=== PATIENT | male | born 1970 | race Caucasian/White ===

== ENCOUNTER 2021-08-12 23:41 | Inpatient (IN) | payer OTHER, SELFPAY ==
[2021-08-13 01:53] VITALS: BP 116/86; PULSE 93; RESP 17; TEMP 36.5; O2SAT 96
--- NOTE | 2021-08-13 02:09 | PC.ADMIT ---
Patient is a 51 year old Angolan speaking male. He was admitted to [facility] by ambulance from [facility] Emergency Department on 08/13/21 at [id number] . He brought himself to the ER after reporting thoughts of SI with a plan to OD on his Clonidine, he reported drinking 2 liters of vodka before arriving at [facility] ER . He said he had been sober for 8 months but relapsed several days ago. He said he battles with depression and anxiety with increase SI indentions. He is currently homeless and has been living in his car, he is having feelings of hopelessness and feelings of fear of not being able to stop drinking feel like I cant stop the drinking mood is pleasant and cooperative denies AH ,SI and expresses regret of relapse. He is currently seeking help and wants to attend groups. He states he has a history of trauma, and said although he has never been diagnosis with PTSD he is sure he has the symptoms. He has a persistent cough with positive mucus and sore throat, Covid test was negative no record of chest xray.
[2021-08-13 06:00] VITALS: BP 121/84; PULSE 89; RESP 16; TEMP 36.4; O2SAT 97
[2021-08-13] MEDS: Nicotine Polacrilex 2 MG GUM 4 MG BUCCAL ×2 (06:24→11:53)
[2021-08-13] MEDS: risperiDONE 0.5 MG TABLET PO ×5 (06:24→19:35)
[2021-08-13] MEDS: LORazepam 1 MG TABLET PO ×3 (06:24→14:36)
[2021-08-13 14:25] VITALS: BP 131/95; O2SAT 116
[2021-08-13] MEDS: Venlafaxine HCl ER 75 MG CAP.ER.24H PO (14:26)
[2021-08-13] MEDS: cloNIDine HCL 0.1 MG TABLET PO ×2 (14:26→19:33)
--- NOTE | 2021-08-13 15:30 | P.HPPS_ITS ---
HPI Date of Service: 08/13/21 Chief Complaint: Anxiety d/o, depressive d/o, alcohol use d/o Sources of Information: patient interviewed, chart reviewed and crisis/core team assessment reviewed HPI Subjective Notes: [place] Warning and Conditional Voluntary Healthcare Proxy: No Guardianship: No Medical Problems Affecting Mental Status: No Narrative: 51 yo male, transfer from [facility], reporting SI in the context of alcohol relapse with a plan to overdose on clonidine. 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 BAL 261 after drinking 2 liters of vodka. Reports he is currently homeless, living in his car. He had been at [facility], left after 7 months when his employer told him he would be at risk of losing his job if he did not work more shifts Past Psychiatric History: IP: [facility] in [place], [place], [place], [place] Medications: Risperdal, Clonidine, Venlafaxine Medical Evaluation Reviewed: Yes [facility] Medical History (Updated 08/13/21 @ 19:44 by Teetee Wang, [employer]) Alcohol use disorder, severe, dependence Recurrent major depression-severe Narrative: HTN HLD HGB 17.2, BLS 108,covid-negative Family History: mother-depression father-anxiety paternal grandfather/4 paternal uncles-alcoholism Social History: Born and raised in [place], mother was a nurse at [facility]. One sister. Mom in 2006 Father, sister and stepmother are a support [employer] [phone] Substance History: alcohol, tobacco Trauma History: denies Diagnostics Vital Signs (24Hr): Vital Signs - 24 hr 08/13/21 01:53 08/13/21 06:00 08/13/21 14:25 Temperature 97.7 F 97.6 F Pulse Rate 93 89 Respiratory Rate 17 16 Blood Pressure 116/86 121/84 131/95 H Pulse Oximetry 96 97 116 H Oxygen Delivery Method Room Air Meds/Allergies Meds Home Medications Medication Instructions Recorded Confirmed Type clonidine HCl 0.1 mg tablet 1 tab PO TID 08/13/21 08/13/21 History risperidone 0.5 mg tablet 1 tab PO DAILY 08/13/21 08/13/21 History venlafaxine 75 mg capsule,extended 1 cap PO DAILY 08/13/21 08/13/21 History release 24 hr Allergies Allergies Allergy/AdvReac Type Severity Reaction Status Date / Time No Known Allergies Allergy Unverified 10/24/19 17:27 Mental Status Exam Mental Status Exam Patient Appearance: Appropriate Patient Orientation: Person, Place, Time and Situation Level of Consciousness: Alert Patient Behavior: Appropriate, Talkative, Cooperative, Isolative and Good Eye Contact Mood Description: Depressed Affect Description: Flat Patient Cognition Impaired: No Ability to Follow Directions: Good Speech Pattern: Spontaneous Speech and Soft-Spoken Memory Description: Intact Hallucinations: None Delusions: Not Present Thought Process: Rumination Thought Content: positive for Suicidal Ideation Depressive Symptoms: Increased Anxiety, Hopelessness, Feelings of Guilt, Thoughts of /Suicide and Low Self Esteem Judgement: Fair Assessment & Plan Assessment & Plan (1) Recurrent major depression-severe: Status: Acute Code(s): F33.2 - Major depressive disorder, recurrent severe without psychotic features (2) Alcohol use disorder, severe, dependence: Status: Acute Code(s): F10.20 - Alcohol dependence, uncomplicated Plan 51 yo male, hx of major depression, alcohol use disorder, recently sober 8 months with relapse and resulting SI. Plan: 1. Continue Venlafaxine, Risperdal, Clonidine 2. MVI i tab daily 3. Thiamine 100 mg daily 4. Lipid panel, A1C, TSH, FT4, B12 5. Encourage return to Campral or Naltrexone/Vivitrol Patient educated on: medication risk/benefits and therapeutic strategies Informed Consent: understands and further education needed Reason for continued inpatient stay Substantial Risk for: harm to self, rapid decompensation and med/psych decompensation
[2021-08-13 18:00] VITALS: BP 118/79; PULSE 85; RESP 16; TEMP 36.6; O2SAT 98
[2021-08-13] MEDS: LORazepam 1 MG TABLET 2 MG PO (19:34)
[2021-08-14 06:45] VITALS: BP 122/76; PULSE 113; RESP 18; TEMP 36.4; O2SAT 96
[2021-08-14] MEDS: LORazepam 1 MG TABLET 2 MG PO (07:10)
[2021-08-14] MEDS: hydrOXYzine HCL 25 MG TABLET PO (07:10)
[2021-08-14] MEDS: cloNIDine HCL 0.1 MG TABLET PO ×3 (08:46→19:42)
[2021-08-14] MEDS: risperiDONE 0.5 MG TABLET PO ×3 (08:46→19:43)
[2021-08-14] MEDS: Thiamine HCL 100 MG TABLET PO (08:46)
[2021-08-14] MEDS: Multivitamin TABLET 1 TAB PO (08:46)
[2021-08-14] MEDS: Venlafaxine HCl ER 75 MG CAP.ER.24H PO (08:46)
[2021-08-14 09:10] LABS: Estimated Average Glucose 103 mg/dL; Hemoglobin A1c % 5.2 %
[2021-08-14 09:17] LABS: Alanine Aminotransferase 23 U/L (0-40); Albumin Level 4.1 g/dL (3.5-5.0); Alkaline Phosphatase 65 U/L (39-117); Aspartate Amino Transferase 33 U/L (5-37); Bilirubin Direct 0.3 mg/dL (0.0-0.5); Bilirubin Total 0.8 mg/dL (0.0-1.0); Cholesterol 229 mg/dL; HDL Cholesterol 47 mg/dL; LDL Cholesterol Calculated 152 mg/dl; Total Protein 6.3 g/dL (6.5-8.0); Triglycerides 151 mg/dL
[2021-08-14 09:37] LABS: TSH reflex Free T4 0.59 uIU/mL (0.32-4.0)
--- NOTE | 2021-08-14 09:42 | P.PNPSI_ITS ---
Subjective Subjective Date of Service: 08/14/21 Reason For Visit: Anxiety d/o, depressive d/o, alcohol use d/o Subjective Notes: 3 Day Interim History: Patient reports that he is doing and feeling better. He says he sleeping and eating well and that his mood is okay. He denies any SI. Denies withdrawal symptoms and said that he only relapsed for 48 hours. 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 Patient asked about discharge and law writer discussed 3 day notice with him which he went and signed Staff reports the patient did have 1 significant memory loss, where he was planning to make a phone call and then completely for got about or that it was even discussed. Mental Status Exam Mental Status Exam Narrative: Pt is alert and oriented; behavior is cooperative, friendly and calm; patient is not in distress; dressed in hospital attire with adequate hygiene; mood is described as ok and affect congruent; eye contact appropriate; Speech is normal rate, volume and prosody and not pressured; no psychomotor agitation/retardation present; thought process is goal directed; Thought content is on tx, discharge; otherwise pertinent to relevant topics and without any delusional content, paranoid ideations or grandiosity; denies any SI/HI. There is no evidence of perceptual disturbance. Cognition: Patient did have 1 significant memory lapse today Patients insight and judgment appear intact. Diagnostics Vital Signs (24Hr): Vital Signs - 24 hr 08/13/21 14:25 08/13/21 18:00 08/14/21 06:45 Temperature 98 F 97.5 F Pulse Rate 85 113 H Respiratory Rate 16 18 Blood Pressure 131/95 H 118/79 122/76 Pulse Oximetry 116 H 98 96 Oxygen Delivery Method Room Air Room Air Labs Labs: Laboratory Results - last 48 hr 08/14/21 08/14/21 08/14/21 08:31 08:31 08:31 Estimat Average Glucose 103 Hemoglobin A1c % 5.2 Total Bilirubin 0.8 Direct Bilirubin 0.3 AST 33 ALT 23 Alkaline Phosphatase 65 Total Protein 6.3 L Albumin 4.1 Triglycerides 151 Cholesterol 229 LDL Cholesterol, Calc 152 HDL Cholesterol 47 TSH 0.59 Cancelled Medications Medications Current Medications Acetaminophen (Acetaminophen 325 Mg Tablet) 650 mg PO Q6H PRN PRN Reason: Headache/Pain Mild Scale (1-3) Al Hydroxide/Mg Hydroxide (Magnesium Hydrox/Alum Hydrox 30 Ml Oral.Susp) 30 ml PO Q6H PRN PRN Reason: Heartburn/Nausea Clonidine HCl (Clonidine Hcl 0.1 Mg Tablet) 0.1 mg PO TID [facility]; Protocol Last Admin: 08/14/21 08:46 Dose: 0.1 mg Hydroxyzine HCl (Hydroxyzine Hcl 25 Mg Tablet) 25 mg PO Q6H PRN PRN Reason: Anxiety Last Admin: 08/14/21 07:10 Dose: 25 mg Lorazepam (Lorazepam 1 Mg Tablet) 2 mg PO Q2H PRN PRN Reason: CIWA =/>13 Last Admin: 08/14/21 07:10 Dose: 2 mg Lorazepam (Lorazepam 1 Mg Tablet) 1 mg PO Q2H PRN PRN Reason: CIWA 8-12 Last Admin: 08/13/21 14:36 Dose: 1 mg Magnesium Hydroxide (Milk Of Magnesia 30 Ml Oral.Susp) 30 ml PO DAILY PRN PRN Reason: Constipation Multivitamins/Vitamin C (Multivitamin Tablet) 1 tab PO DAILY [facility] Last Admin: 08/14/21 08:46 Dose: 1 tab Nicotine Polacrilex (Nicotine Polacrilex 2 Mg Gum) 4 mg BUCCAL Q2H PRN PRN Reason: Nicotine Cravings Last Admin: 08/13/21 11:53 Dose: 4 mg Risperidone (Risperidone 0.5 Mg Tablet) 0.5 mg PO Q4H PRN PRN Reason: anxiety/agitation Last Admin: 08/13/21 19:34 Dose: 0.5 mg Risperidone (Risperidone 0.5 Mg Tablet) 0.5 mg PO TID [facility] Last Admin: 08/14/21 08:46 Dose: 0.5 mg Thiamine HCl (Thiamine Hcl 100 Mg Tablet) 100 mg PO DAILY [facility] Last Admin: 08/14/21 08:46 Dose: 100 mg Trazodone HCl (Trazodone Hcl 50 Mg Tablet) 50 mg PO BEDTIME PRN PRN Reason: Insomnia Venlafaxine HCl (Venlafaxine Hcl Er 75 Mg Cap.Er.24h) 75 mg PO DAILY [facility] Last Admin: 08/14/21 08:46 Dose: 75 mg Allergies Allergies Allergy/AdvReac Type Severity Reaction Status Date / Time No Known Allergies Allergy Unverified 10/24/19 17:27 Assessment & Plan Assessment & Plan (1) Recurrent major depression-severe: Status: Acute Code(s): F33.2 - Major depressive disorder, recurrent severe without psychotic features (2) Alcohol use disorder, severe, dependence: Status: Acute Code(s): F10.20 - Alcohol dependence, uncomplicated Plan 51 yo male, hx of major depression, alcohol use disorder, recently sober 8 months with relapse for 48 hours and resulting SI. Plan: 1. Continue Venlafaxine, Risperdal, Clonidine 2. MVI i tab daily 3. Thiamine 100 mg daily 4. Lipid panel, A1C, TSH, FT4, B12 5. Encourage return to Campral or Naltrexone/Vivitrol 08/14 no changes to current regimen Patient placed 3 day notice Patient did have 1 significant memory lapse today I spent minutes with the patient and/or on the patient floor today, greater than?50% of which was spent counseling/coordinating care. Patient educated on: substance abuse Informed Consent: understands Reason for contiued inpatient stay Substantial Risk for: rapid decompensation
--- NOTE | 2021-08-14 14:40 | PC.NURSE ---
3 day up on MondayAugust 18 , SW, UR aware
[2021-08-14] MEDS: Nicotine Polacrilex 2 MG GUM 4 MG BUCCAL (15:39)
[2021-08-14 19:20] VITALS: BP 119/79; PULSE 95; TEMP 36.1
[2021-08-14] MEDS: Acetaminophen 325 MG TABLET 650 MG PO (19:45)
[2021-08-14] MEDS: traZODone HCL 50 MG TABLET PO (19:46)
[2021-08-15] MEDS: cloNIDine HCL 0.1 MG TABLET PO ×3 (08:27→19:53)
[2021-08-15] MEDS: risperiDONE 0.5 MG TABLET PO ×3 (08:31→19:53)
[2021-08-15] MEDS: Multivitamin TABLET 1 TAB PO (08:31)
[2021-08-15] MEDS: Venlafaxine HCl ER 75 MG CAP.ER.24H PO (08:31)
[2021-08-15] MEDS: Thiamine HCL 100 MG TABLET PO (08:31)
[2021-08-15 08:34] VITALS: BP 126/84; PULSE 98; TEMP 36.3; O2SAT 96
[2021-08-15] MEDS: Nicotine Polacrilex 2 MG GUM 4 MG BUCCAL (11:26)
[2021-08-15 14:48] VITALS: BP 116/86; PULSE 103
[2021-08-15] MEDS: hydrOXYzine HCL 25 MG TABLET PO (14:48)
--- NOTE | 2021-08-15 16:35 | HO.PSYCHPN ---
Subjective Subjective Date of Service: 08/15/21 Reason For Visit: Anxiety d/o, depressive d/o, alcohol use d/o Interim History: Patient reports that he is doing well, mood is good no SI. He said he had a little SI just prior to admission but that was only when he was intoxicated and was just thoughts, no plans or intentions. 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 He very much wants to go back there as soon as possible. No withdrawal symptoms. Discussed Vivitrol which he says he has been on before and was only very minimally helpful and does not want to restart. Patient said that being open about his sobriety in cravings is the best way for him to stay sober; he very much regrets relapse and wishes he was more open the day he went and drank, however he is also grateful that it was a very short, 2 day relapse. Memory and cognition intact today Mental Status Exam Mental Status Exam Narrative: Pt is alert and oriented; behavior is cooperative, friendly and calm; patient is not in distress; dressed in hospital attire with adequate hygiene; mood is described as good and affect congruent; eye contact appropriate; Speech is normal rate, volume and prosody and not pressured; no psychomotor agitation/retardation present; thought process is goal directed; Thought content is on tx, discharge; otherwise pertinent to relevant topics and without any delusional content, paranoid ideations or grandiosity; denies any SI/HI. There is no evidence of perceptual disturbance. Cognition: intact; no issues today; Patients insight and judgment appear intact. Diagnostics Vital Signs (24Hr): Vital Signs - 24 hr 08/14/21 19:20 08/15/21 08:34 08/15/21 14:48 Temperature 97.0 F 97.4 F Pulse Rate 95 98 103 H Blood Pressure 119/79 126/84 116/86 Pulse Oximetry 96 Oxygen Delivery Method Room Air Labs Labs: Laboratory Results - last 48 hr 08/14/21 08/14/21 08/14/21 08:31 08:31 08:31 Estimat Average Glucose 103 Hemoglobin A1c % 5.2 Total Bilirubin 0.8 Direct Bilirubin 0.3 AST 33 ALT 23 Alkaline Phosphatase 65 Total Protein 6.3 L Albumin 4.1 Triglycerides 151 Cholesterol 229 LDL Cholesterol, Calc 152 HDL Cholesterol 47 TSH 0.59 Cancelled Medications Medications Current Medications Acetaminophen (Acetaminophen 325 Mg Tablet) 650 mg PO Q6H PRN PRN Reason: Headache/Pain Mild Scale (1-3) Last Admin: 08/14/21 19:45 Dose: 650 mg Al Hydroxide/Mg Hydroxide (Magnesium Hydrox/Alum Hydrox 30 Ml Oral.Susp) 30 ml PO Q6H PRN PRN Reason: Heartburn/Nausea Clonidine HCl (Clonidine Hcl 0.1 Mg Tablet) 0.1 mg PO TID [facility]; Protocol Last Admin: 08/15/21 14:40 Dose: 0.1 mg Hydroxyzine HCl (Hydroxyzine Hcl 25 Mg Tablet) 25 mg PO Q6H PRN PRN Reason: Anxiety Last Admin: 08/15/21 14:48 Dose: 25 mg Lorazepam (Lorazepam 1 Mg Tablet) 2 mg PO Q2H PRN PRN Reason: CIWA =/>13 Last Admin: 08/14/21 07:10 Dose: 2 mg Lorazepam (Lorazepam 1 Mg Tablet) 1 mg PO Q2H PRN PRN Reason: CIWA 8-12 Last Admin: 08/13/21 14:36 Dose: 1 mg Magnesium Hydroxide (Milk Of Magnesia 30 Ml Oral.Susp) 30 ml PO DAILY PRN PRN Reason: Constipation Multivitamins/Vitamin C (Multivitamin Tablet) 1 tab PO DAILY [facility] Last Admin: 08/15/21 08:31 Dose: 1 tab Nicotine Polacrilex (Nicotine Polacrilex 2 Mg Gum) 4 mg BUCCAL Q2H PRN PRN Reason: Nicotine Cravings Last Admin: 08/15/21 11:26 Dose: 4 mg Risperidone (Risperidone 0.5 Mg Tablet) 0.5 mg PO Q4H PRN PRN Reason: anxiety/agitation Last Admin: 08/13/21 19:34 Dose: 0.5 mg Risperidone (Risperidone 0.5 Mg Tablet) 0.5 mg PO TID [facility] Last Admin: 08/15/21 14:40 Dose: 0.5 mg Thiamine HCl (Thiamine Hcl 100 Mg Tablet) 100 mg PO DAILY [facility] Last Admin: 08/15/21 08:31 Dose: 100 mg Trazodone HCl (Trazodone Hcl 50 Mg Tablet) 50 mg PO BEDTIME PRN PRN Reason: Insomnia Last Admin: 08/14/21 19:46 Dose: 50 mg Venlafaxine HCl (Venlafaxine Hcl Er 75 Mg Cap.Er.24h) 75 mg PO DAILY [facility] Last Admin: 08/15/21 08:31 Dose: 75 mg Allergies Allergies Allergy/AdvReac Type Severity Reaction Status Date / Time No Known Allergies Allergy Unverified 10/24/19 17:27 Assessment & Plan Assessment & Plan (1) Recurrent major depression-severe: Status: Acute Code(s): F33.2 - Major depressive disorder, recurrent severe without psychotic features (2) Alcohol use disorder, severe, dependence: Status: Acute Code(s): F10.20 - Alcohol dependence, uncomplicated Plan 51 yo male, hx of major depression, alcohol use disorder, recently sober 8 months with relapse for 48 hours and resulting SI. Plan: 1. Continue Venlafaxine, Risperdal, Clonidine 2. MVI i tab daily 3. Thiamine 100 mg daily 4. Lipid panel, A1C, TSH, FT4, B12 5. Encourage return to Campral or Naltrexone/Vivitrol 08/14 no changes to current regimen Patient placed 3 day notice Patient did have 1 significant memory lapse today 08/15 continue current medication regimen; cognition appears intact today. Three day notice patient hoping for discharge early next week Does not want naltrexone/Vivitrol saying it was very minimally helpful I spent minutes with the patient and/or on the patient floor today, greater than?50% of which was spent counseling/coordinating care. Patient educated on: diagnosis, medication risk/benefits, substance abuse and therapeutic strategies Informed Consent: understands Reason for contiued inpatient stay Substantial Risk for: stable for discharge
[2021-08-15] MEDS: Nicotine 21 MG PATCH.TD24 TRANSDERMA (17:45)
[2021-08-15 20:00] VITALS: BP 133/95; PULSE 100
[2021-08-15] MEDS: traZODone HCL 50 MG TABLET PO (20:02)
[2021-08-16] MEDS: hydrOXYzine HCL 25 MG TABLET PO ×2 (05:33→18:17)
[2021-08-16] MEDS: Venlafaxine HCl ER 75 MG CAP.ER.24H PO (08:32)
[2021-08-16] MEDS: risperiDONE 0.5 MG TABLET PO ×3 (08:32→20:41)
[2021-08-16] MEDS: Nicotine 21 MG PATCH.TD24 TRANSDERMA (08:32)
[2021-08-16] MEDS: Multivitamin TABLET 1 TAB PO (08:32)
[2021-08-16] MEDS: Thiamine HCL 100 MG TABLET PO (08:32)
[2021-08-16] MEDS: cloNIDine HCL 0.1 MG TABLET PO ×3 (08:32→20:40)
[2021-08-16 09:00] VITALS: BP 116/79; PULSE 77; RESP 16; O2SAT 98
[2021-08-16 10:38] LABS: Folate 5.8 ng/mL (> or = 4.0); Vitamin B12 394 pg/mL (200-900)
--- NOTE | 2021-08-16 15:55 | HO.PSYCHPN ---
Subjective Subjective Date of Service: 08/16/21 Reason For Visit: Anxiety d/o, depressive d/o, alcohol use d/o Subjective Notes: Conditional Voluntary Healthcare Proxy: No Guardianship: No Medical Problems Affecting Mental Status: No Interim History: Tolerating regime. Has filed a three day notice to 08/18. Declines Naltrexone/Vivitrol assistance. Discussed increasing Venlafaxine which he is interested in doing. Denies any history of marilou. Education provided on side effects and if marilou is emerging as a side effect. Planning to return to [facility]-worried about facing people there- I need to tell them I failed. . Medication Compliance: Yes Side effects from medications: No Attending Groups: Intermittent Review of Systems Acute medical concerns: No Medical Review of Systems: unchanged Review of Systems Psychiatric: Reports anxiety Mental Status Exam Mental Status Exam Patient Appearance: Appropriate Patient Orientation: Person, Place, Time and Situation Level of Consciousness: Alert Patient Behavior: Appropriate, Talkative, Cooperative and Good Eye Contact Mood Description: Apprehensive Affect Description: Apprehensive Patient Cognition Impaired: No Ability to Follow Directions: Good Speech Pattern: Spontaneous Speech Memory Description: Intact Hallucinations: None Delusions: Not Present Thought Content: positive for Intact and positive for Goal Oriented Depressive Symptoms: Increased Anxiety Abnormal Motor Activity Signs and Symptoms: Restlessness Judgement: Good Diagnostics Vital Signs (24Hr): Vital Signs - 24 hr 08/15/21 20:00 08/16/21 09:00 Pulse Rate 100 77 Respiratory Rate 16 Blood Pressure 133/95 H 116/79 Pulse Oximetry 98 Oxygen Delivery Method Room Air Labs Labs: Laboratory Results - last 48 hr 08/14/21 08:31 Vitamin B12 394 Folate 5.8 Medications Medications Current Medications Acetaminophen (Acetaminophen 325 Mg Tablet) 650 mg PO Q6H PRN PRN Reason: Headache/Pain Mild Scale (1-3) Last Admin: 08/14/21 19:45 Dose: 650 mg Al Hydroxide/Mg Hydroxide (Magnesium Hydrox/Alum Hydrox 30 Ml Oral.Susp) 30 ml PO Q6H PRN PRN Reason: Heartburn/Nausea Clonidine HCl (Clonidine Hcl 0.1 Mg Tablet) 0.1 mg PO TID [facility]; Protocol Last Admin: 08/16/21 15:19 Dose: 0.1 mg Hydroxyzine HCl (Hydroxyzine Hcl 25 Mg Tablet) 25 mg PO Q6H PRN PRN Reason: Anxiety Last Admin: 08/16/21 05:33 Dose: 25 mg Lorazepam (Lorazepam 1 Mg Tablet) 2 mg PO Q2H PRN PRN Reason: CIWA =/>13 Last Admin: 08/14/21 07:10 Dose: 2 mg Lorazepam (Lorazepam 1 Mg Tablet) 1 mg PO Q2H PRN PRN Reason: CIWA 8-12 Last Admin: 08/13/21 14:36 Dose: 1 mg Magnesium Hydroxide (Milk Of Magnesia 30 Ml Oral.Susp) 30 ml PO DAILY PRN PRN Reason: Constipation Multivitamins/Vitamin C (Multivitamin Tablet) 1 tab PO DAILY [facility] Last Admin: 08/16/21 08:32 Dose: 1 tab Nicotine (Nicotine 21 Mg Patch.Td24) 21 mg TRANSDERMA DAILY [facility] Last Admin: 08/16/21 08:32 Dose: 21 mg Nicotine Polacrilex (Nicotine Polacrilex 2 Mg Gum) 4 mg BUCCAL Q2H PRN PRN Reason: Nicotine Cravings Last Admin: 08/15/21 11:26 Dose: 4 mg Risperidone (Risperidone 0.5 Mg Tablet) 0.5 mg PO Q4H PRN PRN Reason: anxiety/agitation Last Admin: 08/13/21 19:34 Dose: 0.5 mg Risperidone (Risperidone 0.5 Mg Tablet) 0.5 mg PO TID [facility] Last Admin: 08/16/21 15:19 Dose: 0.5 mg Thiamine HCl (Thiamine Hcl 100 Mg Tablet) 100 mg PO DAILY [facility] Last Admin: 08/16/21 08:32 Dose: 100 mg Trazodone HCl (Trazodone Hcl 50 Mg Tablet) 50 mg PO BEDTIME PRN PRN Reason: Insomnia Last Admin: 08/15/21 20:02 Dose: 50 mg Venlafaxine HCl (Venlafaxine Hcl Er 150 Mg Cap.Er.24h) 150 mg PO DAILY [facility] Allergies Allergies Allergy/AdvReac Type Severity Reaction Status Date / Time No Known Allergies Allergy Unverified 10/24/19 17:27 Assessment & Plan Assessment & Plan (1) Recurrent major depression-severe: Status: Acute Code(s): F33.2 - Major depressive disorder, recurrent severe without psychotic features (2) Alcohol use disorder, severe, dependence: Status: Acute Code(s): F10.20 - Alcohol dependence, uncomplicated Plan 51 yo male, hx of major depression, alcohol use disorder, recently sober 8 months with relapse for 48 hours and resulting SI. Plan: 1. Continue Venlafaxine, Risperdal, Clonidine 2. MVI i tab daily 3. Thiamine 100 mg daily 4. Lipid panel, A1C, TSH, FT4, B12 5. Encourage return to Campral or Naltrexone/Vivitrol 08/14 no changes to current regimen Patient placed 3 day notice Patient did have 1 significant memory lapse today 08/15 continue current medication regimen; cognition appears intact today. Three day notice patient hoping for discharge early next week Does not want naltrexone/Vivitrol saying it was very minimally helpful 08/16/21 Increase Venlafaxine XR to 150 mg daily Discharge tentative for 08/18/21. I spent minutes with the patient and/or on the patient floor today, greater than?50% of which was spent counseling/coordinating care. Patient educated on: medication risk/benefits and therapeutic strategies Informed Consent: understands Reason for contiued inpatient stay Substantial Risk for: rapid decompensation
[2021-08-16 18:00] VITALS: BP 109/81; PULSE 93; RESP 16; TEMP 37.2; O2SAT 97
[2021-08-16] MEDS: Acetaminophen 325 MG TABLET 650 MG PO (18:17)
[2021-08-16 20:40] VITALS: BP 113/65; PULSE 91
[2021-08-16] MEDS: traZODone HCL 50 MG TABLET PO (20:41)
[2021-08-17 06:00] VITALS: BP 118/81; PULSE 75; RESP 16; O2SAT 97
[2021-08-17] MEDS: Venlafaxine HCl ER 150 MG CAP.ER.24H PO (08:34)
[2021-08-17] MEDS: Multivitamin TABLET 1 TAB PO (08:34)
[2021-08-17] MEDS: Thiamine HCL 100 MG TABLET PO (08:34)
[2021-08-17] MEDS: Nicotine 21 MG PATCH.TD24 TRANSDERMA (08:35)
[2021-08-17] MEDS: risperiDONE 0.5 MG TABLET PO ×3 (08:35→20:03)
[2021-08-17] MEDS: cloNIDine HCL 0.1 MG TABLET PO ×3 (08:35→20:03)
--- NOTE | 2021-08-17 12:32 | HO.PSYCHPN ---
Subjective Subjective Date of Service: 08/17/21 Reason For Visit: Anxiety d/o, depressive d/o, alcohol use d/o Subjective Notes: Conditional Voluntary Healthcare Proxy: No Guardianship: No Medical Problems Affecting Mental Status: No Interim History: Tolerating Venlafaxine titration, reports feeling improved. Discussed returning to his program and how helpful structure is for him. Thinking about the root cause of his relapse and his cycle of drinking, fainting, awakening to drink. [phone]. Meds will be available for pt upon his arrival after discharge tomorrow. Reports feeling prepared for discharge, however, apprehensive about what to say to his peers upon his return. Medication Compliance: Yes Side effects from medications: No Attending Groups: Yes Review of Systems Acute medical concerns: No Medical Review of Systems: unchanged Review of Systems Psychiatric: Reports no additional psychiatric complaints Mental Status Exam Mental Status Exam Patient Appearance: Appropriate Patient Orientation: Person, Place, Time and Situation Level of Consciousness: Alert Patient Behavior: Appropriate, Talkative, Cooperative and Good Eye Contact Mood Description: Apprehensive Affect Description: Apprehensive Patient Cognition Impaired: No Ability to Follow Directions: Good Speech Pattern: Spontaneous Speech Memory Description: Intact Hallucinations: None Delusions: Not Present Thought Content: positive for Intact and positive for Goal Oriented Depressive Symptoms: Increased Anxiety Abnormal Motor Activity Signs and Symptoms: Restlessness Judgement: Good Diagnostics Vital Signs (24Hr): Vital Signs - 24 hr 08/16/21 18:00 08/16/21 20:40 08/17/21 06:00 Temperature 98.9 F Pulse Rate 93 91 75 Respiratory Rate 16 16 Blood Pressure 109/81 113/65 118/81 Pulse Oximetry 97 97 Oxygen Delivery Method Room Air Room Air Labs Labs: Laboratory Results - last 48 hr 08/14/21 08:31 Vitamin B12 394 Folate 5.8 Medications Medications Current Medications Acetaminophen (Acetaminophen 325 Mg Tablet) 650 mg PO Q6H PRN PRN Reason: Headache/Pain Mild Scale (1-3) Last Admin: 08/16/21 18:17 Dose: 650 mg Al Hydroxide/Mg Hydroxide (Magnesium Hydrox/Alum Hydrox 30 Ml Oral.Susp) 30 ml PO Q6H PRN PRN Reason: Heartburn/Nausea Clonidine HCl (Clonidine Hcl 0.1 Mg Tablet) 0.1 mg PO TID [facility]; Protocol Last Admin: 08/17/21 08:35 Dose: 0.1 mg Hydroxyzine HCl (Hydroxyzine Hcl 25 Mg Tablet) 25 mg PO Q6H PRN PRN Reason: Anxiety Last Admin: 08/16/21 18:17 Dose: 25 mg Lorazepam (Lorazepam 1 Mg Tablet) 2 mg PO Q2H PRN PRN Reason: CIWA =/>13 Last Admin: 08/14/21 07:10 Dose: 2 mg Lorazepam (Lorazepam 1 Mg Tablet) 1 mg PO Q2H PRN PRN Reason: CIWA 8-12 Last Admin: 08/13/21 14:36 Dose: 1 mg Magnesium Hydroxide (Milk Of Magnesia 30 Ml Oral.Susp) 30 ml PO DAILY PRN PRN Reason: Constipation Multivitamins/Vitamin C (Multivitamin Tablet) 1 tab PO DAILY [facility] Last Admin: 08/17/21 08:34 Dose: 1 tab Nicotine (Nicotine 21 Mg Patch.Td24) 21 mg TRANSDERMA DAILY [facility] Last Admin: 08/17/21 08:35 Dose: 21 mg Nicotine Polacrilex (Nicotine Polacrilex 2 Mg Gum) 4 mg BUCCAL Q2H PRN PRN Reason: Nicotine Cravings Last Admin: 08/15/21 11:26 Dose: 4 mg Risperidone (Risperidone 0.5 Mg Tablet) 0.5 mg PO Q4H PRN PRN Reason: anxiety/agitation Last Admin: 08/13/21 19:34 Dose: 0.5 mg Risperidone (Risperidone 0.5 Mg Tablet) 0.5 mg PO TID [facility] Last Admin: 08/17/21 08:35 Dose: 0.5 mg Thiamine HCl (Thiamine Hcl 100 Mg Tablet) 100 mg PO DAILY [facility] Last Admin: 08/17/21 08:34 Dose: 100 mg Trazodone HCl (Trazodone Hcl 50 Mg Tablet) 50 mg PO BEDTIME PRN PRN Reason: Insomnia Last Admin: 08/16/21 20:41 Dose: 50 mg Venlafaxine HCl (Venlafaxine Hcl Er 150 Mg Cap.Er.24h) 150 mg PO DAILY [facility] Last Admin: 08/17/21 08:34 Dose: 150 mg Allergies Allergies Allergy/AdvReac Type Severity Reaction Status Date / Time No Known Allergies Allergy Unverified 10/24/19 17:27 Assessment & Plan Assessment & Plan (1) Recurrent major depression-severe: Status: Acute Code(s): F33.2 - Major depressive disorder, recurrent severe without psychotic features (2) Alcohol use disorder, severe, dependence: Status: Acute Code(s): F10.20 - Alcohol dependence, uncomplicated Plan 51 yo male, hx of major depression, alcohol use disorder, recently sober 8 months with relapse for 48 hours and resulting SI. Plan: 1. Continue Venlafaxine, Risperdal, Clonidine 2. MVI i tab daily 3. Thiamine 100 mg daily 4. Lipid panel, A1C, TSH, FT4, B12 5. Encourage return to Campral or Naltrexone/Vivitrol 08/14 no changes to current regimen Patient placed 3 day notice Patient did have 1 significant memory lapse today 08/15 continue current medication regimen; cognition appears intact today. Three day notice patient hoping for discharge early next week Does not want naltrexone/Vivitrol saying it was very minimally helpful 08/17/21 Continue current regime Discharge 08/18/21. I spent minutes with the patient and/or on the patient floor today, greater than?50% of which was spent counseling/coordinating care. Patient educated on: therapeutic strategies Informed Consent: understands Reason for contiued inpatient stay Substantial Risk for: harm to self, inability to function and rapid decompensation
[2021-08-17] MEDS: hydrOXYzine HCL 25 MG TABLET PO (13:39)
[2021-08-17 18:00] VITALS: BP 128/97; PULSE 88; RESP 18; TEMP 36.3; O2SAT 97
[2021-08-17] MEDS: traZODone HCL 50 MG TABLET PO (20:03)
[2021-08-18] MEDS: Venlafaxine HCl ER 150 MG CAP.ER.24H PO (08:35)
[2021-08-18] MEDS: risperiDONE 0.5 MG TABLET PO (08:35)
[2021-08-18] MEDS: Thiamine HCL 100 MG TABLET PO (08:35)
[2021-08-18] MEDS: cloNIDine HCL 0.1 MG TABLET PO ×2 (08:35→11:09)
[2021-08-18] MEDS: Multivitamin TABLET 1 TAB PO (08:35)
[2021-08-18 08:37] VITALS: BP 121/77; PULSE 66; RESP 18; TEMP 36.5; O2SAT 98
[2021-08-18] MEDS: Nicotine 21 MG PATCH.TD24 TRANSDERMA (08:38)
[2021-08-18] MEDS: hydrOXYzine HCL 25 MG TABLET PO (09:24)
--- NOTE | 2021-08-18 10:36 | P.DS_ITS ---
DS: Providers Provider Date of Service: 08/18/21 Date of admission: 08/12/21 23:41 Date of discharge: 08/18/21 Primary care physician: Unknown Physician Admitting clinician: Teetee Wang Attending physician on admission: Mau Kessler Consults: 08/13/21 04:41 Consult to Hospitalist Routine Consulting Provider: Hospitalist Reason For Exam: transfer from [facility] Attending physician on discharge: Mau Kessler Discharging clinician: Teetee Wang DS: Diagnosis Discharge Diagnosis (1) Recurrent major depression-severe: Status: Acute (2) Alcohol use disorder, severe, dependence: Status: Acute DS: Medications Discharge Medications Home Medications: Previous Rx's Medication Instructions Recorded clonidine HCl 0.1 mg tablet 1 tab PO TID #90 tabs 08/17/21 multivitamin (Daily-Kimmie) 1 tab PO DAILY #30 tabs 08/17/21 nicotine (polacrilex) 2 mg gum 4 mg buccal Q2H PRN Nicotine 08/17/21 Cravings #60 ea nicotine 21 mg/24 hr daily 21 mg transdermal DAILY #30 ea 08/17/21 transdermal patch risperidone 0.5 mg tablet 0.5 mg PO TID #90 tabs 08/17/21 thiamine mononitrate (vit B1) 100 100 mg PO DAILY #30 tabs 08/17/21 mg tablet venlafaxine 150 mg 150 mg PO DAILY #30 caps 08/17/21 capsule,extended release 24 hr Mental Status Exam Mental Status Exam Patient Appearance: Appropriate Patient Orientation: Person, Place, Time and Situation Level of Consciousness: Alert Patient Behavior: Appropriate, Talkative, Cooperative and Good Eye Contact Mood Description: Apprehensive Affect Description: Apprehensive Patient Cognition Impaired: No Ability to Follow Directions: Good Speech Pattern: Spontaneous Speech Memory Description: Intact Hallucinations: None Delusions: Not Present Thought Content: positive for Intact and positive for Goal Oriented Depressive Symptoms: Increased Anxiety Abnormal Motor Activity Signs and Symptoms: Restlessness Judgement: Good Data Data Completed and Pending Completed studies during hospitalization [Text1]: 08/14/21 08/14/21 08/14/21 08:31 08:31 08:31 Estimat Average Glucose 103 Hemoglobin A1c % 5.2 Total Bilirubin 0.8 Direct Bilirubin 0.3 AST 33 ALT 23 Alkaline Phosphatase 65 Total Protein 6.3 L Albumin 4.1 Triglycerides 151 Cholesterol 229 LDL Cholesterol, Calc 152 HDL Cholesterol 47 Vitamin B12 394 Folate 5.8 TSH 0.59 08/14/21 08:31 Estimat Average Glucose Hemoglobin A1c % Total Bilirubin Direct Bilirubin AST ALT Alkaline Phosphatase Total Protein Albumin Triglycerides Cholesterol LDL Cholesterol, Calc HDL Cholesterol Vitamin B12 Folate TSH Cancelled DS: Summary Hospital Course Hospital Course: Admission to adult psychiatry for exacerbation of severe recurrent major depression and a break in sobriety after a recent transition to sober living situation from [facility]. Risperdal and Venlafaxine were increased, Clonidine was added, along with Multivitamin and Thiamine. Fabien will return to [place] and feels well known and comfortable with this plan. Time spent discussing smoking cessation with patient: 3 to 10 minutes Status at Discharge Functional status at discharge: independent ambulation Overall status at discharge: patient is back to baseline Time Spent with Patient Time attestation: Total time spent providing and/or coordinating discharge services: Time spent: Greater than 30 minutes Discharge Plan Discharge Patient Disposition: Xfer Other Discharge Diagnosis: Recurrent Major Depression, Severe Alcohol Use Disorder, Severe, Dependence Referrals: Jonatan Garza at [facility] [Other] - 08/18/21 2:30 pm (Dual Diagnosis (substance use treatment/mental health treatment) program ) [facility] [Other] (walk in if needed) Discharge Medications: New multivitamin [Daily-Kimmie] Tablet 1 tab PO DAILY Qty: 30 0RF nicotine (polacrilex) 2 mg Gum 4 mg buccal Q2H PRN (Reason: Nicotine Cravings) Qty: 60 0RF venlafaxine 150 mg Capsule,Extended Release 24hr 150 mg PO DAILY Qty: 30 0RF nicotine 21 mg/24 hr Patch 24 Hour 21 mg transdermal DAILY Qty: 30 0RF risperidone 0.5 mg Tablet 0.5 mg PO TID Qty: 90 0RF thiamine mononitrate (vit B1) 100 mg Tablet 100 mg PO DAILY Qty: 30 0RF Continued clonidine HCl 0.1 mg tablet 1 tab PO TID Qty: 90 0RF Discontinued venlafaxine 75 mg capsule,extended release 24hr 1 cap PO DAILY risperidone 0.5 mg tablet 1 tab PO DAILY Discharge Orders: Discharge Order (Routine); Ordered 08/18/21 Ordered By: Teetee Wang Diet: Advance to usual diet Activity on Discharge: As tolerated Stand Alone Forms: Patient Portal Discharge page, Community Support Care Plan Goals: Stabilization of Mood Work on Sobriety Health Concerns: Recurrent Major Depression, Severe Alcohol Use Disorder, Severe, Dependence Plan of Treatment: Attend follow up appointments Take medications as directed Attend AA Work on maintaining sobriety Stay involved, engaged and active Practice coping skills Call and/or return as needed Assessment: non-suicidal non-psychotic relieved to return to a program who knows him and who he feels understand his needs. Discharge Date/Time: 08/18/21 13:00
[2021-08-18 11:10] VITALS: BP 134/85; PULSE 100
== END 2021-08-18 13:00 | disposition other institution (70) | DRG 751 ==
PROVIDERS: Admitting Provider Psychiatry & Neurology Psychiatry; Visit Provider Clinical Nurse Specialist Psychiatric/Mental Health, Adult
DX: F33.2 Major depressive disorder, recurrent severe without psychotic features (principal); R45.851 Suicidal ideations; F17.210 Nicotine dependence, cigarettes, uncomplicated; F10.20 Alcohol dependence, uncomplicated; Y90.8 Blood alcohol level of 240 mg/100 ml or more; Z59.02 Unsheltered homelessness; Z71.6 Tobacco abuse counseling; Z79.899 Other long term (current) drug therapy
CPT/HCPCS: 36415; 80061; 80076; 82607; 82746; 83036; 84443

== ENCOUNTER 2021-10-19 06:30 | Emergency (ER) | payer MEDICAID, SELFPAY ==
--- NOTE | 2021-10-19 06:34 | ED_ITS ---
HPI - Psych General Chief Complaint: Psychiatric Symptoms Stated Complaint: SECTION 12, +SI Time Seen by Provider: 10/19/21 06:33 Source: patient Mode of arrival: EMS Limitations: no limitations History of Present Illness MD complaint: suicidal ideation and feels depressed Onset (ago): day(s) (2) Duration: getting worse History of same: Yes Relieving factors: none Exacerbating factors: alcohol Context: recent alcohol abuse Associated psychiatric symptoms: depression and suicidal ideation Associated symptoms: denies other symptoms Treatments prior to arrival: placed on mental health hold If self harm: admits thoughts of self harm and has plan Related Data Previous Rx's Medication Instructions Recorded clonidine HCl 0.1 mg tablet 1 tab PO TID #90 tabs 08/17/21 multivitamin (Daily-Kimmie tablet) 1 tab PO DAILY #30 tabs 08/17/21 nicotine (polacrilex) 2 mg gum 4 mg buccal Q2H PRN Nicotine 08/17/21 Cravings #60 ea nicotine 21 mg/24 hr daily 21 mg transdermal DAILY #30 ea 08/17/21 transdermal patch risperidone 0.5 mg tablet 0.5 mg PO TID #90 tabs 08/17/21 thiamine mononitrate (vit B1) 100 100 mg PO DAILY #30 tabs 08/17/21 mg tablet venlafaxine 150 mg 150 mg PO DAILY #30 caps 08/17/21 capsule,extended release 24 hr Allergies Allergy/AdvReac Type Severity Reaction Status Date / Time No Known Allergies Allergy Unverified 10/24/19 17:27 Review of Systems Review of Systems: Constitutional : No Fever, No Chills ENT/Mouth : No Ear Pain, No Nasal Congestion, No sore throat Eyes: No Eye Pain, No Swelling, No Redness Cardiovascular : No Chest Pain, No SOB Respiratory : No Cough, No Sputum, No Dyspnea Gastrointestinal : No Nausea, No Vomiting, No Diarrhea, No Hematochezia, No Me renita Genitourinary : No Dysuria, No Urinary Frequency, No Hematuria Musculoskeletal : No Myalgias Skin : No Skin Lesions, No rash Neuro : No Weakness, No Numbness, No Paresthesias, No Dizziness, No Headache Psych : positive Anxiety, positive Depression, positive SI no HI Heme/Lymph: No Lymphadenopathy Endocrine : No Polyuria, No Polydipsia All other systems reviewed and are negative [facility] Past Medical History Attestation statement: The following information was validated with the patient. Medical History Alcohol use disorder, severe, dependence Recurrent major depression-severe Social History Social History Household Members: None Housing: Homeless Do you presently have visiting nurse or other home services: No Unable to assess alcohol history related to: Unknown Alcohol intake: current Alcohol intake frequency: 3 or more drinks per day Alcohol type: beer Patient Tobacco Use Status: Current everyday Tobacco user Tobacco use type: Cigarette Cigarette Packs Per Day: 1 Cigarettes Per Day: 20.0 Years Smoked: 20 e-Cigarette/Vaping Use: Former Use Advance Directives: No Advance Directives Information Provided: No service: Yes ([employer] [id number]) Sexual orientation: Straight/Heterosexual Physical Exam Vital Signs: Vital Signs: Last Vital Signs Temp 98.1 F 10/19/21 06:37 Pulse 113 H 10/19/21 06:37 Resp 20 10/19/21 06:37 BP 139/87 10/19/21 06:37 Pulse Ox 98 10/19/21 06:37 O2 Del Method 10/19/21 06:37 BMI result Body Mass Index 30.1 Appearance: Alert. Oriented X3. No acute distress. Disheveled Eyes: Pupils equal, round and reactive to light. ENT: Pharynx normal. Neck: Normal inspection. Neck supple. CVS: Normal heart rate and rhythm. Pulses normal. Respiratory: No respiratory distress. Breath sounds normal. Abdomen: Soft and nontender. Skin: Skin warm and dry. Normal skin color. Normal skin turgor. Extremities: No lower extremity edema. No calf ttp Neuro: Oriented X 3. No motor deficit. No sensory deficit. CN2-12 intact Course Course Course Narrative: Physician observation started at 732am Patient placed in physician observation because the patient needed more time for BHN to assess the need for psych admission. At the time observation was started the patient's vitals were stable, patient is alert and oriented , Neuro: nonfocal, CV RRR, Lungs clear MDM - Psych MDM Narrative Medical decision making narrative: 51 yo male with hx of ETOH and depression reports recent relapse now with depression and SI just left facility for same. At this time labs, PRN ativan, BHN consult ordered. Disp per crisis evaluation. Lab Data Result diagrams: 10/19/21 06:55 10/19/21 06:55 Labs: Lab Results 10/19/21 10/19/21 10/19/21 Range/Units 06:55 06:55 06:55 WBC 8.7 (4.8-10.8) X10*3/uL RBC 5.39 (4.60-5.80) X10*6/uL Hgb 16.1 (14.0-18.0) g/dl Hct 47.0 (42.0-52.0) % MCV 87.2 (80.0-98.0) fL MCH 29.9 (27.0-33.0) pg MCHC 34.3 (31.0-36.0) g/dl RDW 13.9 (11.0-16.0) % Plt Count 213 (160-400) X10*3/uL MPV 9.2 L (9.4-12.4) fL Immature Gran % (Auto) 0.5 H (0.0-0.4) % Neut % (Auto) 77.2 H (45-73) % Lymph % (Auto) 17.0 L (20-40) % [place] % (Auto) 5.0 (2-11) % Eos % (Auto) 0.1 (0-4) % Baso % (Auto) 0.2 (0-2) % Lymph # (Auto) 1.5 (1.2-4.9) X10*3/uL [place] # (Auto) 0.4 (0.1-1.2) X10*3/uL Eos # (Auto) 0.0 (0.0-0.4) X10*3/uL Baso # (Auto) 0.0 (0.0-0.2) X10*3/uL Abs Immat Gran (auto) 0.04 H (0.00-0.03) X10*3/uL Absolute Neuts (auto) 6.7 (2.0-8.3) x10*3/uL Absolute Nucleated RBC 0.000 (0.0-0.012) X10*3/uL Nucleated RBC % (auto) 0.0 (0.0-0.2) /100WBC Sodium 143 (135-145) mmol/L Potassium 4.0 (3.3-5.1) mmol/L Chloride 104 (96-108) mmol/L Carbon Dioxide 21 L (22-29) mmol/L Anion Gap 22 H (12-20) BUN 11 (9-16) mg/dL Creatinine 0.94 (0.5-1.4) mg/dL Estim Creat Clear Calc 108.5 Estimated GFR > 60 Random Glucose 107 (60-115) mg/dL Calcium 9.6 (8.4-10.2) mg/dL Total Bilirubin 0.5 (0.0-1.0) mg/dL Direct Bilirubin 0.2 (0.0-0.5) mg/dL AST 31 (5-37) U/L ALT 62 H (0-40) U/L Alkaline Phosphatase 71 (39-117) U/L Total Protein 7.9 D (6.5-8.0) g/dL Albumin 5.0 D (3.5-5.0) g/dL Urine Opiates Screen (Not Detect) Urine Fentanyl Screen (Not Detect) Ur Barbiturates Screen (Not Detect) Ur Phencyclidine Scrn (Not Detect) Ur Amphetamines Screen (Not Detect) U Benzodiazepines Scrn (Not Detect) Urine Cocaine Screen (Not Detect) U Marijuana (THC) Screen (Not Detect) Ethyl Alcohol 192 mg/dL COVID-19 ([facility]) Negative (Negative) COVID-19 Clin Com See Note 10/19/21 Range/Units 06:55 WBC (4.8-10.8) X10*3/uL RBC (4.60-5.80) X10*6/uL Hgb (14.0-18.0) g/dl Hct (42.0-52.0) % MCV (80.0-98.0) fL MCH (27.0-33.0) pg MCHC (31.0-36.0) g/dl RDW (11.0-16.0) % Plt Count (160-400) X10*3/uL MPV (9.4-12.4) fL Immature Gran % (Auto) (0.0-0.4) % Neut % (Auto) (45-73) % Lymph % (Auto) (20-40) % [place] % (Auto) (2-11) % Eos % (Auto) (0-4) % Baso % (Auto) (0-2) % Lymph # (Auto) (1.2-4.9) X10*3/uL [place] # (Auto) (0.1-1.2) X10*3/uL Eos # (Auto) (0.0-0.4) X10*3/uL Baso # (Auto) (0.0-0.2) X10*3/uL Abs Immat Gran (auto) (0.00-0.03) X10*3/uL Absolute Neuts (auto) (2.0-8.3) x10*3/uL Absolute Nucleated RBC (0.0-0.012) X10*3/uL Nucleated RBC % (auto) (0.0-0.2) /100WBC Sodium (135-145) mmol/L Potassium (3.3-5.1) mmol/L Chloride (96-108) mmol/L Carbon Dioxide (22-29) mmol/L Anion Gap (12-20) BUN (9-16) mg/dL Creatinine (0.5-1.4) mg/dL Estim Creat Clear Calc Estimated GFR Random Glucose (60-115) mg/dL Calcium (8.4-10.2) mg/dL Total Bilirubin (0.0-1.0) mg/dL Direct Bilirubin (0.0-0.5) mg/dL AST (5-37) U/L ALT (0-40) U/L Alkaline Phosphatase (39-117) U/L Total Protein (6.5-8.0) g/dL Albumin (3.5-5.0) g/dL Urine Opiates Screen Not Detected (Not Detect) Urine Fentanyl Screen Not Detected (Not Detect) Ur Barbiturates Screen Not Detected (Not Detect) Ur Phencyclidine Scrn Not Detected (Not Detect) Ur Amphetamines Screen Not Detected (Not Detect) U Benzodiazepines Scrn Not Detected (Not Detect) Urine Cocaine Screen Not Detected (Not Detect) U Marijuana (THC) Screen Not Detected (Not Detect) Ethyl Alcohol mg/dL COVID-19 ([facility]) (Negative) COVID-19 Clin Com Discharge Plan Discharge Clinical Impression: Recurrent major depression-severe Qualifiers: Psychotic features: without psychotic features Qualified Code(s): F33.2 - Major depressive disorder, recurrent severe without psychotic features Patient Disposition: Still a Patient Prescriptions: No Action multivitamin [Daily-Kimmie] Tablet 1 tab PO DAILY Qty: 30 0RF nicotine (polacrilex) 2 mg Gum 4 mg buccal Q2H PRN (Reason: Nicotine Cravings) Qty: 60 0RF venlafaxine 150 mg Capsule,Extended Release 24hr 150 mg PO DAILY Qty: 30 0RF nicotine 21 mg/24 hr Patch 24 Hour 21 mg transdermal DAILY Qty: 30 0RF risperidone 0.5 mg Tablet 0.5 mg PO TID Qty: 90 0RF thiamine mononitrate (vit B1) 100 mg Tablet 100 mg PO DAILY Qty: 30 0RF clonidine HCl 0.1 mg tablet 1 tab PO TID Qty: 90 0RF
[2021-10-19 06:37] VITALS: BP 139/87; BP 140/90; PULSE 113; PULSE 125; RESP 20; TEMP 36.7; O2SAT 98; BMI 30.1
[2021-10-19 07:01] LABS: MANUAL DIFF FLAG NO
[2021-10-19 07:03] LABS: Basophils Percent Auto 0.2 % (0-2); Eosinophils Percent Auto 0.1 % (0-4); Hemoglobin 16.1 g/dl (14.0-18.0); Imm Gran Abs Auto 0.04 X10*3/uL (0.00-0.03); Imm Gran Pct Auto 0.5 % (0.0-0.4); Lymphocytes Absolute Auto 1.5 X10*3/uL (1.2-4.9); Mean Corpuscular HGB Conc 34.3 g/dl (31.0-36.0); Mean Corpuscular Hemoglobin 29.9 pg (27.0-33.0); Mean Corpuscular Volume 87.2 fL (80.0-98.0); Mean Platelet Volume 9.2 fL (9.4-12.4); Monocytes Absolute Auto 0.4 X10*3/uL (0.1-1.2); Neutrophils Absolute Auto 6.7 x10*3/uL (2.0-8.3); Neutrophils Percent Auto 77.2 % (45-73); Platelet Count 213 X10*3/uL (160-400); Red Blood Count 5.39 X10*6/uL (4.60-5.80); Red Cell Distribution Width 13.9 % (11.0-16.0); White Blood Count 8.7 X10*3/uL (4.8-10.8)
[2021-10-19 07:19] LABS: Amphetamine Screen Urine Not Detected (Not Detect); Barbiturates, Urine Not Detected (Not Detect); Benzodiazepines Screen Urine Not Detected (Not Detect); COVID-19 Test Negative (Negative); Cannabinoid Screen Urine Not Detected (Not Detect); Cocaine Screen Urine Not Detected (Not Detect); Fentanyl, urine Not Detected (Not Detect); Opiate Screen Urine Not Detected (Not Detect); Phencyclidine Screen Urine Not Detected (Not Detect)
[2021-10-19] MEDS: Nicotine 21 MG PATCH.TD24 TRANSDERMA (07:23)
[2021-10-19 07:26] LABS: Alanine Aminotransferase 62 U/L (0-40); Alkaline Phosphatase 71 U/L (39-117); Anion Gap 22 (12-20); Aspartate Amino Transferase 31 U/L (5-37); Bilirubin Direct 0.2 mg/dL (0.0-0.5); Bilirubin Total 0.5 mg/dL (0.0-1.0); Blood Urea Nitrogen 11 mg/dL (9-16); Calcium 9.6 mg/dL (8.4-10.2); Carbon Dioxide 21 mmol/L (22-29); Chloride 104 mmol/L (96-108); Creatinine Clr Calc Pharmacy 108.5; Estimated Glomerular Filt Rate > 60; Ethanol 192 mg/dL; Glucose Random 107 mg/dL (60-115); Sodium 143 mmol/L (135-145); Total Protein 7.9 g/dL (6.5-8.0)
[2021-10-19 08:58] VITALS: BP 121/84; PULSE 116; RESP 16; TEMP 36.5; O2SAT 96
--- NOTE | 2021-10-19 09:00 | PC.NURSE ---
pt calm and cooperative this am. Pt does not seem to be in any acute distress and would like to make sure his morning medications are recorded. Medication rec has been ordered and is pending.
--- NOTE | 2021-10-19 09:42 | PHA.MEDREC ---
Pharmacy Consult ? Medication Reconciliation Pharmacy has completed the medication reconciliation. Pt able to tell me all medications and dosages.
[2021-10-19] MEDS: cloNIDine HCL 0.1 MG TABLET PO ×2 (10:19→14:55)
[2021-10-19] MEDS: LORazepam 0.5 MG TABLET PO (10:19)
[2021-10-19] MEDS: risperiDONE 1 MG TABLET PO (10:23)
[2021-10-19] MEDS: Multivitamin TABLET 1 TAB PO (10:23)
[2021-10-19] MEDS: Thiamine HCL 100 MG TABLET PO (10:24)
[2021-10-19] MEDS: Venlafaxine HCl ER 37.5 MG CAP.ER.24H PO (11:11)
--- NOTE | 2021-10-19 14:25 | MHC.CARE ---
Brief conversation with patient (who arrived intoxicated) to see if he is interested in detox or still needs to be evaluated by crisis. He stated his relapse was only one day after two months of sobriety, reported being significantly depressed despite recent medication changes. Is referred to crisis, if unable to assess CARE Team will take over.
[2021-10-19 14:43] VITALS: BP 124/71; PULSE 118; RESP 18; TEMP 37.4; O2SAT 95
[2021-10-19] MEDS: LORazepam 1 MG TABLET 2 MG PO (14:55)
== END 2021-10-19 17:26 | disposition other institution (70) ==
PROVIDERS: Emergency Provider Emergency Medicine
DX: F33.2 Major depressive disorder, recurrent severe without psychotic features (principal); R45.851 Suicidal ideations; F41.9 Anxiety disorder, unspecified; F10.20 Alcohol dependence, uncomplicated; Y90.6 Blood alcohol level of 120-199 mg/100 ml; F17.210 Nicotine dependence, cigarettes, uncomplicated; Z20.822 Contact with and (suspected) exposure to COVID-19; Z79.899 Other long term (current) drug therapy
CPT/HCPCS: 80048; 80076; 80307; 82077; 85025; 87635; 99284

== ENCOUNTER 2023-06-10 18:16 | Emergency (ER) | payer OTHER, SELFPAY ==
[2023-06-10 18:32] VITALS: BP 138/86; PULSE 125; O2SAT 97; BMI 33.4
--- NOTE | 2023-06-10 18:45 | ED_ITS ---
HPI - General Adult General Chief complaint: Psychiatric Symptoms Stated complaint: 3 mo out rehab, sofía Walker of [facility] Time Seen by Provider: 06/10/23 18:43 Source: patient, EMS and police Mode of arrival: EMS Limitations: no limitations History of Present Illness HPI narrative: Patient is a 53 year old assigned male at with a history of MDD, HTN, and alcohol abuse presenting to the emergency department today with suicidal ideation and alcohol intoxication. Patient states that he has felt increasingly more depressed as of lately and is suicidal with a plan to kill himself with a knife he buys at [employer]. Patient denies any dizziness, lightheadedness, abdominal pain, nausea, vomiting, fever, chills, blurry vision, double vision, loss of vision, chest pain, difficulty breathing, shortness of breath, back pain, night sweats, pain with urination, increased urinary frequency, increased urinary urgency, blood in his urine or stool, syncope or a near syncopal episode, recent trauma or falls, bowel incontinence, bladder incontinence, bowel retention, bladder retention, or any other complaints at this time. EMS states that the patient was located in the [place] next to a large amount of alcohol. Police filed section 12. Relieving factors: none Exacerbating factors: none Associated symptoms: denies other symptoms Treatments prior to arrival: none Related Data Home Medications ?Medication ?Instructions ?Recorded ?Confirmed nicotine (polacrilex) 4 mg gum 4 mg buccal Q2H 06/10/23 06/10/23 (Nicorette) Previous Rx's ?Medication ?Instructions ?Recorded clonidine HCl 0.1 mg tablet 1 tab PO TID #90 tabs 08/17/21 multivitamin (Daily-Kimmie tablet) 1 tab PO DAILY #30 tabs 08/17/21 nicotine 21 mg/24 hr daily 21 mg transdermal DAILY #30 ea 08/17/21 transdermal patch thiamine mononitrate (vit B1) 100 100 mg PO DAILY #30 tabs 08/17/21 mg tablet Allergies Allergy/AdvReac Type Severity Reaction Status Date / Time No Known Allergies Allergy Verified 06/10/23 18:34 Review of Systems 2 Constitutional: Constitutional: Reports no additional constitutional complaints, Denies chills, Denies fever(s) and Denies night sweats Eyes: Eyes: Reports no additional eye complaints, Denies blurry vision, Denies change in vision, Denies diplopia, Denies eye discharge, Denies loss of vision and Denies eye pain ENT: Denies dizziness Cardiovascular: Cardiovascular: Reports no additional cardiovascular complaints, Denies chest pain, Denies lightheadedness, Denies Loss of Consciousness and Denies dyspnea Respiratory: Respiratory: Reports no additional respiratory complaints and Denies dyspnea Gastrointestinal: Gastrointestinal: Reports no additional gastrointestinal complaints, Denies abdominal pain, Denies melena, Denies hematochezia, Denies change in bowel habits and Denies change in stool character Genitourinary: Genitourinary: Reports no additional male genitourinary complaints, Denies hematuria, Denies oliguria, Denies difficulty urinating, Denies dysuria, Denies urinary frequency, Denies urinary hesitancy, Denies urinary incontinence and Denies urinary urgency Musculoskeletal: Musculoskeletal: Reports no additional musculoskeletal complaints, Denies numbness and Denies tingling Neurologic: Denies dizziness, Denies loss of vision, Denies numbness and Denies tingling Psychiatric: Psychiatric: Reports depression, Denies homicidal ideation and Reports suicidal ideation Endocrine: Endocrine: Reports no additional endocrine complaints Hematologic/Lymphatic: Hematologic/Lymphatic: Reports no additional hematologic/lymphatic complaints Allergic/Immunologic: Allergic/Immunologic: Reports no additional allergic/immunologic complaints [facility] Past Medical History Attestation statement: The following information was validated with the patient. Source: old records reviewed and nursing notes reviewed Medical History Alcohol use disorder, severe, dependence Recurrent major depression-severe Social History Social History Household Members: None Housing: Homeless Do you presently have visiting nurse or other home services: No Unable to assess alcohol history related to: Unknown Alcohol intake: current Alcohol intake frequency: 3 or more drinks per day Alcohol type: hard liquor Patient Tobacco Use Status: Current everyday Tobacco user Tobacco use type: Cigarette Cigarette Packs Per Day: 1 Cigarettes Per Day: 20.0 Years Smoked: 20 Smoked in Last 30 Days: Yes e-Cigarette/Vaping Use: Former Use Use of substances other than those prescribed or required for medical reasons: No Advance Directives: No Advance Directives Information Provided: No Do you have a plan to hurt others: No Plan service: Yes ([employer] [id number]) Sexual orientation: Straight/Heterosexual Physical Exam ED Vital Signs: Vital Signs - 24 hr 06/10/23 19:07 06/10/23 19:09 Temperature 98.5 F Pulse Rate 114 H Respiratory Rate 16 Blood Pressure 133/94 H 133/94 H Pulse Oximetry 95 Oxygen Delivery Method Room Air BMI result Body Mass Index 33.4 Const General: cooperative, no acute distress, alert and awake Nutritional Appearance: well nourished Orientation/consciousness: patient oriented x3 Limitations: no limitations HENMT Head: Yes normal to inspection and Yes atraumatic Ears: hearing grossly normal bilaterally and external ears normal General nose exam: Normal external nose present, no nasal discharge noted and no epistaxis Face and sinus: Yes normal facial exam, No abrasion and No laceration Mouth: Normal oral and palatal mucosa present, no drooling and no muffled voice Eyes General: appearance normal, both eyes and all related structures Periorbital: periorbital findings normal Eyelids: Yes eyelids normal Conjunctivae: conjunctivae normal Pupils: Equal, round and reactive pupils present EOM: EOMs intact bilaterally Neck Neck: Yes normal visual inspection, Yes full ROM and Yes no lymphadenopathy Chest Chest palpation & inspection: normal inspection of the chest Resp Effort & Inspection: normal respiratory effort and able to speak in complete sentences GI Inspection: Yes normal to inspection Neuro General: patient oriented x3 and moves all extremities Cranial nerves: Yes Equal, round and reactive pupils present Cognition (Neuro): normal cognition Motor exam (neuro): 5/5 motor strength present throughout Sensory Exam: Normal double simultaneous stimulation for sensation Coordination: [id number] test normal Extrem General: Yes normal to inspection, Yes full ROM and Yes capillary refill normal Psych Appearance: grossly normal Mental Status: mental status grossly normal Affect: Sad affect present Attitude: cooperative Thought process: Normal thought process present Thought content: Suicidality present Medications Administered Generic Name Dose Route Start Last Admin Trade Name Freq PRN Reason Stop Dose Admin Lorazepam 2 mg 06/10/23 21:35 06/10/23 23:35 Lorazepam 1 Mg Tablet PO 2 mg Q6H PRN Administration Alcohol Withdrawal Discontinued Medications Generic Name Dose Route Start Last Admin Trade Name Freq PRN Reason Stop Dose Admin Al Hydroxide/Mg Hydroxide 30 ml 06/10/23 21:35 06/10/23 21:49 Magnesium Hydrox/Alum Hydrox 30 Ml Oral.Susp PO 06/10/23 21:36 30 ml ONCE STA Administration Clonidine HCl 0.1 mg 06/10/23 18:47 06/10/23 19:09 Clonidine Hcl 0.1 Mg Tablet PO 06/10/23 18:48 0.1 mg ONCE ONE Administration Protocol Lorazepam 2 mg 06/10/23 18:47 06/10/23 19:11 Lorazepam 1 Mg Tablet PO 06/10/23 18:48 2 mg ONCE ONE Administration Medical Decision Making Medical Decision Making [facility] Narrative: Patient is a 53 year old assigned male at with a history of alcohol use, HTN, and MDD presenting to the emergency department today with suicidal ideation and alcohol intoxication. Patient's physical exam was as noted in the physical exam portion of this note. Patient's blood work showed a potassium of 3.2 and ethyl alcohol of 122 but was otherwise unremarkable. Patient's urine showed no acute process. I explained my physical exam findings as well as all test results to the patient. I answered all questions asked by the patient. Potassium ordered. Patient's disposition will be determined after CARE team evaluation. Patient will remain in the department under a section 12. Patient placed in physician observation beginning on 06/10/2023 at 2044. Differential Diagnosis Differential Diagnoses: The differential diagnosis associated with the presentation includes Alcohol use Alcohol abuse Suicidal ideation Depression Hypokalemia Admission/Observation Consideration of admission/observation: Escalation of care including admission/observation considered Patient's disposition will be determined after CARE team evaluation. Lab Data [facility] Lab Attestation statement: I reviewed the patient's lab results. My interpretation of these results are in the MDM Rationale portion of this note. 06/10/23 19:18 06/10/23 19:18 Labs: Lab Results 06/10/23 Range/Units 19:18 WBC 10.2 (4.8-10.8) X10*3/uL RBC 5.27 (4.60-5.80) X10*6/uL Hgb 15.9 (14.0-18.0) g/dl Hct 44.9 (42.0-52.0) % MCV 85.2 (80.0-98.0) fL MCH 30.2 (27.0-33.0) pg MCHC 35.4 (31.0-36.0) g/dl RDW 12.6 (11.0-16.0) % Plt Count 230 (160-400) X10*3/uL MPV 9.5 (9.4-12.4) fL Immature Gran % (Auto) 0.4 (0.0-0.4) % Neut % (Auto) 81.0 H (45-73) % Lymph % (Auto) 13.0 L (20-40) % [place] % (Auto) 5.2 (2-11) % Eos % (Auto) 0.2 (0-4) % Baso % (Auto) 0.2 (0-2) % Lymph # (Auto) 1.3 (1.2-4.9) X10*3/uL [place] # (Auto) 0.5 (0.1-1.2) X10*3/uL Eos # (Auto) 0.0 (0.0-0.4) X10*3/uL Baso # (Auto) 0.0 (0.0-0.2) X10*3/uL Abs Immat Gran (auto) 0.04 H (0.00-0.03) X10*3/uL Absolute Neuts (auto) 8.3 (2.0-8.3) x10*3/uL Absolute Nucleated RBC 0.000 (0.0-0.012) X10*3/uL Nucleated RBC % (auto) 0.0 (0.0-0.2) /100WBC Sodium 139 (135-145) mmol/L Potassium 3.2 L (3.3-5.1) mmol/L Chloride 104 (96-108) mmol/L Carbon Dioxide 14 L (22-29) mmol/L Anion Gap 24 H (12-20) BUN 16 (9-16) mg/dL Creatinine 1.07 (0.5-1.4) mg/dL Estim Creat Clear Calc 94.9 Estimated GFR > 60 Random Glucose 141 H (60-115) mg/dL Calcium 9.5 (8.4-10.2) mg/dL Total Bilirubin 0.9 (0.0-1.0) mg/dL AST 33 (5-37) U/L ALT 23 (0-40) U/L Alkaline Phosphatase 68 (39-117) U/L Total Protein 7.5 (6.5-8.0) g/dL Albumin 4.5 (3.5-5.0) g/dL Urine Color Yellow Urine Appearance Clear Urine pH 5.5 (5.0-9.0) Ur Specific [place] 1.010 (1.005-1.025) Urine Protein Negative (Neg-Trace) mg/dL Urine Glucose (UA) Negative (Negative) mg/dL Urine Ketones 40 (Negative) mg/dL Urine Blood Negative (Negative) Urine Nitrite Negative (Negative) Ur Leukocyte Esterase Negative (Negative) Salicylates < 5.0 L (15-30) mg/dL Urine Opiates Screen Not Detected (Not Detect) Ur Buprenorphine Scrn Not Detected (Not Detect) ng/mL Ur Oxycodone Screen Not Detected (Not Detect) ng/mL Urine Methadone Screen Not Detected (Not Detect) ng/mL Urine Fentanyl Screen Not Detected (Not Detect) Acetaminophen < 3 (<30) mcg/mL Ur Barbiturates Screen Not Detected (Not Detect) Ur Phencyclidine Scrn Not Detected (Not Detect) Ur Amphetamines Screen Not Detected (Not Detect) U Benzodiazepines Scrn Not Detected (Not Detect) Urine Cocaine Screen Not Detected (Not Detect) U Marijuana (THC) Screen Not Detected (Not Detect) Ethyl Alcohol 122 mg/dL Independent Historian Clinical information obtained from an independent historian. History obtained from or confirmed by: EMS (EMS provided additional history and confirmed the history provided by the patient.) and Other (Police provided additional history and confirmed the history provided by the patient and EMS) Chronic Conditions Patient?s care impacted by: Hypertension Critical Care Time Critical Care Time Critical Care Time: Yes Total Critical Care Time: 68 Attestation: I spent 68 minutes of Critical Care Time with this patient. This does not include time spent on separately reported billable procedures. Discharge Plan Discharge Clinical Impression: Alcohol use disorder, severe, dependence, Acute hypokalemia Recurrent major depression-severe Qualifiers: Psychotic features: without psychotic features Qualified Code(s): F33.2 - Major depressive disorder, recurrent severe without psychotic features Patient Disposition: Still a Patient Prescriptions: No Action multivitamin [Daily-Kimmie] Tablet 1 tab PO DAILY Qty: 30 0RF nicotine 21 mg/24 hr Patch 24 Hour 21 mg transdermal DAILY Qty: 30 0RF thiamine mononitrate (vit B1) 100 mg Tablet 100 mg PO DAILY Qty: 30 0RF clonidine HCl 0.1 mg tablet 1 tab PO TID Qty: 90 0RF nicotine (polacrilex) [Nicorette] 4 mg Gum 4 mg BUCCAL Q2H Interventions: [place]-Suicide Risk Severity Scale Last Done: 06/10/23 18:39 Print Language: Kyrgyz
--- OUTSIDE RECORDS SUMMARY | 2023-06-10 18:46 | XMS_ITS | Continuity of Care Document ---
Author Organization [facility] Address [address] [place] [address]- Care Team Providers Care Manager Warehouse Name Role Phone Helga HUTCHINSON, Juliana Vargas Primary Care Physician Encounter [facility] [place] Date(s): 04/24/20 - 04/25/[address] [address]- Encounter Diagnosis Acute alcohol intoxication(Final) - 04/25/20 Discharge Disposition: A-D/C Home Attending Physician: Ronda Guerra DO Admitting Physician: Ronda Guerra DO Referring Physician: Not on Staff, Referring MD Allergies, Adverse Reactions, Alerts No Known Medication Allergies Medications atorvastatin 20 mg oral tablet 1 tablet = 20 mg, By Mouth, Daily, # 30 tablet, 0 Refills, Maintenance, Tablet Start Date: 11/22/17 Status: Ordered cloNIDine 0.1 mg oral tablet 0.1 mg, 1, tablet, By Mouth, 2 times a day, # 180 tablet, Refills 0, Maintenance, 11/22/17 13:03:09EDT Start Date: 11/22/17 Status: Ordered Vital Signs Most recent to oldest [Reference Range]: 1 2 3 Height 185 cm (04/24/20 9:50 PM) Weight 86 kg (04/24/20 9:50 PM) Oxygen Saturation [94-100 %] 98 % (04/24/20 9:50 PM) Pulse Rate [55-90 bpm] 96 bpm *H* (04/25/20 4:14 AM) 95 bpm *H* (04/25/20 12:12 AM) 101 bpm *H* (04/24/20 9:50 PM) Blood Pressure [90-138/55-84 mm Hg] 87/56mm Hg *L* (04/25/20 4:14 AM) 94/67mm Hg (04/25/20 12:12 AM) 130/92mm Hg (04/24/20 9:50 PM) Respiratory Rate [16-30 br/min] 16 br/min (04/25/20 4:14 AM) 16 br/min (04/25/20 12:12 AM) 18 br/min (04/24/20 9:50 PM) Temperature [96.8-100.4 DegF] 97.5 DegF (04/25/20 4:14 AM) 97.1 DegF (04/25/20 12:12 AM) 97 DegF (04/24/20 9:50 PM) Mode of Delivery (Oxygen) Room air (04/24/20 9:50 PM) Temperature Route Oral (04/25/20 4:14 AM) Oral (04/25/20 12:12 AM) Oral (04/24/20 9:50 PM) Dry Weight 86 kg (04/24/20 9:50 PM) Weight Obtained Via Standing scale (04/24/20 9:50 PM)
--- OUTSIDE RECORDS SUMMARY | 2023-06-10 18:46 | XMS_ITS | Continuity of Care Document ---
Author Organization [facility] Address [address] [place] [address]- Care Team Providers Care Hone Operator Name Role Phone Dajuan OLIVAREZ, Ronda Suarez Primary Care Physician Encounter [facility] [place] Date(s): 08/03/20 - 08/04/[address] [address]- Encounter Diagnosis Acute alcoholic intoxication in alcoholism with blood level of 0.08 to 0.29 without complication(Final) - 08/03/20 Passive suicidal ideations(Final) - 08/03/20 Discharge Disposition: A-D/C Home Attending Physician: Vita Coffman MD Admitting Physician: Vita Coffman MD Referring Physician: Not on Staff, Referring MD [...] oldest [Reference Range]: 1 2 3 Height 180 cm (08/03/20 8:34 PM) 180 cm (08/03/20 6:27 PM) Weight 84 kg (08/03/20 8:34 PM) 84 kg (08/03/20 6:27 PM) Oxygen Saturation [94-100 %] 96 % (08/04/20 4:00 AM) 94 % (08/03/20 10:00 PM) 95 % (08/03/20 8:34 PM) Pulse Rate [55-90 bpm] 97 bpm *H* (08/04/20 4:00 AM) 99 bpm *H* (08/03/20 10:00 PM) 97 bpm *H* (08/03/20 8:34 PM) Body Mass Index [18.5-24.99] 25.93 *H* (08/03/20 8:34 PM) Blood Pressure [90-138/55-84 mm Hg] 129/82mm Hg (08/04/20 4:00 AM) 107/71mm Hg (08/03/20 10:00 PM) 113/77mm Hg (08/03/20 8:34 PM) Respiratory Rate [16-30 br/min] 18 br/min (08/04/20 4:00 AM) 18 br/min (08/03/20 10:00 PM) 19 br/min (08/03/20 8:34 PM) Temperature [96.8-100.4 DegF] 97.8 DegF (08/04/20 4:00 AM) 97.9 DegF (08/03/20 10:00 PM) 97.6 DegF (08/03/20 8:34 PM) Mode of Delivery (Oxygen) Room air (08/04/20 4:00 AM) Room air (08/03/20 10:00 PM) Room air (08/03/20 8:34 PM) Blood pressure sites Leg, left (08/03/20 8:34 PM) Arm, right (08/03/20 6:27 PM) Temperature Route Oral (08/04/20 4:00 AM) Oral (08/03/20 10:00 PM) Oral (08/03/20 8:34 PM) Dry Weight 84 kg (08/03/20 8:34 PM) 84 kg (08/03/20 6:27 PM) Weight Obtained Via Patient/family state d (08/03/20 6:27 PM)
--- OUTSIDE RECORDS SUMMARY | 2023-06-10 18:46 | XMS_ITS | Continuity of Care Document ---
Author Organization [facility] Address [address] [place] [address]- Care Team Providers Care Party Plan Sales Director Name Role Phone Lei Smith Primary Care Physician [phone] Encounter [facility] [place] Date(s): 02/06/23 - 02/07/[address] [address]- Encounter Diagnosis Suicidal ideation(Final) - 02/07/23 Discharge Disposition: A-D/C Nursing Home, Nursing Home, or [facility] Fac Attending Physician: Darlene Torres MD Admitting Physician: Darlene Torres MD Referring Physician: Not on Staff, Referring MD Allergies, Adverse Reactions, Alerts No Known Allergies Immunizations Given and Recorded Vaccine Date Status Refusal Reason SARS-CoV-2 (COVID-19) mRNA-1273 vaccine 10/07/20 G iven SARS-CoV-2 (COVID-19) mRNA-1273 vaccine 09/08/20 G iven Medications atorvastatin 40 mg oral tablet 1 tablet = 40 mg, By Mouth, Daily, # 30 tablet, 0 Refills, Maintenance, 02/03/23 8:35:00 EST, Tablet, [facility]-, Partial fill upon patient request if the prescription is fora schedule II opioid drug., 183, cm, 02/02/23 19:58... Start Date: 02/03/23 Status: Ordered cloNIDine 0.1 mg oral tablet 0.2 mg, Tablet, By Mouth, 2 times a day, PRN for Anxiety, Routine, 02/07/23 9:52:00 EST Start Date: 02/07/23 Stop Date: 02/07/23 Status: Discontinued cloNIDine 0.2 mg oral tablet 0.2 mg, 1, tablet, By Mouth, 2 times a day, PRN, # 60 tablet, Refills 0, Tot. Refills 0, Maintenance, Anxiety, 02/03/23 8:36:00 EST, Route to Pharmacy Electronically, [facility], Partial fill upon patient request if the prescr... Start Date: 02/03/23 Status: Ordered QUEtiapine 200 mg oral tablet 200 mg, By Mouth, Daily at bedtime, PRN, # 30 tablet, Refills 0, Tot. Refills 0, Maintenance, Anxiety, 02/03/23 8:36:00 EST, Route to Pharmacy Electronically, [facility], Partial fill upon patient request if the prescription i... Start Date: 02/03/23 Status: Ordered QUEtiapine 25 mg oral tablet 25 mg, By Mouth, 2 times a day, PRN, # 60 tablet, Refills 0, Tot. Refills 0, Maintenance, Anxiety, 02/03/23 8:36:00 EST, Route to Pharmacy Electronically, [facility], Partialfill upon patient request if the prescription is fo... Start Date: 02/03/23 Status: Ordered Problem List Condition Confirmation Course Effective Dates Status H ealth Status Informant Alcohol dependence Confirmed Active Depression Confirmed Active Hyperlipidemia Confirmed Active Hypertension Confirmed Active Major depressive disorder with current active episode Confirmed Active Tobacco dependence Confirmed Active Vital Signs Most recent to oldest [Reference Range]: 1 2 3 Height 183 cm (02/06/23 6:20 PM) 183 cm (02/06/23 6:18 PM) Weight 100 kg (02/06/23 6:20 PM) 100 kg (02/06/23 6:18 PM) Oxygen Saturation [94-100 %] 97 % (02/07/23 7:47 AM) 100 % (02/07/23 3:00 AM) 94 % (02/07/23 12:00 AM) Pulse Rate [55-90 bpm] 98 bpm *H* (02/07/23 11:47 AM) 109 bpm *H* (02/07/23 7:47 AM) 122 bpm *H* (02/07/23 3:37 AM) Body Mass Index [18.5-24.99 kg/m2] 29.86 kg/m2 *H* (02/06/23 6:18 PM) Blood Pressure [90-138/55-84 mm Hg] 136/90mm Hg (02/07/23 11:47 AM) 150/96mm Hg *H* (02/07/23 9:39 AM) 169/96mm Hg *H* (02/07/23 7:47 AM) Respiratory Rate [16-30 br/min] 18 br/min (02/07/23 11:47 AM) 17 br/min (02/07/23 7:47 AM) 20 br/min (02/07/23 3:37 AM) Temperature [96.8-100.4 DegF] 99.2 DegF (02/07/23 11:47 AM) 99.2 DegF (02/07/23 7:47 AM) 97.9 DegF (02/07/23 3:37 AM) Mode of Delivery (Oxygen) Room air (02/07/23 7:47 AM) Room air (02/07/23 3:00 AM) Room air (02/07/23 12:00 AM) Temperature Route Temporal (02/07/23 11:47 AM) Temporal (02/07/23 7:47 AM) Temporal (02/07/23 3:37 AM) Dry Weight 100 kg (02/06/23 6:20 PM) 100 kg (02/06/23 6:18 PM) Weight Obtained Via Patient/family state d (02/06/23 6:18 PM) Dry Weight Obtained Via Patient/family s tated (02/06/23 6:18 PM) Social History Social History Type Response Smoking Status 10 or more cigarette s (1/2 pack or more)/day in last 30 days entered on: 05/09/22 Sex Patient Care team information Care Team Personnel Name: Lei Smith Position: [facility] Outreach Member Role: PCP Address: Address: [address] [place] [address] & [place], [place] [address] Name: Juju Mahan RN Position: [facility] RN Member Role: Primary Care Nurse Name: Ruben Hidalgo RN Position: [facility] RN Member Role: Primary Care Nurse Name: Skyla Vigil RN Position: [facility] RN Member Role: Primary Care Nurse Name: Ale Maya Position: S Outreach Member Role: Lifetime Consulting Physician Name: Alee Doe RN Position: [facility] ED RN W/OE and Tasks Member Role: Patient Care Provider Name: Brian HUTCHINSON, Darlene Munguia Position: [facility] ED Medicine MD Member Role: Admitting Physician Address: Address: [address] [place] [address] [place] [address]- Care Team Related Persons Name: NORMA MCKEON Address: home [address] [place] [id number] Name: JOSE MCKEON Address: home [address] [place] [address]
--- OUTSIDE RECORDS SUMMARY | 2023-06-10 18:46 | XMS_ITS | Continuity of Care Document ---
Author Organization [facility] Address [address] [place] [address]- Care Team Providers Care Diesel Roller Operator Name Role Phone Helga HUTCHINSON, Juliana Vargas Primary Care Physician [phone] Encounter [facility] [place] Date(s[place] 07/07/19 - 07/07/[address] [address]- [facility] [phone] Encounter Diagnosis Alcohol withdrawal(Final) - 07/07/19 Discharge Disposition: A-D/C Home Attending Physician: Avinash Espana MD Admitting Physician: Avinash Espana MD Referring Physician: Not on Staff, Referring [...] Range]: 1 2 3 Height 183 cm (07/07/19 11:06 AM) 183 cm (07/07/19 6:36 AM) Weight 86 kg (07/07/19 11:06 AM) 86 kg (07/07/19 6:36 AM) Oxygen Saturation [94-100 %] 98 % (07/07/19 11:06 AM) 99 % (07/07/19 7:36 AM) 98 % (07/07/19 6:36 AM) Pulse Rate [55-90 bpm] 104 bpm *H* (07/07/19 11:06 AM) 100 bpm *H* (07/07/19 7:51 AM) 100 bpm *H* (07/07/19 7:36 AM) Body Mass Index [18.5-24.99] 25.68 *H* (07/07/19 11:06 AM) Blood Pressure [90-138/55-84 mm Hg] 143/91mm Hg *H* (07/07/19 11:06 AM) 137/92mm Hg (07/07/19 7:51 AM) 137/92mm Hg (07/07/19 7:36 AM) Respiratory Rate [16-30 br/min] 16 br/min (07/07/19 11:06 AM) 16 br/min (07/07/19 7:51 AM) 16 br/min (07/07/19 7:36 AM) Temperature [96.8-100.4 DegF] 97.1 DegF (07/07/19 11:06 AM) 97.6 DegF (07/07/19 7:51 AM) 97.6 DegF (07/07/19 7:36 AM) Mode of Delivery (Oxygen) Room air (07/07/19 11:06 AM) Room air (07/07/19 7:36 AM) Room air (07/07/19 6:36 AM) Blood pressure sites Arm, right (07/07/19 11:06 AM) Arm, left (07/07/19 7:36 AM) Arm, left (07/07/19 6:36 AM) Temperature Route Oral (07/07/19 11:06 AM) Oral (07/07/19 7:51 AM) Oral (07/07/19 7:36 AM) Dry Weight 86 kg (07/07/19 11:06 AM) 86 kg (07/07/19 6:36 AM)
--- OUTSIDE RECORDS SUMMARY | 2023-06-10 18:46 | XMS_ITS | Continuity of Care Document ---
Author Organization [facility] Address [address] [place] [address]- Care Team Providers Care Broomcorn Thresher Name Role Phone Helga HUTCHINSON, Juliana Vargas Primary Care Physician Encounter [facility] [place] Date(s): 07/06/19 - 07/06/[address] [address] [phone] Discharge Disposition: A-D/C Home Attending Physician: Darlene Bass MD Admitting Physician: Darlene Bass MD Referring Physician: Not on Staff, Referring [...] Most recent to oldest [Reference Range]: 1 Height 183 cm (07/06/19 7:30 PM) Weight 91 kg (07/06/19 7:30 PM) Oxygen Saturation [94-100 %] 95 % (07/06/19 7:30 PM) Pulse Rate [55-90 bpm] 126 bpm *H* (07/06/19 7:30 PM) Blood Pressure [90-138/55-84 mm Hg] 139/ 78mm Hg *H* (07/06/19 7:30 PM) Respiratory Rate [16-30 br/min] 20 br/mi n (07/06/19 7:30 PM) Temperature [96.8-100.4 DegF] 100.8 DegF *H* (07/06/19 7:30 PM) Mode of Delivery (Oxygen) Room air (07/06/19 7:30 PM) Blood pressure sites Arm, right (07/06/19 7:30 PM) Temperature Route Oral (07/06/19 7:30 PM) Dry Weight 91 kg (07/06/19 7:30 PM)
--- OUTSIDE RECORDS SUMMARY | 2023-06-10 18:46 | XMS_ITS | Continuity of Care Document ---
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 Phone Not on Staff, PCP Primary Care Physician Unavail able Encounter [facility] [place] Date(s): 09/08/20 - 09/08/[address] [address]- Discharge Disposition: Transfer to [facility] Facility Attending Physician: Kane Garcia MD Admitting Physician: Kane Garcia MD Referring Physician: Not on Staff, Referring MD Allergies, Adverse Reactions, Alerts No Known Medication Allergies Immunizations Given and Recorded Vaccine Date Status Refusal Reason SARS-CoV-2 (COVID-19) mRNA-1277 vaccine 09/08/20 G iven Medications atorvastatin 20 mg oral tablet 1 tablet = 20 mg, By Mouth, Daily, # 30 tablet, 0 Refills, Maintenance, Tablet Start Date: 11/22/17 Status: Ordered cloNIDine 0.1 mg oral tablet 0.1 mg, 1, tablet, By Mouth, 3 times a day, # 180 tablet, Refills 0, Maintenance, 11/22/17 13:03:09EDT Start Date: 11/22/17 Status: Ordered risperiDONE 0.5 mg oral tablet 0.5 mg, 1, tablet, By Mouth, 2 times a day, Refills 0, Maintenance, 09/08/20 11:17:00 EDT, Partial fill upon patient request if the prescription is for a schedule II opioid drug. Start Date: 09/08/20 Status: Ordered Vital Signs Most recent to oldest [Reference Range]: 1 2 3 Height 180 cm (09/08/20 8:44 PM) 180 cm (09/08/20 3:26 PM) 180 cm (09/08/20 12:42 PM) Weight 86.5 kg (09/08/20 8:44 PM) 86.5 kg (09/08/20 3:26 PM) 86.5 kg (09/08/20 12:42 PM) Oxygen Saturation [94-100 %] 97 % (09/08/20 8:44 PM) 96 % (09/08/20 3:26 PM) 96 % (09/08/20 12:42 PM) Pulse Rate [55-90 bpm] 61 bpm (09/08/20 8:44 PM) 80 bpm (09/08/20 5:09 PM) 78 bpm (09/08/20 3:26 PM) Body Mass Index [18.5-24.99] 26.7 *H* (09/08/20 8:44 PM) 26.7 *H* (09/08/20 3:26 PM) 26.7 *H* (09/08/20 12:42 PM) Blood Pressure [90-138/55-84 mm Hg] 97/68mm Hg (09/08/20 8:44 PM) 99/68mm Hg (09/08/20 3:26 PM) Systolic Blood Pressure [90-138 mm Hg] 106 mm Hg (09/08/20 5:09 PM) Diastolic Blood Pressure [55-84 mm Hg] 68 mm Hg (09/08/20 12:42 PM) Respiratory Rate [16-30 br/min] 13 br/min *L* (09/08/20 8:44 PM) 13 br/min *L* (09/08/20 5:09 PM) 14 br/min *L* (09/08/20 3:26 PM) Temperature [96.8-100.4 DegF] 99.4 DegF (09/08/20 3:26 PM) 98.0 DegF (09/08/20 11:15 AM) Mode of Delivery (Oxygen) Room air (09/08/20 8:44 PM) Room air (09/08/20 3:26 PM) Room air (09/08/20 12:42 PM) Blood pressure sites Arm, left (09/08/20 3:26 PM) Arm, left (09/08/20 12:42 PM) Arm, left (09/08/20 11:15 AM) Temperature Route Oral (09/08/20 3:26 PM) Oral (09/08/20 11:15 AM) Dry Weight 86.5 kg (09/08/20 8:44 PM) 86.5 kg (09/08/20 3:26 PM) 86.5 kg (09/08/20 12:42 PM)
--- OUTSIDE RECORDS SUMMARY | 2023-06-10 18:46 | XMS_ITS | Continuity of Care Document ---
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 Role Phone Carlos Bautista MD Primary Care Physician [place] [facility] [place](s[place] 12/09/20 - 12/10/[address] [address]- Encounter Diagnosis Acute alcohol intoxication with alcoholism(Final) - 12/09/20 Depression with suicidal ideation(Final) - 12/09/20 Discharge Disposition: Transfer to [facility] Facility Attending Physician: Kane Garcia MD Admitting Physician: Kane Garcia MD Referring Physician: Not on Staff, Referring MD Allergies, Adverse Reactions, Alerts No Known Medication Allergies Immunizations Given and Recorded Vaccine Date Status Refusal Reason SARS-CoV-2 (COVID-19) mRNA-1273 vaccine 10/07/20 G iven SARS-CoV-2 (COVID-19) mRNA-1273 vaccine 09/08/20 G iven Medications cloNIDine 0.1 mg oral tablet 0.1 mg, 1, tablet, By Mouth, 3 times a day, # 90 tablet, Refills 0, Tot. Refills 0, Maintenance, 11/29/20 20:04:00 EDT, Route to Pharmacy Electronically, [facility]/pharmacy #[id number], Partial fill upon patientrequest if the prescription is for a schedule II op... Start Date: 11/29/20 Status: Ordered risperiDONE 0.5 mg oral tablet 0.5 mg, 1, tablet, By Mouth, 2 times a day, # 60 tablet, Refills 0, Tot. Refills 0, Maintenance, 11/29/20 20:04:00 EDT, Route to Pharmacy Electronically, [facility]/pharmacy #[id number], Partial fill upon patientrequest if the prescription is for a schedule II op... Start Date: 11/29/20 Status: Ordered Problem List Condition Effective Dates Status Health Status Inform ant Alcohol dependence(Confirmed) Active Depression(Confirmed) Active Hyperlipidemia(Confirmed) Active Hypertension(Confirmed) Active Tobacco dependence(Confirmed) Active Vital Signs Most recent to oldest [Reference Range]: 1 2 3 Height 180.34 cm (12/09/20 2:35 PM) 180.34 cm (12/09/20 11:12 AM) 180.34 cm (12/09/20 11:07 AM) Weight 88 kg (12/09/20 2:35 PM) 88 kg (12/09/20 11:12 AM) 88 kg (12/09/20 11:07 AM) Oxygen Saturation [94-100 %] 97 % (12/09/20 9:00 PM) 98 % (12/09/20 2:35 PM) 96 % (12/09/20 11:07 AM) Pulse Rate [55-90 bpm] 87 bpm (12/09/20 9:00 PM) 94 bpm *H* (12/09/20 2:35 PM) 108 bpm *H* (12/09/20 11:07 AM) Body Mass Index [18.5-24.99] 27.06 *H* (12/09/20 2:35 PM) 27.06 *H* (12/09/20 11:07 AM) Blood Pressure [90-138/55-84 mm Hg] 113/81mm Hg (12/09/20 9:00 PM) 114/88mm Hg (12/09/20 2:35 PM) 110/83mm Hg (12/09/20 11:07 AM) Respiratory Rate [16-30 br/min] 16 br/min (12/09/20 9:00 PM) 17 br/min (12/09/20 2:35 PM) 16 br/min (12/09/20 11:07 AM) Temperature [96.8-100.4 DegF] 97.9 DegF (12/09/20 9:00 PM) 96.9 DegF (12/09/20 2:35 PM) 96.8 DegF (12/09/20 11:07 AM) Mode of Delivery (Oxygen) Room air (12/09/20 9:00 PM) Room air (12/09/20 2:35 PM) Room air (12/09/20 11:07 AM) Blood pressure sites Arm, right (12/09/20 9:00 PM) Arm, right (12/09/20 2:35 PM) Arm, left (12/09/20 11:07 AM) Temperature Route Oral (12/09/20 9:00 PM) Oral (12/09/20 2:35 PM) Oral (12/09/20 11:07 AM) Dry Weight 88 kg (12/09/20 2:35 PM) 88 kg (12/09/20 11:12 AM) Weight Obtained Via Patient/family state d (12/09/20 11:07 AM)
--- OUTSIDE RECORDS SUMMARY | 2023-06-10 18:46 | XMS_ITS | Continuity of Care Document ---
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 Discharge Disposition: A-D/C Home Attending Physician: Willard Chavarria MD Admitting Physician: Willard Chavarria MD Referring Physician: Not on Staff, Referring [...] Range]: 1 2 3 Height 180 cm (06/22/20 4:51 AM) Weight 91 kg (06/22/20 4:51 AM) Oxygen Saturation [94-100 %] 95 % (06/22/20 7:41 AM) 97 % (06/22/20 4:51 AM) Pulse Rate [55-90 bpm] 98 bpm *H* (06/22/20 7:41 AM) 101 bpm *H* (06/22/20 5:04 AM) 112 bpm *H* (06/22/20 4:51 AM) Blood Pressure [90-138/55-84 mm Hg] 119/78mm Hg (06/22/20 7:41 AM) 123/81mm Hg (06/22/20 5:04 AM) 130/88mm Hg (06/22/20 4:51 AM) Respiratory Rate [16-30 br/min] 18 br/min (06/22/20 7:41 AM) 18 br/min (06/22/20 5:04 AM) 18 br/min (06/22/20 4:51 AM) Temperature [96.8-100.4 DegF] 97.8 DegF (06/22/20 7:41 AM) 97.0 DegF (06/22/20 5:04 AM) 98.0 DegF (06/22/20 4:51 AM) Mode of Delivery (Oxygen) Room air (06/22/20 7:41 AM) Room air (06/22/20 4:51 AM) Blood pressure sites Arm, right (06/22/20 7:41 AM) Arm, right (06/22/20 4:51 AM) Temperature Route Oral (06/22/20 7:41 AM) Rectal (06/22/20 5:04 AM) Rectal (06/22/20 4:51 AM) Dry Weight 91 kg (06/22/20 4:51 AM) Weight Obtained Via Patient/family stated (06/22/20 4:51 AM) Dry Weight Obtained Via Patient/family stated (06/22/20 4:51 AM)
--- OUTSIDE RECORDS SUMMARY | 2023-06-10 18:46 | XMS_ITS | Continuity of Care Document ---
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 to 2 L of vodka whenever he drinks.Patient states that he started drinking again since he got out of the mental health unit a few days ago. ??He is feeling suicidal with a plan to overdose on his medications. ??He states that he did not take any of those medications and did not harm himself in any other way. ?? Tello??is already feeling better??during??initial interview on the mental health unit.?? States thathe remains sober times??a little over 2 days when he discharged??from the mental health unit recently.?? This relapse was??part of??a pattern that has??persisted for approximately??5 years??where he is sober for??8 months, 4 months, once 1.5 years??then??has a slip ??and drinks for 1-2 days.?? He??attends AA, has a sponsor??and??attends to his??recovery.?? States each slip starts when he becomesmore depressed.?? Most prominent feature of his depressions is anhedonia, lack of??motivation and alack of energy.?? Again??this time,??he started to think about the fact that he used to have a job, marriage??in the house, and now is unemployed and living with his father.?? This led to??his??his??impulse to drink.?? States that??when he drinks??he has a sense of desperation that he can never beat alcohol, and this leads to suicidality.?? This time he described the experience as?? very dark, dis couraging .?? He states he blacked out several times??and was frightened by the volume he was consuming.?? He did experience thoughts of??suicide.?? Here on the unit he??is not experiencing any withdrawal symptoms. ??He??is sitting in the milieu talking with the other young men on the unit.?? He iscraving tobacco but??not alcohol.?? He is??asking about??structured living situation??to support his recovery, perhaps??[facility] or [facility], where he spent the fall last year.?? He is also??interested in??switching??antidepressants.?? During previous admission, transition from??venlafaxine,which he has been on for approximately 1 year with minimal??improvement??to sertraline. ?? Medical Hx Affecting Psych Problem:Hypertension, hyperlipidemia, tobacco dependence.Social Hx:Tello??grew up in [facility], with his mother, father, and sister, Tatiana.?? His mother in 2006.?? His father, stepmother, and Tatiana??are supportive of him??and his struggles with alcoholism.?? Tello is .?? 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 His mother suffered from depression, his father battled anxiety his entire life and was hospitalized x1.?? And his paternal grandfather and all 4 of his father's brothers from alcoholism.?? He denies??other substance use aside from 1 pack per day of cigarettes. [1 [1] ?? Hospital Course Tello was bright and relaxed??soon after arriving on the mental health unit. ??No symptoms of alcohol withdrawal. ??He immediately began attending groups, taking medications as ordered, socializing with??peers on the unit. ??Anxiety and depression were consistently rated on the low side of the scale. ??He denied thoughts of suicide or homicide. ??He suggested that returning to [facility] or another structured setting to continue his recovery??would be very helpful. ??We discussed the benefits of sertraline??for those major depression in avoiding relapse. ??Discussed??risks/benefits,??the symptoms of serotonin syndrome,??potential interactions and side effects??of sertraline??and patient consented to begin treatment. ??Zoloft was started at 50 mg??daily with no side effects noted, increased to 100 mg on the day of discharge. ??He??remains very hopeful about return to [facility]. ??Insightful and recognizing that??memories are too close at his father's house??and he needs more support with his recovery. ??He??has consistently denied cravings for alcohol throughout his stay.? Day of Discharge??Note And he is hopeful and positive today.?? States he??hopes to?? put some time together ??at [facility].?? He felt, at his father's house that he was drifting both??mentally and in terms of his??recovery from alcohol,??and that??[facility]??structure??will help ground him.?? He denies thoughts of suicide and homicide.?? He denies symptoms of psychosis.?? Discussed??titration of??sertraline, patient??verbalizes understanding.?? He will discuss??possible increase of sertraline, possible discontinuation of??bupropion??with??no??prescriber.?? His??cleared for discharge today. ?? Psychiatric Review of Systems Depression:??None Anxiety:??None Mona:??None Psychotic:??None PTSD:??None evident ADHD:??None??casually dressed ?? Mental Status Exam ?? General appearance: Eye contact:??Good Musculoskeletal:??Normal Behavior:??Cooperative, engaged Speech:??Fluent, soft spoken, organized Mood:??Bright Affect:??Smiling Thought content:??Hopeful??for his recovery Thought process:??Linear and goal focused Suicidality/self harm:??Denies Homicidality/violence:??Denies Cognition:??Intact Insight:??Good Judgment:??Good Reliability:??Good Objective Assessment and Plan Discharge Planning:? Vital Signs?? Temperature:??96.2 DegF??Low (05/24/22 07:58:00) Temperature Route: Femoral (05/24/22 07:58:00) Pulse Rate:??102 bpm??High (05/24/22 07:58:00) Respiratory Rate: 20 br/min (05/24/22 07:58:00) Systolic Blood Pressure: 104 mm Hg (05/24/22 07:58:00) Diastolic Blood Pressure: 75 mm Hg (05/24/22 07:58:00) Blood pressure sites: Arm, right (05/24/22 07:58:00) Mean Arterial Pressure: 85 mm Hg (05/24/22 07:58:00) Pulse Pressure: 29 mm Hg (05/24/22 07:58:00) Oxygen Saturation: 99 % (05/24/22 07:58:00) Mode of Delivery (Oxygen): Room air (05/23/22 15:45:00) ? . Physical Exam Pending Results No Pending Results Post Discharge Care Discharge ?05/24/22 8:46:00 EDT Home Health Face to Face ^HomeHealthFTF Results Discharge Labs BLOOD COUNT & DIFF WBC 7.9 k/mm3 ()?? 05/18/2022 10:32 RBC 5.23 m/mm3 ()?? 05/18/2022 10:32 Hgb 15.6 Gm/dL ()?? 05/18/2022 10:32 Hct 45.6 % ()?? 05/18/2022 10:32 MCV 87.2 femtoliters ()?? 05/18/2022 10:32 MCH 29.8 pg ()?? 05/18/2022 10:32 MCHC 34.2 g/dL ()?? 05/18/2022 10:32 Platelet Count 205 k/mm3 ()?? 05/18/2022 10:32 RDW-SD 41.8 femtoliters ()?? 05/18/2022 10:32 MPV 9.5 femtoliters ()?? 05/18/2022 10:32 Nucleated RBC (Automated) 0.0 #/100 WBC'S ()?? 05/18/2022 10:32 Abs. NRBC 0.0 k/mm3 ()?? 05/18/2022 10:32 Abs. Neut 5.1 k/mm3 ()?? 05/18/2022 10:32 Abs. Lymph 2.1 k/mm3 ()?? 05/18/2022 10:32 Abs. Barnwell 0.4 k/mm3 ()?? 05/18/2022 10:32 Abs. Eo 0.2 k/mm3 ()?? 05/18/2022 10:32 Abs. Baso 0.1 k/mm3 ()?? 05/18/2022 10:32 Neut % 65.2 % ()?? 05/18/2022 10:32 Lymph % 26.4 % ()?? 05/18/2022 10:32 Barnwell % 5.3 % ()?? 05/18/2022 10:32 Eos % 2.0 % ()?? 05/18/2022 10:32 Baso % 0.8 % ()?? 05/18/2022 10:32 Imm Gran 0.3 % ()?? 05/18/2022 10:32 Abs. Imm Gran 0.0 k/mm3 ()?? 05/18/2022 10:32 ?? CHEM GENERAL Sodium 142 mmol/L ()?? 05/18/2022 10:32 Potassium 3.7 mmol/L ()?? 05/18/2022 10:32 Chloride 105 mmol/L ()?? 05/18/2022 10:32 Bicarbonate Level 24 mmol/L ()?? 05/18/2022 10:32 Anion Gap 13 ()?? 05/18/2022 10:32 Glucose Level 106 mg/dL (High)?? 05/18/2022 10:32 BUN 8 mg/dL ()?? 05/18/2022 10:32 Creatinine-Blood 0.9 mg/dL ()?? 05/18/2022 10:32 Estimated GFR Creatinine 96 ML/MIN/1.73 M2 ()?? 05/18/2022 10:32 Calcium 9.1 mg/dL ()?? 05/18/2022 10:32 ?? HEME OTHER Hold Blue Top SPECIMEN DISCARDED AFTER 4 HOURS. ()?? 05/18/2022 10:32 ? MISC. CHEMISTRY Hold Gel Top SPECIMEN DISCARDED AFTER 1 WEEK ()?? 05/18/2022 10:32 ? TOXICOLOGY/TDM Ethanol, Serum or Plasma 317 mg/dL (Abnormal)?? 05/18/2022 10:32 Salicylate Level <0.3 mg/dL (Low)?? 05/18/2022 10:32 Barbiturate Screen, Urine NONE DETECTED ()?? 05/18/2022 20:17 Cannabinoid Screen, Urine NONE DETECTED ()?? 05/18/2022 20:17 Cocaine Metabolite Screen, Urine NONE DETECTED ()?? 05/18/2022 20:17 Benzodiazepine Screen, Urine NONE DETECTED ()?? 05/18/2022 20:17 Amphetamine Screen, Urine NONE DETECTED ()?? 05/18/2022 20:17 Opiate Screen, Urine NONE DETECTED ()?? 05/18/2022 20:17 Acetaminophen Level <5 mg/L (Low)?? 05/18/2022 10:32 ? VIROLOGY COVID-19 by RT-PCR NEGATIVE ()?? 05/18/2022 10:21 COVID-19 PCR Specimen Source NASAL ()?? 05/23/2022 08:58 COVID-19 PCR Result NEGATIVE ()?? 05/23/2022 08:58 ? 60??minutes spent on discharge * Radha Samuel: PERFORM Event Display: Discharge/Transfer Note Hospital Authored Date: [id number] Psychiatric Discharge Plan Entered On: 05/24/2022 8:05 EDT Performed On: 05/24/2022 8:02 EDT by Radha Samuel Discharge Plan Level of Care at Discharge : Home/Family/SelfCare/[facility]Home/[facility]/Sub AbuseTx ([facility]) Radha Samuel - 05/24/2022 8:02 EDT Discharge Plan Additional Information : You are discharrging today and going to [facility]. You declined assistance with discharge planning and prefer to schedule your own appointments. Radha Samuel - 05/24/2022 9:51 EDT Mode of Transportation : Family Arranged Transport Date/Time : 05/24/2022 11:00 EDT SamuelLili fairchilddionne Jorge 05/24/2022 8:02 EDT Clinics Clinic Comments : Please schedule an appointment with your providers at [facility] after discharrge. SamuelLili fairchilddionne Jorge 05/24/2022 9:51 EDT Clinic Contact : [facility], [address] [address] FAX: [phone] SamuelLili fairchilddionne Jorge 05/24/2022 8:02 EDT Other Other Comments : You are stepping down to UP today. Other Service Start : Today 05/24/2022 @ 11:00 AM Instructions : Please schedule an appointment with your PCP for follow up and all routine medical care. SamuelLili fairchilddionne Jorge 05/24/2022 9:51 EDT Other Agency Contact : [address] [address] FAX: [phone] Physician/PCP : Dr. Carlos Bautista [address] [address] FAX: [phone] Samuel Radha 05/24/2022 8:02 EDT Crisis Services Psychiatric Crisis Services : For your area are available 24 hours every day, by calling: Crisis Services : [facility] [phone] Samuel , Radha Jorge 05/24/2022 8:02 EDT * Kel Reyes RN: PERFORM, MODIFY Event Display: Patient Education/Instruction Authored Date: [id number] Inpatient Adult Discharge Instructions [facility] Inpatient [facility]iat[facility] [address] [place] [address] Name: BABAK MELARAMARIANAHARMONY : 1970 Visit: 05/19/2022 10:17:00 Current Date: 05/24/2022 09:57 Account: [id number] Inpatient Adult Discharge Instructions We would like to thank you for allowing us to assist you with your healthcare needs. The following includes patient education materials and information regarding your injury/illness. Our entire staffstrives to provide an excellent experience for our patients and their families. PLEASE ENSURE YOU FOLLOW-UP PER THE INSTRUCTIONS BELOW! ?? YOUR OPINION IS IMPORTANT TO US! Please complete the survey you may receive by mail or email. Your feedback will be used to make improvements to the healthcare experiences of our patients and their families. Surveys are administered by [employer] ?? If further treatment with your primary care physician or another doctor is recommended, it is important for you to keep the appointment. Call your primary care physician or return to the Emergency Department immediately if your condition worsens, fails to improve, or new symptoms develop. If you need to find a doctor, you can call [facility] [employer] for a referral at [phone] or toll free at [phone] or log in to [email or web address] ?? You can view and manage your care through the patient portal or by using a health care luz of your choosing. [employer] is a website that allows you to securely view your medical information including your hospital discharge summary, office visit summaries, medications and follow-up visits. You can also request appointments, renew medications, and request access to your medical information using a health care luz of your choosing, or just ask a question. You can enroll at [email or web address] or register during your next office visit. You have been discharged from [facility]patient [facility], Patient Care Unit: M[facility]. If you have any questions regarding these instructions after you leave, please call us and we will be happy to assist you. [facility] Your Care Team Attending Physician Radha Dotson MD Discharging Providers Yi Arnold NP Reason for Your Visit Depression and alcoholism Your Diagnosis Alcohol intoxication Alcohol use disorder, severe, in early remission Dyslipidemia Hypertension Major depressive disorder, recurrent, severe w/o psychotic behavior Psychiatric Suicidal thoughts Tests Performed Below is a partial list of the tests performed during your hospitalization. You may have had other tests and procedures not included in this list. Please discuss all test results with your provider. Acetaminophen Level Alcohol Level Amphetamine Urine Screen Aspirin Level Barbiturate Urine Screen Basic Metabolic Panel Benzodiazepine Urine Screen Cannabinoid Urine Screen CBC w/ Differential Cocaine Urine Screen COVID-19 (2019 Novel Coronavirus) PCR COVID-19 (Novel Coronavirus), Rapid PCR HOLD BLUE TUBE HOLD GEL TUBE Opiate Screen Urine Primary Care Provider Lei Smith Advance Directive . Discharge Vitals Temperature:??96.2 DegF??Low Height: 184 cm Pulse Rate:??102 bpm??High Weight: 94.6 kg Respiratory Rate: 20 br/min Body Mass Index:??27.94 kg/m2??High Systolic Blood Pressure: 104 mm Hg Body surface area: 2.2 Diastolic Blood Pressure: 75 mm Hg ?? Oxygen Saturation: 99 % ?? Studies Pending All tests and labs ordered during this hospital stay have been completed unless listed below. Please discuss all pending results with your provider listed above in these instructions. ?? No incomplete studies found What to do next Instructions From Your Doctor Discharge Orders Discharge Medications BABAK MCKEON :1970 Visit Date:05/19/2022 Medications: Please continue your medications until treatment is completed or stopped by your provider. Medications not listed below should be discontinued. Discuss any questions related to medications with your provider. What How Much When Instructions Next Dose New Sertraline (sertraline 100 mg oral tablet) 1 tab(s) Oral Daily Pickup at [facility]- 9 a.m. Unchanged Atorvastatin (atorvastatin 40 mg oral tablet) 1 tab(s) Oral Daily 9 a.m. Unchanged BuPROpion (buPROPion 100 mg/ 12 hours (SR) oral tablet, extended release) 1 tab(s) Oral Daily 9 a.m. Unchanged Clonidine (cloNIDine 0.1 mg oral tablet) 1 tab(s) Oral 3 times a day 3 p.m. Unchanged Lorazepam (Ativan 0.5 mg oral tablet) 1 tab(s) Oral Twice a day As needed for anxiety. Unchanged Mirtazapine (Remeron Tablet) 45 Milligram Oral Daily at Bedtime Bedtime. Unchanged Risperidone 1 Milligram Oral Daily in the morning 9 a.m. Unchanged Risperidone 2 Milligram Oral Daily at Bedtime Bedtime. Pharmacy Information [facility]: [address] [place] [id number] [phone] ?? What How Much When Comments Stop Taking Venlafaxine 75 Milligram Oral Daily Test Results Below is a partial list of the most recent Laboratory test results done prior to this discharge. You may have had other tests and procedures not included in this list. Please discuss all test resultswith your provider. Acetaminophen Level (05/18/2022) ? ?Acetaminophen Level - <5 mg/L Alcohol Level (05/18/2022) ???Ethanol, Serum or Plasma - 317 mg/dL Amphetamine Urine Screen (05/18/2022) ???Amphetamine Screen, Urine - NONE DETECTED Aspirin Level (05/18/2022) ? ?Salicylate Level - <0.3 mg/dL Barbiturate Urine Screen (05/18/2022) ???Barbiturate Screen, Urine - NONE DETECTED Basic Metabolic Panel (05/18/2022) ???Sodium - 142 mmol/L???Potassium - 3.7 mmol/L???Chloride - 105 mmol/L???Bicarbonate Level - 24 mmol/L???Anion Gap - 13???Glucose Level - 106 mg/dL???BUN - 8 mg/dL???Creatinine-Blood - 0.9 mg/dL???Estimated GFR Creatinine - 96 ML/MIN/1.73 M2???Calcium - 9.1 mg/dL Benzodiazepine Urine Screen (05/18/2022) ???Benzodiazepine Screen, Urine - NONE DETECTED Cannabinoid Urine Screen (05/18/2022) ???Cannabinoid Screen, Urine - NONE DETECTED CBC w/ Differential (05/18/2022) ???WBC - 7.9 k/mm3???RBC - 5.23 m/mm3???Hgb - 15.6 Gm/dL???Hct - 45.6 %???MCV - 87.2 femtoliters???MCH - 29.8 pg???MCHC - 34.2 g/dL???Platelet Count - 205 k/mm3???RDW-SD - 41.8 femtoliters???MPV - 9.5 femtoliters???Nucleated RBC (Automated) - 0.0 #/100 WBC'S???Abs. NRBC - 0.0 k/mm3???Abs. Neut - 5.1 k/mm3???Abs. Lymph - 2.1 k/mm3???Abs. Barnwell - 0.4 k/mm3???Abs. Eo - 0.2 k/mm3???Abs. Baso - 0.1 k/mm3???Neut % - 65.2 %???Lymph % - 26.4 %???Barnwell % - 5.3 %???Eos % - 2.0 %???Baso % - 0.8 %???Imm Gran- 0.3 %???Abs. Imm Gran - 0.0 k/mm3 Cocaine Urine Screen (05/18/2022) ???Cocaine Metabolite Screen, Urine - NONE DETECTED COVID-19 (2019 Novel Coronavirus) PCR (05/23/2022) ???COVID-19 PCR Specimen Source - NASAL???COVID-19 PCR Result - NEGATIVE COVID-19 (Novel Coronavirus), Rapid PCR (05/18/2022) ???COVID-19 by RT-PCR - NEGATIVE HOLD BLUE TUBE (05/18/2022) ???Hold Blue Top - SPECIMEN DISCARDED AFTER 4 HOURS. HOLD GEL TUBE (05/18/2022) ???Hold Gel Top - SPECIMEN DISCARDED AFTER 1 WEEK Opiate Screen Urine (05/18/2022) ???Opiate Screen, Urine - NONE DETECTED Allergies (NKA means No Known Allergies) No Known Medication Allergies Problems Active Problems??(5) Alcohol dependence?? Depression?? Hyperlipidemia?? Hypertension?? Tobacco dependence?? Education Materials Below is the list of Educational Leaflet Providered with your Discharge Instructions. Valuables and Belongings I fully understand and agree that [facility] accepts no responsibility for all my personal property including clothing, toilet articles, radios, jewelry, dentures, hearing aids, rings, money, or any other property that is in my possession or is brought to me after admission. I understand certain valuables may be placed in a hospital safe for a short period of time. I understand that the hospital is not liable for loss or damage due to accident, fire, or other natural occurrence while said property is in the safe. I accept full responsibility for any personal property that I keep with me, and will not hold the hospital responsible in case of loss or disappearance. I acknowledge that i have been encouraged to send valuables and belongings home. ?? Date for Pt to Sign Valuables/Belongings: 05/19/22 10:01:00 ?? Other Discharge Information ? Pulmonary Rehab Status?? Pulmonary Rehab Discharge Status?? Respiratory Rate: 20 br/min ?? Psychiatric Discharge Plan?? Discharge Plan Psych?? Clinics?? Other Agency?? Crisis Services?? Level of Care at Discharge: Home/Family/SelfCare/RestHome/[facility]/Sub AbuseTx ([facility]) Clinic Contact: [facility], [address] [phone]:[phone] Other Agency Contact: [address] [phone]: [phone] Psychiatric Crisis Services: For your area are available 24 hours every day, by calling: Discharge Plan Additional Information: You are discharrging today and going to [facility]. You declined assistance with discharge planning and prefer to schedule your own appointments. Clinic Comments: Please schedule an appointment with your providers at [facility] after discharrge. Other Comments: You are stepping down to UP today. Crisis Services: [facility] [phone] Mode of Transportation: Family ?? Other Service Start: Today 05/24/2022 @ 11:00 AM ?? Arranged Transport Date/Time: 05/24/22 11:00:00 ?? Physician/PCP: Dr. Carlos Bland [id number] [place], [place] [phone]: [phone] ? Instructions: Please schedule an appointment with your PCP for follow up and all routine medical care. ? Common Emergency Awareness Tips IS IT A STROKE? Act FAST and Check for these signs: FACE Does the face look uneven? ARM Does one arm drift down? SPEECH Does their speech sound strange? TIME Call at any sign of stroke ?? Heart Attack Signs Chest discomfort: Most heart attacks involve discomfort in the center of the chest and lasts more than a few minutes, or goes away and comes back. It can feel like uncomfortable pressure, squeezing, fullness or pain. Discomfort in upper body: Symptoms can include pain or discomfort in one or both arms, back, neck, jaw or stomach. Shortness of breath: With or without discomfort. Other signs: Breaking out in a cold sweat, nausea, or lightheaded. Remember, MINUTES DO MATTER. If you experience any of these heart attack warning signs, call to get immediate medical attention! ?? Smoking can increase your chances of developing chronic health problems and can cause harmful effects to other family members in your house. If you smoke, you are strongly encouraged to quit. Please call [facility] [employer] at [phone] or [phone] ([phone]) or log in to [email or web address] for referrals to smoking cessation programs. ?? 319 Suicide & Crisis Lifeline is available 29/08 if you or someone you know needs to find a reason to keep living. By calling 082 you'll be connected to a skilled, trained counselor at a crisis center in your area. INPATIENT DISCHARGE INSTRUCTIONS SIGNATURE PAGE BABAK MCKEON Location:[facility] Inpatient Psychiatry Registration Date and Time:05/19/2022 10:17 EDT Primary Care Physician: Lei Smith, I BABAK MCKEON, have received the above patient education materials/instructions and have verbalized understanding. If ambulance or transport services are being used I further acknowledge being given a choice of service. ?? If you need to contact me, please call me at this number: . Patient/Risk Professional Name: Patient/Risk Professional Signature: Relationship to Patient: Witness Name/Signature: Date: Patient Care team information Care Team Personnel Name: Lei Smith Position: [facility] Outreach Member Role: PCP Address: Address: [address] [place] [address] Medical [facility] Dental [address] Name: Juju Mahan RN Position: [facility] RN Member Role: Primary Care Nurse Name: Tish Rayo Position: [facility] ED OA Charge Member Role: ED Associate Name: Zluma Linn RN Position: [facility] ED RN W/OE and Tasks Member Role: Patient Care Provider Name: Willard Chavarria MD Position: [facility] ED Medicine MD Member Role: ED Attending Physician Address: Address: [address] [place] [address] Emergency [place] [address] Care Team Related Persons Name: NORMA MCKEON Address: home [address] [place] [address] Name: JOSE MCKEON Address: home [address] [place] [address]
--- OUTSIDE RECORDS SUMMARY | 2023-06-10 18:46 | XMS_ITS | Continuity of Care Document ---
Author Organization [facility] Address [address] [place] [address]- Care Team Providers Care Supervisor [employer] Name Role Phone Carlos Bautista MD Primary Care Physician Encounter [facility] [place] Date(s): 08/12/21 - 08/12/[address] [address]- Discharge Disposition: Transfer to [facility] Facility Attending Physician: Joyce Hayden MD Admitting Physician: Joyce Hayden MD Referring Physician: Not on Staff, Referring MD Allergies, Adverse Reactions, Alerts No Known Medication Allergies Immunizations Given and Recorded Vaccine Date Status Refusal Reason SARS-CoV-2 (COVID-19) mRNA-1273 vaccine 10/07/20 G iven SARS-CoV-2 (COVID-19) mRNA-1273 vaccine 09/08/20 G iven Medications acamprosate 333 mg oral delayed release tablet = 666 mg, By Mouth, 3 times a day with meals, # 180 tablet, 1 Refills, Maintenance, 12/21/20 12:45:00 EST, Tablet, [facility], Partial fill upon patient request if the prescription is for aschedule II opioid drug., 180.34, cm, 12/21/20 8:16... Start Date: 12/21/20 Stop Date: 02/19/21 Status: Ordered cloNIDine 0.1 mg oral tablet 0.1 mg, 1, tablet, By Mouth, 2 times a day, # 60 tablet, Refills 1, Tot. Refills 1, Maintenance, 12/22/20 11:34:00 EST, Route to Pharmacy Electronically, [facility], Partial fill upon patient request if the prescription is for a schedule II... Start Date: 12/22/20 Stop Date: 02/20/21 Status: Ordered Effexor XR 75 mg oral capsule, extended release 75 mg, 1, capsule, By Mouth, Daily, # 30 capsule, Refills 1, Tot. Refills 1, Maintenance, 12/21/20 12:47:00 EST, Route to Pharmacy Electronically, [facility], Partial fill upon patient request if the prescription is for a schedule II opioid... Start Date: 12/21/20 Stop Date: 02/19/21 Status: Ordered risperiDONE 0.5 mg oral tablet 0.5 mg, 1, tablet, By Mouth, 2 times a day, # 60 tablet, Refills 1, Tot. Refills 1, Maintenance, 12/21/20 12:46:00 EST, Route to Pharmacy Electronically, [facility], Partial fill upon patient request if the prescription is for a schedule II... Start Date: 12/21/20 Stop Date: 02/19/21 Status: Ordered traZODone 100 mg oral tablet 100 mg, 1, tablet, By Mouth, Daily at bedtime, # 30 tablet, Refills 1, Tot. Refills 1, Maintenance,12/23/20 9:31:00 EST, Route to Pharmacy Electronically, [facility], Partial fill upon patient request if the prescription is for a schedule I... Start Date: 12/23/20 Stop Date: 02/21/21 Status: Ordered Problem List Condition Effective Dates Status Health Status Inform ant Alcohol dependence(Confirmed) Active Depression(Confirmed) Active Hyperlipidemia(Confirmed) Active Hypertension(Confirmed) Active Tobacco dependence(Confirmed) Active Vital Signs Most recent to oldest [Reference Range]: 1 2 3 Height 180 cm (08/12/21 11:28 AM) 180 cm (08/12/21 9:16 AM) Weight 95.5 kg (08/12/21 11:28 AM) 95.5 kg (08/12/21 9:16 AM) Oxygen Saturation [94-100 %] 95 % (08/12/21 9:00 PM) 95 % (08/12/21 11:28 AM) 94 % (08/12/21 9:16 AM) Pulse Rate [55-90 bpm] 89 bpm (08/12/21 9:00 PM) 88 bpm (08/12/21 11:28 AM) 110 bpm *H* (08/12/21 9:16 AM) Body Mass Index [18.5-24.99] 29.48 *H* (08/12/21 11:28 AM) Blood Pressure [90-138/55-84 mm Hg] 126/89mm Hg (08/12/21 9:00 PM) 128/90mm Hg (08/12/21 11:28 AM) 143/101mm Hg *H* (08/12/21 9:16 AM) Respiratory Rate [16-30 br/min] 16 br/min (08/12/21 9:00 PM) 16 br/min (08/12/21 11:28 AM) 16 br/min (08/12/21 9:16 AM) Temperature [96.8-100.4 DegF] 99 DegF (08/12/21: AM) 97.3 DegF (08/12/21 9:16 AM) Mode of Delivery (Oxygen) Room air (08/12/21 11:28 AM) Room air (08/12/21 9:16 AM) Blood pressure sites Arm, left (08/12/21:28 AM) Arm, right (08/12/21:16 AM) Temperature Route Temporal (08/12/21 11: AM) Oral (08/12/21 9:16 AM) Dry Weight 95.5 kg (08/12/21:28 AM) 95.5 kg (08/12/21 9:16 AM)
--- OUTSIDE RECORDS SUMMARY | 2023-06-10 18:46 | XMS_ITS | Continuity of Care Document ---
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 Name Role Phone Lily HUTCHINSON, Carlos Sandoval Primary Care Physician [place] [facility] [place] - 10/09/20 [facility] [address] [place] [address]- Encounter Diagnosis Suicide gesture(Final) - 10/06/20 Alcohol intoxication(Final) - 10/06/20 Discharge Disposition: A-D/C Home Attending Physician: Jaron Doe MD Admitting Physician: Marcos Bar MD Referring Physician: Not on Staff, Referring MD Allergies, Adverse Reactions, Alerts No Known Medication Allergies Immunizations Given and Recorded Vaccine Date Status Refusal Reason SARS-CoV-2 (COVID-19) mRNA-1273 vaccine 10/07/20 G iven SARS-CoV-2 (COVID-19) mRNA-1273 vaccine 09/08/20 G iven Medications buPROPion 150 mg/24 hours (XL) oral tablet, extended release 1 tablet = 150 mg, By Mouth, Daily, # 30 tablet, 1 Refills, Maintenance, 10/09/20 10:43:00 EDT, XL Tablet, [id number], Partial fill upon patient request if the prescription is for aschedule II opioid drug., 1 tablet By Mouth Daily, 180,... Start Date: 10/09/20 Status: Ordered cloNIDine 0.1 mg oral tablet 0.1 mg, Tablet, By Mouth, 10/09/20 9:00:00 EDT Start Date: 10/09/20 Stop Date: 10/09/20 Status: Completed cloNIDine 0.1 mg oral tablet 0.1 mg, 1, tablet, By Mouth, 3 times a day, # 90 tablet, Refills 1, Tot. Refills 1, Maintenance, 10/09/20 10:44:00 EDT, Route to Pharmacy Electronically, [id number], Partial fill upon patient request if the prescription is for a schedule... Start Date: 10/09/20 Status: Ordered risperiDONE 0.5 mg oral tablet 0.5 mg, 1, tablet, By Mouth, 2 times a day, # 60 tablet, Refills 1, Tot. Refills 1, Maintenance, 10/09/20 11:37:00 EDT, Route to Pharmacy Electronically, [id number], Partial fill upon patient request if the prescription is for a schedule... Start Date: 10/09/20 Status: Ordered Vital Signs Most recent to oldest [Reference Range]: 1 2 3 Height 180 cm (10/09/20 8:15 AM) 180 cm (10/08/20 9:59 PM) 180 cm (10/08/20 7:53 AM) Weight 85.7 kg (10/07/20 11:29 AM) 86 kg (10/07/20 8:44 AM) 86 kg (10/07/20 6:26 AM) Oxygen Saturation [94-100 %] 98 % (10/09/20 8:15 AM) 99 % (10/08/20 9:59 PM) 97 % (10/08/20 7:53 AM) Pulse Rate [55-90 bpm] 82 bpm (10/09/20 8:15 AM) 85 bpm (10/08/20 9:59 PM) 110 bpm *H* (10/08/20 7:53 AM) Body Mass Index [18.5-24.99] 26.45 *H* (10/07/20 11:29 AM) 26.54 *H* (10/07/20 8:44 AM) 26.54 *H* (10/07/20 6:26 AM) Blood Pressure [90-138/55-84 mm Hg] 108/76mm Hg (10/09/20 9:00 AM) 108/76mm Hg (10/09/20 8:15 AM) 98/69mm Hg (10/08/20 9:59 PM) Respiratory Rate [16-30 br/min] 18 br/min (10/09/20 9:07 AM) 18 br/min (10/09/20 8:15 AM) 18 br/min (10/08/20 9:59 PM) Temperature [96.8-100.4 DegF] 98.0 DegF (10/09/20 8:15 AM) 97.8 DegF (10/08/20 9:59 PM) 97.5 DegF (10/08/20 7:53 AM) Mode of Delivery (Oxygen) Room air (10/09/20 8:15 AM) Room air (10/08/20 7:53 AM) Room air (10/07/20 11:29 AM) Blood pressure sites Arm, left (10/09/20 8:15 AM) Arm, left (10/08/20 9:59 PM) Arm, left (10/08/20 7:53 AM) Temperature Route Temporal (10/09/20 8:15 AM) Temporal (10/08/20 9:59 PM) Tympanic (10/08/20 7:53 AM) Dry Weight 85.7 kg (10/07/20 11:29 AM) 86 kg (10/07/20 8:44 AM) 86 kg (10/07/20 6:26 AM) Weight Obtained Via Patient/family state d (10/06/20 10:37 AM) Sensory deficits None (10/07/20 11:29 AM)
--- OUTSIDE RECORDS SUMMARY | 2023-06-10 18:46 | XMS_ITS | Continuity of Care Document ---
Author Organization [facility] Address [address] [place] [address]- Encounter [facility] [place] Date(s): 02/26/22 - 02/28/[address] [address]- Encounter Diagnosis Depression(Final) - 02/26/22 Discharge Disposition: Transfer to [facility] Facility Attending Physician: Darlene Bass MD Admitting Physician: Darlene Bass MD Referring Physician: Not on Staff, Referring MD Allergies, Adverse Reactions, Alerts No Known Medication Allergies Immunizations Given and Recorded Vaccine Date Status Refusal Reason SARS-CoV-2 (COVID-19) mRNA-1273 vaccine 10/07/20 G iven SARS-CoV-2 (COVID-19) mRNA-1273 vaccine 09/08/20 G iven Medications Ativan 0.5 mg oral tablet 0.5 tablet = 0.25 mg, By Mouth, 2 times a day, 0 Refills, Maintenance, 02/26/22 11:05:00 EST, Tablet, Partial fill upon patient request if the prescription is for a schedule II opioid drug. Start Date: 02/26/22 Status: Ordered cloNIDine 0.1 mg oral tablet [...] opioid drug. Start Date: 02/26/22 Status: Ordered Venlafaxine = 75 mg, By Mouth, Daily, 0 Refills, Maintenance, 02/26/22 11:16:00 EST, Partial fill upon patient request if the prescription is for a schedule II opioid drug. Start Date: 02/26/22 Status: Ordered Problem List Condition Confirmation Course Effective Dates Status Health St atus Informant Alcohol dependence Confirmed Active Depression Confirmed Active Hyperlipidemia Confirmed Active Hypertension Confirmed Active Tobacco dependence Confirmed Active Vital Signs Most recent to oldest [Reference Range]: 1 2 3 Height 183 cm (02/27/22 4:50 AM) 183 cm (02/26/22 12:42 PM) 183 cm (02/26/22 8:23 AM) Weight 84.5 kg (02/27/22 4:50 AM) 84.5 kg (02/26/22 12:42 PM) 84.5 kg (02/26/22 8:23 AM) Oxygen Saturation [94-100 %] 96 % (02/28/22 9:22 AM) 96 % (02/28/22 5:00 AM) 96 % (02/27/22 12:12 PM) Pulse Rate [55-90 bpm] 73 bpm (02/28/22 9:22 AM) 53 bpm *L* (02/28/22 5:00 AM) 70 bpm (02/27/22 12:14 PM) Body Mass Index [18.5-24.99 kg/m2] 25.23 kg/m2 *H* (02/27/22 4:50 AM) 25.23 kg/m2 *H* (02/26/22 12:42 PM) Blood Pressure [90-138/55-84 mm Hg] 114/92mm Hg (02/28/22 9:22 AM) 119/97mm Hg (02/28/22 5:00 AM) 121/89mm Hg (02/27/22 12:14 PM) Respiratory Rate [16-30 br/min] 18 br/min (02/28/22 9:22 AM) 16 br/min (02/28/22 5:00 AM) 16 br/min (02/27/22 12:14 PM) Temperature [96.8-100.4 DegF] 98.0 DegF (02/28/22 5:00 AM) 98.0 DegF (02/27/22 12:12 PM) 97.9 DegF (02/27/22 7:45 AM) Mode of Delivery (Oxygen) Room air (02/28/22 5:00 AM) Room air (02/27/22 12:12 PM) Room air (02/27/22 7:00 AM) Blood pressure sites Arm, left (02/27/22 12:12 PM) Arm, left (02/27/22 4:50 AM) Arm, right (02/26/22 12:42 PM) Temperature Route Temporal (02/28/22 5:00 AM) Temporal (02/27/22 12:12 PM) Temporal (02/27/22 7:45 AM) Dry Weight 84.5 kg (02/27/22 4:50 AM) 84.5 kg (02/26/22 12:42 PM) 84.5 kg (02/26/22 8:23 AM) Weight Obtained Via Patient/family state d (02/26/22 8:23 AM) Dry Weight Obtained Via Patient/family s tated (02/26/22 8:23 AM) Hospital Progress note * Nida Meléndez RN: PERFORM, SIGN, VERIFY Event Display: Progress Note Hospital Authored Date: Patient: BABAK MCKEON Age: 51 years Sex: Male : 1970 Associated Diagnoses: None Author: Nida Meléndez RN Findings Since arrival pt has been bright, calm and cooperative with staff. The pt admits that he is having a hard time staying sober in the community and looking for the help. Pt originally presented with SIwith plan to OD and had given the airplane mechanic apprentice his bottle (in ED Pyxis.) Since arrival the pt denies SI/HI and reports he feels safe here. Pt is able to verbalize a contract for safety and a 1:[address] He has slept most of the day with CIWA scores as he admits he has withdrawn in the past. Pt isaware a bed search could take a while and understands the process. He ate all of his meals and is able to communicate his needs completely and appropriately. Patient Care team information Care Team Personnel Name: Darlene Bass MD Position: [facility] ED Medicine MD Member Role: Admitting Physician Address: Address: [address] [place] [address]- Name: Kel Chery RN Position: [facility] ED RN W/OE and Tasks Member Role: Patient Care Provider Care Team Related Persons Name: NORMA MCKEON Address: home [address] [place] [address] Name: JOSE MCKEON Address: home [address] [place] [address]
--- OUTSIDE RECORDS SUMMARY | 2023-06-10 18:46 | XMS_ITS | Continuity of Care Document ---
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 Name Role Phone Lei Smith Primary Care Physician Encounter [facility] Date(s): 12/06/22 - 12/19/22 [facility] Inpatient Psychiatry [address] [place] [address]- Discharge Disposition: A-D/C Home Attending Physician: Radha Dotson MD Admitting Physician: Radha Dotson MD Referring Physician: Radha Dotson MD Allergies, Adverse Reactions, Alerts No Known Allergies Immunizations Given and Recorded Vaccine Date Status Refusal Reason SARS-CoV-2 (COVID-19) mRNA-1273 vaccine 10/07/20 G iven SARS-CoV-2 (COVID-19) mRNA-1273 vaccine 09/08/20 G iven Medications atorvastatin 40 mg oral tablet 1 tablet = 40 mg, By Mouth, Daily, # 30 tablet, 0 Refills, Maintenance, 12/19/22 8:55:00 EST, Tablet, [id number], Partial fill upon patient request if the prescription is for a schedule II opioid drug., 182, cm, 12/19/22 8:17:00 E... Start Date: 12/19/22 Status: Ordered cloNIDine 0.2 mg oral tablet 0.2 mg, 1, tablet, By Mouth, 2 times a day, PRN, # 60 tablet, Refills 0, Tot. Refills 0, Maintenance, Anxiety, 12/19/22 8:55:00 EST, Route to Pharmacy Electronically, [facility] [id number],Partial fill upon patient request if the prescripti... Start Date: 12/19/22 Status: Ordered Problem List Condition Confirmation Course Effective Dates Status Health St [facility] Informant Alcohol dependence Confirmed Active Depression Confirmed Active Hyperlipidemia Confirmed Active Hypertension Confirmed Active Obese class I Confirmed Active Tobacco dependence Confirmed Active Results Orders for Microbiology Reports Name Date Throat Culture Grp A Strep (Group A Stre p Culture) 12/09/22 Microbiology Reports TEST:Group A Strep Culture STATUS:Auth (Verified) BODY SITE: SOURCE:THROAT COLLECTED DATE/TIME:12/09/22 10:16 AM Group A Strep Culture SPECIMEN DESCRIPTION : THROAT SWAB SPECIAL REQUESTS : NONE CULTURE : NO GROUP A BETA HEMOLYTIC STREPTOCOCCI ISOLATED REPORT STATUS : FINAL 12/12/2022 Vital Signs Most recent to oldest [Reference Range]: 1 2 3 Height 182 cm (12/19/22 8:17 AM) 182 cm (12/18/22 4:40 PM) 182 cm (12/18/22 2:20 PM) Weight 102.7 kg (12/15/22 2:07 PM) 99.7 kg (12/06/22 6:49 PM) 88 kg (12/06/22 8:38 AM) Oxygen Saturation [94-100 %] 98 % (12/19/22 8:17 AM) 99 % (12/18/22 4:40 PM) 98 % (12/18/22 8:08 AM) Pulse Rate [55-90 bpm] 102 bpm *H* (12/19/22 8:17 AM) 86 bpm (12/18/22 4:40 PM) 88 bpm (12/18/22 2:20 PM) Body Mass Index [18.5-24.99 kg/m2] 30.1 kg/m2 *>HHI* (12/06/22 6:49 PM) 26.57 kg/m2 *H* (12/06/22 8:36 AM) Blood Pressure [90-138/55-84 mm Hg] 124/95mm Hg (12/19/22 8:17 AM) 109/79mm Hg (12/18/22 4:40 PM) 126/80mm Hg (12/18/22 2:20 PM) Respiratory Rate [16-30 br/min] 18 br/min (12/19/22 8:17 AM) 18 br/min (12/19/22 8:15 AM) 18 br/min (12/18/22 5:36 PM) Temperature [96.8-100.4 DegF] 98 DegF (12/19/22 8:17 AM) 96.7 DegF *L* (12/18/22 4:40 PM) 96.8 DegF (12/18/22 8:08 AM) Mode of Delivery (Oxygen) Room air (12/19/22 8:17 AM) Room air (12/18/22 4:40 PM) Room air (12/18/22 8:08 AM) Blood pressure sites Arm, left (12/19/22 8:17 AM) Arm, left (12/18/22 4:40 PM) Arm, left (12/18/22 2:20 PM) Temperature Route Temporal (12/19/22 8:17 AM) Temporal (12/18/22 4:40 PM) Temporal (12/18/22 8:08 AM) Dry Weight 99.7 kg (12/06/22 6:49 PM) 88 kg (12/06/22 8:38 AM) 88 kg (12/06/22 8:36 AM) Weight Obtained Via Standing scale (12/15/22 2:07 PM) Social History Social History Type Response Smoking Status 10 or more cigarette s (1/2 pack or more)/day in last 30 days entered on: 05/09/22 Sex Admission evaluation note * Clayton OLIVAREZ, Yi: PERFORM Event Display: Admission Note Authored Date: Patient: ??BABAK MCKEON ? Age:??52 Years?Sex:??Male?:??1970?? Provider Clinical Summary Babak is a [age] year old single white male, known to crisis services, who self presented today after reporting two days of alcohol relapse, spending two??days and two nights in the cold [place]. Chief Complaint SI Thoughts History of Present Illness Pt seen for:??30 minutes Total Time spent with pt:??50 minutes Discussed pt in meeting with RN, , SW. Labs, notes, and orders reviewed. ?? Identifying Information: Babak is a 52-year-old single white male??with a history of??alcohol use disorder, major depressive disorder??hypertension, dyslipidemia and tobacco dependence??admitted to the mental health unit??for suicidal ideation in the context of??alcohol relapse x 2 days. History of Present Illness Babak has been??sober??while a resident at the [facility] x 6 months.?? States he is craving??became very intense??and he began to??anticipate??the anniversary of his mother's .?? He reportsfeeling overwhelmed by sadness and depression, and left the program with??a vague??thought of suicide??and relapsed on alcohol.?? He was living??outside in the [facility].?? He states his blanket was soaked and he was physically very uncomfortable, so walked to the emergency department to ask for help.?? He hopes to return to the program at [facility]??and regrets having left.?? He is having??feelings of guilt??and grief, but?? trying not to beat myself up about his relapse.?? He is cooperative and??cognitively intact.?? He has good eye contact, full range of affect??and his speech is clear??and organized.?? He denies current SI.?? States??that throughout the 6-month program??he??experienced vague SI??without a plan??intermittently.?? He stopped taking??his antidepressant approximately 1 month agobecause he said??it did not seem to??affect him one way or another??and he was experiencing pings , odd sensations and and has had.?? He sees??anxiety as a more significant problem for him,??and feels??lorazepam and clonidine are helpful with it.?? Has??trialed??naltrexone, Campral etc.??with no??fact in the past??for relapse prevention.?? He is currently??feeling??physically uncomfortable, withchills and??sore throat and general malaise. ??He is being monitored on a CIWA scale, but feels that his current symptoms are more a result of having slept??out in the cold. ?? Psychiatric Hx .Has been admitted to psychiatric hospitals, including??2 previous admission??to [facility], 1 admission to [facility], 1 admission to [facility] 3???4 times??for similar??episodes??of relapse and suicidality.?Took venlafaxine??for approximately a year??and states it??was not??effective.?.?? He was on citalopram for approximately 10 years??previously.? [1] ?? Medical Hx Affecting Psych Problem Hypertension, hyperlipidemia, tobacco dependence ?? Social Hx Tello??grew up in [place], with his mother, father, and sister, Tatiana.?? His mother in 2006.?? His father, stepmother, and Tatiana??are supportive of him??and his struggles with alcoholism.?? Tello is .?? 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 His mother suffered from depression, his father battled anxiety his entire life and was hospitalized x1.?? And his paternal grandfather and all 4 of his father's brothers from alcoholism. ?? Social Determinants of Health _ Addiction ?? Substance Use Hx 1 pack/cigarettes/day. ??Denies cannabis, heroin, cocaine??or other??illicit drug use.?? History ofalcohol use disorder.?? Most recently??resident of??recovery facility,??had 2-day relapse.?? BAL 54on admission Review of Systems Depression:??Denies SI, endorses guilt, hopelessness,??anergia Anxiety:??Worry about the future, racing heart, repetitive thoughts about the past Marilou:??Denies hyperverbal speech, excess goal-directed activity, sleeplessness Psychotic:??Experienced??voices only during??alcohol withdrawal delirium PTSD:??Admits?negative ruminations??and nightmares ADHD:??Denies hyperactivity or difficulty with focus ? Safety Evaluation: ? Suicide Risk Factors Currently Present ? Suicidal Ideation:??Denies suicidal ideation? Homicidal Ideation:??Denies ? Previous Suicide Attempt:??1 previous attempt, overdose on alcohol and clonidine??approximately 6 months ago ? History Self Injury:??Denies ? Substance Abuse:??Alcohol ? Recent Loss of Relationship:??No ? Legal or Disciplinary Problems:??Denies ? Access to weapons:??Denies ?? Protective Factors ? Social Support:??Several supportive??friends in??the program,??AA sponsor ? Hopeful that treatment will help:??Yes ? Strengths:??Motivated for treatment, intelligence ?? Risk Assessment:??Moderate risk suicide Actions Taken to Reduce Risk: ?Discussed how to access help 24 hours/day while in hospital ?Discussed securing weapons and/or other means as appropriate ?? Mental Status Vitals & Measurements T:??98.3?F?? TMIN:??97?F?? TMAX:??100.6?F?? HR:??127??(Peripheral)?? RR:??18?? BP:??139/99?? SpO2:??95%?? WT:??99.7??kg?? Mental Status Exam: General appearance:??Well groomed, dressed in hospital scrubs Eye contact:??Good Musculoskeletal:??No tics or tremors Behavior:??Cooperative, relaxed Speech:??Clear, organized Mood:?? Anxious Affect:full range Thought Content:??Regrets about relapse Thought Process:??Organized,??ruminative Suicidality/Self harm:??Denies Homicidality/violence:??Denies Cognition:??[memory, orientation, concentration, executive function]??intact Insight:??Good Judgement:??Fair Reliability:??Good Gulf Suicide Score Gulf Suicide Assessment Ca (12/06/22) Gulf Suicide Score Last Asked Ca (12/07/22) Suicidal Intent No Plan Past Month-CSSRS: No (12/06/22) Suicidal Thoughts Method Past Mon-CSSRS: No (12/06/22) Suicidal Thoughts Past Month - CSSRS: No (12/06/22) Suicidal Thoughts Since Last Asked-CSSRS: No (12/07/22) Suicide Behavior Lifetime - CSSRS: Yes (12/06/22) Suicide Behavior Past 3 Months - CSSRS: Yes (12/06/22) Suicide Behavior Since Last Asked-CSSRS: No (12/07/22) Suicide Intent w/Plan Past Month - CSSRS: Yes (12/06/22) Wish to be Past Month - CSSRS: No (12/06/22) Assessment/Plan ? Barriers to DC/projected DC date Needs psychiatric stabilization??and review of psychiatric medications. ??Hopefully able to return to??dual diagnosis program at [facility]. ??Projected discharge date??December 13 ?? Plan ??Continue inpatient level of care for safety??and stabilization Unit??standard safety checks Restart home medications CIWA assessments and??lorazepam??protocol ?? Diagnosis Alcohol use disorder, severe, in early remission (F10.21) Dyslipidemia (E78.5) Hypertension (I10) Major depressive disorder, recurrent, severe w/o psychotic behavior (F33.2) Suicidal thoughts (R45.851) [1] Problem List/Past Medical History Ongoing Alcohol dependence Depression Hyperlipidemia Hypertension Obese class I Tobacco dependence Medications Inpatient Acetaminophen Tablet, 650 mg, By Mouth, Every 4 hours, PRN Ativan Tablet, 1 mg, By Mouth, Every 2 hours, PRN Ativan Tablet, 2 mg, By Mouth, Every 2 hours, PRN atorvastatin 40 mg oral tablet, 40 mg, By Mouth, Daily at bedtime cloNIDine 0.1 mg oral tablet, 0.1 mg, By Mouth, 3 times a day Folic Acid Tablet, 1 mg, By Mouth, Daily Ibuprofen Tablet, 400 mg, By Mouth, Every 6 hours, PRN LORazepam Tablet, 2 mg, By Mouth, Every hour, PRN Maalox Plus Liquid, 30 mL, By Mouth, Every 4 hours, PRN Milk of Magnesia Liquid, 30 mL, By Mouth, 2 times a day, PRN Mirtazapine Tablet, 45 mg, By Mouth, Daily at bedtime Multivitamin Tablet, 1 tablet, By Mouth, Daily Nicotine Gum, 2 mg, Chew, Every hour, PRN Nicotine Topical, 21 mg, Topically, Daily Pyridoxine Tablet, 50 mg, By Mouth, Daily Remove Patch, 1 each, Topically, Daily Thiamine Tablet, 100 mg, By Mouth, 2 times a day Vistaril Capsule, 50 mg, By Mouth, Every 4 hours, PRN Home Ativan 0.5 mg oral tablet, 0.5 mg= 1 tablet, By Mouth, 2 times a day atorvastatin 40 mg oral tablet, 40 mg= 1 tablet, By Mouth, Daily benztropine 1 mg oral tablet buPROPion 100 mg/12 hours (SR) oral tablet, extended release, 100 mg= 1 tablet, By Mouth, Daily cloNIDine 0.1 mg oral tablet, 0.1 mg= 1 tablet, By Mouth, 3 times a day cloNIDine 0.1 mg oral tablet, 0.1 mg= 1 tablet, By Mouth, Daily at bedtime LORazepam 0.5 mg oral tablet Melatonin 3 mg oral tablet mirtazapine 15 mg oral tablet Remeron Tablet, 45 mg, By Mouth, Daily at bedtime Risperidone, 1 mg, By Mouth, Daily in AM Risperidone, 2 mg, By Mouth, Daily at bedtime risperiDONE 1 mg oral tablet sertraline 100 mg oral tablet, 100 mg= 1 tablet, By Mouth, Daily venlafaxine 37.5 mg oral capsule, extended release Allergies NKA No Known Medication Allergies Social History Alcohol Use: Current. Frequency: Several times per day. Type: Beer. Tobacco Use: 10 or more cigarettes (1/2 pack or more)/day in last 30 days. Immunizations Vaccine Date Status SARS-CoV-2 (COVID-19) mRNA-1273 vaccine 10/07/2020 Given SARS-CoV-2 (COVID-19) mRNA-1273 vaccine 09/08/2020 Given [1]??Discharge Summary; Yi Arnold NP 05/24/2022 09:58 EDT EKG study * Event Display: ECG 12-Lead Authored Date: Please click on pdf link to open report * Event Display: ECG 12-Lead Authored Date: Ventricular Rate: 124 BPM Atrial Rate: 124 BPM P-R Interval: 146 ms QRS Duration: 92 ms Q-T Interval: 314 ms QTC Calculation(Bazett): 451 ms P Heaters: 36 degrees R Heaters: 7 degrees T Heaters: 32 degrees Sinus tachycardia Otherwise WNL When compared with ECG of 12-AUG-2021 21:25, HR has increased Confirmed by Giuseppe Lange ([id number]) on 12/06/2022 2:17:02 PM [place] * Skyla Vigil RN: PERFORM, SIGN, VERIFY Event Display: Progress Note Hospital Authored Date: Patient: BABAK MCKEON Age: 52 years Sex: Male : 1970 Associated Diagnoses: None Author: Skyla Vigil RN Findings Narrative/Incidental 0.5 lorazepam tablet fell on the floor during dispensing. wasted.. * Skyla Vigil RN: PERFORM, SIGN, VERIFY Event Display: Progress Note Hospital Authored Date: Patient: BABAK MCKEON Age: 52 years Sex: Male : 1970 Associated Diagnoses: None Author: Skyla Vigil RN Findings Narrative/Incidental 0.05 lorazepam wasted. fell on the floor.. * Patricia Montes RN: PERFORM, MODIFY, SIGN, VERIFY Event Display: Progress Note Hospital Authored Date: Patient: BABAK MCKEON Age: 52 years Sex: Male : 1970 Associated Diagnoses: None Author: Patricia Montes RN Findings Narrative/Incidental Babak was resting in bed at the beginning of the shift, breathing evident. He appeared to have slept for 6+ hours out of the recorded hours of sleep for the shift. He presented to the med room @0550and requested/received PRN Ativan for anxiety, same was effective. He remained safe on unit standard checks. Consult note * Rd Dowell: PERFORM Event Display: Consultation Note Authored Date: [id number] Patient: ??BABAK MCKEON ? Age:??52 Years?Sex:??Male?:??1970?? Medicine consult requested for concerns of fever on admission 10/31 and intermittent sore throat.? On trend it does appear that the patient was??febrile on admission however he has been afebrile since without any symptoms of infection. ?? Patient seen and examined, he appears well at this time.?? He reports no subjective fever or chillsas well as no new cough or shortness of breath.?? Of note prior to arrival??the patient was outsidefor 2-3 days straight per his own report spending nights in the cold with only a small blanket to cover him.?? I think it is reasonable that he may have had a sore throat??at time of arrival??although I do not see this was reported. He reports no new or risky sexual activity or IV drug use. ?? He did not have a white count on arrival.??During our discussion he??reports an occasional sore throat when he eats large meals, he attributes this to reflux which he has been dealing with for quite some time.?? I think it is reasonable to put the patient on pantoprazole inpatient??and monitor for improvement.?? I do not think any aggressive infectious work-up should be pursued at this time. ?? Thank you for your consult.?? Medicine will continue to follow as needed. * Alden LU, Rd Ricks: PERFORM Event Display: Consultation Note Authored Date: Patient: ??BABAK MCKEON ? Age:??52 Years?Sex:??Male?:??1970?? Chief Complaint/Reason for Consultation SI Thoughts History of Present Illness Babak is a very pleasant 52-year-old gentleman PMHx alcohol abuse, hypertension, dyslipidemia, depression who presents to [facility] mental health unit for concerns of alcohol relapse, homelessness.?? Patient states that for the past 2 days he has been in the [place] covered with a blanket drinking significant amounts of vodka typically 1-2 L.?? Patient allegedly had suicidalideations with a bottle of clonidine. ?? He presents to the mental health unit for rehabilitation and medical management.?? Throughout this hospitalization he has been tachycardic.?? His admission labs including CBC and comprehensive metabolic panel largely unremarkable.?? His TSH 0.38, T41.33.?? Serum ethanol 54 on arrival.?? Viral panelnegative. ?? He denies any subjective fever no chill no chest pain no cough no shortness of breath no abdominal pain no vomiting at this time. Review of Systems A complete ROS performed and negative unless specified in HPI. Objective Vital Signs?? Temperature: 98.2 DegF (12/07/22 12:29:00) Temperature Route: Temporal (12/07/22 12:29:00) Pulse Rate:??108 bpm??High (12/07/22 12:29:00) Respiratory Rate: 18 br/min (12/07/22 12:29:00) Systolic Blood Pressure: 125 mm Hg (12/07/22 12:29:00) Diastolic Blood Pressure: 79 mm Hg (12/07/22 12:29:00) Blood pressure sites: Arm, right (12/07/22 09:37:00) Mean Arterial Pressure: 112 mm Hg (12/07/22 09:37:00) Pulse Pressure: 40 mm Hg (12/07/22 09:37:00) Oxygen Saturation: 95 % (12/07/22 09:37:00) Mode of Delivery (Oxygen): Room air (12/06/22 21:08:00) ? Intake/Output? No Data Available ? Physical Exam Constitutional: Alert, oriented appears fatigued lying in bed in no acute distress. Mental Status: Oriented to person, place and time. HEENT:??PERRLA, EOMs full. ??No pallor or icterus. ??MMM. ??Trachea midline. ??Normocephalic, atraumatic. Respiratory: Clear to auscultation. No wheezing, rales or rhonchi. Cardiovascular: Tachycardic regular rhythm.?? S1-S2 regular. Gastrointestinal: Abdomen soft, non-tender, non-distended. Active bowel sound x4 quadrant. Neuro:??Cranial nerves II-XII grossly intact. No focal neurological deficits.. Moves all extremities spontaneously. Sensation intact bilaterally. Skin: No rashes or lesions. No petechiae or purpura.?? Musculoskeletal: No cyanosis or clubbing. No gross deformities. Normal range of motion. Psychiatric: Normal mood and affect Assessment/Plan Diagnoses Alcohol abuse ??(F10.10) Anxiety and depression ??(F41.9) Hyperlipidemia ??(E78.5) Hypertension ??(I10) Insomnia ??(G47.00) Tachycardia ??(R00.0) ?? Assessment:??This is a 52-year-old gentleman who presents to [facility] mental health unit for concerns of acute alcohol intoxication, suicidal ideation. ?? Anxiety and depression (F41.9):??Management per primary psych team ?? Alcohol abuse (F10.10):??Continue CIWA protocol.??Management per primary psych team. ?? Hyperlipidemia (E78.5):??Continue home atorvastatin ?? Hypertension (I10):??Continue??home clonidine ?? Insomnia (G47.00):??May continue home Remeron ?? Tachycardia (R00.0):??We will continue to monitor.??Appears to be sinus tachycardia and acute alcohol withdrawal. Noted. ?? Thank you for your consult. ??Medicine will continue to follow??the patient on an as-needed basis. ??We will sign off at this time. ?? Histories Allergies Allergies ?(Active and Proposed Allergies Only) NKA? (Severity: Unknown severity, Onset: Unknown) No Known Medication Allergies? (Severity: Unknown severity, Onset: Unknown) ? Past Medical History/Problem List Active Problems??(6) Alcohol dependence Depression Hyperlipidemia Hypertension Obese class I Tobacco dependence ? Past Surgical History No [...] mg oral tablet)?0.1?Milligram?1?tablet?By Mouth?3 times a day Clonidine (cloNIDine 0.1 mg oral tablet)?0.1?Milligram?1?tablet?By Mouth?Daily atbedtime Lorazepam (Ativan 0.5 mg oral tablet)?1?tab(s)?0.5?Milligram?By Mouth?2 times a day Mirtazapine (Remeron Tablet)?45?Milligram?By Mouth?Daily at bedtime Risperidone?1?Milligram?By Mouth?Daily in AM Risperidone?2?Milligram?By Mouth?Daily at bedtime Sertraline (sertraline 100 mg oral tablet)?1?tab(s)?100?Milligram?By Mouth?Daily ? Inpatient Medications Medications (18) Active SCHEDULED: (9) Atorvastatin 40 mg Tablet (atorvastatin 40 mg oral tablet) ??40 mg, By Mouth, Daily at bedtime Clonidine 0.1 mg Tablet (cloNIDine 0.1 mg oral tablet) ??0.1 mg, By Mouth, 3 times a day Folic Acid 1 mg Tablet (Folic Acid Tablet) ??1 mg, By Mouth, Daily Mirtazapine 15 mg Tablet (Mirtazapine Tablet) ??45 mg, By Mouth, Daily at [...] ??30 mL, By Mouth, Every 4 hours HydrOXYzine Pamoate 25mg Capsule (Vistaril Capsule) ??50 mg, By Mouth, Every 4 hours Ibuprofen 400 [...] Gum (Nicotine Gum) ??2 mg, Chew, Every hour ? Results Recent Labs BLOOD COUNT & DIFF WBC 10.3 k/mm3 ()?? 12/06/2022 10:14 RBC 5.62 m/mm3 ()?? 12/06/2022 10:14 Hgb 16.8 Gm/dL ()?? 12/06/2022 10:14 Hct 50.2 % (High)?? 12/06/2022 10:14 MCV 89.3 femtoliters ()?? 12/06/2022 10:14 MCH 29.9 pg ()?? 12/06/2022 10:14 MCHC 33.5 g/dL ()?? 12/06/2022 10:14 Platelet Count 189 k/mm3 ()?? 12/06/2022 10:14 RDW-SD 43.0 femtoliters ()?? 12/06/2022 10:14 MPV 9.7 femtoliters ()?? 12/06/2022 10:14 Nucleated RBC (Automated) 0.0 #/100 WBC'S ()?? 12/06/2022 10:14 Abs. NRBC 0.0 k/mm3 ()?? 12/06/2022 10:14 Abs. Neut 7.7 k/mm3 (High)?? 12/06/2022 10:14 Abs. Lymph 1.7 k/mm3 ()?? 12/06/2022 10:14 Abs. [place] 0.9 k/mm3 ()?? 12/06/2022 10:14 Abs. Eo 0.0 k/mm3 ()?? 12/06/2022 10:14 Abs. Baso 0.0 k/mm3 ()?? 12/06/2022 10:14 Neut % 74.9 % ()?? 12/06/2022 10:14 Lymph % 16.1 % ()?? 12/06/2022 10:14 [place] % 8.4 % ()?? 12/06/2022 10:14 Eos % 0.2 % ()?? 12/06/2022 10:14 Baso % 0.2 % ()?? 12/06/2022 10:14 Imm Gran 0.2 % ()?? 12/06/2022 10:14 Abs. Imm Gran 0.0 k/mm3 ()?? 12/06/2022 10:14 ?? CHEM GENERAL Sodium 138 mmol/L ()?? 12/06/2022 10:14 Potassium 4.2 mmol/L ()?? 12/06/2022 10:14 Chloride 100 mmol/L ()?? 12/06/2022 10:14 Bicarbonate Level 17 mmol/L (Low)?? 12/06/2022 10:14 Anion Gap 21 (High)?? 12/06/2022 10:14 Glucose Level 73 mg/dL ()?? 12/06/2022 10:14 BUN 20 mg/dL ()?? 12/06/2022 10:14 Creatinine-Blood 1.0 mg/dL ()?? 12/06/2022 10:14 Estimated GFR Creatinine 85 ML/MIN/1.73 M2 ()?? 12/06/2022 10:14 Calcium 9.0 mg/dL ()?? 12/06/2022 10:14 Protein, Total 7.2 Gm/dL ()?? 12/06/2022 10:14 Albumin 4.6 Gm/dL ()?? 12/06/2022 10:14 Alkaline Phosphatase 82 units/L ()?? 12/06/2022 10:14 AST (SGOT) 39 units/L ()?? 12/06/2022 10:14 ALT (SGPT) 26 units/L ()?? 12/06/2022 10:14 Bilirubin, Total 0.7 mg/dL ()?? 12/06/2022 10:14 Bilirubin, Direct 0.1 mg/dL ()?? 12/06/2022 10:14 Bilirubin, Indirect 0.6 mg/dL ()?? 12/06/2022 10:14 ?? ENDOCRINE/TUMOR MARKER TSH 0.38 uIU/mL (Low)?? 12/06/2022 10:14 Free T4 1.33 ng/dL ()?? 12/06/2022 10:14 ?? FLUID STUDIES Hold Other SPECIMEN DISCARDED AFTER 1 WEEK ()?? 12/06/2022 10:14 ?? HEME OTHER Hold Blue Top SPECIMEN DISCARDED AFTER 4 HOURS. ()?? 12/06/2022 10:14 ?? MISC. CHEMISTRY Hold Gel Top SPECIMEN DISCARDED AFTER 1 WEEK ()?? 12/06/2022 10:14 ?? TOXICOLOGY/TDM Ethanol, Serum or Plasma 54 mg/dL (Abnormal)?? 12/06/2022 10:14 ?? URINE OTHER Est Creatinine Clearance 91.74 mL/min ()?? 12/06/2022 10:56 ?? VIROLOGY Influenza A PCR NEGATIVE ()?? 12/06/2022 08:47 Influenza B PCR NEGATIVE ()?? 12/06/2022 08:47 RSV PCR NEGATIVE ()?? 12/06/2022 08:47 COVID-19 PCR Specimen Source NASAL ()?? 12/06/2022 08:47 COVID-19 PCR Result NEGATIVE ()?? 12/06/2022 08:47 ? Urinalysis?? No qualifying data available. ? Note * Clayton OLIVAREZ, Yi: PERFORM, MODIFY Event Display: Discharge/Transfer Note Hospital Authored Date: Patient: ??BABAK MCKEON ? Age:??52 Years?Sex:??Male?:??1970?? Patient Information Discharge Location: [facility] Primary Care Physician: Lei Smith Admit Date/Time: 12/06/22 17:25 Discharge Disposition Discharge Disposition: Penitentiary Facility/Rehab Discharge Diagnosis Alcohol abuse (F10.10) Anxiety and depression (F41.9) Hyperlipidemia (E78.5) Hypertension (I10) Insomnia (G47.00) Tachycardia (R00.0) ?? _ Discharge Medications Atorvastatin (atorvastatin 40 mg oral tablet)?1?tab(s)?40?Milligram?By Mouth?Daily Clonidine (cloNIDine 0.2 mg oral tablet)?0.2?Milligram?1?tablet?By Mouth?2 times a day?as needed?Anxiety ? Quality Measures Tobacco Use Treatment:??On NRT during admission, declined on discharge ?? Substance Use Treatment Provided at Discharge:??Will transfer to [facility]??recovery??program??and continue??AA ? Inpatient Medications Medications (18) Active SCHEDULED: (10) Atorvastatin 40 mg Tablet (atorvastatin 40 mg oral tablet) ??40 mg, By Mouth, Daily at bedtime Folic Acid 1 mg Tablet (Folic Acid Tablet) ??1 mg, By Mouth, Daily Melatonin 3 mg Tablet (Melatonin Tablet) ??6 mg, By Mouth, Daily at bedtime Mirtazapine 15 mg Tablet (Mirtazapine Tablet) ??45 mg, By Mouth, Daily at bedtime Multivitamin Tablet ??1 tablet, By Mouth, Daily Nicotine 21 mg / 24 hour Patch (Nicotine Topical) ??21 mg, Topically, Daily Pantoprazole 40 mg EC Tablet (Pantoprazole Tablet) ??40 mg, By Mouth, Daily Pyridoxine 50 mg Tablet (Pyridoxine Tablet) ??50 mg, By Mouth, Daily Remove Patch (Remove ??Patch) ??1 each, Topically, Daily Thiamine 100 mg Tablet (Thiamine Tablet) ??100 mg, By Mouth, 2 times a day CONTINUOUS: (0) PRN: (8) Acetaminophen 325 mg Tablet (Acetaminophen Tablet) ??650 mg, By Mouth, Every 4 hours Al hydroxide/Mg hydroxide/simethicone 200 mg-200 mg-20 mg/5 mL Susp UD (Maalox Plus Liquid) ??30 mL, By Mouth, Every 4 hours Clonidine 0.1 mg Tablet (cloNIDine 0.1 mg oral tablet) ??0.2 mg, By Mouth, Daily HydrOXYzine Pamoate 25mg Capsule (Vistaril Capsule) ??50 mg, By Mouth, Every 4 hours Ibuprofen 400 mg Tablet (Ibuprofen Tablet) ??400 mg, By Mouth, Every 6 hours Lorazepam 0.5 mg Tablet (LORazepam 0.5 mg oral tablet) ??0.5 mg, By Mouth, 3 times a day Magnesium Hydroxide 8% Susp UD (Milk of Magnesia Liquid) ??30 mL, By Mouth, 2 times a day Nicotine 2 mg Gum (Nicotine Gum) ??2 mg, Chew, Every hour ? Medications Started None Medications Discontinued Mirtazapine, melatonin,??lorazepam, pantoprazole Doses Changed Clonidine??changed??from 0.1 mg??as needed??to 0.2 mg??as needed PCP Follow-Up/Heads-Up Recommend continued??monitoring of hypertension and hyperlipidemia Hospital Course Admission Note, 12/07/2022 Babak is a 52-year-old single white male??with a history of??alcohol use disorder, major depressive disorder??hypertension, dyslipidemia and tobacco dependence??admitted to the mental health unit??for suicidal ideation in the context of??alcohol relapse x 2 days. ?? Babak has been??sober??while a resident at the [facility] x 6 months.?? States he is craving??became very intense??and he began to??anticipate??the anniversary of his mother's .?? He reportsfeeling overwhelmed by sadness and depression, and left the program with??a vague??thought of suicide??and relapsed on alcohol.?? He was living??outside in the [facility] home.?? He states his blanket was soaked and he was physically very uncomfortable, so walked to the emergency department to ask for help.?? He hopes to return to the program at [facility]??and regrets having left.?? He is having??feelings of guilt??and grief, but?? trying not to beat myself up about his relapse.?? He is cooperative and??cognitively intact.?? He has good eye contact, full range of affect??and his speech is clear??and organized.?? He denies current SI.?? States??that throughout the 6-month program??he??experienced vague SI??without a plan??intermittently.?? He stopped taking??his antidepressant approximately 1 month agobecause he said??it did not seem to??affect him one way or another??and he was experiencing pings , odd sensations and and has had.?? He sees??anxiety as a more significant problem for him,??and feels??lorazepam and clonidine are helpful with it.?? Has??trialed??naltrexone, Campral etc.??with no??fact in the past??for relapse prevention.?? He is currently??feeling??physically uncomfortable, withchills and??sore throat and general malaise. ??He is being monitored on a CIWA scale, but feels that his current symptoms are more a result of having slept??out in the cold. ?? Psychiatric Hx .Has been admitted to psychiatric hospitals, including??2 previous admission??to [facility], 1 admission to [facility], 1 admission to [facility] 3???4 times??for similar??episodes??of relapse and suicidality.?Took venlafaxine??for approximately a year??and states it??was not??effective.?.?? He was on citalopram for approximately 10 years??previously.? [1] ?? Medical Hx Affecting Psych Problem Hypertension, hyperlipidemia, tobacco dependence ?? Social Hx Tello??grew up in [place], with his mother, father, and sister, Tatiana.?? His mother in 2006.?? His father, stepmother, and Tatiana??are supportive of him??and his struggles with alcoholism.?? Tello is .?? 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 His mother suffered from depression, his father battled anxiety his entire life and was hospitalized x1.?? And his paternal grandfather and all 4 of his father's brothers from alcoholism. ?? Social Determinants of Health _ Addiction ?? Substance Use Hx 1 pack/cigarettes/day. ??Denies cannabis, heroin, cocaine??or other??illicit drug use.?? History ofalcohol use disorder.?? Most recently??resident of??recovery facility,??had 2-day relapse.?? BAL 54on admission [1] ?? Hospital Course Patient was admitted??on a conditional voluntary.?? Monitored on unit standard safety checks??and all appropriate safety measures in place.?? Treatment team saw the patient daily for medication management, mental status exam, and safety assessment.?Tello was initially monitored on??the CIWA scalefor alcohol withdrawal??symptoms, but had minimal symptoms since his relapse??only lasted 2 days.??He reported that after the first reassuring??sips of alcohol, he begins feeling spiritually??sick??and denied??a desire to??continue drinking throughout his stay. ??He??denied??thoughts of suicide??also,??had no??symptoms of marilou??or psychosis.?? He??generally attended all groups in the evening and early in the day and rested in the afternoon.?? He was positive, future oriented??and pragmatic.??He accepted??the news that he could not return to his bed at [facility]??calmly although he was disappointed.?? He used daily time with??treatment team well, discussing??his history of depression??and his motivations for??maintaining sobriety.?? Tello did not??want to restart antidepressants. ??Although he recognizes??his genetic loading for depression,??he feels??that anxiety is more of a struggle forhim.?Interested in minimizing the medications he??was on by the time he discharged from the hospital, asking to discontinue??pantoprazole,??hydroxyzine, mirtazapine,??lorazepam, and melatonin.?? At the time of discharge??he was taking only??atorvastatin??for hyperlipidemia??and clonidine 0.2 mg twice per day??as needed for anxiety. ?? Day of Discharge??Note And he is bright, organized??and hopeful on the day of discharge.?? He looks forward to??the work and the??spiritual community at the [facility] in [place].?? He denies thoughts of SI or HI??and has no evidence of??psychosis, marilou.?? He is ready to??do his recovery from alcohol.?? He is??appropriate for discharge from the MHU today. Psychiatric Review of Systems Depression:??No symptoms evident Anxiety:??Mild and appropriate for discharge day Marilou:??No symptoms evident Psychotic:??None PTSD:??None ADHD:??None ?? Mental Status Exam ?? General appearance:??Casually groomed Eye contact:??Good Musculoskeletal:??No impairments, tics or tremors Behavior:??Cooperative,??calm Speech:??Fluent,??normal rate and volume Mood:??Euthymic Affect:??Smiling Thought content:??Details of discharge Thought process:??Organized Suicidality/self harm:??Denies Homicidality/violence:??Denies Cognition:??Intact Insight:??Excellent Judgment:??Good Reliability:??Good Objective Assessment and Plan ? Vital Signs?? Temperature: 98 DegF (12/19/22 08:17:00) Temperature Route: Temporal (12/19/22 08:17:00) Pulse Rate:??102 bpm??High (12/19/22 08:17:00) Respiratory Rate: 18 br/min (12/19/22 08:17:00) Systolic Blood Pressure: 124 mm Hg (12/19/22 08:17:00) Diastolic Blood Pressure:??95 mm Hg??High (12/19/22 08:17:00) Blood pressure sites: Arm, left (12/19/22 08:17:00) Mean Arterial Pressure: 105 mm Hg (12/19/22 08:17:00) Pulse Pressure: 29 mm Hg (12/19/22 08:17:00) Oxygen Saturation: 98 % (12/19/22 08:17:00) Mode of Delivery (Oxygen): Room air (12/19/22 08:17:00) ? . Physical Exam Vital signs reviewed Consultants None Pending Results COVID-19 (2019 Novel Coronavirus) PCR ordered on 12/17/2022 Patient Instructions Patient instructions Continue taking medications??as prescribed Follow-up with your psychiatrist to discuss to monitor medications Follow-up with your outpatient therapist for psychotherapy Do not drink alcohol, use marijuana or cannabis products, or use illicit drugs such as cocaine If you notice a slip, quickly seek care to prevent relapse If having thoughts of hurting yourself or others, please reach out to family, trusted care provideror crisis line?? Post Discharge Care Discharge ?12/19/22 8:33:00 EST Home Health Face to Face ^HomeHealthFTF Results Discharge Labs BLOOD COUNT & DIFF WBC 10.3 k/mm3 ()?? 12/06/2022 10:14 RBC 5.62 m/mm3 ()?? 12/06/2022 10:14 Hgb 16.8 Gm/dL ()?? 12/06/2022 10:14 Hct 50.2 % (High)?? 12/06/2022 10:14 MCV 89.3 femtoliters ()?? 12/06/2022 10:14 MCH 29.9 pg ()?? 12/06/2022 10:14 MCHC 33.5 g/dL ()?? 12/06/2022 10:14 Platelet Count 189 k/mm3 ()?? 12/06/2022 10:14 RDW-SD 43.0 femtoliters ()?? 12/06/2022 10:14 MPV 9.7 femtoliters ()?? 12/06/2022 10:14 Nucleated RBC (Automated) 0.0 #/100 WBC'S ()?? 12/06/2022 10:14 Abs. NRBC 0.0 k/mm3 ()?? 12/06/2022 10:14 Abs. Neut 7.7 k/mm3 (High)?? 12/06/2022 10:14 Abs. Lymph 1.7 k/mm3 ()?? 12/06/2022 10:14 Abs. Dallas 0.9 k/mm3 ()?? 12/06/2022 10:14 Abs. Eo 0.0 k/mm3 ()?? 12/06/2022 10:14 Abs. Baso 0.0 k/mm3 ()?? 12/06/2022 10:14 Neut % 74.9 % ()?? 12/06/2022 10:14 Lymph % 16.1 % ()?? 12/06/2022 10:14 Dallas % 8.4 % ()?? 12/06/2022 10:14 Eos % 0.2 % ()?? 12/06/2022 10:14 Baso % 0.2 % ()?? 12/06/2022 10:14 Imm Gran 0.2 % ()?? 12/06/2022 10:14 Abs. Imm Gran 0.0 k/mm3 ()?? 12/06/2022 10:14 ?? CHEM GENERAL Sodium 138 mmol/L ()?? 12/06/2022 10:14 Potassium 4.2 mmol/L ()?? 12/06/2022 10:14 Chloride 100 mmol/L ()?? 12/06/2022 10:14 Bicarbonate Level 17 mmol/L (Low)?? 12/06/2022 10:14 Anion Gap 21 (High)?? 12/06/2022 10:14 Glucose Level 73 mg/dL ()?? 12/06/2022 10:14 BUN 20 mg/dL ()?? 12/06/2022 10:14 Creatinine-Blood 1.0 mg/dL ()?? 12/06/2022 10:14 Estimated GFR Creatinine 85 ML/MIN/1.73 M2 ()?? 12/06/2022 10:14 Calcium 9.0 mg/dL ()?? 12/06/2022 10:14 Protein, Total 7.2 Gm/dL ()?? 12/06/2022 10:14 Albumin 4.6 Gm/dL ()?? 12/06/2022 10:14 Alkaline Phosphatase 82 units/L ()?? 12/06/2022 10:14 AST (SGOT) 39 units/L ()?? 12/06/2022 10:14 ALT (SGPT) 26 units/L ()?? 12/06/2022 10:14 Bilirubin, Total 0.7 mg/dL ()?? 12/06/2022 10:14 Bilirubin, Direct 0.1 mg/dL ()?? 12/06/2022 10:14 Bilirubin, Indirect 0.6 mg/dL ()?? 12/06/2022 10:14 ?? ENDOCRINE/TUMOR MARKER TSH 0.38 uIU/mL (Low)?? 12/06/2022 10:14 Free T4 1.33 ng/dL ()?? 12/06/2022 10:14 ?? FLUID STUDIES Hold Other SPECIMEN DISCARDED AFTER 1 WEEK ()?? 12/06/2022 10:14 ? HEME OTHER Hold Blue Top SPECIMEN DISCARDED AFTER 4 HOURS. ()?? 12/06/2022 10:14 ? MISC. CHEMISTRY Hold Gel Top SPECIMEN DISCARDED AFTER 1 WEEK ()?? 12/06/2022 10:14 ? SEROLOGY INF DISEASE Infectious Mononucleosis Ab test NEGATIVE (N)?? 12/06/2022 10:14 TB1 Ag Minus Nil Result 0.01 ()?? 12/13/2022 16:04 TB2 Ag Minus Nil Result 0.02 ()?? 12/13/2022 16:04 Mitogen Minus Nil Result >10.00 ()?? 12/13/2022 16:04 Nil Result 0.03 ()?? 12/13/2022 16:04 Quantiferon 1 Tube Result NEGATIVE ()?? 12/13/2022 16:04 ?? TOXICOLOGY/TDM Ethanol, Serum or Plasma 54 mg/dL (Abnormal)?? 12/06/2022 10:14 ? URINE OTHER Est Creatinine Clearance 91.74 mL/min ()?? 12/06/2022 10:56 ? VIROLOGY Influenza A PCR NEGATIVE ()?? 12/06/2022 08:47 Influenza B PCR NEGATIVE ()?? 12/06/2022 08:47 RSV PCR NEGATIVE ()?? 12/06/2022 08:47 COVID-19 PCR Specimen Source NASAL ()?? 12/06/2022 08:47 COVID-19 PCR Result NEGATIVE ()?? 12/06/2022 08:47 ? _45 minutes spent on discharge * Ronda Asif RN: PERFORM Event Display: Patient Education/Instruction Authored Date: [id number] Inpatient Adult Discharge Instructions [facility] [address] [place] [address] Name: BABAK MCKEON : 1970 Visit: 12/06/2022 17:25:00 Current Date: 12/19/2022 10:04 Account: [id number] Inpatient Adult Discharge Instructions We would like [...] and their families. Surveys are administered by [employer] ?? If further treatment with your primary care physician or another doctor is recommended, it is important for you to keep the appointment. Call your primary care physician or return to the Emergency Department immediately if your condition worsens, fails to improve, or new symptoms develop. If you need to find a doctor, you can call [facility] for a referral at [phone] or toll free at [phone] or log in to [email or web address].. ?? [facility], in keeping with [facility] guidance, no longer requires face masks for staff, patientsor visitors in most situations. Similiar to time spent indoors at other locations, there is the chance that you were exposed to repiratory viruses during your time with us (such as flu or COVID-19). If you develop symptoms concerning for a viral respiratory infection, please seek testing (and treatment if indicated) from your medical provider or home test kit. ?? You can view and manage your care through the patient portal or by using a health care luz of your choosing. [employer] is a website that allows you to securely view your medical information including your hospital discharge summary, office visit summaries, medications and follow-up visits. You can also request appointments, renew medications, and request access to your medical information using a health care luz of your choosing, or just ask a question. You can enroll at [email or web address] or register during your next office visit. You have been discharged from [facility], Patient Care Unit: MHU. If you have any questions regarding these instructions after you leave, please call us and we will be happy to assist you. [facility] Your Care Team Attending Physician Kimani Baker MD, Radha Munguia Discharging Providers Clayton OLIVAREZ, Yi Reason for Admission SI Thoughts Your Diagnosis Alcohol abuse Hyperlipidemia Hypertension Tachycardia Anxiety and depression Insomnia Tests Performed Below is a partial list of the tests performed during your hospitalization. You may have had other tests and procedures not included in this list. Please discuss all test results with your provider. Basic Metabolic Panel CBC w/ Differential COVID-19, RSV, and Flu A/B, Rapid PCR Ethanol Level FREE T4 HEPATIC FUNCTION PANEL HOLD BLUE TUBE HOLD GEL TUBE HOLD OTHER TUBE MONO TEST Quantiferon TB 1 Tube TSH with T4 Reflex (Adults Only) Primary Care Provider Lei Smith Advance Directive Health Care Proxy on File No Patient refuses to discuss Discharge Vitals Temperature: 98 DegF Height: 182 cm Pulse Rate:??102 bpm??High Weight: 102.7 kg Respiratory Rate: 18 br/min Body Mass Index:??30.1 kg/m2??Critical Systolic Blood Pressure: 124 mm Hg Body surface area: 2.25 Diastolic Blood Pressure:??95 mm Hg??High ?? Oxygen Saturation: 98 % ?? Studies Pending All tests and labs ordered during this hospital stay have been completed unless listed below. Please discuss all pending results with your provider listed above in these instructions. ?? COVID-19 (2019 Novel Coronavirus) PCR What to do next Instructions From Your Doctor Discharge Orders Discharge Medications BABAK MCKEON :1970 Visit Date:12/06/2022 Medications: Please continue your medications until treatment is completed or stopped by your provider. Medications not listed below should be discontinued. Discuss any questions related to medications with your provider. What How Much When Instructions Next Dose Changed Atorvastatin (atorvastatin 40 mg oral tablet) 1 tab(s) Oral Daily Pickup at [facility] 12/19 9pm Changed Clonidine (cloNIDine 0.2 mg oral tablet) 1 tab(s) Oral Twice a day as needed for Anxiety Pickup at [facility] Twice a day as needed for Anxiety Pharmacy Information [facility]: [address], [place] [id number] [phone] ?? What How Much When Comments Stop Taking Benztropine (benztropine 1 mg oral tablet) Stop Taking BuPROpion (buPROPion 100 mg/ 12 hours (SR) oral tablet, extended release) 1 tab(s) Oral Daily Stop Taking Lorazepam (Ativan 0.5 mg oral tablet) 1 tab(s) Oral Twice a day Stop Taking Lorazepam (LORazepam 0.5 mg oral tablet) Stop Taking Melatonin (Melatonin 3 mg oral tablet) Stop Taking Mirtazapine (mirtazapine 15 mg oral tablet) Stop Taking Mirtazapine (Remeron Tablet) 45 Milligram Oral Daily at Bedtime Stop Taking Risperidone 1 Milligram Oral Daily in the morning Stop Taking Risperidone 2 Milligram Oral Daily at Bedtime Stop Taking Risperidone (risperiDONE 1 mg oral tablet) Stop Taking Sertraline (sertraline 100 mg oral tablet) 1 tab(s) Oral Daily Stop Taking Venlafaxine (venlafaxine 37.5 mg oral capsule, extended release) Test Results Below is a partial list of the most recent Laboratory test results done prior to this discharge. You may have had other tests and procedures not included in this list. Please discuss all test resultswith your provider. Est Creatinine Clearance - 91.74 mL/min (12/06/2022) Basic Metabolic Panel (12/06/2022) ???Sodium - 138 mmol/L???Potassium - 4.2 mmol/L???Chloride - 100 mmol/L???Bicarbonate Level - 17 mmol/L???Anion Gap - 21???Glucose Level - 73 mg/dL???BUN - 20 mg/dL???Creatinine-Blood - 1.0 mg/dL???Estimated GFR Creatinine - 85 ML/MIN/1.73 M2???Calcium - 9.0 mg/dL CBC w/ Differential (12/06/2022) ???WBC - 10.3 k/mm3???RBC - 5.62 m/mm3???Hgb - 16.8 Gm/dL???Hct - 50.2 %???MCV - 89.3 femtoliters???MCH - 29.9 pg???MCHC - 33.5 g/dL???Platelet Count - 189 k/mm3???RDW-SD - 43.0 femtoliters???MPV - 9.7 femtoliters???Nucleated RBC (Automated) - 0.0 #/100 WBC'S???Abs. NRBC - 0.0 k/mm3???Abs. Neut - 7.7 k/mm3???Abs. Lymph - 1.7 k/mm3???Abs. [place] - 0.9 k/mm3???Abs. Eo - 0.0 k/mm3???Abs. Baso - 0.0 k/mm3???Neut % - 74.9 %???Lymph % - 16.1 %???[place] % - 8.4 %???Eos % - 0.2 %???Baso % - 0.2 %???Imm Gran - 0.2 %???Abs. Imm Gran - 0.0 k/mm3 COVID-19, RSV, and Flu A/B, Rapid PCR (12/06/2022) ???Influenza A PCR - NEGATIVE???Influenza B PCR - NEGATIVE???RSV PCR - NEGATIVE???COVID-19 PCR Specimen Source - NASAL???COVID-19 PCR Result - NEGATIVE Ethanol Level (12/06/2022) ???Ethanol, Serum or Plasma - 54 mg/dL FREE T4 (12/06/2022) ???Free T4 - 1.33 ng/dL HEPATIC FUNCTION PANEL (12/06/2022) ???Protein, Total - 7.2 Gm/dL???Albumin - 4.6 Gm/dL???Alkaline Phosphatase - 82 units/L???AST (SGOT) - 39 units/L???ALT (SGPT) - 26 units/L???Bilirubin, Total - 0.7 mg/dL???Bilirubin, Direct - 0.1 mg/dL???Bilirubin, Indirect - 0.6 mg/dL HOLD BLUE TUBE (12/06/2022) ???Hold Blue Top - SPECIMEN DISCARDED AFTER 4 HOURS. HOLD GEL TUBE (12/06/2022) ???Hold Gel Top - SPECIMEN DISCARDED AFTER 1 WEEK HOLD OTHER TUBE (12/06/2022) ???Hold Other - SPECIMEN DISCARDED AFTER 1 WEEK MONO TEST (12/06/2022) ???Infectious Mononucleosis Ab test - NEGATIVE Quantiferon TB 1 Tube (12/13/2022) ? ?TB1 Ag Minus Nil Result - 0.01? ?TB2 Ag Minus Nil Result - 0.02? ?Mitogen Minus Nil Result - >10.00???Nil Result - 0.03???Quantiferon 1 Tube Result - NEGATIVE TSH with T4 Reflex (Adults Only) (12/06/2022) ???TSH - 0.38 uIU/mL Allergies (NKA means No Known Allergies) NKA No Known Medication Allergies Problems Active Problems??(6) Alcohol dependence?? Depression?? Hyperlipidemia?? Hypertension?? Obese class I?? Tobacco dependence?? Education Materials Below is the list of Educational Leaflet Providered with your Discharge Instructions. Valuables and Belongings I fully understand and agree that [facility] accepts no responsibility for all my [...] to send valuables and belongings home. ?? Deposit/Withdrawal: Deposit Money/Amount: Date for Pt to Sign Valuables/Belongings: 12/06/22 17:49:00 ?? Other Discharge Information ? Pulmonary Rehab Status?? Pulmonary Rehab Discharge Status?? Respiratory Rate: 18 br/min ?? Psychiatric Discharge Plan?? Discharge Plan Psych?? Outpatient Programs?? Other Agency?? Crisis Services?? Level of Care at Discharge: Home/Family/SelfCare/RestHome/Residential/Sub AbuseTx ([facility]) Substance Abuse Program Contact: [facility] [address] [place] [address] [phone]: [phone] Other Agency: Other Agency Psychiatric Crisis Services: For your area are available 24 hours every day, by calling: Discharge Plan Additional Information: You are discharging today to the [facility] in [place], [place]. Substance Abuse Program Date/Time: Monday12/19/2022 @ 12:00 PM Other Agency Contact: Jonatan Garza at [address] [address]Azliz: (No need to fax d/c plan) Crisis Services: [facility] Community Crisis Stabilization Program [phone] Mode of Transportation: Chair Van ?? Other Comments: You are encouraged to stay in contact with this program after discharge. ?? Arranged Transport Date/Time: 12/19/22 10:00:00 ? Common Emergency Awareness Tips IS IT [...] are strongly encouraged to quit. Please call [facility] [email or web address] at [phone] or [phone]) or log in to [email or web address] for referrals to smoking cessation programs. ?? 835 Suicide & Crisis Lifeline is available 29/08 if you or someone you know needs to find a reason to keep living. By calling 751 you'll be connected to a skilled, trained counselor at a crisis center in your area. INPATIENT DISCHARGE INSTRUCTIONS SIGNATURE PAGE BABAK MCKEON Location:[facility] Inpatient [facility] Registration Date and Time:12/06/2022 17:25 EDT Primary Care Physician: Lei Smith, Attending Physician: Kimani Baker MD, Radha Munguia, I BABAK MCKEON, have received the above patient education materials/instructions and have verbalized understanding. If ambulance or transport services are being used I further acknowledge being given a choice of service. ?? If you need to contact me, please call me at this number: . Patient/Carousel Attendant Name: Patient/Carousel Attendant Signature: Relationship to Patient: Witness Name/Signature: Date: * Radha Samuel: PERFORM Event Display: Discharge/Transfer Note Hospital Authored Date: [id number] Psychiatric Discharge Plan Entered On: 12/16/2022 13:22 EST Performed On: 12/16/2022 13:13 EST by Radha Samuel Discharge Plan Discharge Plan Additional Information : You are discharging today to the [facility] in [place], [place]. Radha Samuel - 12/16/2022 13:27 EST Level of Care at Discharge : Home/Family/SelfCare/RestHome/Residential/Sub AbuseTx ([facility]) Mode of Transportation : Chair Van Arranged Transport Date/Time : 12/19/2022 10:00 EST Radha Samuel - 12/16/2022 13:13 EST Outpatient Programs Substance Abuse Program Contact : [facility] [address] [place] [address] FAX: [phone] Substance Abuse Program Date/Time : Monday12/19/2022 @ 12:00 PM Radha Samuel - 12/16/2022 13:22 EST Other Other Agency : Other Comments : You are encouraged to stay in contact with this program after discharge. Other Agency Contact : [place] [address] (No need to fax d/c plan) Radha Samuel - 12/16/2022 13:22 EST Crisis Services Psychiatric Crisis Services : For your area are available 24 hours every day, by calling: Crisis Services : [facility] Community Crisis Stabilization Program [phone] Radha Samuel - 12/16/2022 13:13 EST Patient Care team information Care Team Personnel Name: Lei Smith Position: [facility] Outreach Member Role: PCP Address: Address: [address] [place] [address] [place] [address]- Name: Negrito GARCIA, Juju Position: S RN Member Role: Primary Care Nurse Name: Ruben Hidalgo RN Position: S RN Member Role: Primary Care Nurse Name: Skyla Vigil RN Position: [facility] RN Member Role: Primary Care Nurse Name: Ale Maya Position: [facility] Outreach Member Role: Lifetime Consulting Physician Name: Christofer Duong MD Position: [facility] ED Medicine MD Member Role: ED Attending Physician Address: Address: [address] [place] [id number] Name: Kel Chery RN Position: [facility] ED RN W/OE and Tasks Member Role: Patient Care Provider Name: Melanie Mesa Position: [facility] ED OA Charge Member Role: ED Associate Care Team Related Persons Name: JEAN-CLAUDEHARMONYNORMA Address: home [address] [place] [id number] Name: JOSE MCKEON Address: home [address] [place] [id number]
--- OUTSIDE RECORDS SUMMARY | 2023-06-10 18:46 | XMS_ITS | Continuity of Care Document ---
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 Name Role Phone Helga HUTCHINSON, Juliana Vargas Primary Care Physician [phone] Encounter [facility] Date(s): 07/26/19 - 07/26/[address] [address]- [facility] [phone] Encounter Diagnosis Acute alcohol intoxication(Final) - 07/26/19 Discharge Disposition: A-D/C Home Attending Physician: Bia Mathis DO Admitting Physician: Bia Mathis DO Referring Physician: Not on Staff, Referring [...] recent to oldest [Reference Range]: 1 2 Height 183 cm (07/26/19 6:07 PM) Weight 86 kg (07/26/19 6:07 PM) Oxygen Saturation [94-100 %] 95 % (07/26/19 9:53 PM) 97 % (07/26/19 6:07 PM) Pulse Rate [55-90 bpm] 104 bpm *H* (07/26/19 9:53 PM) 120 bpm *H* (07/26/19 6:07 PM) Blood Pressure [90-138/55-84 mm Hg] 123/ 84mm Hg (07/26/19 9:53 PM) 132/91mm Hg (6/19/20 6:07 PM) Respiratory Rate [16-30 br/min] 18 br/mi n (07/26/19 6:07 PM) Temperature [96.8-100.4 DegF] 98.8 DegF (07/26/19 6:07 PM) Mode of Delivery (Oxygen) Room air (07/26/19 9:53 PM) Room air (07/26/19 6:07 PM) Temperature Route Oral (07/26/19 6:07 PM) Dry Weight 86 kg (07/26/19 6:07 PM)
--- OUTSIDE RECORDS SUMMARY | 2023-06-10 18:46 | XMS_ITS | Continuity of Care Document ---
Author Organization [facility] Address [address] [place] [address]- Care Team Providers Care Card Hanger Name Role Phone Helga HUTCHINSON, Juliana Vargas Primary Care Physician Unavail able Encounter [facility] Date(s): 12/20/22 - 02/03/23 [facility] Inpatient [facility] [address] [place] [address]- Discharge Disposition: A-D/C Home Attending Physician: Radha [...] 0 Refills, Maintenance, 02/03/23 8:35:00 EST, Tablet, [facility]-, Partial fill upon patient request if the prescription is fora schedule II opioid drug., 183, cm, 02/02/23 19:58... Start Date: 02/03/23 Status: Ordered cloNIDine 0.2 mg oral tablet 0.2 mg, 1, tablet, By Mouth, 2 times a day, PRN, # 60 tablet, Refills 0, Tot. Refills 0, Maintenance, Anxiety, 02/03/23 8:36:00 EST, Route to Pharmacy Electronically, [facility]-, Partial fill upon patient request if the prescr... Start Date: 02/03/23 Status: Ordered QUEtiapine 200 mg oral tablet 200 mg, By Mouth, Daily at bedtime, PRN, # 30 tablet, Refills 0, Tot. Refills 0, Maintenance, Anxiety, 02/03/23 8:36:00 EST, Route to Pharmacy Electronically, [facility]-, Partial fill upon patient request if the prescription i... Start Date: 02/03/23 Status: Ordered QUEtiapine 25 mg oral tablet 25 mg, By Mouth, 2 times a day, PRN, # 60 tablet, Refills 0, Tot. Refills 0, Maintenance, Anxiety, 02/03/23 8:36:00 EST, Route to Pharmacy Electronically, [facility]-, Partialfill upon patient request if the prescription [...] Range]: 1 2 3 Height 183 cm (02/03/23 9:00 AM) 183 cm (02/02/23 7:58 PM) 183 cm (02/02/23 11:52 AM) Weight 102.2 kg (01/31/23 8:53 AM) 103.5 kg (01/17/23 8:40 AM) 103.3 kg (01/10/23 9:12 AM) Oxygen Saturation [94-100 %] 99 % (02/03/23 9:00 AM) 97 % (02/02/23 7:58 PM) 96 % (02/02/23 11:52 AM) Pulse Rate [55-90 bpm] 100 bpm *H* (02/03/23 9:00 AM) 83 bpm (02/02/23 7:58 PM) 100 bpm *H* (02/02/23 11:52 AM) Body Mass Index [18.5-24.99 kg/m2] 29.89 kg/m2 *H* (12/20/22 8:50 AM) Blood Pressure [90-138/55-84 mm Hg] 119/88mm Hg (02/03/23 9:00 AM) 114/73mm Hg (02/02/23 7:58 PM) 116/93mm Hg (02/02/23 11:52 AM) Respiratory Rate [16-30 br/min] 18 br/min (02/03/23 10:32 AM) 17 br/min (02/02/23 7:58 PM) 18 br/min (02/02/23 7:06 PM) Temperature [96.8-100.4 DegF] 98.4 DegF (02/03/23 9:00 AM) 98.5 DegF (02/02/23 7:58 PM) 97.5 DegF (02/02/23 9:50 AM) Mode of Delivery (Oxygen) Room air (02/02/23 7:58 PM) Room air (02/02/23 11:52 AM) Room air (02/02/23 9:50 AM) Blood pressure sites Arm, left (02/03/23 9:00 AM) Arm, left (02/02/23 7:58 PM) Arm, left (02/02/23 11:52 AM) Temperature Route Temporal (02/03/23 9:00 AM) Temporal (02/02/23 7:58 PM) Tympanic (02/02/23 9:50 AM) Dry Weight 100.1 kg (12/20/22 8:50 AM) 100 kg (12/19/22 10:50 PM) Weight Obtained Via Standing scale (01/17/23 8:40 AM) Standing scale (12/27/22 2:00 PM) Social History Social History Type Response Smoking Status 10 or more cigarette s (1/2 pack or more)/day in last 30 days entered on: 05/09/22 Sex History and physical note * Monty OLIVAREZ, Evens: PERFORM Event Display: History and Physical Hospital Authored Date: Patient: ??BABAK MCKEON ? Age:??52 Years?Sex:??Male?:??1970?? Chief Complaint/Reason for Consultation I had a panic attack and ran to the [employer] store History of Present Illness This is a 52-year-old male with past medical history of depression, suicidal ideation, alcohol abuse who was discharged from mental health unit yesterday and returned later in the day with alcohol tox occasion and suicidal ideation.?? He has no urgent medical concerns at this time. Review of Systems General: Good appetite. Denies fever, chills, sweats. Skin: Denies new rash, sores, lumps. HEENT: Denies vision changes, dizziness, headache, cold symptoms. Cardiac: Denies chest pain?? Vascular: Denies edema Pulmonary: Denies SOB, cough, wheeze. GI: Denies abdominal pain, nausea, vomiting, diarrhea, constipation. : Denies dysuria Neurological: Denies weakness, dizziness, syncope. Psych: Appropriate affect and mood. Engages appropriately. All other systems reviewed and negative except as noted in HPI?? Objective Vital Signs?? Temperature: 98.7 DegF (12/20/22 08:50:00) Temperature Route: Oral (12/20/22 08:50:00) Pulse Rate:??107 bpm??High (12/20/22 08:50:00) Respiratory Rate: 18 br/min (12/20/22 08:50:00) Systolic Blood Pressure:??148 mm Hg??High (12/20/22 08:50:00) Diastolic Blood Pressure:??92 mm Hg??High (12/20/22 08:50:00) Blood pressure sites: Arm, right (12/20/22 08:50:00) Mean Arterial Pressure: 111 mm Hg (12/20/22 08:50:00) Pulse Pressure: 56 mm Hg (12/20/22 08:50:00) Oxygen Saturation: 97 % (12/20/22 08:50:00) Mode of Delivery (Oxygen): Room air (12/20/22 08:50:00) ? Physical Exam General: Lying comfortably in bed. HEENT: Atraumatic, normocephalic. PERRL, EOM grossly intact, nonicteric.?? Neck: Supple, trachea midline.?? Cardiovascular: S1, S2, no MRG. No edema.?? Pulmonary: CTAB, no wheeze, no accessory muscle use. Abdomen: Soft, NT, ND, +BS, no rebound tenderness. Extremities: Moves all extremities.?? Skin: Warm, dry, intact, no rash. Neurological: A&O x3, CN grossly intact. Psychological: Appropriate mood and affect. Assessment/Plan Diagnoses ?? No diagnosis data available. ?? Assessment:??52-year-old male with past medical history of depression, suicidal ideation, alcohol abuse who was discharged from mental health unit yesterday and returned later in the day with alcoholintoxication and suicidal ideation. He has no urgent medical concerns at this time. ?? Suicidal ideation Per care of primary psychiatric team ?? Alcohol use Patient discharged yesterday and drank alcohol as he is feeling increasingly anxious. He has no signs of??withdrawal at this time Monitor for withdrawal signs ?? Please contact medical team with any questions, thank you. Will sign off Histories Allergies Allergies ?(Active and Proposed Allergies Only) NKA? (Severity: Unknown severity, Onset: Unknown) No Known Medication Allergies? (Severity: Unknown severity, Onset: Unknown) ? Past Medical History/Problem List Active Problems??(5) Alcohol dependence Depression Hyperlipidemia Hypertension Tobacco dependence ? Past Surgical History No surgery history documented. ? Social History Alcohol Details:??Use: Current. ??Frequency: Several times per day. ??Type: Beer, Liquor. Home/Environment Details:??Living situation: Home/Independent. Nutrition/Health Details:??Diet: Regular. Sexual Details:??Gender identity: Identifies as male. ??Preferred pronoun: He/him. Substance Abuse Details:??Use: Never. Tobacco Details:??Use: 10 or more cigarettes (1/2 pack or more)/day in last 30 days. Electronic Cigarette/Vaping Details:??Electronic Cigarette Use: Never. ? Family History No family history recorded. ? Medications Home Medications Atorvastatin (atorvastatin 40 mg oral tablet)?1?tab(s)?40?Milligram?By Mouth?Daily Clonidine (cloNIDine 0.2 mg oral tablet)?0.2?Milligram?1?tablet?By Mouth?2 times a day?as needed?Anxiety ? Results Recent Labs BLOOD COUNT & DIFF WBC 7.8 k/mm3 ()?? 12/19/2022 23:41 RBC 5.47 m/mm3 ()?? 12/19/2022 23:41 Hgb 16.2 Gm/dL ()?? 12/19/2022 23:41 Hct 47.8 % ()?? 12/19/2022 23:41 MCV 87.4 femtoliters ()?? 12/19/2022 23:41 MCH 29.6 pg ()?? 12/19/2022 23:41 MCHC 33.9 g/dL ()?? 12/19/2022 23:41 Platelet Count 257 k/mm3 ()?? 12/19/2022 23:41 RDW-SD 41.3 femtoliters ()?? 12/19/2022 23:41 MPV 9.2 femtoliters (Low)?? 12/19/2022 23:41 Nucleated RBC (Automated) 0.0 #/100 WBC'S ()?? 12/19/2022 23:41 Abs. NRBC 0.0 k/mm3 ()?? 12/19/2022 23:41 Abs. Neut 4.9 k/mm3 ()?? 12/19/2022 23:41 Abs. Lymph 2.2 k/mm3 ()?? 12/19/2022 23:41 Abs. [place] 0.5 k/mm3 ()?? 12/19/2022 23:41 Abs. Eo 0.1 k/mm3 ()?? 12/19/2022 23:41 Abs. Baso 0.1 k/mm3 ()?? 12/19/2022 23:41 Neut % 63.1 % ()?? 12/19/2022 23:41 Lymph % 28.3 % ()?? 12/19/2022 23:41 [place] % 6.4 % ()?? 12/19/2022 23:41 Eos % 1.2 % ()?? 12/19/2022 23:41 Baso % 0.6 % ()?? 12/19/2022 23:41 Imm Gran 0.4 % ()?? 12/19/2022 23:41 Abs. Imm Gran 0.0 k/mm3 ()?? 12/19/2022 23:41 ?? CHEM GENERAL Sodium 147 mmol/L (High)?? 12/19/2022 23:41 Potassium 3.8 mmol/L ()?? 12/19/2022 23:41 Chloride 108 mmol/L (High)?? 12/19/2022 23:41 Bicarbonate Level 19 mmol/L (Low)?? 12/19/2022 23:41 Anion Gap 20 (High)?? 12/19/2022 23:41 Glucose Level 120 mg/dL (High)?? 12/19/2022 23:41 BUN 8 mg/dL ()?? 12/19/2022 23:41 Creatinine-Blood 1.0 mg/dL ()?? 12/19/2022 23:41 Estimated GFR Creatinine 85 ML/MIN/1.73 M2 ()?? 12/19/2022 23:41 Calcium 9.7 mg/dL ()?? 12/19/2022 23:41 Protein, Total 7.6 Gm/dL ()?? 12/19/2022 23:41 Albumin 4.8 Gm/dL ()?? 12/19/2022 23:41 AG Ratio 1.7 ()?? 12/19/2022 23:41 Alkaline Phosphatase 76 units/L ()?? 12/19/2022 23:41 Lipase 24 units/L ()?? 12/19/2022 23:41 AST (SGOT) 29 units/L ()?? 12/19/2022 23:41 ALT (SGPT) 49 units/L (High)?? 12/19/2022 23:41 Bilirubin, Total 0.3 mg/dL ()?? 12/19/2022 23:41 ?? HEME OTHER Hold Blue Top SPECIMEN DISCARDED AFTER 4 HOURS. ()?? 12/19/2022 23:41 ?? MISC. CHEMISTRY Hold Gel Top SPECIMEN DISCARDED AFTER 1 WEEK ()?? 12/19/2022 23:41 ?? TOXICOLOGY/TDM Ethanol, Serum or Plasma 203 mg/dL (Abnormal)?? 12/19/2022 23:41 ?? URINE OTHER Est Creatinine Clearance 92.82 mL/min ()?? 12/20/2022 00:13 ?? VIROLOGY Influenza A PCR NEGATIVE ()?? 12/20/2022 01:04 Influenza B PCR NEGATIVE ()?? 12/20/2022 01:04 RSV PCR NEGATIVE ()?? 12/20/2022 01:04 COVID-19 PCR Specimen Source NASAL ()?? 12/20/2022 01:04 COVID-19 PCR Result NEGATIVE ()?? 12/20/2022 01:04 ? Admission evaluation note * Clayton OLIVAREZ, Yi: PERFORM, MODIFY Event Display: Admission Note Authored Date: Patient: ??BABAK MCKEON ? Age:??52 Years?Sex:??Male?:??1970?? Provider Clinical Summary Babak is a [age] old single white male??with a history of alcohol dependence, major depression, hyperlipidemia, hypertension??and tobacco dependence??who is admitted to the [facility]HU on a voluntary basis??for increased depression, SI and??alcohol relapse ? Chief Complaint I had a panic attack and ran to the [employer] History of Present Illness Pt seen for:??10 minutes Total Time spent with pt:??45 minutes Discussed pt in meeting with RNMD, SW. Labs, notes, and orders reviewed. ?? Identifying Information: Babak is a 52-year-old single white male with a history of alcohol dependence, major depression, hyperlipidemia,??dependence who is admitted to the MHU on a conditional??voluntary for increased depression, SI, and??alcohol relapse. ?? History of Present Illness Babak??presented at [facility]ED??voluntarily, following discharge from [facility] earlier today.?? States hewas supposed to transfer [facility] in [place], but he freaked out , had a panic attack, and ran.?? He??purchased??a bottle of vodka??and spent several hours drinking, before returning to the hospital.?? He reports also experiencing??SI??and??depression??during??this afternoon's relapse.?? He went to a local [employer] store and purchased a knife.?? He had a plan to cut his wrists, but came back to the emergency department first.?? BAL was 203.?? He was pleasant, calm and cooperative in the emergency department??and??denied ongoing SI.?? Expressed remorse??for his relapse: It is the anxiety, it leads to panic attacks, which lead to alcohol . ?? The patient is??in bed for most of the day.?? He his??organized in speech, with no??evidence of marilou or psychosis.?? He??has a full range of affect and greets staff warmly.?? He is grateful to have been accepted back to the hospital.?? He is feeling rundown , but denies??symptoms of alcohol withdrawal.?? He has avoided the milieu??today??but had no unsafe behavior. ? Psychiatric Hx Has been admitted to psychiatric hospitals, including??3 previous admission??to [facility], 1 admission to [facility], 1 admission to [facility] 3???4 times??for similar??episodes??of relapse andsuicidality.?Took venlafaxine??for approximately a year??and states it??was not??effective.?.?? He was on citalopram for approximately 10 years??previously.? [1] ?? Medical Hx Affecting Psych Problem Hypertension, hyperlipidemia, tobacco dependence ?? Social Hx Tello??grew up in [place], with his mother, father, and sister, Tatiana.?? [...] disorder.?? Most recently??resident of??recovery facility,??had 2-day relapse.?? 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 Safety Evaluation: ? Suicide Risk Factors Currently Present ? Suicidal Ideation:??Denies current SI ? Homicidal Ideation:??Denies ? Previous Suicide Attempt:??Attempted??once, possibly twice??to overdose on clonidine??while intoxicated? History Self Injury:??Denies ? Substance Abuse:??Long history??alcohol??abuse,??in remission x 6 years with??multiple briefrelapses ? Recent Loss of Relationship:??No ? Legal or Disciplinary Problems:??None currently ? Access to weapons:??No ?? Protective Factors ? Social Support:??Father, sister, sponsor, friends ? Hopeful that treatment will help:??Yes ? Strengths:??Motivated for treatment,??insightful,??intelligent ?? Risk Assessment: Moderate risk of suicide Actions Taken to Reduce Risk: ?Discussed how to access help 24 hours/day while in hospital ?Discussed securing weapons and/or other means as appropriate ?? Mental Status Vitals & Measurements T:??98.7?F?? TMIN:??97.1?F?? TMAX:??98.9?F?? HR:??107??(Peripheral)?? RR:??18?? BP:??148/92?? SpO2:??97%?? WT:??100.1??kg?? [Mental Status Exam: General appearance:??Disheveled Eye contact:??Normal Musculoskeletal:??No impairment Behavior:??Withdrawn Speech:??Normal rate, volume, linear Mood:??Appears embarrassed Affect:??Full range Thought Content:??Glad to has been accepted back to the hospital Thought Process:??Linear Suicidality/Self harm:??Denies currently Homicidality/violence:??Denies Cognition:??[memory, orientation, concentration, executive function]??intact Insight:??Good Judgement:??Fair Reliability:??Good Walker Suicide Score Walker Suicide Assessment Ca (12/20/22) Walker Suicide Score Last Asked Ca (12/20/22) Suicidal Intent No Plan Past Month-CSSRS: Yes (12/19/22) Suicidal Thoughts Method Past Mon-CSSRS: Yes (12/19/22) Suicidal Thoughts Past Month - CSSRS: No (12/20/22) Suicidal Thoughts Since Last Asked-CSSRS: No (12/20/22) Suicide Behavior Lifetime - CSSRS: Yes (12/20/22) Suicide Behavior Past 3 Months - CSSRS: Yes (12/20/22) Suicide Behavior Since Last Asked-CSSRS: No (12/20/22) Suicide Intent w/Plan Past Month - CSSRS: Yes (12/19/22) Wish to be Past Month - CSSRS: No (12/20/22) Assessment/Plan Barriers to DC/projected DC date Patient needs??reevaluation of??psychiatric??acuity??and??safe discharge planning.?? Projected discharge date:??12/27. ?? Diagnoses Alcohol abuse (F10.10) Anxiety and depression (F41.9) Hyperlipidemia (E78.5) Hypertension (I10) Insomnia (G47.00) Tachycardia (R00.0) ?? [1] Problem List/Past Medical History Ongoing Alcohol dependence Depression Hyperlipidemia Hypertension Tobacco dependence Medications Inpatient Acetaminophen Tablet, 650 mg, By Mouth, Every 8 hours, PRN atorvastatin 40 mg oral tablet, 40 mg, By Mouth, Daily Chloraseptic Lozenge, 1 lozenge, By Mouth, Every 3 hours, PRN cloNIDine 0.1 mg oral tablet, 0.2 mg, By Mouth, 2 times a day, PRN GuaiFENEsin Liquid, 200 mg= 10 mL, By Mouth, Every 4 hours, PRN Ibuprofen Tablet, 400 mg, By Mouth, Every 8 hours, PRN Maalox Plus Liquid, 30 mL, By Mouth, Every 4 hours, PRN Milk of Magnesia Liquid, 30 mL, By Mouth, Daily at bedtime, PRN Nicotine Gum, 2 mg, Chew, Every 15 minutes, PRN Nicotine Topical, 21 mg, Topically, Daily Remove Patch, 1 each, Topically, Daily Home atorvastatin 40 mg oral tablet, 40 mg= 1 tablet, By Mouth, Daily cloNIDine 0.2 mg oral tablet, 0.2 mg= 1 tablet, By Mouth, 2 times a day, PRN Allergies NKA No Known Medication Allergies Social History Alcohol Use: Current. Frequency: Several times per day. Type: Beer, Liquor. Electronic Cigarette/Vaping Electronic Cigarette Use: Never. Home/Environment Living situation: Home/Independent. Nutrition/Health Diet: Regular. Sexual Gender identity: Identifies as male. Preferred pronoun: He/him. Substance Abuse Use: Never. Tobacco Use: 10 or more cigarettes (1/2 pack or more)/day in last 30 days. Immunizations Vaccine Date Status SARS-CoV-2 (COVID-19) mRNA-1273 vaccine 10/07/2020 Given SARS-CoV-2 (COVID-19) mRNA-1273 vaccine 09/08/2020 Given Lab Results Event Name?? Event Result?? Normal Range?? Date/Time?? WBC 7.8 k/mm3 4 k/mm3 - 11 k/mm3 12/19/22 23:41:00 RBC 5.47 m/mm3 4.7 m/mm3 - 6.1 m/mm3 12/19/22 23:41:00 Hgb 16.2 Gm/dL 13.7 Gm/dL - 17.1 Gm/dL 12/19/22 23:41:00 Hct 47.8 % 40.5 % - 50 % 12/19/22 23:41:00 MCV 87.4 femtoliters 80 femtoliters - 94 femtoliters 12/19/22 23:41:00 MCH 29.6 pg 27 pg - 34 pg 12/19/22 23:41:00 MCHC 33.9 g/dL 33 g/dL - 37 g/dL 12/19/22 23:41:00 Platelet Count 257 k/mm3 150 k/mm3 - 460 k/mm3 12/19/22 23:41:00 RDW-SD 41.3 femtoliters ?? 12/19/22 23:41:00 MPV 9.2 femtoliters??Low 9.4 femtoliters - 12.4 femtoliters 12/19/22 23:41:00 Nucleated RBC (Automated) 0 #/100 WBC'S ?? 12/19/22 23:41:00 Abs. NRBC 0 k/mm3 ?? 12/19/22 23:41:00 Abs. Neut 4.9 k/mm3 1.3 k/mm3 - 7 k/mm3 12/19/22 23:41:00 Abs. Lymph 2.2 k/mm3 0.8 k/mm3 - 3.1 k/mm3 12/19/22 23:41:00 Abs. Pennington 0.5 k/mm3 0.4 k/mm3 - 1.3 k/mm3 12/19/22 23:41:00 Abs. Eo 0.1 k/mm3 0 k/mm3 - 0.4 k/mm3 12/19/22 23:41:00 Abs. Baso 0.1 k/mm3 0 k/mm3 - 0.1 k/mm3 12/19/22 23:41:00 Neut % 63.1 % 44 % - 76 % 12/19/22 23:41:00 Lymph % 28.3 % 15 % - 43 % 12/19/22 23:41:00 [place] % 6.4 % 4.5 % - 10.5 % 12/19/22 23:41:00 Eos % 1.2 % 0 % - 6 % 12/19/22 23:41:00 Baso % 0.6 % 0 % - 2 % 12/19/22 23:41:00 Imm Gran 0.4 % ?? 12/19/22 23:41:00 Abs. Imm Gran 0 k/mm3 ?? 12/19/22 23:41:00 Hold Blue Top SPECIMEN DISCARDED AFTER 4 HOURS. ?? 12/19/22 23:41:00 Sodium 147 mmol/L??High 133 mmol/L - 145 mmol/L 12/19/22 23:41:00 Potassium 3.8 mmol/L 3.6 mmol/L - 5.2 mmol/L 12/19/22 23:41:00 Chloride 108 mmol/L??High 98 mmol/L - 107 mmol/L 12/19/22 23:41:00 Bicarbonate Level 19 mmol/L??Low 22 mmol/L - 29 mmol/L 12/19/22 23:41:00 Anion Gap 20??High 4 ??- 17 12/19/22 23:41:00 Glucose Level 120 mg/dL??High 70 mg/dL - 99 mg/dL 12/19/22 23:41:00 BUN 8 mg/dL 6 mg/dL - 20 mg/dL 12/19/22 23:41:00 Creatinine-Blood 1 mg/dL 0.7 mg/dL - 1.2 mg/dL 12/19/22 23:41:00 Estimated GFR Creatinine 85 ML/MIN/1.73 M2 ?? 12/19/22 23:41:00 Calcium 9.7 mg/dL 8.6 mg/dL - 10.5 mg/dL 12/19/22 23:41:00 Protein, Total 7.6 Gm/dL 6.2 Gm/dL - 8.2 Gm/dL 12/19/22 23:41:00 Albumin 4.8 Gm/dL 3.4 Gm/dL - 4.8 Gm/dL 12/19/22 23:41:00 AG Ratio 1.7 ?? 12/19/22 23:41:00 Alkaline Phosphatase 76 units/L 40 units/L - 129 units/L 12/19/22 23:41:00 Lipase 24 units/L 13 units/L - 60 units/L 12/19/22 23:41:00 AST (SGOT) 29 units/L 0 units/L - 40 units/L 12/19/22 23:41:00 ALT (SGPT) 49 units/L??High 0 units/L - 41 units/L 12/19/22 23:41:00 Bilirubin, Total 0.3 mg/dL 0 mg/dL - 1.2 mg/dL 12/19/22 23:41:00 Ethanol, Serum or Plasma 203 mg/dL Abnormal ?? 12/19/22 23:41:00 Hold Gel Top SPECIMEN DISCARDED AFTER 1 WEEK ?? 12/19/22 23:41:00 Influenza A PCR NEGATIVE ?? 12/20/22 01:04:00 Influenza B PCR NEGATIVE ?? 12/20/22 01:04:00 RSV PCR NEGATIVE ?? 12/20/22 01:04:00 COVID-19 PCR Specimen Source NASAL ?? 12/20/22 01:04:00 COVID-19 PCR Result NEGATIVE ?? 12/20/22 01:04:00 Est Creatinine Clearance 92.82 mL/min ?? 12/20/22 00:13:51 ? [1]??Discharge Summary; Yi Arnold NP 12/19/2022 08:57 EST EKG study * Event Display: ECG 12-Lead Authored Date: [id number] Please click on pdf link to open report * Event Display: ECG 12-Lead Authored Date: [id number] Ventricular Rate: 78 BPM Atrial Rate: 78 BPM P-R Interval: 162 ms QRS Duration: 100 ms Q-T Interval: 404 ms QTC Calculation(Bazett): 460 ms P [place]: 37 degrees R [place]: 5 degrees T [place]: 34 degrees Normal sinus rhythm Abnormal ECG When compared with ECG of 06-DEC-2022 08:52, Vent. rate has decreased BY 46 BPM Incomplete right bundle branch block is no longer Present Nonspecific T wave abnormality no longer evident in Inferior leads Confirmed by JYOTI RENDON ([id number]) on 01/05/2023 5:24:52 PM [place]: [facility] Progress note * Simon GARCIA, Patricia Myers: PERFORM, SIGN, VERIFY Event Display: [facility] Authored Date: [id number] Patient: BABAK MCKEON Age: 52 years Sex: Male : 1970 Associated Diagnoses: None Author: Simon GARCIA, Patricia Myers Findings Problems Problem 1 : Problem - 1 02/02/2023 10:00 EST Problem 1 Danger/self - suicidal ideation Goals, Problem 1 Babak will develop a plan for safe discharge within 24 hours. Problem 1, Patient agrees to Attend groups, Demonstrate ability to care for self, Take PRN medication as needed, Take scheduled medication, Work with Psychiatrist to find acceptable medication plan, Develop a safety plan for outpatient treatment, Identify alternatives to self harm while on the unit, Other: Will alert staff if feeling unsafe Problem 1, Nursing Interventions Help patient to design outpatient safety plan, Help him/her identify thoughts prior to onset of anxiety, Provide information for plan for wellness after discharge Problem 1, Psychiatrist Interventions Evaluate medication, Order medication as appropriate, Supervise treatment Problem 1, Counselor Interventions Observe regularly for signs of increasing anxiety, Help patient to design outpatient safety plan, Help him/her identify thoughts prior to onset of anxiety, Provide information for plan for wellness after discharge Problem 1, Social Work Interventions Review discharge plans Problem 1, Start Date and Time 02/02/2023 10:52 Reviewed Plan With, Problem 1 Other: Babak and [place] Patient Progression, Problem 1 Progressing . Narrative/Incidental Babak was resting in bed at the beginning of the shift, breathing evident. He was in bed throughout the night and appeared to have slept for 6+ hours out of the recorded hours of sleep for the shift. He presented to the med room and requested/received PRN Seroquel and Clonidine @0501 for anxiety. He remained safe on unit standard safety checks. * Teodoro Zurita RN: PERFORM, MODIFY, MODIFY, SIGN, VERIFY Event Display: Progress Note Hospital Authored Date: Patient: BABAK MCKEON Age: 52 years Sex: Male : 1970 Associated Diagnoses: None Author: Teodoro Zurita RN Findings Problems Problem 1 : Problem - 1 02/02/2023 10:00 EST Problem 1 Danger/self - suicidal ideation Goals, Problem 1 Babak will develop a plan for safe discharge within 24 hours. Problem 1, Patient agrees to Attend groups, Demonstrate ability to care for self, Take PRN medication as needed, Take scheduled medication, Work with Psychiatrist to find acceptable medication plan, Develop a safety plan for outpatient treatment, Identify alternatives to self harm while on the unit, Other: Will alert staff if feeling unsafe Problem 1, Nursing Interventions Help patient to design outpatient safety plan, Help him/her identify thoughts prior to onset of anxiety, Provide information for plan for wellness after discharge Problem 1, Psychiatrist Interventions Evaluate medication, Order medication as appropriate, Supervise treatment Problem 1, Counselor Interventions Observe regularly for signs of increasing anxiety, Help patient to design outpatient safety plan, Help him/her identify thoughts prior to onset of anxiety, Provide information for plan for wellness after discharge Problem 1, Social Work Interventions Review discharge plans Problem 1, Start Date and Time 02/02/2023 10:52 Reviewed Plan With, Problem 1 Other: Kia Patient Progression, Problem 1 Progressing . Narrative/Incidental Babak was awake and active on the unit at start of shift. He self-presented to the med room and was compliant with vital signs, assessment and all scheduled medications. Babak endorsed 4/10 anxietyand 4/10 depression. He denies SI/HI/AVH or pain. He relates a majority of his anxiety being related to discharge tomorrow. Babak was visible on the unit intermittently throughout the shift. He was calm, cooperative, social and appropriate with peers and staff this shift. Babak did not participate in the fresh air walk but did attend groups with good participation this shift. Babak was seen sitting in his bed, napping and socializing with peers in common areas. He remains safe on unit standard safety checks. . * Fernando GARCIA, Dilia: PERFORM, SIGN, VERIFY Event Display: Progress Note Hospital Authored Date: [id number] Patient: BABAK MCKEON Age: 52 years Sex: Male : 1970 Associated Diagnoses: None Author: Dilia King RN Findings Problems Problem 1 : Problem - 1 02/02/2023 10:00 EST Problem 1 Danger/self - suicidal ideation Goals, Problem 1 Babak will develop a plan for safe discharge within 24 hours. Problem 1, Patient agrees to Attend groups, Demonstrate ability to care for self, Take PRN medication as needed, Take scheduled medication, Work with Psychiatrist to find acceptable medication plan, Develop a safety plan for outpatient treatment, Identify alternatives to self harm while on the unit, Other: Will alert staff if feeling unsafe Problem 1, Nursing Interventions Help patient to design outpatient safety plan, Help him/her identify thoughts prior to onset of anxiety, Provide information for plan for wellness after discharge Problem 1, Psychiatrist Interventions Evaluate medication, Order medication as appropriate, Supervise treatment Problem 1, Counselor Interventions Observe regularly for signs of increasing anxiety, Help patient to design outpatient safety plan, Help him/her identify thoughts prior to onset of anxiety, Provide information for plan for wellness after discharge Problem 1, Social Work Interventions Review discharge plans Problem 1, Start Date and Time 02/02/2023 10:52 Reviewed Plan With, Problem 1 Other: Kia Patient Progression, Problem 1 Progressing . Narrative/Incidental Babak was visible on the unit periodically throughout the shift. He was A&O x4. He attended groups and was social and appropriate with peers. He endorsed 4/10 anxiety and depression, denied pain. Denied S/I, H/I, AVH. He took PRN Clonidine and Seroquel for anxiety with positive effect. Safety and discharge plannning was reviewed. His discharge planning includes going to , and living with his sponsor; sober housing including [facility] and [facility] were discussed. Unit safety standards maintained throughout the shift. . Note * Clayton OLIVAREZ, Yi: PERFORM, MODIFY Event Display: Discharge/Transfer Note Hospital Authored Date: [id number] Patient: ??BABAK MCKEON ? Age:??52 Years?Sex:??Male?:??1970?? Patient Information Discharge Location: [facility] Primary Care Physician: Helga HUTCHINSON, Juliana Vargas Admit Date/Time: 12/20/22 08:22 Discharge Disposition Discharge Disposition: Home: No Services Discharge Diagnosis Alcohol use disorder, severe, in sustained remission (F10.21) Hypertension (I10) Major depressive disorder with current active episode (F32.9) ?? _ Discharge Medications Atorvastatin (atorvastatin 40 mg oral tablet)?1?tab(s)?40?Milligram?By Mouth?Daily Clonidine (cloNIDine 0.2 mg oral tablet)?0.2?Milligram?1?tablet?By Mouth?2 times a day?as needed?Anxiety Quetiapine (QUEtiapine 200 mg oral tablet)?200?Milligram?By Mouth?Daily at bedtime?as needed?Anxiety Quetiapine (QUEtiapine 25 mg oral tablet)?25?Milligram?By Mouth?2 times a day?as needed?Anxiety ? Quality Measures Tobacco Use Treatment:??Declines NRT??at discharge ?? Substance Use Treatment Provided at Discharge:??Patient intends to stay??with his AA sponsor??and attend??recovery groups??daily ?? Screening for Metabolic Disorders:?Lipid Panel:??03/10/2022???total cholesterol 179,??triglycerides 191??(high),??HDL 47, LDL 94,??none??HDL??132 Hemoglobin A1, 03/10/2022???5.4 ?? Inpatient Medications Medications (12) Active SCHEDULED: (2) Atorvastatin 40 mg Tablet (atorvastatin 40 mg oral tablet) ??40 mg, By Mouth, Daily at bedtime Lorazepam 1 mg Tablet (LORazepam 1 mg oral tablet) ??1 mg, By Mouth, Once CONTINUOUS: (0) PRN: (10) Acetaminophen 325 mg Tablet (Acetaminophen Tablet) ??650 mg, By Mouth, Every 4 hours Al hydroxide/Mg hydroxide/simethicone 200 mg-200 mg-20 mg/5 mL Susp UD (Maalox Plus Liquid) ??30 mL, By Mouth, Every 4 hours Chloraseptic Lozenge ??1 lozenge, By Mouth, Every 3 hours Clonidine 0.1 mg Tablet (cloNIDine 0.1 mg oral tablet) ??0.2 mg, By Mouth, 3 times a day Guaifenesin 200mg/10mL Syrup UD (GuaiFENEsin Liquid) ??200 mg 10 mL, By Mouth, Every 4 hours Ibuprofen 400 mg Tablet (Ibuprofen Tablet) ??400 mg, By Mouth, Every 6 hours Magnesium Hydroxide 8% Susp UD (Milk of Magnesia Liquid) ??30 mL, By Mouth, Daily at bedtime Nicotine 2 mg Gum (Nicotine Gum) ??2 mg, Chew, Every 15 minutes Quetiapine 200 mg Tablet (QUEtiapine 200 mg oral tablet) ??200 mg, By Mouth, Daily at bedtime Quetiapine 25 mg Tablet (QUEtiapine 25 mg oral tablet) ??25 mg, By Mouth, 2 times a day ? Medications Started Quetiapine Medications Discontinued Lorazepam Doses Changed Clonidine PCP Follow-Up/Heads-Up Recommend follow-up on lipid levels??and??smoking cessation Hospital Course Admission Note, 12/20/2022 Babak is a 52-year-old single white male with a history of alcohol dependence, major depression, hyperlipidemia,??dependence who is admitted to the MHU on a conditional??voluntary for increased depression, SI, and??alcohol relapse. ?? History of Present Illness Babak??presented at [facility]ED??voluntarily, following discharge from MHU earlier today.?? States rush supposed to transfer to the [facility] program in [place], but he freaked out , had a panic attack, and ran.?? He??purchased??a bottle of vodka??and spent several hours drinking, before returning to the hospital.?? He reports also experiencing??SI??and??depression??during??this afternoon's relapse.?? He went to a local [employer] store and purchased a knife.?? He had a plan to cut his wrists, but came back to the emergency department first.?? BAL was 203.?? He was pleasant, calm and cooperative in the emergency department??and??denied ongoing SI.?? Expressed remorse??for his relapse: It is the anxiety, it leads to panic attacks, which lead to alcohol . ?? The patient is??in bed for most of the day.?? He his??organized in speech, with no??evidence of marilou or psychosis.?? He??has a full range of affect and greets staff warmly.?? He is grateful to have been accepted back to the hospital.?? He is feeling rundown , but denies??symptoms of alcohol withdrawal.?? He has avoided the milieu??today??but had no unsafe behavior. ?? Psychiatric Hx Has been admitted to psychiatric hospitals, including??3 previous admission??to [facility], 1 [facility], 1 admission to [facility] 3???4 times??for similar??episodes??of relapse andsuicidality.?Took venlafaxine??for approximately a year??and states it??was not??effective.?.?? He was on citalopram for approximately 10 years??previously.? [1] Medical Hx Affecting Psych Problem Hypertension, hyperlipidemia, tobacco dependence ?? Social Hx Tello??grew up in [place], with his mother, father, and sister, Tatiana.?? [...] disorder.?? Most recently??resident of??recovery facility,??had 2-day relapse.?? [1] ?? Hospital Course Patient was admitted??on a conditional voluntary.?? Monitored on unit standard safety checks??and all appropriate safety measures in place.?? Treatment team saw the patient daily for medication management, mental status exam, and safety assessment. ??He was continued on atorvastatin, clonidine??andlurasidone initially.?Later lurasidone was discontinued as patient??felt it was not helpful. ??Seroquel??was started at bedtime to good effect??and later added??in low doses for anxiety on an as needed basis during the day. ??Throughout his stay,??options for antidepressant??treatment??or MAT for alcohol use were discussed. ??And he declined??both, feeling he??often had no response??to medications??and preferred to focus on??connecting with??spiritual strategies for??recovery. ??Tello had no??alcohol withdrawal symptoms??due to the brief??nature of his relapse??(less than 24 hours).?? He??expressed a commitment to sobriety and a high degree of remorse for his relapse.?? He did not wish to be section 35. ??[facility]??recovery program in the [place] agreed to??let him try againto enter their program, but when the morning came??he reported??panic, thoughts of relapse and suicide.?? This discharge??was canceled.?He reengaged in the life of the unit???attending groups, coop erative and friendly, and??spent time reading and meditating.?? Generally hopeful,??positive??and denying thoughts of suicide.??A discharge to the community was planned,??and he??again experienced intense panic??and discharge was canceled.?? He reengaged, along with??social work, in??looking for??a safe??recovery program that would??accept his??insurance, as he felt??he would have a better chanceof remaining sober??in a structured setting.?? On 01/22,??and he was diagnosed with??H1N1 flu a.?? He experienced respiratory??congestion, low-grade fever, body aches??and fatigue. ??This improved??after several days of supportive care and Tamiflu??during which he??remained on isolation precautionsin his room.?? 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 ??Discharge to the community??again was??planned and??patient made??arrangements to stay with his AA sponsor??and participate in recovery community activities??here in [place]. ?? Day of Discharge??Note Babak??reports mild anxiety??but no??panic??this morning??and feels ready to discharge from the mental health unit.?? He is looking forward to seeing his father??and stepmother??when they drop off his car for him at the hospital.?? He denies thoughts of suicide or homicide and??has no intention ofrelapse today.?? He plans to attend a noon??AA meeting.?? He has been in contact with his sponsor??and hopes to stay with him tonight.?? He is??considering whether to begin??smoking again or not.?? He feels good about??having transitioned off??NRT while here in the hospital??and is considering??notpicking up again.?? He is bright,?organized??and future oriented.?? He is appropriate for discharge from the mental health unit today Psychiatric Review of Systems Depression:??No symptoms evident Anxiety:??Mild??anxiety appropriate to the day of discharge Marilou:??None evident Psychotic:??Denies PTSD:??None ADHD:??None ?? Mental Status Exam ?? General appearance:??Appears stated age,??relaxed, casually dressed Eye contact:??Within normal limits Musculoskeletal:??No impairments Behavior:??Relaxed, social Speech:??Linear, normal??rate??and volume Mood:??Hopeful Affect:??Full range, congruent Thought content:??Plans for discharge Thought process:??Future oriented Suicidality/self harm:??Denies??denies Homicidality/violence:??Denies Cognition:??Intact Insight:??Good Judgment:??Good Reliability:??Good Objective Assessment and Plan ? Vital Signs?? Temperature: 98.5 DegF (02/02/23 19:58:00) Temperature Route: Temporal (02/02/23 19:58:00) Pulse Rate: 83 bpm (02/02/23 19:58:00) Respiratory Rate: 17 br/min (02/02/23 19:58:00) Systolic Blood Pressure: 114 mm Hg (02/02/23 19:58:00) Diastolic Blood Pressure: 73 mm Hg (02/02/23 19:58:00) Blood pressure sites: Arm, left (02/02/23 19:58:00) Mean Arterial Pressure: 87 mm Hg (02/02/23 19:58:00) Pulse Pressure: 41 mm Hg (02/02/23 19:58:00) Oxygen Saturation: 97 % (02/02/23 19:58:00) Mode of Delivery (Oxygen): Room air (02/02/23 19:58:00) ? . Physical Exam Vital signs and labs reviewed Consultants None Pending Results COVID-19 (2019 Novel Coronavirus) PCR ordered on 02/01/2023 Patient Instructions Patient instructions Continue taking medications??as [...] provideror crisis line?? Post Discharge Care Discharge ?02/03/23 8:35:00 EST Home Health Face to Face ^HomeHealthFTF Results Discharge Labs BLOOD COUNT & DIFF WBC 7.8 k/mm3 ()?? 12/19/2022 23:41 RBC 5.47 m/mm3 ()?? 12/19/2022 23:41 Hgb 16.2 Gm/dL ()?? 12/19/2022 23:41 Hct 47.8 % ()?? 12/19/2022 23:41 MCV 87.4 femtoliters ()?? 12/19/2022 23:41 MCH 29.6 pg ()?? 12/19/2022 23:41 MCHC 33.9 g/dL ()?? 12/19/2022 23:41 Platelet Count 257 k/mm3 ()?? 12/19/2022 23:41 RDW-SD 41.3 femtoliters ()?? 12/19/2022 23:41 MPV 9.2 femtoliters (Low)?? 12/19/2022 23:41 Nucleated RBC (Automated) 0.0 #/100 WBC'S ()?? 12/19/2022 23:41 Abs. NRBC 0.0 k/mm3 ()?? 12/19/2022 23:41 Abs. Neut 4.9 k/mm3 ()?? 12/19/2022 23:41 Abs. Lymph 2.2 k/mm3 ()?? 12/19/2022 23:41 Abs. Pennington 0.5 k/mm3 ()?? 12/19/2022 23:41 Abs. Eo 0.1 k/mm3 ()?? 12/19/2022 23:41 Abs. Baso 0.1 k/mm3 ()?? 12/19/2022 23:41 Neut % 63.1 % ()?? 12/19/2022 23:41 Lymph % 28.3 % ()?? 12/19/2022 23:41 Pennington % 6.4 % ()?? 12/19/2022 23:41 Eos % 1.2 % ()?? 12/19/2022 23:41 Baso % 0.6 % ()?? 12/19/2022 23:41 Imm Gran 0.4 % ()?? 12/19/2022 23:41 Abs. Imm Gran 0.0 k/mm3 ()?? 12/19/2022 23:41 ?? CHEM GENERAL Sodium 147 mmol/L (High)?? 12/19/2022 23:41 Potassium 3.8 mmol/L ()?? 12/19/2022 23:41 Chloride 108 mmol/L (High)?? 12/19/2022 23:41 Bicarbonate Level 19 mmol/L (Low)?? 12/19/2022 23:41 Anion Gap 20 (High)?? 12/19/2022 23:41 Glucose Level 120 mg/dL (High)?? 12/19/2022 23:41 BUN 8 mg/dL ()?? 12/19/2022 23:41 Creatinine-Blood 1.0 mg/dL ()?? 12/19/2022 23:41 Estimated GFR Creatinine 85 ML/MIN/1.73 M2 ()?? 12/19/2022 23:41 Calcium 9.7 mg/dL ()?? 12/19/2022 23:41 Protein, Total 7.6 Gm/dL ()?? 12/19/2022 23:41 Albumin 4.8 Gm/dL ()?? 12/19/2022 23:41 AG Ratio 1.7 ()?? 12/19/2022 23:41 Alkaline Phosphatase 76 units/L ()?? 12/19/2022 23:41 Lipase 24 units/L ()?? 12/19/2022 23:41 AST (SGOT) 29 units/L ()?? 12/19/2022 23:41 ALT (SGPT) 49 units/L (High)?? 12/19/2022 23:41 Bilirubin, Total 0.3 mg/dL ()?? 12/19/2022 23:41 ?? ENDOCRINE/TUMOR MARKER TSH 1.20 uIU/mL ()?? 01/05/2023 12:08 ? HEME OTHER Hold Lavender Top SPECIMEN DISCARDED AFTER 24 HOURS. ()?? 01/05/2023 12:08 Hold Blue Top SPECIMEN DISCARDED AFTER 4 HOURS. ()?? 12/19/2022 23:41 ?? MISC. CHEMISTRY Hold Gel Top SPECIMEN DISCARDED AFTER 1 WEEK ()?? 01/05/2023 12:08 ? TOXICOLOGY/TDM Ethanol, Serum or Plasma 203 mg/dL (Abnormal)?? 12/19/2022 23:41 ? URINE OTHER Est Creatinine Clearance 92.82 mL/min ()?? 12/20/2022 00:13 ? VIROLOGY Influenza A PCR POSITIVE (Abnormal)?? 01/22/2023 16:28 Influenza B PCR NEGATIVE ()?? 01/22/2023 16:28 RSV PCR NEGATIVE ()?? 01/22/2023 16:28 COVID-19 PCR Specimen Source NASAL ()?? 01/22/2023 16:28 COVID-19 PCR Result NEGATIVE ()?? 01/22/2023 16:28 ? _ 40 minutes spent on discharge * Amber GARCIA, Callum: PERFORM Event Display: Patient Education/Instruction Authored Date: [id number] Inpatient Adult Discharge Instructions [facility] Inpatient Psychiatry [address] [place] [address] Name: BABAK MCKEON : 1970 Visit: 12/20/2022 08:22:00 Current Date: 02/03/2023 10:09 Account: [id number] Inpatient Adult Discharge Instructions We would like [...] and their families. Surveys are administered by [employer] ?? If further treatment with your primary care physician or another doctor is recommended, it is important for you to keep the appointment. Call your primary care physician or return to the Emergency Department immediately if your condition worsens, fails to improve, or new symptoms develop. If you need to find a doctor, you can call [facility] Link for a referral at [phone] or toll free at [phone] ([phone]) or log in to [email or web address].. ?? [facility], in keeping with [facility] guidance, no longer requires face masks for [...] a health care luz of your choosing. [facility] is a website that allows you to securely view your medical information including your hospital discharge summary, office visit summaries, medications and follow-up visits. You can also request appointments, renew medications, and request access to your medical information using a health care luz of your choosing, or just ask a question. You can enroll at [email or web address] or register during your next office visit. You have been discharged from [facility] Inpatient Psychiatry, Patient Care Unit: MHU. If you have any questions regarding these instructions after you leave, please call us and we will be happy to assist you. [facility] Inpatient Psychiatry Your Care Team Attending Physician Kimani Baker MD, Radha Munguia Consulting Providers Alexy Cifuentes DO Discharging Providers Clayton OLIVAREZ, Yi Reason for Admission I had a panic attack and ran to the liquor store Your Diagnosis Alcohol use disorder, severe, in sustained remission Major depressive disorder with current active episode Hypertension Tests Performed Below is a partial list of the tests performed during your hospitalization. You may have had other tests and procedures not included in this list. Please discuss all test results with your provider. Alcohol Level CBC w/ Differential Comprehensive Metabolic Panel COVID-19, RSV, and Flu A/B, Rapid PCR HOLD BLUE TUBE HOLD GEL TUBE HOLD LAVENDER TUBE Lipase TSH Primary Care Provider Helga HUTCHINSON, Juliana Vargas Advance Directive Health Care Proxy on File No Patient refuses to discuss Discharge Vitals Temperature: 98.4 DegF Height: 183 cm Pulse Rate:??100 bpm??High Weight: 102.2 kg Respiratory Rate: 17 br/min Body Mass Index:??29.89 kg/m2??High Systolic Blood Pressure: 119 mm Hg Body surface area: 2.26 Diastolic Blood Pressure:??88 mm Hg??High ?? Oxygen Saturation: 99 % ?? Studies Pending All tests and labs ordered during this hospital stay have been completed unless listed below. Please discuss all pending results with your provider listed above in these instructions. ?? COVID-19 (2019 Novel Coronavirus) PCR What to do next Instructions From Your Doctor Discharge Orders Discharge Medications BABAK MCKEON :1970 Visit Date:12/20/2022 Medications: Please continue your medications until treatment is completed or stopped by your provider. Medications not listed below should be discontinued. Discuss any questions related to medications with your provider. What How Much When Instructions Next Dose New Quetiapine (QUEtiapine 200 mg oral tablet) 200 Milligram Oral Daily at Bedtime as needed for Anxiety Pickup at [facility] Tonight, 02/03/23 @ Bedtime New Quetiapine (QUEtiapine 25 mg oral tablet) 25 Milligram Oral Twice a day as needed for Anxiety Pickup at [facility] Today, 02/03/23 @ 12:00 Unchanged Atorvastatin (atorvastatin 40 mg oral tablet) 1 tab(s) Oral Daily Pickup at [facility] Tomorrow, 02/04/23 @ 9AM Unchanged Clonidine (cloNIDine 0.2 mg oral tablet) 1 tab(s) Oral Twice a day as needed for Anxiety Pickup at [facility] [place] Today, 02/03/23 @ 12:00 Pharmacy Information [facility] [place]: [address] [place] Ricks [place] [phone] Test Results Below is a partial list of the most recent Laboratory test results done prior to this discharge. You may have had other tests and procedures not included in this list. Please discuss all test resultswith your provider. Est Creatinine Clearance - 92.82 mL/min (12/20/2022) Alcohol Level (12/19/2022) ???Ethanol, Serum or Plasma - 203 mg/dL CBC w/ Differential (12/19/2022) ???WBC - 7.8 k/mm3???RBC - 5.47 m/mm3???Hgb - 16.2 Gm/dL???Hct - 47.8 %???MCV - 87.4 femtoliters???MCH - 29.6 pg???MCHC - 33.9 g/dL???Platelet Count - 257 k/mm3???RDW-SD - 41.3 femtoliters???MPV - 9.2 femtoliters???Nucleated RBC (Automated) - 0.0 #/100 WBC'S???Abs. NRBC - 0.0 k/mm3???Abs. Neut - 4.9 k/mm3???Abs. Lymph - 2.2 k/mm3???Abs. Pennington - 0.5 k/mm3???Abs. Eo - 0.1 k/mm3???Abs. Baso - 0.1 k/mm3???Neut % - 63.1 %???Lymph % - 28.3 %???Pennington % - 6.4 %???Eos % - 1.2 %???Baso % - 0.6 %???Imm Gran- 0.4 %???Abs. Imm Gran - 0.0 k/mm3 Comprehensive Metabolic Panel (12/19/2022) ???Sodium - 147 mmol/L???Potassium - 3.8 mmol/L???Chloride - 108 mmol/L???Bicarbonate Level - 19 mmol/L???Anion Gap - 20???Glucose Level - 120 mg/dL???BUN - 8 mg/dL???Creatinine-Blood - 1.0 mg/dL???Estimated GFR Creatinine - 85 ML/MIN/1.73 M2???Calcium - 9.7 mg/dL???Protein, Total - 7.6 Gm/dL???Albumin - 4.8 Gm/dL???AG Ratio - 1.7???Alkaline Phosphatase - 76 units/L???AST (SGOT) - 29 units/L???ALT (SGPT) - 49 units/L???Bilirubin, Total - 0.3 mg/dL COVID-19, RSV, and Flu A/B, Rapid PCR (01/22/2023) ???Influenza A PCR - POSITIVE???Influenza B PCR - NEGATIVE???RSV PCR - NEGATIVE???COVID-19 PCR Specimen Source - NASAL???COVID-19 PCR Result - NEGATIVE HOLD BLUE TUBE (12/19/2022) ???Hold Blue Top - SPECIMEN DISCARDED AFTER 4 HOURS. HOLD GEL TUBE (01/05/2023) ???Hold Gel Top - SPECIMEN DISCARDED AFTER 1 WEEK HOLD LAVENDER TUBE (01/05/2023) ???Hold Lavender Top - SPECIMEN DISCARDED AFTER 24 HOURS. Lipase (12/19/2022) ???Lipase - 24 units/L TSH (01/05/2023) ???TSH - 1.20 uIU/mL Allergies (NKA means No Known Allergies) NKA No Known Medication Allergies Problems Active Problems??(6) Alcohol dependence?? Depression?? Hyperlipidemia?? Hypertension?? Major depressive disorder with current active episode?? Tobacco dependence?? Education Materials Below is the list of Educational Leaflet Providered with your Discharge Instructions. Valuables and Belongings I fully understand and agree that [facility] accepts no responsibility for all my personal [...] ?? Date for Pt to Sign Valuables/Belongings: 12/20/22 08:43:00 ?? Other Discharge Information ? Pulmonary Rehab Status?? Pulmonary Rehab Discharge Status?? Respiratory Rate: 17 br/min ?? Psychiatric Discharge Plan?? Discharge Plan Psych?? Outpatient Programs?? Clinics?? Other Agency?? Crisis Services?? Level of Care at Discharge: Home/Family/SelfCare/RestHome/Correction/Sub AbuseTx (AHR) Substance Abuse Program Contact: [facility] [address] [place] [address] [phone]: [phone] Clinic Contact: [facility] Outpatient Behavioral Health [address] [place] [address] [phone]: [phone] Other Agency Contact: Jonatan Garza at [address] [address]Frnqn: No need to fax d/c summary Psychiatric Crisis Services: For your area are available 24 hours every day, by calling: Discharge Plan Additional Information: You are discharging with a plan to stay with family, friendsor your sponsor. You are reconnecting with your recovery community. You prefer to schedule your ownappointments and declined assistance with discharge planning. Substance Abuse Program Date/Time: Monday12/27/2022 @ 12:00 PM Clinic Comments: Provider: Elly Gant Other Comments: You are encouraged to stay in contact with this program after discharge. Crisis Services: [place] [facility] - [employer] [phone] Mode of Transportation: Family ? Physician/PCP: Lei Bass PA-C, [facility] [address] [place] [address] FAX: [phone] ?? Arranged Transport Date/Time: 02/03/23 11:00:00 ? Instructions: You prefer to schedule your own appointments. You are encouraged to schedule an appointment for follow-up and routine medical care. ? Common Emergency Awareness [...] are strongly encouraged to quit. Please call [facility] Link at [phone] or [phone]) or log in to [email or web address] for referrals to smoking cessation programs. ?? 572 Suicide & Crisis Lifeline is available 29/08 if you or someone you know needs to find a reason to keep living. By calling 028 you'll be connected to a skilled, trained counselor at a crisis center in your area. INPATIENT DISCHARGE INSTRUCTIONS SIGNATURE PAGE KELTONMARIANABABAK ANTUNEZ [facility] [facility]patient Psychiatry Registration Date and Time:12/20/2022 08:22 EST Primary Care Physician: Juliana Partida MD Attending Physician: Kimani Baker MD, Radha Munguia, I BABAK MCKEON, have received the above patient education materials/instructions and have verbalized understanding. If ambulance or transport services are being used I further acknowledge being given a choice of service. ?? If you need to contact me, please call me at this number: . Patient/Row Boss Hoeing Name: Patient/Row Boss Hoeing Signature: Relationship to Patient: Witness Name/Signature: Date: * Rahda Samuel: PERFORM Event Display: Discharge/Transfer Note Hospital Authored Date: [id number] Psychiatric Discharge Plan Entered On: 02/02/2023 12:21 EST Performed On: 02/02/2023 12:16 EST by Radha Samuel Discharge Plan Level of Care at Discharge : Home/Family/SelfCare/RestHome/Correction/Sub AbuseTx (AHR) Radha Samuel - 02/02/2023 12:16 EST Discharge Plan Additional Information : You are discharging with a plan to stay with family, friends or your sponsor. You are reconnecting with your recovery community. You prefer to schedule your own appointments and declined assistance with discharge planning. Radha Samuel - 02/03/2023 9:50 EST Mode of Transportation : Family Arranged Transport Date/Time : 02/03/2023 11:00 EST Radha Samuel - 02/02/2023 12:16 EST Clinics Clinic Comments : Provider: [facility] Contact : [facility] [address] [place] [address] FAX: [phone] Radha Samuel - 02/03/2023 9:50 EST Other Physician/PCP : Lei Bass PA-C, MPH [address] [address] FAX: [phone] Instructions : You prefer to schedule your own appointments. You are encouraged to schedule an appointment for follow-up and routine medical care. Radha Samuel - 02/02/2023 12:16 EST Crisis Services Psychiatric Crisis Services : For your area are available 24 hours every day, by calling: Crisis Services : [facility] - [facility] [phone] Radha Samuel - 02/02/2023 12:16 EST * Radha Samuel: PERFORM Event Display: Discharge/Transfer Note Hospital Authored Date: [id number] Psychiatric Discharge Plan Entered On: 12/26/2022 13:34 EST Performed On: 12/26/2022 13:31 EST by Radha Samuel Discharge Plan Mode of Transportation : Chair Van Arranged Transport Date/Time : 12/27/2022 10:00 EST Radha Samuel - 12/26/2022 13:34 EST Level of Care at Discharge : Home/Family/SelfCare/RestHome/Correction/Sub AbuseTx (AHR) Discharge Plan Additional Information : You are discharging today to the [facility] in [place], [place]. Radha Samuel - 12/26/2022 13:31 EST Outpatient Programs Substance Abuse Program Contact : [facility] [address] [place] [address] FAX: [phone] Substance Abuse Program Date/Time : Monday12/27/2022 @ 12:00 PM Radha Samuel - 12/26/2022 13:31 EST Other Other Agency Contact : [place] [address] No need to fax d/c summary Other Comments : You are encouraged to stay in contact with this program after discharge. Radha Samuel - 12/26/2022 13:31 EST Crisis Services Psychiatric Crisis Services : For your area are available 24 hours every day, by calling: Crisis Services : [facility] Community Crisis Program [phone] Radha Samuel - 12/26/2022 13:31 EST Patient Care team information Care Team Personnel Name: Helga HUTCHINSON, Juliana Vargas Position: [facility] Al MD Member Role: PCP Name: Negrito RN, Juju Position: [facility] RN Member Role: Primary Care Nurse Name: Ruben Hidalgo RN Position: [facility] RN Member Role: Primary Care Nurse Name: Skyla Vigil RN Position: [facility] RN Member Role: Primary Care Nurse Name: Ale Maya Position: [facility] Outreach Member Role: Lifetime Consulting Physician Name: Umberto Henry MD Position: [facility] ED Medicine MD Member Role: ED Attending Physician Address: Address: [address] [place] [address] Name: Wilda Perez Position: [facility] ED OA Charge Member Role: ED Associate Care Team Related Persons Name: NORMA MCKEON Address: [address] [place] [address] Name: JOSE MCKEON Address: home [address] [place] [id number]
--- OUTSIDE RECORDS SUMMARY | 2023-06-10 18:46 | XMS_ITS | Continuity of Care Document ---
Author Organization [facility] Inpatient Psychiatry Address [address] [place] [address]- Encounter [facility] Date(s): 05/09/22 - 05/13/22 [facility] Inpatient Psychiatry [address] [place] [address]- Discharge Disposition: A-D/C Home Attending Physician: Jacques HUTCHINSON, Iftikhar Araujo Admitting Physician: Jacques HUTCHINSON, Iftikhar Araujo Referring Physician: Not on Staff, Referring MD [...] tablet, 0 Refills, Maintenance, 05/13/22 8:59:00 EDT, [facility]-, Partial fill upon patient request [...] Range]: 1 2 3 Height 180 cm (05/13/22 8:08 AM) 180 cm (05/12/22 9:30 PM) 180 cm (05/12/22 2:05 PM) Weight 93 kg (05/09/22 2:16 PM) 100 kg (05/09/22 9:09 AM) 100 kg (05/08/22 3:16 PM) Oxygen Saturation [94-100 %] 100 % (05/13/22 8:08 AM) 97 % (05/12/22 9:30 PM) 97 % (05/12/22 8:09 AM) Pulse Rate [55-90 bpm] 90 bpm (05/13/22 8:08 AM) 95 bpm *H* (05/12/22 9:30 PM) 97 bpm *H* (05/12/22 2:05 PM) Body Mass Index [18.5-24.99 kg/m2] 28.7 kg/m2 *H* (05/09/22 2:16 PM) 30.86 kg/m2 *>HHI* (05/09/22 9:09 AM) 30.86 kg/m2 *>HHI* (05/08/22 3:16 PM) Blood Pressure [90-138/55-84 mm Hg] 112/93mm Hg (05/13/22 8:08 AM) 112/90mm Hg (05/12/22 9:30 PM) 110/82mm Hg (05/12/22 2:05 PM) Respiratory Rate [16-30 br/min] 16 br/min (05/13/22 8:16 AM) 16 br/min (05/13/22 8:08 AM) 18 br/min (05/12/22 9:30 PM) Temperature [96.8-100.4 DegF] 97.1 DegF (05/13/22 8:08 AM) 97.7 DegF (05/12/22 9:30 PM) 97.5 DegF (05/12/22 8:09 AM) Mode of Delivery (Oxygen) Room air (05/13/22 8:08 AM) Room air (05/12/22 9:30 PM) Room air (05/12/22 8:09 AM) Blood pressure sites Arm, left (05/13/22 8:08 AM) Arm, left (05/12/22 9:30 PM) Arm, left (05/12/22 2:05 PM) Temperature Route Temporal (05/13/22 8:08 AM) Temporal (05/12/22 9:30 PM) Temporal (05/12/22 8:09 AM) Dry Weight 93 kg (05/09/22 2:16 PM) 100 kg (05/09/22 9:09 AM) 100 kg (05/08/22 3:16 PM) Social History Social History Type Response Smoking Status 10 or more cigarette s (1/2 pack or more)/day in last 30 days entered on: 05/09/22 Sex Admission evaluation note * Clayton OLIVAREZ, Yi: MODIFY, PERFORM Event Display: Admission Note Authored Date: [id number] Patient: ??BABAK MCKEON ? Age:??52 Years?Sex:??Male?:??1970?? Chief Complaint/Reason for Consultation Depression Pt seen for:??40 minutes Total Time spent with pt:??60 minutes Discussed pt in meeting with RN, , SW. Labs, notes, and orders reviewed History of Present Illness Babak is??51-year-old, white, unemployed male with??history of alcohol use disorder,??depression, HTN and SI with a plan to overdose on his prescription medications. ??States that he was been sober for 4 months and??relapsed on alcohol yesterday. ??Had a full pint of vodka. ??Prior to this has notbeen drinking over the past 4 months. ??Denies any drug or tobacco use. ??States he is feeling suicidal because he is relapsed on alcohol and would like inpatient psych. ??Denies any auditory visual hallucinations. ??Does not feel like he is in acute alcohol withdrawal. ??Denies any attempt at self-harm recently.?Babak states this is part of a pattern that has??persisted for approximately 10 years??where he is sober for??8 months, 4 months, once 1.5 years??then??has a slip ??and drinks for1-2 days.?? He??attends AA, has a sponsor??and??attends to his??recovery.?? States each slip startswhen he becomes more depressed.?? Most prominent feature of his depressions is anhedonia, lack of??motivation and a lack of energy.?? This time,??he started to think about the fact that he used to have a job, marriage??in the house, and now is unemployed and living with his father.?? This led to??his??his??impulse to drink.?? States that??when he drinks??he has a sense of desperation that he can never beat alcohol, and this leads to suicidality.?? Crisis report states??he took??his bottle of clonidine out to the [facility]??with an intention of overdose??this time??but did not follow through. ??Brought himself to the hospital.?? States that earlier in life he experienced?? mini panic attacks , anxiety symptoms were more prominent. ??He no longer??feels anxiety is an issue.?? He has??never attem pted suicide.?? Has been admitted to psychiatric hospitals, including??1 previous admission??to [facility], 1 admission to [facility], 1 admission to [facility] 3???4 times??for similar??episodes??of relapse and suicidality.?? He??has been taking venlafaxine??for approximately a year??and states it??has not been effective. ??He feels it is time to try a new antidepressant.?? He is currently taking 75 mg, but states he was on higher doses. ??He cannot recall why??the dose was decreased??downto 75.?? He was on citalopram for approximately 10 years??previously. ??Depression has become more intense??now. ?? Medical Hx Affecting Psych Problem HTN ?? Social Hx Tello??grew up in [facility], with his mother, father, and sister, [...] from 1 pack per day of cigarettes. ?? Review of Systems Depression:??Anhedonia,??amotivation, anergia, low self-esteem Anxiety:??Denies Mona:??None Psychotic:??Denies PTSD:??Denies ADHD:??Denies ?? Mental Status Exam: General appearance:??Disheveled Eye contact:??Good Musculoskeletal:??Within normal limits Behavior:??Cooperative, engaged Speech:??Thoughtful, fluent, goal??focused Mood:??Regretful Affect:??Full range Thought Content:??Reviewing symptoms Thought Process:??Linear, logical Suicidality/Self harm:??Denies current Homicidality/violence:??Denies Cognition:??Intact Insight:??Good Judgement:??Good Reliability:??Good ?? Safety Evaluation: ? Suicide Risk Factors Currently Present ? Suicidal Ideation:??When drinking, not currently present ? Homicidal Ideation:??Denies ? Previous Suicide Attempt:??Denies ? History Self Injury:??Denies ? Substance Abuse:??Alcohol abuse x10 years ? Recent Loss of Relationship:??No ? Legal or Disciplinary Problems:??No??denies ? Access to weapons: ?? Protective Factors ? Social Support:??Father, sister,,??AA sponsor ? Hopeful that treatment will help:??Yes ? Strengths:??History of benefiting from treatment, supportive relationships ?? Risk Assessment: Low risk Actions Taken to Reduce Risk: ?Discussed how to access help 24 hours/day while in hospital ?Discussed securing weapons and/or other means as appropriate ?? Objective Measurements?? Height: 180 cm (05/09/22) Weight: 93 kg (05/09/22) Dry Weight: 93 kg (05/09/22) Body Mass Index:??28.7 kg/m2??High (05/09/22) ? Vital Signs?? Temperature: 99.2 DegF (05/09/22 14:16:00) Temperature Route: Oral (05/09/22 14:16:00) Pulse Rate:??100 bpm??High (05/09/22 14:16:00) Respiratory Rate: 18 br/min (05/09/22 14:16:00) Systolic Blood Pressure: 130 mm Hg (05/09/22 14:16:00) Diastolic Blood Pressure:??85 mm Hg??High (05/09/22 14:16:00) Blood pressure sites: Arm, right (05/09/22 14:16:00) Mean Arterial Pressure: 100 mm Hg (05/09/22 14:16:00) Pulse Pressure: 45 mm Hg (05/09/22 14:16:00) Oxygen Saturation: 97 % (05/09/22 09:09:00) Mode of Delivery (Oxygen): Room air (05/09/22 09:09:00) ? Precautions No Precautions documented.? Physical Exam Assessment/Plan Diagnoses Alcohol use disorder Major depressive disorder??recurrent, moderate ? Justification for Hospitalization ? I certify that this patient requires hospitalization, there is a likelihood of a positive outcome, and that their placement is age appropriate. ??I have reviewed the Nursing Assessment, Admission Home Medication Assessment, and the Initial Evaluation of Risk to Self/Others. ? Plan ??Continue inpatient level of care for safety??and stabilization Unit??standard safety checks Basic activities okay Discuss options??for replacement??antidepressant with patient Histories Allergies Allergies ?(Active and Proposed Allergies [...] family history recorded. ? Medications Home Medications Clonidine (cloNIDine 0.1 mg oral tablet)?0.1?Milligram?1?tablet?By Mouth?3 times a day Lorazepam (Ativan 0.5 mg oral tablet)?0.5?tab(s)?0.25?Milligram?By Mouth?2 times a day Mirtazapine (Remeron Tablet)?45?Milligram?By Mouth?Daily at bedtime Risperidone?1?Milligram?By Mouth?Daily in AM Risperidone?2?Milligram?By Mouth?Daily at bedtime Venlafaxine?75?Milligram?By Mouth?Daily ? Inpatient Medications Medications (18) Active SCHEDULED: (7) Clonidine 0.1 mg Tablet (cloNIDine 0.1 mg oral tablet) ??0.1 mg, By Mouth, 3 times a day Mirtazapine 15 mg Tablet (Remeron Tablet) ??45 mg, By Mouth, Daily at bedtime Nicotine 21 mg / 24 hour Patch (Nicotine Topical) ??21 mg, Topically, Daily Remove Patch (Remove ??Patch) ??1 each, Topically, Daily Risperidone 1 mg Tablet (risperiDONE 1 mg oral tablet) ??1 mg, By Mouth, Daily Risperidone 1 mg Tablet (risperiDONE 1 mg oral tablet) ??2 mg, By Mouth, Daily at bedtime Venlafaxine 37.5 mg XR Capsule (venlafaxine 37.5 mg oral capsule, extended release) ??75 mg, By Mouth, Daily CONTINUOUS: (0) PRN: (11) Acetaminophen 325 mg Tablet (Acetaminophen Tablet) ??650 mg, By Mouth, Every 8 hours Acetaminophen 325 mg Tablet (Acetaminophen Tablet) ??650 mg, By Mouth, Every 4 hours Al hydroxide/Mg hydroxide/simethicone 200 mg-200 mg-20 mg/5 mL Susp UD (Maalox Plus Liquid) ??30 mL, By Mouth, Every 8 hours Al hydroxide/Mg hydroxide/simethicone 200 mg-200 mg-20 mg/5 mL Susp UD (Maalox Plus Liquid) ??30 mL, By Mouth, Every 4 hours HydrOXYzine Pamoate 25mg Capsule (Vistaril Capsule) ??50 mg, By Mouth, Every 4 hours Ibuprofen 400 mg Tablet (Ibuprofen Tablet) ??400 mg, By Mouth, Every 8 hours Ibuprofen 400 mg Tablet (Ibuprofen Tablet) ??400 mg, By Mouth, Every 6 hours Lorazepam 1 mg Tablet (LORazepam Tablet) ??1 mg, By Mouth, Every 8 hours Magnesium Hydroxide 8% Susp UD (Milk of Magnesia Liquid) ??30 mL, By Mouth, 2 times a day Melatonin 3 mg Tablet (Melatonin Tablet) ??9 mg, By Mouth, Daily at bedtime Nicotine Lozenge 4mg (Nicotine Lozenge) ??4 mg, By Mouth, Every hour ? Results Recent Labs BLOOD COUNT & DIFF WBC 8.4 k/mm3 ()?? 05/08/2022 09:47 RBC 5.37 m/mm3 ()?? 05/08/2022 09:47 Hgb 16.2 Gm/dL ()?? 05/08/2022 09:47 Hct 46.1 % ()?? 05/08/2022 09:47 MCV 85.8 femtoliters ()?? 05/08/2022 09:47 MCH 30.2 pg ()?? 05/08/2022 09:47 MCHC 35.1 g/dL ()?? 05/08/2022 09:47 Platelet Count 197 k/mm3 ()?? 05/08/2022 09:47 RDW-SD 39.7 femtoliters ()?? 05/08/2022 09:47 MPV 9.8 femtoliters ()?? 05/08/2022 09:47 Nucleated RBC (Automated) 0.0 #/100 WBC'S ()?? 05/08/2022 09:47 Abs. NRBC 0.0 k/mm3 ()?? 05/08/2022 09:47 Abs. Neut 6.7 k/mm3 ()?? 05/08/2022 09:47 Abs. Lymph 1.2 k/mm3 ()?? 05/08/2022 09:47 Abs. [place] 0.4 k/mm3 ()?? 05/08/2022 09:47 Abs. Eo 0.1 k/mm3 ()?? 05/08/2022 09:47 Abs. Baso 0.0 k/mm3 ()?? 05/08/2022 09:47 Neut % 79.4 % (High)?? 05/08/2022 09:47 Lymph % 13.8 % (Low)?? 05/08/2022 09:47 [place] % 5.1 % ()?? 05/08/2022 09:47 Eos % 0.8 % ()?? 05/08/2022 09:47 Baso % 0.5 % ()?? 05/08/2022 09:47 Imm Gran 0.4 % ()?? 05/08/2022 09:47 Abs. Imm Gran 0.0 k/mm3 ()?? 05/08/2022 09:47 ?? CHEM GENERAL Sodium 138 mmol/L ()?? 05/08/2022 09:47 Potassium 3.2 mmol/L (Low)?? 05/08/2022 09:47 Chloride 100 mmol/L ()?? 05/08/2022 09:47 Bicarbonate Level 22 mmol/L ()?? 05/08/2022 09:47 Anion Gap 16 ()?? 05/08/2022 09:47 Glucose Level 121 mg/dL (High)?? 05/08/2022 09:47 BUN 9 mg/dL ()?? 05/08/2022 09:47 Creatinine-Blood 0.8 mg/dL ()?? 05/08/2022 09:47 Estimated GFR Creatinine 101 ML/MIN/1.73 M2 ()?? 05/08/2022 09:47 Calcium 9.5 mg/dL ()?? 05/08/2022 09:47 ?? HEME OTHER Hold Blue Top SPECIMEN DISCARDED AFTER 4 HOURS. ()?? 05/08/2022 09:47 ?? MISC. CHEMISTRY Hold Gel Top SPECIMEN DISCARDED AFTER 1 WEEK ()?? 05/08/2022 09:47 ?? TOXICOLOGY/TDM Ethanol, Serum or Plasma 195 mg/dL (Abnormal)?? 05/08/2022 09:47 Salicylate Level <0.3 mg/dL (Low)?? 05/08/2022 09:47 Cocaine Metabolite Screen, Urine NONE DETECTED ()?? 05/08/2022 14:03 Opiate Screen, Urine NONE DETECTED ()?? 05/08/2022 14:03 Acetaminophen Level <5 mg/L (Low)?? 05/08/2022 09:47 ?? VIROLOGY COVID-19 by RT-PCR NEGATIVE ()?? 05/08/2022 14:58 ? Abnormal Labs ?? VIROLOGY ??COVID-19 by RT-PCR ??NEGATIVE () ??05/08/2022 14:58 ? Note: Critical results are displayed in red. ? CBC, CBC w/Diff?? No qualifying data available. ?? BMP, Mg, and Phos?? No qualifying data available. ?? Coagulation Profile?? No qualifying data available. ?? LFT?? No qualifying data available. ?? Urinalysis?? No qualifying data available. ? Hospital Progress note * Sejal Calvillo RN: PERFORM, SIGN, VERIFY Event Display: Progress Note Hospital Authored Date: [id number] Patient: BABAK MCKEON Age: 52 years Sex: Male : 1970 Associated Diagnoses: None Author: Sejal Calvillo RN Findings Problems Problem 1 : Problem - 1 05/13/2022 10:00 EDT Problem 1 Unable to care for self - depression Goals, Problem 1 Pt will participate in ADLS and unit activities and report a decrease in depression Problem 1, Patient agrees to Attend groups, Take PRN medication as needed, Take scheduled medication, Identify alternatives to self harm while on the unit, Other: notify staff if feeling unsafe. Problem 1, Nursing Interventions Assist with daily structure, Encourage participation in groups, Provide information about illness and recovery, Provide information about medication, Assist patient to identify strengths . Narrative/Incidental Discharged to home with his father. Reviewed medications and D/C instructions; pt verbalized understanding. Valuables reviewed and returned. D/C papers signed. Crisis numbers given. Pt denied SI and feels safe and ready to D/C.. Discharge Information Case Management Discharge Plan : Case Management Discharge Plan Data 05/13/2022 11:14 EDT Discharge Level of Care at Discharge Home/Usp/Foster Care * Sejal Calvillo RN: MODIFY, SIGN, VERIFY, PERFORM Event Display: Progress Note Hospital Authored Date: [id number] Patient: BABAK MCKEON Age: 52 years Sex: Male : 1970 Associated Diagnoses: None Author: Karli GARCIA, Sejal Findings Problems Problem 1 : Problem - 1 05/11/2022 14:00 EDT Problem 1 Unable to care for self - depression Goals, Problem 1 Pt will attend unit activities and will repport a decrease in depression Problem 1, Patient agrees to Attend groups, Take PRN medication as needed, Take scheduled medication, Identify alternatives to self harm while on the unit, Other: notify staff if feeling unsafe. Problem 1, Nursing Interventions Assist with daily structure, Encourage participation in groups, Offer medication as needed, Provide information about illness and recovery, Provide information about medication, Assist patient to identify strengths . Narrative/Incidental Tello self-presented to the med room after breakfast. He denies pain, and rates anxiety as 3/10 and depressin as 5/10. Tello denies SI/SH/HI and he denies A/VH. Tello said he is a little anxious about his impending discharge, and he feels safe and ready for discharge. Vistaril PRN given with AM meds. Discharged to home at 11:05; see discharge note.. * Estevan Gaspar RN: PERFORM, SIGN, VERIFY Event Display: Progress Note Hospital Authored Date: [id number] Patient: BABAK MCKEON Age: 52 years Sex: Male : 1970 Associated Diagnoses: None Author: Estevan Gaspar RN Findings Babak was asleep in bed at the start of the shift, he appears to sleep for 6hrs+, no concern noted. He remains safe on unit standard safety checks, will continue to monitor and provide care. Note * Yi Arnold NP: MODIFY, PERFORM Event Display: Discharge/Transfer Note Hospital Authored Date: [id number] Patient: ??BABAK MCKEON ? Age:??52 Years?Sex:??Male?:??1970?? Patient Information Discharge Location: [facility] [place] Primary Care Physician:?? Admit Date/Time: 05/09/22 14:19 Discharge Disposition Discharge Disposition: Home: No Services Discharge Diagnosis Alcohol use disorder in remission (F10.91) Major depressive disorder without psychotic features (F32.9) ?? _ Discharge Medications Atorvastatin (atorvastatin 40 mg oral tablet)?1?tab(s)?40?Milligram?By Mouth?Daily Clonidine (cloNIDine 0.1 mg oral tablet)?0.1?Milligram?1?tablet?By Mouth?3 times a day Lorazepam (Ativan 0.5 mg oral tablet)?1?tab(s)?0.5?Milligram?By Mouth?2 times a day Mirtazapine (Remeron Tablet)?45?Milligram?By Mouth?Daily at bedtime Risperidone?1?Milligram?By Mouth?Daily in AM Risperidone?2?Milligram?By Mouth?Daily at bedtime Venlafaxine?75?Milligram?By Mouth?Daily BuPROPion 100 mg SR Tablet (Wellbutrin SR Tablet) ??100 mg, By Mouth, Daily ?? Quality Measures Tobacco Use Treatment:? Screening for Metabolic Disorders:?Lipid Panel: 03/10/2022: Triglycerides elevated at 191, all others WNL ? Inpatient Medications Medications (15) Active SCHEDULED: (9) Atorvastatin 40 mg Tablet (Atorvastatin Tablet) ??40 mg, By Mouth, Daily BuPROPion 100 mg SR Tablet (Wellbutrin SR Tablet) ??100 mg, By Mouth, Daily Clonidine 0.1 mg Tablet (cloNIDine 0.1 mg oral tablet) ??0.1 mg, By Mouth, 3 times a day Mirtazapine 15 mg Tablet (Mirtazapine Tablet) ??45 mg, By Mouth, Daily at bedtime Nicotine 21 mg / 24 hour Patch (Nicotine Topical) ??21 mg, Topically, Daily Remove Patch (Remove ??Patch) ??1 each, Topically, Daily Risperidone 1 mg Tablet (risperiDONE 1 mg oral tablet) ??1 mg, By Mouth, Daily Risperidone 1 mg Tablet (risperiDONE 1 mg oral tablet) ??2 mg, By Mouth, Daily at bedtime Venlafaxine 37.5 mg XR Capsule (venlafaxine 37.5 mg oral capsule, extended release) ??75 mg, By Mouth, Daily CONTINUOUS: (0) PRN: (6) Acetaminophen 325 mg Tablet (Acetaminophen Tablet) ??650 [...] By Mouth, 2 times a day Nicotine Lozenge 4mg (Nicotine Lozenge) ??4 mg, By Mouth, Every hour ? Medications Started Bupropion SR 100 mg daily Medications Discontinued None Doses Changed None PCP Follow-Up/Heads-Up No acute concerns Hospital Course ??Admission Note, 05/09/2022 Babak is??51-year-old, white, unemployed male with??history of alcohol use disorder,??depression, HTN and SI with a plan to overdose on his prescription medications. ??States that he was been sober for 4 months and??relapsed on alcohol yesterday. ??Had a full pint of vodka. ??Prior to this has notbeen drinking over the past 4 months. ??Denies any drug or tobacco use. ??States he is feeling suicidal because he is relapsed on alcohol and would like inpatient psych. ??Denies any auditory visual hallucinations. ??Does not feel like he is in acute alcohol withdrawal. ??Denies any attempt at self-harm recently.?Babak states this is part of a pattern that has??persisted for approximately??5 years??where he is sober for??8 months, 4 months, once 1.5 years??then??has a slip ??and drinks for1-2 days.?? He??attends AA, has a sponsor??and??attends to his??recovery.?? States each slip startswhen he becomes more depressed.?? Most prominent feature of his depressions is anhedonia, lack of??motivation and a lack of energy.?? This time,??he started to think about the fact that he used to have a job, marriage??in the house, and now is unemployed and living with his father.?? This led to??his??his??impulse to drink.?? States that??when he drinks??he has a sense of desperation that he can never beat alcohol, and this leads to suicidality.?? Crisis report states??he took??his bottle of clonidine out to the [facility]??with an intention of overdose??this time??but did not follow through. ??Brought himself to the hospital.?? States that earlier in life he experienced?? mini panic attacks , anxiety symptoms were more prominent. ??He no longer??feels anxiety is an issue.?? He has??never attem pted suicide.?? Has been admitted to psychiatric hospitals, including??1 previous admission??to [facility], 1 admission to [facility], 1 admission to [facility] 3???4 times??for similar??episodes??of relapse and suicidality.?? He??has been taking venlafaxine??for approximately a year??and states it??has not been effective. ??He feels it is time to try a new antidepressant.?? He is currently taking 75 mg, but states he was on higher doses. ??He cannot recall why??the dose was decreased??downto 75.?? He was on citalopram for approximately 10 years??previously. ??Depression has become more intense. Tello??grew up in [facility], with his mother, father, and sister, [...] aside from 1 pack per day of cigarettes ?? Hospital Course As has been typical with??Tello's ??slips, he??has recovered quickly.?? Within the first day of admission,?? denies??suicidal thoughts??and has forgiven himself for the episode of drinking, aware of the power of alcohol.?? He??remains socially isolated and not caring for his ADLs for most of his stay .?? Eating and sleeping adequately, engaging??in??discussion every day??with provider. ??Encouragedto participate in milieu.?? He reported that the venlafaxine 75 mg daily??he has been taking for approximately 1 year??does not seem to be??effective??for his depression. ??Bupropion??sustained release 100 mg daily has been added??to his med regimen, with results?? pending.??he denies adverse effects.?? Affect increasingly bright.?? He is??engaged??in recovery???talking on the phone with his sponsor.?? He is insightful??and motivated for treatment.?Recognizes that increasing attention to??the depression??that triggers??his slips??is the best way to??continue to take care of his recovery.? Day of Discharge??Note Babak??is bright and looking forward to discharge this morning.?? He denies thoughts of??suicide, HI, denies??A/VH.?? He is looking forward to going to an AA meeting, possibly at noon today.?? He ishaving??thoughts of alcohol, which he states is normal.?? He feels it is important to be alert to the thoughts, and??to??address them and minimize them before they??turn into action.?? No safety concerns at this time Depression:??Denies Anxiety:??Mild and appropriate to discharge today Mona:??None Psychotic:??None PTSD:??None ADHD:??None ?? Mental Status Exam: General appearance:??Disheveled Eye contact:??Normal Musculoskeletal:??Normal Behavior:??Cooperative Speech:??Linear Mood:??Bright Affect:??Congruent Thought Content:??Discharge, sobriety Thought Process:??Goal directed Suicidality/Self harm:??Denies Homicidality/violence:??Denies Cognition:??Intact Insight:??Good Judgement:??Good Reliability:??Good ? Objective Assessment and Plan Discharge Planning:?? Tello will discharge??home??to his father's house Continue attending daily AA meetings Continue??utilizing sponsor??and other AA supports??and crisis We will contact??crisis??if thoughts of suicide return On waiting list for therapist and psychiatrist,??PCP to continue prescribing psychiatric??medications??in the interim ? Vital Signs?? Temperature: 97.1 DegF (05/13/22 08:08:00) Temperature Route: Temporal (05/13/22 08:08:00) Pulse Rate: 90 bpm (05/13/22 08:08:00) Respiratory Rate: 16 br/min (05/13/22 08:16:00) Systolic Blood Pressure: 112 mm Hg (05/13/22 08:08:00) Diastolic Blood Pressure:??93 mm Hg??High (05/13/22 08:08:00) Blood pressure sites: Arm, left (05/13/22 08:08:00) Mean Arterial Pressure: 99 mm Hg (05/13/22 08:08:00) Pulse Pressure: 19 mm Hg (05/13/22 08:08:00) Oxygen Saturation: 100 % (05/13/22 08:08:00) Mode of Delivery (Oxygen): Room air (05/13/22 08:08:00) ? . Physical Exam Vital signs reviewed Pending Results Add On Lab Order ordered on 05/08/2022 Patient Instructions Patient instructions Continue taking medications??as [...] to family, trusted care provideror crisis line?? Home Health Face to Face ^[id number] Results Discharge Labs BLOOD COUNT & DIFF WBC 8.4 k/mm3 ()?? 05/08/2022 09:47 RBC 5.37 m/mm3 ()?? 05/08/2022 09:47 Hgb 16.2 Gm/dL ()?? 05/08/2022 09:47 Hct 46.1 % ()?? 05/08/2022 09:47 MCV 85.8 femtoliters ()?? 05/08/2022 09:47 MCH 30.2 pg ()?? 05/08/2022 09:47 MCHC 35.1 g/dL ()?? 05/08/2022 09:47 Platelet Count 197 k/mm3 ()?? 05/08/2022 09:47 RDW-SD 39.7 femtoliters ()?? 05/08/2022 09:47 MPV 9.8 femtoliters ()?? 05/08/2022 09:47 Nucleated RBC (Automated) 0.0 #/100 WBC'S ()?? 05/08/2022 09:47 Abs. NRBC 0.0 k/mm3 ()?? 05/08/2022 09:47 Abs. Neut 6.7 k/mm3 ()?? 05/08/2022 09:47 Abs. Lymph 1.2 k/mm3 ()?? 05/08/2022 09:47 Abs. [place] 0.4 k/mm3 ()?? 05/08/2022 09:47 Abs. Eo 0.1 k/mm3 ()?? 05/08/2022 09:47 Abs. Baso 0.0 k/mm3 ()?? 05/08/2022 09:47 Neut % 79.4 % (High)?? 05/08/2022 09:47 Lymph % 13.8 % (Low)?? 05/08/2022 09:47 [place] % 5.1 % ()?? 05/08/2022 09:47 Eos % 0.8 % ()?? 05/08/2022 09:47 Baso % 0.5 % ()?? 05/08/2022 09:47 Imm Gran 0.4 % ()?? 05/08/2022 09:47 Abs. Imm Gran 0.0 k/mm3 ()?? 05/08/2022 09:47 ?? CHEM GENERAL Sodium 138 mmol/L ()?? 05/08/2022 09:47 Potassium 3.2 mmol/L (Low)?? 05/08/2022 09:47 Chloride 100 mmol/L ()?? 05/08/2022 09:47 Bicarbonate Level 22 mmol/L ()?? 05/08/2022 09:47 Anion Gap 16 ()?? 05/08/2022 09:47 Glucose Level 121 mg/dL (High)?? 05/08/2022 09:47 BUN 9 mg/dL ()?? 05/08/2022 09:47 Creatinine-Blood 0.8 mg/dL ()?? 05/08/2022 09:47 Estimated GFR Creatinine 101 ML/MIN/1.73 M2 ()?? 05/08/2022 09:47 Calcium 9.5 mg/dL ()?? 05/08/2022 09:47 ?? HEME OTHER Hold Blue Top SPECIMEN DISCARDED AFTER 4 HOURS. ()?? 05/08/2022 09:47 ? MISC. CHEMISTRY Hold Gel Top SPECIMEN DISCARDED AFTER 1 WEEK ()?? 05/08/2022 09:47 ? TOXICOLOGY/TDM Ethanol, Serum or Plasma 195 mg/dL (Abnormal)?? 05/08/2022 09:47 Salicylate Level <0.3 mg/dL (Low)?? 05/08/2022 09:47 Cocaine Metabolite Screen, Urine NONE DETECTED ()?? 05/08/2022 14:03 Opiate Screen, Urine NONE DETECTED ()?? 05/08/2022 14:03 Acetaminophen Level <5 mg/L (Low)?? 05/08/2022 09:47 ? VIROLOGY COVID-19 by RT-PCR NEGATIVE ()?? 05/08/2022 14:58 COVID-19 PCR Specimen Source NASAL ()?? 05/12/2022 08:11 COVID-19 PCR Result NEGATIVE ()?? 05/12/2022 08:11 ? _90 minutes spent on discharge * Radha Samuel: PERFORM Event Display: Discharge/Transfer Note Hospital Authored Date: [id number] Psychiatric Discharge Plan Entered On: 05/13/2022 8:12 EDT Performed On: 05/13/2022 8:04 EDT by Radha Samuel Discharge Plan Level of Care at Discharge : Home/Family/SelfCare/RestHome/Jail/Sub AbuseTx (AHR) Discharge Plan Additional Information : You are discharging today and returning to your home You will resume working with your [facility] providers. You have a large recovery community to support your sobriety. You declined assistance with aftercare and prefer to schedule your own appointments. Mode of Transportation : Family Arranged Transport Date/Time : 05/13/2022 11:00 EDT Radha Samuel - 05/13/2022 8:04 EDT Clinics Clinic Contact : [address] [address] [phone] FAX: [phone] Clinic Comments : You are encouraged to schedule follow-up appointments with your providers. You declined having appointments scheduled for you. Radha Samuel - 05/13/2022 8:04 EDT Other Physician/PCP : Dr. Carlos Bautista [address] [address] FAX: [phone] Instructions : You are encouraged to schedule a follow-up appointment with you PCP after discharge.You declined having this appointment scheduled for you. Radha Samuel - 05/13/2022 8:04 EDT * Karli GARCIA, Sejal: PERFORM Event Display: Patient Education/Instruction Authored Date: [id number] Inpatient Adult Discharge Instructions [facility] Inpatient Psychiatry [address] [place], [place] [id number] Name: BABAK MCKEON : 1970 Visit: 05/09/2022 14:19:00 Current Date: 05/13/2022 09:53 Account: [id number] Inpatient Adult Discharge Instructions We would like [...] and their families. Surveys are administered by [employer] ?? If further treatment with your primary care physician or another doctor is recommended, it is important for you to keep the appointment. Call your primary care physician or return to the Emergency Department immediately if your condition worsens, fails to improve, or new symptoms develop. If you need to find a doctor, you can call [facility] for a referral at [phone] or toll free at [phone] or log in to [email or web address].. ?? You can view and manage your care through the patient portal or by using a health care luz of your choosing. [employer] is a website that allows you to securely view your medical information including your hospital discharge summary, office visit summaries, medications and follow-up visits. You can also request appointments, renew medications, and request access to your medical information using a health care luz of your choosing, or just ask a question. You can enroll at [email or web address] or register during your next office visit. You have been discharged from [facility] Inpatient Psychiatry, Patient Care Unit: MHU. If you have any questions regarding these instructions after you leave, please call us and we will be happy to assist you. 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 You may have had other tests and procedures not included in this list. Please discuss all test results with your provider. ACETAMINOPHEN Alcohol Level Basic Metabolic Panel CBC w/ Differential Cocaine Urine Screen COVID-19 (2019 Novel Coronavirus) PCR COVID-19 (Novel Coronavirus), Rapid PCR HOLD BLUE TUBE HOLD GEL TUBE Opiate Screen Urine SALICYLATE Advance Directive Health Care Proxy on File No Patient refuses to discuss Discharge Vitals Temperature: 97.1 DegF Height: 180 cm Pulse Rate: 90 bpm Weight: 93 kg Respiratory Rate: 16 br/min Body Mass Index:??28.7 kg/m2??High Systolic Blood Pressure: 112 mm Hg Body surface area: 2.16 Diastolic Blood Pressure:??93 mm Hg??High ?? Oxygen Saturation: 100 % ?? Studies Pending All tests and labs ordered during this hospital stay have been completed unless listed below. Please discuss all pending results with your provider listed above in these instructions. ?? Add On Lab Order What to do next Instructions From Your Doctor Patient instructions Continue taking medications??as prescribed Follow-up [...] to family, trusted care provideror crisis line?? Discharge Orders Discharge Medications BABAK MCKEON :1970 Visit Date:05/09/2022 Medications: Please continue your medications until treatment is completed or stopped by your provider. Medications not listed below should be discontinued. Discuss any questions related to medications with your provider. What How Much When Instructions Next Dose New BuPROpion (buPROPion 100 mg/ 12 hours (SR) oral tablet, extended release) 1 tab(s) Oral Daily Pickup at [facility] Unchanged Atorvastatin (atorvastatin 40 mg oral tablet) 1 tab(s) Oral Daily 4/8 AM Unchanged Clonidine (cloNIDine 0.1 mg oral tablet) 1 tab(s) Oral 3 times a day /7 3 PM Unchanged Lorazepam (Ativan 0.5 mg oral tablet) 1 tab(s) Oral Twice a day Not given here Unchanged Mirtazapine (Remeron Tablet) 45 Milligram Oral Daily at Bedtime 4/7?? bedtime Unchanged Risperidone 1 Milligram Oral Daily in the morning 4/8 AM Unchanged Risperidone 2 Milligram Oral Daily at Bedtime 4/7 PM Unchanged Venlafaxine 75 Milligram Oral Daily 4/8 AM Pharmacy Information [facility]: [address] [place] [phone] Test Results Below is a partial list of the most recent Laboratory test results done prior to this discharge. You may have had other tests and procedures not included in this list. Please discuss all test resultswith your provider. ACETAMINOPHEN (05/08/2022) ? ?Acetaminophen Level - <5 mg/L Alcohol Level (05/08/2022) ???Ethanol, Serum or Plasma - 195 mg/dL Basic Metabolic Panel (05/08/2022) ???Sodium - 138 mmol/L???Potassium - 3.2 mmol/L???Chloride - 100 mmol/L???Bicarbonate Level - 22 mmol/L???Anion Gap - 16???Glucose Level - 121 mg/dL???BUN - 9 mg/dL???Creatinine-Blood - 0.8 mg/dL???Estimated GFR Creatinine - 101 ML/MIN/1.73 M2???Calcium - 9.5 mg/dL CBC w/ Differential (05/08/2022) ???WBC - 8.4 k/mm3???RBC - 5.37 m/mm3???Hgb - 16.2 Gm/dL???Hct - 46.1 %???MCV - 85.8 femtoliters???MCH - 30.2 pg???MCHC - 35.1 g/dL???Platelet Count - 197 k/mm3???RDW-SD - 39.7 femtoliters???MPV - 9.8 femtoliters???Nucleated RBC (Automated) - 0.0 #/100 WBC'S???Abs. NRBC - 0.0 k/mm3???Abs. Neut - 6.7 k/mm3???Abs. Lymph - 1.2 k/mm3???Abs. [place] - 0.4 k/mm3???Abs. Eo - 0.1 k/mm3???Abs. Baso - 0.0 k/mm3???Neut % - 79.4 %???Lymph % - 13.8 %???[place] % - 5.1 %???Eos % - 0.8 %???Baso % - 0.5 %???Imm Gran- 0.4 %???Abs. Imm Gran - 0.0 k/mm3 Cocaine Urine Screen (05/08/2022) ???Cocaine Metabolite Screen, Urine - NONE DETECTED COVID-19 (2019 Novel Coronavirus) PCR (05/12/2022) ???COVID-19 PCR Specimen Source - NASAL???COVID-19 PCR Result - NEGATIVE COVID-19 (Novel Coronavirus), Rapid PCR (05/08/2022) ???COVID-19 by RT-PCR - NEGATIVE HOLD BLUE TUBE (05/08/2022) ???Hold Blue Top - SPECIMEN DISCARDED AFTER 4 HOURS. HOLD GEL TUBE (05/08/2022) ???Hold Gel Top - SPECIMEN DISCARDED AFTER 1 WEEK Opiate Screen Urine (05/08/2022) ???Opiate Screen, Urine - NONE DETECTED SALICYLATE (05/08/2022) ? ?Salicylate Level - <0.3 mg/dL Allergies (NKA means No Known Allergies) No Known Medication Allergies Problems Active Problems??(5) Alcohol dependence?? Depression?? Hyperlipidemia?? Hypertension?? Tobacco dependence?? Education Materials Below is the list of Educational Leaflet Providered with your Discharge Instructions. Valuables and Belongings I fully understand and agree that [facility] accepts no responsibility for all my [...] to send valuables and belongings home. ?? Review of Valuable and Belonging List: With patient Date for Pt to Sign Valuables/Belongings: 05/09/22 14:23:00 ?? Other Discharge Information ? Pulmonary Rehab Status?? Pulmonary Rehab Discharge Status?? Respiratory Rate: 16 br/min ?? Psychiatric Discharge Plan?? Discharge Plan Psych?? Clinics?? Other Agency?? Level of Care at Discharge: Home/Family/SelfCare/RestHome/Jail/Sub AbuseTx (AHR) Clinic Contact: BHAVNA Wray [place] [phone]: [phone] Physician/PCP: Dr. Carlos Bland [address] [place], [place] [phone]: [phone] Discharge Plan Additional Information: You are discharging today and returning to your home You will resume working with your [facility] providers. You have a large recovery community to support yoursobriety. You declined assistance with aftercare and prefer to schedule your own appointments. Clinic Comments: You are encouraged to schedule follow-up appointments with your providers. You declined having appointments scheduled for you. Instructions: You are encouraged to schedule a follow-up appointment with you PCP after discharge. You declined having this appointment scheduled for you. Mode of Transportation: Family ? Arranged Transport Date/Time: 05/13/22 11:00:00 ? Common Emergency Awareness Tips IS IT [...] are strongly encouraged to quit. Please call [employer] at [phone] or [phone] ([phone]) or log in to [email or web address] for referrals to smoking cessation programs. ?? The National Suicide Prevention Hotline is available 29/08 if you or someone you know needs to find a reason to keep living. By calling 5-941-577-pxfx (3956) you'll be connected to a skilled, trained counselor at a crisis center in your area. INPATIENT DISCHARGE INSTRUCTIONS SIGNATURE PAGE BABAK MCKEON Location:[facility] Inpatient Psychiatry Registration Date and Time:05/09/2022 14:19 EDT I BABAK MCKEON, have received the above patient education materials/instructions and have verbalized understanding. If ambulance or transport services are being used I further acknowledge being given a choice of service. ?? If you need to contact me, please call me at this number: . Patient/R Developer Name: Patient/R Developer Signature: Relationship to Patient: Witness Name/Signature: Date: Patient Care team information Care Team Personnel Name: Sj HUTCHINSON, Yanelis Araujo Position: [facility] Resident Address: Address: [address] [place] [address] [place] [address]- [place] Name: Hector Mcintyre Position: S ED RN W/OE and Tasks Member Role: Patient Care Provider Care Team Related Persons Name: KELTONMARIANAHARMONYNORMA Address: home [address] [place] [id number] Name: JOSE MCKEON Address: home [address] [place] [id number]
--- OUTSIDE RECORDS SUMMARY | 2023-06-10 18:46 | XMS_ITS | Continuity of Care Document ---
Author Organization [facility] Address [address] [place] [address]- Care Team Providers Care Renal Social Worker Name Role Phone Helga HUTCHINSON, Juliana Vargas Primary Care Physician [place] [facility] [place] - 04/26/[address] [address]- Discharge Disposition: A-D/C Home Attending Physician: Molly Merida DO Admitting Physician: Molly Merida DO Referring Physician: Not on Staff, Referring [...] oldest [Reference Range]: 1 2 3 Height 179 cm (04/26/20 5:47 AM) 179 cm (04/26/20 2:04 AM) 179 cm (04/26/20 12:17 AM) Weight 80 kg (04/26/20 5:47 AM) 80 kg (04/26/20 2:04 AM) 80 kg (04/26/20 12:17 AM) Oxygen Saturation [94-100 %] 96 % (04/26/20 5:47 AM) 94 % (04/25/20 9:56 PM) Pulse Rate [55-90 bpm] 101 bpm *H* (04/26/20 5:47 AM) 97 bpm *H* (04/26/20 2:04 AM) 86 bpm (04/26/20 12:41 AM) Body Mass Index [18.5-24.99] 24.97 (04/26/20 5:47 AM) 24.97 (04/26/20 2:04 AM) 24.97 (04/26/20 12:17 AM) Blood Pressure [90-138/55-84 mm Hg] 129/80mm Hg (04/26/20 5:47 AM) 94/65mm Hg (04/26/20 2:04 AM) 109/68mm Hg (04/26/20 12:41 AM) Respiratory Rate [16-30 br/min] 16 br/min (04/26/20 5:47 AM) 16 br/min (04/26/20 2:04 AM) 16 br/min (04/26/20 12:41 AM) Temperature [96.8-100.4 DegF] 97.7 DegF (04/26/20 5:47 AM) 96.7 DegF *L* (04/25/20 9:56 PM) Mode of Delivery (Oxygen) room air (04/26/20 5:47 AM) Room air (04/25/20 9:56 PM) Temperature Route Oral (04/26/20 5:47 AM) Oral (04/25/20 9:56 PM) Dry Weight 80 kg (04/26/20 5:47 AM) 80 kg (04/26/20 2:04 AM) 80 kg (04/26/20 12:17 AM)
--- OUTSIDE RECORDS SUMMARY | 2023-06-10 18:46 | XMS_ITS | Continuity of Care Document ---
Author Organization [facility] Address [address] [place] [address]- Care Team Providers Care Content Analyst Name Role Phone Lily HUTCHINSON, Carlos Sandoval Primary Care Physician [phone] Encounter [facility] [place] Date(s): 11/29/20 - 11/29/[address] [address]- Discharge Disposition: A-D/C Home Attending Physician: Kane Garcia MD Admitting Physician: [...] Daily, # 30 tablet, 0 Refills, Maintenance, 11/29/20 20:04:00 EDT, XL Tablet, [facility]/pharmacy #[id number], Partial fill upon patient request if the prescription is for a schedule II opioid drug., 1 tablet By Mouth Daily, 180, cm, 1... Start Date: 11/29/20 Status: Ordered cloNIDine 0.1 mg oral tablet 0.1 mg, 1, tablet, By Mouth, 3 times a day, # 90 tablet, Refills 0, Tot. Refills 0, Maintenance, 11/29/20 20:04:00 EDT, Route to Pharmacy Electronically, [facility]/pharmacy #[id number], Partial fill upon patientrequest if the prescription is for a schedule II op... Start Date: 11/29/20 Status: Ordered risperiDONE 0.5 mg oral tablet 0.5 mg, 1, tablet, By Mouth, 2 times a day, # 60 tablet, Refills 0, Tot. Refills 0, Maintenance, 11/29/20 20:04:00 EDT, Route to Pharmacy Electronically, [facility]/pharmacy #[id number], Partial fill upon patientrequest if the prescription is for a schedule II op... Start Date: 11/29/20 Status: Ordered Vital Signs Most recent to oldest [Reference Range]: 1 2 3 Height 180 cm (11/29/20 8:47 PM) 180 cm (11/29/20 7:27 PM) Weight 91 kg (11/29/20 8:47 PM) 91 kg (11/29/20 7:27 PM) Oxygen Saturation [94-100 %] 94 % (11/29/20 8:47 PM) 95 % (11/29/20 7:27 PM) 96 % (11/29/20 7:13 PM) Pulse Rate [55-90 bpm] 108 bpm *H* (11/29/20 8:47 PM) 111 bpm *H* (11/29/20 7:27 PM) 101 bpm *H* (11/29/20 7:13 PM) Body Mass Index [18.5-24.99] 28.09 *H* (11/29/20 8:47 PM) Blood Pressure [90-138/55-84 mm Hg] 110/73mm Hg (11/29/20 8:47 PM) 121/89mm Hg (11/29/20 7:27 PM) 129/88mm Hg (11/29/20 7:13 PM) Respiratory Rate [16-30 br/min] 20 br/min (11/29/20 8:47 PM) 20 br/min (11/29/20 7:27 PM) 17 br/min (11/29/20 7:13 PM) Temperature [96.8-100.4 DegF] 97.9 DegF (11/29/20 8:47 PM) 96.9 DegF (11/29/20 7:27 PM) 96.3 DegF *L* (11/29/20 7:13 PM) Mode of Delivery (Oxygen) Room air (11/29/20 8:47 PM) Room air (11/29/20 7:27 PM) Blood pressure sites Arm, left (11/29/20 8:47 PM) Arm, left (11/29/20 7:27 PM) Temperature Route Oral (11/29/20 8:47 PM) Oral (11/29/20 7:27 PM) Oral (11/29/20 7:13 PM) Dry Weight 91 kg (11/29/20 8:47 PM) 91 kg (11/29/20 7:27 PM)
[2023-06-10 19:07] VITALS: BP 133/94; PULSE 114; RESP 16; TEMP 36.9; O2SAT 95
--- NOTE | 2023-06-10 19:08 | PC.NURSE ---
Assumed care of pt. pt mamie dumont stretcher, appears lucid, able to answer questions, calm and cooperative. Pt demonstrating steady gait, changed over by security. Belongings in locker 10.
[2023-06-10 19:09] VITALS: BP 133/94
[2023-06-10] MEDS: cloNIDine HCL 0.1 MG TABLET PO (19:09)
[2023-06-10] MEDS: LORazepam 1 MG TABLET 2 MG PO ×2 (19:11→23:35)
[2023-06-10 19:23] LABS: MANUAL DIFF FLAG NO
[2023-06-10 19:25] LABS: Basophils Percent Auto 0.2 % (0-2); Eosinophils Percent Auto 0.2 % (0-4); Hematocrit 44.9 % (42.0-52.0); Hemoglobin 15.9 g/dl (14.0-18.0); Imm Gran Abs Auto 0.04 X10*3/uL (0.00-0.03); Imm Gran Pct Auto 0.4 % (0.0-0.4); Lymphocytes Absolute Auto 1.3 X10*3/uL (1.2-4.9); Mean Corpuscular HGB Conc 35.4 g/dl (31.0-36.0); Mean Corpuscular Hemoglobin 30.2 pg (27.0-33.0); Mean Corpuscular Volume 85.2 fL (80.0-98.0); Mean Platelet Volume 9.5 fL (9.4-12.4); Monocytes Absolute Auto 0.5 X10*3/uL (0.1-1.2); Monocytes Percent Auto 5.2 % (2-11); Neutrophils Absolute Auto 8.3 x10*3/uL (2.0-8.3); Platelet Count 230 X10*3/uL (160-400); Red Blood Count 5.27 X10*6/uL (4.60-5.80); Red Cell Distribution Width 12.6 % (11.0-16.0); White Blood Count 10.2 X10*3/uL (4.8-10.8)
[2023-06-10 19:26] LABS: Appearance Urine Clear; Color Urine Yellow; Glucose Urine UA Negative (Negative); Leukocyte Esterase Urine Negative (Negative); Nitrite Urine Negative (Negative); PH 5.5 (5.0-9.0); Urine Blood Negative (Negative); Urine Ketones 40 mg/dL (Negative); Urine Protein Negative (Neg-Trace)
[2023-06-10 19:39] LABS: Amphetamine Screen Urine Not Detected (Not Detect); Barbiturates, Urine Not Detected (Not Detect); Benzodiazepines Screen Urine Not Detected (Not Detect); Buprenorphine Scr Not Detected (Not Detect); Cannabinoid Screen Urine Not Detected (Not Detect); Cocaine Screen Urine Not Detected (Not Detect); Fentanyl, urine Not Detected (Not Detect); Methadone Screen, Urine Not Detected (Not Detect); Opiate Screen Urine Not Detected (Not Detect); Oxycodone Screen Urine Not Detected (Not Detect); Phencyclidine Screen Urine Not Detected (Not Detect)
[2023-06-10 19:45] LABS: Alanine Aminotransferase 23 U/L (0-40); Albumin Level 4.5 g/dL (3.5-5.0); Alkaline Phosphatase 68 U/L (39-117); Anion Gap 24 (12-20); Aspartate Amino Transferase 33 U/L (5-37); Bilirubin Total 0.9 mg/dL (0.0-1.0); Blood Urea Nitrogen 16 mg/dL (9-16); Calcium 9.5 mg/dL (8.4-10.2); Carbon Dioxide 14 mmol/L (22-29); Chloride 104 mmol/L (96-108); Creatinine Clr Calc Pharmacy 94.9; Estimated Glomerular Filt Rate > 60; Ethanol 122 mg/dL; Glucose Random 141 mg/dL (60-115); Potassium 3.2 mmol/L (3.3-5.1); Sodium 139 mmol/L (135-145); Total Protein 7.5 g/dL (6.5-8.0)
[2023-06-10 19:46] LABS: Acetaminophen LAB < 3 mcg/mL (<30); Salicylate < 5.0 mg/dL (15-30)
[2023-06-10] MEDS: Magnesium Hydrox/Alum Hydrox 30 ML ORAL.SUSP PO (21:49)
[2023-06-11] MEDS: Potassium Chloride Packet 20 MEQ PACKET 40 MEQ PO (04:05)
--- NOTE | 2023-06-11 05:47 | PC.NURSE ---
Patient slept through the night, no distress observed/reported, no behavior issues, care consult for suicidality, pending evaluation, med rec completed/pending provider's approval, asymptomatic of ETOH withdrawal, Ativan 2 mg administered at 2335 fro comfort, VSS, will continue to monitor
[2023-06-11] MEDS: LORazepam 1 MG TABLET 2 MG PO ×2 (06:23→14:45)
--- NOTE | 2023-06-11 06:34 | PC.NURSE ---
Patient appears restless, CIWA assessed was 10 at 0619, Prn Ativan 2 mg administered at 06/pending effect, will continue to monitor
[2023-06-11 06:44] VITALS: BP 144/95; PULSE 101; RESP 17; TEMP 36.8; O2SAT 97
[2023-06-11] MEDS: Nicotine Polacrilex 2 MG GUM 4 MG BUCCAL ×3 (07:28→14:35)
--- NOTE | 2023-06-11 07:31 | PC.NURSE ---
Assumed care of patient at 0645, patient up eating breakfast in room at this time, offering no complaints to this RN. Nicotine gum administered per MAR. Patient appears to be in no apparent distress, respirations even and unlabored. Continue plan of care for CARE team assessment
[2023-06-11] MEDS: Nicotine 21 MG PATCH.TD24 TRANSDERMA (08:16)
[2023-06-11] MEDS: cloNIDine HCL 0.1 MG TABLET PO ×2 (08:16→14:35)
[2023-06-11] MEDS: Multivitamin TABLET 1 TAB PO (08:16)
[2023-06-11] MEDS: Thiamine HCL 100 MG TABLET PO (08:16)
[2023-06-11 14:28] VITALS: BP 122/78; PULSE 113; RESP 18; TEMP 37.1; O2SAT 97
--- NOTE | 2023-06-11 14:52 | MHC.CARE ---
Pt accepted to [facility] [address] [facility], [place] [address],accepting doctor is Dr. Sharma.Section 12 completed and in patients chart.
[2023-06-11 17:24] VITALS: BP 124/87; PULSE 102; RESP 16; TEMP 36.6; O2SAT 97
== END 2023-06-11 17:44 ==
PROVIDERS: Physician Assistant Medical; Emergency Provider Emergency Medicine Emergency Medical Services
DX: F33.9 Major depressive disorder, recurrent, unspecified (principal); F10.220 Alcohol dependence with intoxication, uncomplicated; Y90.6 Blood alcohol level of 120-199 mg/100 ml; R45.851 Suicidal ideations; I10 Essential (primary) hypertension; F17.210 Nicotine dependence, cigarettes, uncomplicated; F33.2 Major depressive disorder, recurrent severe without psychotic features; Z79.899 Other long term (current) drug therapy
CPT/HCPCS: 36415; 80053; 80143; 80179; 80307; 81003; 85025; 99285; S9485

== ENCOUNTER 2023-06-22 20:05 | Inpatient (IN) | payer MEDICAID, OTHER, SELFPAY ==
[2023-06-22 20:22] VITALS: BP 130/86; BP 148/102; PULSE 120; PULSE 90; RESP 16; TEMP 36.6; O2SAT 98; BMI 25.8
[2023-06-22] MEDS: cloNIDine HCL 0.1 MG TABLET PO (20:50)
--- NOTE | 2023-06-22 20:54 | PC.NURSE ---
f/up note, patient called pd himself, drank about 8 hours, feels he needs a dual program but hated deandre ELLISON .
[2023-06-22 21:26] LABS: MANUAL DIFF FLAG NO
[2023-06-22 21:29] LABS: Basophils Percent Auto 0.4 % (0-2); Eosinophils Absolute Auto 0.1 X10*3/uL (0.0-0.4); Eosinophils Percent Auto 0.5 % (0-4); Hematocrit 45.8 % (42.0-52.0); Imm Gran Abs Auto 0.03 X10*3/uL (0.00-0.03); Imm Gran Pct Auto 0.3 % (0.0-0.4); Lymphocytes Absolute Auto 2.1 X10*3/uL (1.2-4.9); Mean Corpuscular HGB Conc 34.9 g/dl (31.0-36.0); Mean Corpuscular Hemoglobin 30.2 pg (27.0-33.0); Mean Corpuscular Volume 86.6 fL (80.0-98.0); Mean Platelet Volume 9.7 fL (9.4-12.4); Monocytes Absolute Auto 0.7 X10*3/uL (0.1-1.2); Monocytes Percent Auto 6.2 % (2-11); Neutrophils Absolute Auto 7.9 x10*3/uL (2.0-8.3); Neutrophils Percent Auto 73.6 % (45-73); Platelet Count 208 X10*3/uL (160-400); Red Blood Count 5.29 X10*6/uL (4.60-5.80); White Blood Count 10.8 X10*3/uL (4.8-10.8)
[2023-06-22 21:30] LABS: Appearance Urine Clear; Color Urine Yellow; Glucose Urine UA Negative (Negative); Leukocyte Esterase Urine Negative (Negative); Nitrite Urine Negative (Negative); PH 5.5 (5.0-9.0); Urine Blood Negative (Negative); Urine Ketones Negative (Negative); Urine Protein Negative (Neg-Trace)
[2023-06-22 21:35] LABS: Bacteria Urine None Seen (None Seen); Hyaline Casts Urine 0-2 /LPF (0-2); RBC Urine 0-2 /HPF (0-2); Squamous Epithelial Cell Urine 0-2 /HPF (0-2); WBC Urine 0-5 /HPF (0-5)
[2023-06-22 21:43] LABS: Ethanol 109 mg/dL
[2023-06-22 21:45] LABS: Amphetamine Screen Urine Not Detected (Not Detect); Barbiturates, Urine Not Detected (Not Detect); Benzodiazepines Screen Urine Not Detected (Not Detect); Buprenorphine Scr Not Detected (Not Detect); Cannabinoid Screen Urine Not Detected (Not Detect); Cocaine Screen Urine Not Detected (Not Detect); Fentanyl, urine Not Detected (Not Detect); Methadone Screen, Urine Not Detected (Not Detect); Opiate Screen Urine Not Detected (Not Detect); Oxycodone Screen Urine Not Detected (Not Detect); Phencyclidine Screen Urine Not Detected (Not Detect)
[2023-06-22 21:46] LABS: Alanine Aminotransferase 31 U/L (0-40); Albumin Level 4.6 g/dL (3.5-5.0); Alkaline Phosphatase 68 U/L (39-117); Anion Gap 19 (12-20); Aspartate Amino Transferase 27 U/L (5-37); Bilirubin Total 0.4 mg/dL (0.0-1.0); Blood Urea Nitrogen 13 mg/dL (9-16); Calcium 9.4 mg/dL (8.4-10.2); Carbon Dioxide 20 mmol/L (22-29); Chloride 107 mmol/L (96-108); Estimated Glomerular Filt Rate > 60; Glucose Random 110 mg/dL (60-115); Potassium 3.4 mmol/L (3.3-5.1); Sodium 143 mmol/L (135-145); Total Protein 7.5 g/dL (6.5-8.0)
[2023-06-22 21:48] LABS: Acetaminophen LAB < 3 mcg/mL (<30); Salicylate < 5.0 mg/dL (15-30)
--- NOTE | 2023-06-22 22:01 | ED.PSYCH ---
HPI - Psych General Chief Complaint: Psychiatric Symptoms Stated Complaint: SI,ETOH,SECT 12,PD ON BOARD Time Seen by Provider: 06/22/23 21:00 Source: patient and EMS Mode of arrival: EMS Limitations: no limitations History of Present Illness HPI Narrative: Patient comes to emergency room complaining of alcohol relapse and depression, vague suicidal thoughts. Patient states that he recently relapsed and has been drinking alcohol. Patient was supposed to go to a CSS program, but instead told the over compressed air pile driver operator to take him to buy alcohol. Patient states that he feels hopeless, patient states that he wants help, states that he does not want to hurt himself. Patient states that he would like to be referred to the [facility] in [place] . Related Data Home Medications ?Medication ?Instructions ?Recorded ?Confirmed quetiapine 100 mg tablet 100 mg PO BEDTIME 06/23/23 06/23/23 Previous Rx's ?Medication ?Instructions ?Recorded clonidine HCl 0.1 mg tablet 1 tab PO TID #90 tabs 08/17/21 Allergies Allergy/AdvReac Type Severity Reaction Status Date / Time No Known Allergies Allergy Verified 06/22/23 20:26 Review of Systems Review of Systems: Constitutional : No Weight loss, No Fever, No Chills, No Night Sweats, No Fatigue, No Malaise ENT/Mouth : No Hearing loss, No Ear Pain, No Nasal Congestion, No Sinus Pain, No Hoarseness, No sore throat, No Rhinorrhea, No Swallowing Difficulty Eyes: No Eye Pain, No Swelling, No Redness, No Foreign Body, No Discharge, No Vision Changes Cardiovascular : No Chest Pain, No SOB, No Dyspnea on Exertion, No Orthopnea, No Edema, No Palpitations Respiratory : No Cough, No Sputum, No Wheezing, No Smoke Exposure, No Dyspnea Gastrointestinal : No Nausea, No Vomiting, No Diarrhea, No Constipation, No abdominal Pain, No Hematochezia, No Melena Genitourinary : no irregular bleeding, No Dysuria, No Urinary Frequency, No Hematuria, No Urinary Incontinence, No Urgency, No Flank Pain, No Urinary Flow Changes, No Hesitancy Musculoskeletal : No joint pain, No Myalgias, No Joint Swelling Skin : No Skin Lesions, No rash Neuro : No Weakness, No Numbness, No Paresthesias, No Loss of Consciousness, No Dizziness, No Headache Psych : No Anxiety/Panic, complaining of depression, vague SI, no plan, no HI, admits to drinking alcohol/relapsed Heme/Lymph: No Bruising, No Bleeding,No Lymphadenopathy Endocrine : No Polyuria, No Polydipsia, No Temperature Intolerance PMF Past Medical History Medical History Alcohol use disorder, severe, dependence Recurrent major depression-severe Social History Social History Household Members: None Housing: Homeless Do you presently have visiting nurse or other home services: No Unable to assess alcohol history related to: Unknown Alcohol intake: current Alcohol intake frequency: 3 or more drinks per day Alcohol type: hard liquor Patient Tobacco Use Status: Current everyday Tobacco user Tobacco use type: Cigarette Cigarette Packs Per Day: 1 Cigarettes Per Day: 20.0 Years Smoked: 20 e-Cigarette/Vaping Use: Former Use Advance Directives: No Advance Directives Information Provided: No Do you have a plan to hurt others: No Plan service: Yes ([employer] [id number]) Sexual orientation: Straight/Heterosexual Physical Exam Vital Signs: Vital Signs: Last Vital Signs Temp 98 F 06/22/23 20:22 Pulse 92 06/23/23 00:00 Resp 18 06/23/23 00:00 BP 168/82 H 06/23/23 00:00 Pulse Ox 98 06/22/23 20:22 O2 Del Method Room Air 06/23/23 00:00 BMI result Body Mass Index 25.8 Const: Other: Appearance: Alert. Oriented X3. No acute distress. Eyes: Pupils equal, round and reactive to light. ENT: Pharynx normal. Neck: Normal inspection. Neck supple. No lymph nodes noted. No crepitus CVS: Normal heart rate and rhythm. Pulses normal. Normal S1 and S2 Respiratory: No respiratory distress. Breath sounds normal. No Wheezing. No rales Abdomen: Soft and nontender. No rigidity. No distention. Skin: Skin warm and dry. Normal skin color. Normal skin turgor. Extremities: No lower extremity edema. No Lacerations. No Rash Neuro: Oriented X 3. No motor deficit. No sensory deficit. Moving all extremities. No slurred speech. CN 2 through 12 grossly intact Psych: calm, cooperative, normal affect Course Course Course Narrative: -patient is here voluntarily -all of patient's labs pending -care team consult pending -physician observation started at 22:00 Reevaluation(s) Reevaluation #1: Physician observation continued. VS stable, no acute events overnight, inpatient bed search Medications Administered Discontinued Medications Generic Name Dose Route Start Last Admin Trade Name Ryann PRN Reason Stop Dose Admin Clonidine HCl 0.1 mg 06/22/23 20:44 06/22/23 20:50 Clonidine Hcl 0.1 Mg Tablet PO 06/22/23 20:45 0.1 mg ONCE ONE Administration Protocol Lorazepam 2 mg 06/22/23 23:36 06/22/23 23:56 Lorazepam 1 Mg Tablet PO 06/22/23 23:37 2 mg ONCE ONE Administration Medical Decision Making Medical Decision Making [facility] Narrative: -my interpretation of labs, at baseline hematology and chemistry, alcohol level positive, negative for drugs of abuse 23:25: Care team evaluated the patient, recommendations are to keep the patient on a Section 12 and start inpatient bed search Differential Diagnosis Differential Diagnoses: The differential diagnosis associated with the presentation includes (Anxiety, depression, alcohol abuse, alcohol dependence) Admission/Observation Consideration of admission/observation: Escalation of care including admission/observation considered (Patient waiting for care team to be evaluated, patient is under physician observation) Lab Data [facility] Lab Attestation statement: I reviewed the patient's lab results. 06/22/23 21:13 06/22/23 21:13 Labs: Lab Results 06/22/23 06/22/23 Range/Units 21:06 21:13 WBC 10.8 (4.8-10.8) X10*3/uL RBC 5.29 (4.60-5.80) X10*6/uL Hgb 16.0 (14.0-18.0) g/dl Hct 45.8 (42.0-52.0) % MCV 86.6 (80.0-98.0) fL MCH 30.2 (27.0-33.0) pg MCHC 34.9 (31.0-36.0) g/dl RDW 13.0 (11.0-16.0) % Plt Count 208 (160-400) X10*3/uL MPV 9.7 (9.4-12.4) fL Immature Gran % (Auto) 0.3 (0.0-0.4) % Neut % (Auto) 73.6 H (45-73) % Lymph % (Auto) 19.0 L (20-40) % [place] % (Auto) 6.2 (2-11) % Eos % (Auto) 0.5 (0-4) % Baso % (Auto) 0.4 (0-2) % Lymph # (Auto) 2.1 (1.2-4.9) X10*3/uL [place] # (Auto) 0.7 (0.1-1.2) X10*3/uL Eos # (Auto) 0.1 (0.0-0.4) X10*3/uL Baso # (Auto) 0.0 (0.0-0.2) X10*3/uL Abs Immat Gran (auto) 0.03 (0.00-0.03) X10*3/uL Absolute Neuts (auto) 7.9 (2.0-8.3) x10*3/uL Absolute Nucleated RBC 0.000 (0.0-0.012) X10*3/uL Nucleated RBC % (auto) 0.0 (0.0-0.2) /100WBC Sodium 143 (135-145) mmol/L Potassium 3.4 (3.3-5.1) mmol/L Chloride 107 (96-108) mmol/L Carbon Dioxide 20 L (22-29) mmol/L Anion Gap 19 (12-20) BUN 13 (9-16) mg/dL Creatinine 1.09 (0.5-1.4) mg/dL Estim Creat Clear Calc 84.0 Estimated GFR > 60 Random Glucose 110 (60-115) mg/dL Calcium 9.4 (8.4-10.2) mg/dL Total Bilirubin 0.4 (0.0-1.0) mg/dL AST 27 (5-37) U/L ALT 31 (0-40) U/L Alkaline Phosphatase 68 (39-117) U/L Total Protein 7.5 (6.5-8.0) g/dL Albumin 4.6 (3.5-5.0) g/dL Urine Color Yellow Urine Appearance Clear Urine pH 5.5 (5.0-9.0) Ur Specific [place] 1.010 (1.005-1.025) Urine Protein Negative (Neg-Trace) mg/dL Urine Glucose (UA) Negative (Negative) mg/dL Urine Ketones Negative (Negative) mg/dL Urine Blood Negative (Negative) Urine Nitrite Negative (Negative) Ur Leukocyte Esterase Negative (Negative) Urine RBC 0-2 (0-2) /HPF Urine WBC 0-5 (0-5) /HPF Ur Squamous Epith Cells 0-2 (0-2) /HPF Urine Bacteria None Seen (None Seen) Hyaline Casts 0-2 (0-2) /LPF Salicylates < 5.0 L (15-30) mg/dL Urine Opiates Screen Not Detected (Not Detect) Ur Buprenorphine Scrn Not Detected (Not Detect) ng/mL Ur Oxycodone Screen Not Detected (Not Detect) ng/mL Urine Methadone Screen Not Detected (Not Detect) ng/mL Urine Fentanyl Screen Not Detected (Not Detect) Acetaminophen < 3 (<30) mcg/mL Ur Barbiturates Screen Not Detected (Not Detect) Ur Phencyclidine Scrn Not Detected (Not Detect) Ur Amphetamines Screen Not Detected (Not Detect) U Benzodiazepines Scrn Not Detected (Not Detect) Urine Cocaine Screen Not Detected (Not Detect) U Marijuana (THC) Screen Not Detected (Not Detect) Ethyl Alcohol 109 mg/dL Discharge Plan Discharge Clinical Impression: Alcohol use disorder, severe, dependence Recurrent major depression-severe Qualifiers: Psychotic features: without psychotic features Qualified Code(s): F33.2 - Major depressive disorder, recurrent severe without psychotic features Patient Disposition: Still a Patient Prescriptions: No Action clonidine HCl 0.1 mg tablet 1 tab PO TID Qty: 90 0RF quetiapine 100 mg tablet 100 mg PO BEDTIME Interventions: Phelps-Suicide Risk Severity Scale Last Done: 06/22/23 21:55 Print Language: Zambian
[2023-06-22] MEDS: LORazepam 1 MG TABLET 2 MG PO (23:56)
[2023-06-23] VITALS: BP 168/82; PULSE 92; RESP 18
--- NOTE | 2023-06-23 | ECG_ITS ---
Test Reason : check qt Blood Pressure : / mmHG Vent. Rate : 086 BPM Atrial Rate : 086 BPM P-R Int : 158 ms QRS Dur : 096 ms QT Int : 374 ms P-R-T Axes : 044 007 022 degrees QTc Int : 447 ms Normal sinus rhythm Septal infarct , age undetermined Cannot rule out Inferior infarct , age undetermined Abnormal ECG No previous ECGs available Referred By: Leticia Morrison Electronically Signed By:LAKESHIA TAYLOR MD
--- NOTE | 2023-06-23 07:12 | PC.NURSE ---
Assumed care of patient at 0645. Patient is observed sleeping in his bed. No signs of distress, breathing is even and unlabored. Will continue plan of care.
[2023-06-23 08:20] VITALS: BP 155/95; PULSE 103; RESP 18; TEMP 36.6; O2SAT 94
[2023-06-23] MEDS: cloNIDine HCL 0.1 MG TABLET PO ×3 (08:35→20:27)
--- NOTE | 2023-06-23 10:34 | PC.NURSE ---
Nursing Communication Patient endorses smoking 1 pack of cigarettes per day. Music Coordinator asked if patient wanted nicotine replacement to which the patient replied that he will likely wait until he is admitted to the floor to request replacement. Will continue plan of care.
--- NOTE | 2023-06-23 18:10 | PC.NURSE ---
Fabien was admitted from the POD on a CV after a one day alcohol relapse in the context of homelessness and HX of alcohol abuse. Fabien reports he stays mostly sober and occasionally every few months experiences a one day relapse where he drinks 10+ drinks. He states he generally goes to the hospital after this as he doesn't want to fall back into daily drinking and becomes very depressed when sobering up. Fabien reports he currently has high levels of anxiety and depression but does not have active SI currently just thoughts that it would be easier if I was . Fabien will come to staff if that changes and he begins to feel unsafe. Pleasant and agreeable with the admission process. Skin assessment WNL except for a blister to the back of the right heel, bacitracin and band aid applied. No medical concerns noted or reported. Fabien denies any AVH or any HX of psychosis. Thoughts seem linear and he is observed quietly engaging in the milieu and appetite is good. Smoking cessation order placed. May be appropriate to meet with recovery team.
--- NOTE | 2023-06-23 18:21 | P.HPPS_ITS ---
HPI Date of Service: 06/23/23 Chief Complaint: Depression Sources of Information: patient interviewed, chart reviewed and crisis/core team assessment reviewed HPI Subjective Notes: [place] Warning and Conditional Voluntary Healthcare Proxy: No Guardianship: No Medical Problems Affecting Mental Status: No Narrative: 53 yo male, history of alcohol use disorder, depression, recent DC from [facility]. Pt, on his way to [facility], diverted his route and drank, then coming to ER. Reports an 11am-5pm relapse with high quantities of vodka. Reports SI, and never being able to be released to have a normal life. Describes sx of social anxiety-increase fear of the world, social anxiety, fear of getting a job and interacting with others-alcohol helps these sx subside. Describes free floating dread that is always there. Regrets losing his job at [employer] for 21 years and marriage due to these sx and resulting alcohol use. Reports poor sleep with latency sx, DIONE, CANDIE and not feeling rested at times. Reports no appetite change and poor concentration when relapsed. States he has trialed @ 8 meds and has not had effect. Clonidine helps, Seroquel helps Past Psychiatric History: IP: Linda Pandya, Wing Reshma, Liam, Helga Pandya, Vivi, [facility] Sober Living admissions-[facility] in [place], [place], [facility], [place], [place] Medications: Risperdal, Clonidine, Venlafaxine, Cymbalta, Celexa, Prozac, Sertraline, Remeron, Paxil Medical Evaluation Reviewed: Yes [facility] Medical History Alcohol use disorder, severe, dependence Recurrent major depression-severe Family History: mother-depression father-anxiety paternal grandfather/4 paternal uncles-alcoholism Social History: Born and raised in [place], mother was a nurse at [employer]. One sister. Mom in 2006 Father, sister and stepmother are a support [employer] [phone] Substance History: alcohol Trauma History: denies Diagnostics Vital Signs (24Hr): Vital Signs - 24 hr 06/22/23 20:22 06/23/23 00:00 05/17/24 08:20 Temperature 98 F 97.8 F Pulse Rate 120 H 92 103 H Respiratory Rate 16 18 18 Blood Pressure 148/102 H 168/82 H 155/95 H Pulse Oximetry 98 94 Oxygen Delivery Method Room Air Room Air Room Air BMI result Body Mass Index 25.8 Labs 06/22/23 21:13 06/22/23 21:13 Labs: Laboratory Results - last 48 hr 06/22/23 06/22/23 21:06 21:13 WBC 10.8 RBC 5.29 Hgb 16.0 Hct 45.8 MCV 86.6 MCH 30.2 MCHC 34.9 RDW 13.0 Plt Count 208 MPV 9.7 Immature Gran % (Auto) 0.3 Neut % (Auto) 73.6 H Lymph % (Auto) 19.0 L [place] % (Auto) 6.2 Eos % (Auto) 0.5 Baso % (Auto) 0.4 Lymph # (Auto) 2.1 [place] # (Auto) 0.7 Eos # (Auto) 0.1 Baso # (Auto) 0.0 Abs Immat Gran (auto) 0.03 Absolute Neuts (auto) 7.9 Absolute Nucleated RBC 0.000 Nucleated RBC % (auto) 0.0 Sodium 143 Potassium 3.4 Chloride 107 Carbon Dioxide 20 L Anion Gap 19 BUN 13 Creatinine 1.09 Estim Creat Clear Calc 84.0 Estimated GFR > 60 Random Glucose 110 Calcium 9.4 Total Bilirubin 0.4 AST 27 ALT 31 Alkaline Phosphatase 68 Total Protein 7.5 Albumin 4.6 Urine Color Yellow Urine Appearance Clear Urine pH 5.5 Ur Specific [place] 1.010 Urine Protein Negative Urine Glucose (UA) Negative Urine Ketones Negative Urine Blood Negative Urine Nitrite Negative Ur Leukocyte Esterase Negative Urine RBC 0-2 Urine WBC 0-5 Ur Squamous Epith Cells 0-2 Urine Bacteria None Seen Hyaline Casts 0-2 Salicylates < 5.0 L Urine Opiates Screen Not Detected Ur Buprenorphine Scrn Not Detected Ur Oxycodone Screen Not Detected Urine Methadone Screen Not Detected Urine Fentanyl Screen Not Detected Acetaminophen < 3 Ur Barbiturates Screen Not Detected Ur Phencyclidine Scrn Not Detected Ur Amphetamines Screen Not Detected U Benzodiazepines Scrn Not Detected Urine Cocaine Screen Not Detected U Marijuana (THC) Screen Not Detected Ethyl Alcohol 109 Meds/Allergies Meds Home Medications ?Medication ?Instructions ?Recorded ?Confirmed ?Type quetiapine 100 mg tablet 100 mg PO BEDTIME 06/23/23 06/23/23 History Allergies Allergies Allergy/AdvReac Type Severity Reaction Status Date / Time No Known Allergies Allergy Verified 06/22/23 20:26 Mental Status Exam Mental Status Exam Patient Appearance: Appropriate Patient Orientation: Person, Place, Time and Situation Level of Consciousness: Alert Patient Behavior: Talkative and Good Eye Contact Mood Description: Depressed and Anxious Affect Description: Flat Patient Cognition Impaired: No Ability to Follow Directions: Good Speech Pattern: Spontaneous Speech Memory Description: Intact Hallucinations: None Delusions: Not Present Perceptual Disturbances: Derealization Thought Process: Rumination Thought Content: positive for Perseveration Depressive Symptoms: Increased Anxiety and Thoughts of /Suicide Judgement: Fair Assessment & Plan Assessment & Plan (1) Recurrent major depression-severe: Status: Acute Qualifiers: Psychotic features: without psychotic features Qualified Code(s): F33.2 - Major depressive disorder, recurrent severe without psychotic features Code(s): F33.2 - Major depressive disorder, recurrent severe without psychotic features (2) Alcohol use disorder, severe, dependence: Status: Acute Code(s): F10.20 - Alcohol dependence, uncomplicated Plan 15 minute checks. Trileptal 300 mg bid trial ? Abilify trial Addictions consult MVI, Folic Acid, Thiamine Aftercare planning Patient educated on: medication risk/benefits and therapeutic strategies Informed Consent: understands Reason for continued inpatient stay Substantial Risk for: rapid decompensation Statement Statement: I have reviewed the history and physical and performed a pertinent examination on my patient. No changes have occurred unless specified. If the History and Physical was not performed prior to admission, the Hospitalist's service will be consulted for completing the admission physical. Time Spent With Patient Time: Total time managing care of this patient today ____ minutes.
[2023-06-23 20:00] VITALS: BP 117/85; PULSE 84; RESP 17; TEMP 37.1; O2SAT 96
[2023-06-23 20:27] VITALS: BP 117/85
[2023-06-23] MEDS: QUEtiapine Fumarate 100 MG TABLET PO (20:28)
[2023-06-24 08:00] VITALS: BP 123/82; PULSE 82; RESP 18; TEMP 36.8; O2SAT 98
[2023-06-24 08:33] VITALS: BP 123/82
[2023-06-24] MEDS: Thiamine HCL 100 MG TABLET PO (08:33)
[2023-06-24] MEDS: cloNIDine HCL 0.1 MG TABLET PO ×2 (08:33→14:32)
[2023-06-24] MEDS: Nicotine 21 MG PATCH.TD24 TRANSDERMA (08:38)
[2023-06-24] MEDS: Folic Acid 1 MG TABLET PO (08:40)
--- NOTE | 2023-06-24 12:15 | P.PNPSI_ITS ---
Subjective Subjective Date of Service: 06/24/23 Reason For Visit: Depression Interim History: Met with patient; discussed with team; reviewed chart Patient reports that he is feeling better; only drank for 1 day after months of sobriety and no need for CIWA. Patient says he was on clonidine 0.2 mg t.i.d. in the past which was really helpful and asked if it could be increased; discussed risks/side effects of this medication and he agreed. Also discussed Lamictal which patient was considering; advertising copywriter reviewed risks/side-effects including SJ and patient agrees that this might be a good medication to try and would like to do so.. Mental Status Exam Mental Status Exam Patient Appearance: Appropriate Patient Orientation: Person, Place, Time and Situation Level of Consciousness: Alert Patient Behavior: Talkative and Good Eye Contact Mood Description: Depressed and Anxious Affect Description: Anxious Patient Cognition Impaired: No Ability to Follow Directions: Good Speech Pattern: Clear, Spontaneous Speech and Excessive (mildly verbose) Memory Description: Intact Hallucinations: None Delusions: Not Present Perceptual Disturbances: Derealization Thought Process: Rumination Thought Content: positive for Perseveration (past trauma) Depressive Symptoms: Increased Anxiety and Thoughts of /Suicide (but passive only; says would never attempt) Judgement: Fair Diagnostics Vital Signs (24Hr): Vital Signs - 24 hr 06/23/23 20:00 06/23/23 20:27 06/24/23 08:00 Temperature 98.7 F 98.3 F Pulse Rate 84 82 Respiratory Rate 17 18 Blood Pressure 117/85 117/85 123/82 Pulse Oximetry 96 98 Oxygen Delivery Method Room Air Room Air 06/24/23 08:33 Temperature Pulse Rate Respiratory Rate Blood Pressure 123/82 Pulse Oximetry Oxygen Delivery Method BMI result Body Mass Index 25.8 Labs 06/22/23 21:13 06/22/23 21:13 Labs: Laboratory Results - last 48 hr 06/22/23 06/22/23 21:06 21:13 WBC 10.8 RBC 5.29 Hgb 16.0 Hct 45.8 MCV 86.6 MCH 30.2 MCHC 34.9 RDW 13.0 Plt Count 208 MPV 9.7 Immature Gran % (Auto) 0.3 Neut % (Auto) 73.6 H Lymph % (Auto) 19.0 L [place] % (Auto) 6.2 Eos % (Auto) 0.5 Baso % (Auto) 0.4 Lymph # (Auto) 2.1 [place] # (Auto) 0.7 Eos # (Auto) 0.1 Baso # (Auto) 0.0 Abs Immat Gran (auto) 0.03 Absolute Neuts (auto) 7.9 Absolute Nucleated RBC 0.000 Nucleated RBC % (auto) 0.0 Sodium 143 Potassium 3.4 Chloride 107 Carbon Dioxide 20 L Anion Gap 19 BUN 13 Creatinine 1.09 Estim Creat Clear Calc 84.0 Estimated GFR > 60 Random Glucose 110 Calcium 9.4 Total Bilirubin 0.4 AST 27 ALT 31 Alkaline Phosphatase 68 Total Protein 7.5 Albumin 4.6 Urine Color Yellow Urine Appearance Clear Urine pH 5.5 Ur Specific [place] 1.010 Urine Protein Negative Urine Glucose (UA) Negative Urine Ketones Negative Urine Blood Negative Urine Nitrite Negative Ur Leukocyte Esterase Negative Urine RBC 0-2 Urine WBC 0-5 Ur Squamous Epith Cells 0-2 Urine Bacteria None Seen Hyaline Casts 0-2 Salicylates < 5.0 L Urine Opiates Screen Not Detected Ur Buprenorphine Scrn Not Detected Ur Oxycodone Screen Not Detected Urine Methadone Screen Not Detected Urine Fentanyl Screen Not Detected Acetaminophen < 3 Ur Barbiturates Screen Not Detected Ur Phencyclidine Scrn Not Detected Ur Amphetamines Screen Not Detected U Benzodiazepines Scrn Not Detected Urine Cocaine Screen Not Detected U Marijuana (THC) Screen Not Detected Ethyl Alcohol 109 Medications Medications Current Medications Acetaminophen (Acetaminophen 325 Mg Tablet) 650 mg PO Q6H PRN PRN Reason: Headache/Pain Mild Scale (1-3) Al Hydroxide/Mg Hydroxide (Magnesium Hydrox/Alum Hydrox 30 Ml Oral.Susp) 30 ml PO Q6H PRN PRN Reason: Heartburn/Nausea Clonidine HCl (Clonidine Hcl 0.1 Mg Tablet) 0.1 mg PO TID [facility]; Protocol Last Admin: 06/24/23 08:33 Dose: 0.1 mg Folic Acid (Folic Acid 1 Mg Tablet) 1 mg PO DAILY [facility] Last Admin: 06/24/23 08:40 Dose: 1 mg Hydroxyzine HCl (Hydroxyzine Hcl 25 Mg Tablet) 25 mg PO Q6H PRN PRN Reason: Anxiety Lorazepam (Lorazepam 1 Mg Tablet) 1 mg PO Q2H PRN PRN Reason: CIWA 6-10 Lorazepam (Lorazepam 1 Mg Tablet) 2 mg PO Q2H PRN PRN Reason: CIWA 11 and above Magnesium Hydroxide (Milk Of Magnesia 30 Ml Oral.Susp) 30 ml PO DAILY PRN PRN Reason: Constipation Nicotine (Nicotine 21 Mg Patch.Td24) 21 mg TRANSDERMA DAILY PRN PRN Reason: smoking cessation Last Admin: 06/24/23 08:38 Dose: 21 mg Nicotine Polacrilex (Nicotine Polacrilex 2 Mg Gum) 4 mg BUCCAL Q2H PRN PRN Reason: Nicotine Cravings Quetiapine Fumarate (Quetiapine Fumarate 100 Mg Tablet) 100 mg PO BEDTIME [facility] Last Admin: 06/23/23 20:28 Dose: 100 mg Thiamine HCl (Thiamine Hcl 100 Mg Tablet) 100 mg PO DAILY [facility] Last Admin: 06/24/23 08:33 Dose: 100 mg Trazodone HCl (Trazodone Hcl 50 Mg Tablet) 50 mg PO BEDTIME MRX1 PRN PRN Reason: Insomnia Allergies Allergies Allergy/AdvReac Type Severity Reaction Status Date / Time No Known Allergies Allergy Verified 06/22/23 20:26 Assessment & Plan Assessment & Plan (1) Recurrent major depression-severe: Qualifiers: Psychotic features: without psychotic features Qualified Code(s): F33.2 - Major depressive disorder, recurrent severe without psychotic features Status: Acute Code(s): F33.2 - Major depressive disorder, recurrent severe without psychotic features (2) Alcohol use disorder, severe, dependence: Status: Acute Code(s): F10.20 - Alcohol dependence, uncomplicated Plan Hospital course: 06/23 Patient reports that he is feeling better; only drank for 1 day after months of sobriety and no need for CIWA. Patient says he was on clonidine 0.2 mg t.i.d. in the past which was really helpful and asked if it could be increased; discussed risks/side effects of this medication and he agreed. Also discussed Lamictal which patient was considering; advertising copywriter reviewed risks/side- effects including SJ and patient agrees that this might be a good medication to try and would like to do so Plan: CV Q 15 minute checks Increase clonidine to 0.2 mg t.i.d.; patient said he tolerated this dose before and it was helpful for anxiety Start Lamictal 25 mg q.h.s.; advertising copywriter reviewed risks/side effects including Chandan Richard's Trileptal 300 mg bid trial ? Abilifmelonie trial Addictions consult MVI, Folic Acid, Thiamine Aftercare planning Patient educated on: diagnosis, medication risk/benefits and substance abuse Informed Consent: understands Reason for continued inpatient stay Substantial Risk for: rapid decompensation Time Spent With Patient Time: Total time managing care of this patient today ____ minutes.
[2023-06-24 14:32] VITALS: BP 113/77
[2023-06-24 19:57] VITALS: BP 119/75; PULSE 86; RESP 17; TEMP 36.7; O2SAT 97
[2023-06-24] MEDS: lamoTRIgine 25 MG TABLET PO (20:06)
[2023-06-24] MEDS: QUEtiapine Fumarate 100 MG TABLET PO (20:06)
[2023-06-24] MEDS: cloNIDine HCL 0.2 MG TABLET PO (20:06)
[2023-06-25 08:00] VITALS: BP 116/69; PULSE 79; RESP 18; TEMP 36.7; O2SAT 98
[2023-06-25] MEDS: Thiamine HCL 100 MG TABLET PO (08:32)
[2023-06-25] MEDS: Folic Acid 1 MG TABLET PO (08:32)
[2023-06-25] MEDS: cloNIDine HCL 0.2 MG TABLET PO ×3 (08:32→20:23)
--- NOTE | 2023-06-25 10:01 | P.PNPSI_ITS ---
Subjective Subjective Date of Service: 06/25/23 Reason For Visit: Depression Interim History: Met with patient; discussed with team Still anxious but patient reports that increased clonidine is making quite a difference in lowering his anxiety and wants to continue with it. Blood pressure a little bit on the low side but still WNL and patient asymptomatic. No problems with starting Lamictal. Appropriate with peers and staff Mental Status Exam Mental Status Exam Patient Appearance: Appropriate Patient Orientation: Person, Place, Time and Situation Level of Consciousness: Alert Patient Behavior: Talkative and Good Eye Contact Mood Description: Depressed and Anxious Affect Description: Anxious Patient Cognition Impaired: No Ability to Follow Directions: Good Speech Pattern: Clear, Spontaneous Speech and Excessive (mildly verbose) Memory Description: Intact Hallucinations: None Delusions: Not Present Perceptual Disturbances: Derealization Thought Process: Rumination Thought Content: positive for Perseveration (past trauma) Depressive Symptoms: Increased Anxiety and Thoughts of /Suicide (but passive only; says would never attempt) Judgement: Fair Diagnostics Vital Signs (24Hr): Vital Signs - 24 hr 06/24/23 14:32 06/24/23 19:57 06/25/23 08:00 Temperature 98.0 F 98.1 F Pulse Rate 86 79 Respiratory Rate 17 18 Blood Pressure 113/77 119/75 116/69 Pulse Oximetry 97 98 Oxygen Delivery Method Room Air Room Air BMI result Body Mass Index 25.8 Labs 06/22/23 21:13 06/22/23 21:13 Medications Medications Current Medications Acetaminophen (Acetaminophen 325 Mg Tablet) 650 mg PO Q6H PRN PRN Reason: Headache/Pain Mild Scale (1-3) Al Hydroxide/Mg Hydroxide (Magnesium Hydrox/Alum Hydrox 30 Ml Oral.Susp) 30 ml PO Q6H PRN PRN Reason: Heartburn/Nausea Clonidine HCl (Clonidine Hcl 0.2 Mg Tablet) 0.2 mg PO TID [facility]; Protocol Last Admin: 06/25/23 08:32 Dose: 0.2 mg Folic Acid (Folic Acid 1 Mg Tablet) 1 mg PO DAILY [facility] Last Admin: 06/25/23 08:32 Dose: 1 mg Hydroxyzine HCl (Hydroxyzine Hcl 25 Mg Tablet) 25 mg PO Q6H PRN PRN Reason: Anxiety Lamotrigine (Lamotrigine 25 Mg Tablet) 25 mg PO BEDTIME [facility] Last Admin: 06/24/23 20:06 Dose: 25 mg Magnesium Hydroxide (Milk Of Magnesia 30 Ml Oral.Susp) 30 ml PO DAILY PRN PRN Reason: Constipation Nicotine (Nicotine 21 Mg Patch.Td24) 21 mg TRANSDERMA DAILY PRN PRN Reason: smoking cessation Last Admin: 06/24/23 08:38 Dose: 21 mg Nicotine Polacrilex (Nicotine Polacrilex 2 Mg Gum) 4 mg BUCCAL Q2H PRN PRN Reason: Nicotine Cravings Quetiapine Fumarate (Quetiapine Fumarate 100 Mg Tablet) 100 mg PO BEDTIME [facility] Last Admin: 06/24/23 20:06 Dose: 100 mg Thiamine HCl (Thiamine Hcl 100 Mg Tablet) 100 mg PO DAILY [facility] Last Admin: 06/25/23 08:32 Dose: 100 mg Trazodone HCl (Trazodone Hcl 50 Mg Tablet) 50 mg PO BEDTIME MRX1 PRN PRN Reason: Insomnia Allergies Allergies Allergy/AdvReac Type Severity Reaction Status Date / Time No Known Allergies Allergy Verified 06/22/23 20:26 Assessment & Plan Assessment & Plan (1) Recurrent major depression-severe: Qualifiers: Psychotic features: without psychotic features Qualified Code(s): F33.2 - Major depressive disorder, recurrent severe without psychotic features Status: Acute Code(s): F33.2 - Major depressive disorder, recurrent severe without psychotic features (2) Alcohol use disorder, severe, dependence: Status: Acute Code(s): F10.20 - Alcohol dependence, uncomplicated Plan Hospital course: 06/23 Patient reports that he is feeling better; only drank for 1 day after months of sobriety and no need for CIWA. Patient says he was on clonidine 0.2 mg t.i.d. in the past which was really helpful and asked if it could be increased; discussed risks/side effects of this medication and he agreed. Also discussed Lamictal which patient was considering; service writer advisor reviewed risks/side- effects including SJ and patient agrees that this might be a good medication to try and would like to do so 06/24 thinks increase clonidine is helping. Plan: CV Q 15 minute checks Increase clonidine to 0.2 mg t.i.d.; patient said he tolerated this dose before and it was helpful for anxiety Start Lamictal 25 mg q.h.s.; service writer advisor reviewed risks/side effects including Chandan Richard's Trileptal 300 mg bid trial ? Abilify trial Addictions consult MVI, Folic Acid, Thiamine Aftercare planning Patient educated on: diagnosis and medication risk/benefits Informed Consent: understands Reason for continued inpatient stay Substantial Risk for: rapid decompensation Time Spent With Patient Time: Total time managing care of this patient today ____ minutes.
[2023-06-25 14:25] VITALS: BP 106/71
[2023-06-25 20:00] VITALS: BP 117/83; PULSE 71; RESP 18; TEMP 36.5; O2SAT 98
[2023-06-25] MEDS: QUEtiapine Fumarate 100 MG TABLET PO (20:22)
[2023-06-25 20:23] VITALS: BP 117/83
[2023-06-25] MEDS: lamoTRIgine 25 MG TABLET PO (20:23)
[2023-06-26 08:20] VITALS: BP 118/72; PULSE 74; RESP 16; TEMP 36.2; O2SAT 97
[2023-06-26 08:21] VITALS: BP 118/72
[2023-06-26] MEDS: Thiamine HCL 100 MG TABLET PO (08:21)
[2023-06-26] MEDS: cloNIDine HCL 0.2 MG TABLET PO ×3 (08:21→20:05)
[2023-06-26] MEDS: Folic Acid 1 MG TABLET PO (08:21)
[2023-06-26 14:08] VITALS: BP 99/68
--- NOTE | 2023-06-26 17:16 | P.PNPSI_ITS ---
Subjective Subjective Date of Service: 06/26/23 Reason For Visit: Depression Subjective Notes: Conditional Voluntary Healthcare Proxy: No Guardianship: No Medical Problems Affecting Mental Status: No Interim History: Clonidine increased over the weekend. Lamictal initiated. Willing to attend [facility] and wants to return to [facility] when [facility] program is completed. States he is feeling improved. Team reports he will return to [facility] for out pt treatment. Reading today, states he feels good that he is able to concentrate and focus again. No medical issues of concern. Reports sleep/appetite are intact currently. Medication Compliance: Yes Side effects from medications: No Attending Groups: Intermittent Review of Systems Acute medical concerns: No Medical Review of Systems: unchanged Review of Systems Review of Systems Yes all other systems are reviewed and are negative Mental Status Exam Mental Status Exam Patient Appearance: Appropriate Patient Orientation: Person, Place, Time and Situation Level of Consciousness: Alert Patient Behavior: Appropriate, Talkative, Cooperative and Good Eye Contact Mood Description: Depressed Affect Description: Flat Patient Cognition Impaired: No Ability to Follow Directions: Good Speech Pattern: Spontaneous Speech Memory Description: Intact Hallucinations: None Delusions: Not Present Perceptual Disturbances: Depersonalization and Derealization Thought Process: Rumination Thought Content: positive for Circumstantial Depressive Symptoms: Increased Anxiety, Loss of Int. in Activity, Feelings of Worthlessness, Hopelessness, Thoughts of /Suicide and Low Self Esteem Judgement: Fair Diagnostics Vital Signs (24Hr): Vital Signs - 24 hr 06/25/23 20:00 06/25/23 20:23 06/26/23 08:20 Temperature 97.7 F 97.1 F Pulse Rate 71 74 Respiratory Rate 18 16 Blood Pressure 117/83 117/83 118/72 Pulse Oximetry 98 97 Oxygen Delivery Method Room Air Room Air 06/26/23 08:21 06/26/23 14:08 Temperature Pulse Rate Respiratory Rate Blood Pressure 118/72 99/68 Pulse Oximetry Oxygen Delivery Method BMI result Body Mass Index 25.8 Labs 06/22/23 21:13 06/22/23 21:13 Medications Medications Current Medications Acetaminophen (Acetaminophen 325 Mg Tablet) 650 mg PO Q6H PRN PRN Reason: Headache/Pain Mild Scale (1-3) Al Hydroxide/Mg Hydroxide (Magnesium Hydrox/Alum Hydrox 30 Ml Oral.Susp) 30 ml PO Q6H PRN PRN Reason: Heartburn/Nausea Clonidine HCl (Clonidine Hcl 0.2 Mg Tablet) 0.2 mg PO TID [facility]; Protocol Last Admin: 06/26/23 14:08 Dose: 0.2 mg Folic Acid (Folic Acid 1 Mg Tablet) 1 mg PO DAILY [facility] Last Admin: 06/26/23 08:21 Dose: 1 mg Hydroxyzine HCl (Hydroxyzine Hcl 25 Mg Tablet) 25 mg PO Q6H PRN PRN Reason: Anxiety Lamotrigine (Lamotrigine 25 Mg Tablet) 25 mg PO BEDTIME [facility] Last Admin: 06/25/23 20:23 Dose: 25 mg Magnesium Hydroxide (Milk Of Magnesia 30 Ml Oral.Susp) 30 ml PO DAILY PRN PRN Reason: Constipation Nicotine (Nicotine 21 Mg Patch.Td24) 21 mg TRANSDERMA DAILY PRN PRN Reason: smoking cessation Last Admin: 06/24/23 08:38 Dose: 21 mg Nicotine Polacrilex (Nicotine Polacrilex 2 Mg Gum) 4 mg BUCCAL Q2H PRN PRN Reason: Nicotine Cravings Quetiapine Fumarate (Quetiapine Fumarate 100 Mg Tablet) 100 mg PO BEDTIME [facility] Last Admin: 06/25/23 20:22 Dose: 100 mg Thiamine HCl (Thiamine Hcl 100 Mg Tablet) 100 mg PO DAILY [facility] Last Admin: 06/26/23 08:21 Dose: 100 mg Trazodone HCl (Trazodone Hcl 50 Mg Tablet) 50 mg PO BEDTIME MRX1 PRN PRN Reason: Insomnia Allergies Allergies Allergy/AdvReac Type Severity Reaction Status Date / Time No Known Allergies Allergy Verified 06/22/23 20:26 Assessment & Plan Assessment & Plan (1) Recurrent major depression-severe: Qualifiers: Psychotic features: without psychotic features Qualified Code(s): F33.2 - Major depressive disorder, recurrent severe without psychotic features Status: Acute Code(s): F33.2 - Major depressive disorder, recurrent severe without psychotic features (2) Alcohol use disorder, severe, dependence: Status: Acute Code(s): F10.20 - Alcohol dependence, uncomplicated Plan Hospital course: 06/23 Patient reports that he is feeling better; only drank for 1 day after months of sobriety and no need for CIWA. Patient says he was on clonidine 0.2 mg t.i.d. in the past which was really helpful and asked if it could be increased; discussed risks/side effects of this medication and he agreed. Also discussed Lamictal which patient was considering; card writer hand reviewed risks/side- effects including SJ and patient agrees that this might be a good medication to try and would like to do so 06/24 thinks increase clonidine is helping. Plan: CV Q 15 minute checks Increase clonidine to 0.2 mg t.i.d.; patient said he tolerated this dose before and it was helpful for anxiety Start Lamictal 25 mg q.h.s.; card writer hand reviewed risks/side effects including Chandan Richard's Trileptal 300 mg bid trial ? Abihipolito trial Addictions consult MVI, Folic Acid, Thiamine Aftercare planning Informed Consent: understands Reason for continued inpatient stay Substantial Risk for: rapid decompensation Time Spent With Patient Time: Total time managing care of this patient today ____ minutes.
[2023-06-26 20:00] VITALS: BP 116/73; PULSE 68; TEMP 36.7; O2SAT 98
[2023-06-26] MEDS: lamoTRIgine 25 MG TABLET PO (20:05)
[2023-06-26] MEDS: QUEtiapine Fumarate 100 MG TABLET PO (20:05)
[2023-06-27 08:00] VITALS: BP 113/73; PULSE 78; RESP 16; TEMP 36.6; O2SAT 98
[2023-06-27 08:44] VITALS: BP 113/73
[2023-06-27] MEDS: cloNIDine HCL 0.2 MG TABLET PO ×3 (08:44→20:05)
[2023-06-27] MEDS: Thiamine HCL 100 MG TABLET PO (08:44)
[2023-06-27] MEDS: Folic Acid 1 MG TABLET PO (08:45)
--- NOTE | 2023-06-27 09:36 | P.PNPSI_ITS ---
Subjective Subjective Date of Service: 06/27/23 Reason For Visit: Depression Subjective Notes: Conditional Voluntary Healthcare Proxy: No Guardianship: No Medical Problems Affecting Mental Status: No Interim History: Pt reports feeling improved. Plans to reach out to contact his sponsor and father today. States he will work on a referral for [facility] with the team. Discussed thinking about the past and feeling guilt, shame and remorse. Discussed losses from drinking. Medication Compliance: Yes Side effects from medications: No Attending Groups: Intermittent Review of Systems Acute medical concerns: No Medical Review of Systems: unchanged Review of Systems Review of Systems Yes all other systems are reviewed and are negative Mental Status Exam Mental Status Exam Patient Appearance: Appropriate Patient Orientation: Person, Place, Time and Situation Level of Consciousness: Alert Patient Behavior: Appropriate, Talkative, Cooperative and Good Eye Contact Mood Description: Depressed Affect Description: Flat Patient Cognition Impaired: No Ability to Follow Directions: Good Speech Pattern: Spontaneous Speech Memory Description: Intact Hallucinations: None Delusions: Not Present Perceptual Disturbances: Depersonalization and Derealization Thought Process: Rumination Thought Content: positive for Circumstantial Depressive Symptoms: Increased Anxiety, Loss of Int. in Activity, Feelings of Worthlessness, Hopelessness, Thoughts of /Suicide and Low Self Esteem Judgement: Fair Diagnostics Vital Signs (24Hr): Vital Signs - 24 hr 06/26/23 14:08 06/26/23 20:00 06/27/23 08:00 Temperature 98.0 F 97.9 F Pulse Rate 68 78 Respiratory Rate 16 Blood Pressure 99/68 116/73 113/73 Pulse Oximetry 98 98 Oxygen Delivery Method Room Air Room Air 06/27/23 08:44 Temperature Pulse Rate Respiratory Rate Blood Pressure 113/73 Pulse Oximetry Oxygen Delivery Method BMI result Body Mass Index 25.8 Labs 06/22/23 21:13 06/22/23 21:13 Medications Medications Current Medications Acetaminophen (Acetaminophen 325 Mg Tablet) 650 mg PO Q6H PRN PRN Reason: Headache/Pain Mild Scale (1-3) Al Hydroxide/Mg Hydroxide (Magnesium Hydrox/Alum Hydrox 30 Ml Oral.Susp) 30 ml PO Q6H PRN PRN Reason: Heartburn/Nausea Clonidine HCl (Clonidine Hcl 0.2 Mg Tablet) 0.2 mg PO TID [facility]; Protocol Last Admin: 06/27/23 08:44 Dose: 0.2 mg Folic Acid (Folic Acid 1 Mg Tablet) 1 mg PO DAILY [facility] Last Admin: 06/27/23 08:45 Dose: 1 mg Hydroxyzine HCl (Hydroxyzine Hcl 25 Mg Tablet) 25 mg PO Q6H PRN PRN Reason: Anxiety Lamotrigine (Lamotrigine 25 Mg Tablet) 25 mg PO BEDTIME [facility] Last Admin: 06/26/23 20:05 Dose: 25 mg Magnesium Hydroxide (Milk Of Magnesia 30 Ml Oral.Susp) 30 ml PO DAILY PRN PRN Reason: Constipation Nicotine (Nicotine 21 Mg Patch.Td24) 21 mg TRANSDERMA DAILY PRN PRN Reason: smoking cessation Last Admin: 06/24/23 08:38 Dose: 21 mg Nicotine Polacrilex (Nicotine Polacrilex 2 Mg Gum) 4 mg BUCCAL Q2H PRN PRN Reason: Nicotine Cravings Quetiapine Fumarate (Quetiapine Fumarate 100 Mg Tablet) 100 mg PO BEDTIME [facility] Last Admin: 06/26/23 20:05 Dose: 100 mg Thiamine HCl (Thiamine Hcl 100 Mg Tablet) 100 mg PO DAILY [facility] Last Admin: 06/27/23 08:44 Dose: 100 mg Trazodone HCl (Trazodone Hcl 50 Mg Tablet) 50 mg PO BEDTIME MRX1 PRN PRN Reason: Insomnia Allergies Allergies Allergy/AdvReac Type Severity Reaction Status Date / Time No Known Allergies Allergy Verified 06/22/23 20:26 Assessment & Plan Assessment & Plan (1) Recurrent major depression-severe: Qualifiers: Psychotic features: without psychotic features Qualified Code(s): F33.2 - Major depressive disorder, recurrent severe without psychotic features Status: Acute Code(s): F33.2 - Major depressive disorder, recurrent severe without psychotic features (2) Alcohol use disorder, severe, dependence: Status: Acute Code(s): F10.20 - Alcohol dependence, uncomplicated Plan Hospital course: 06/23 Patient reports that he is feeling better; only drank for 1 day after months of sobriety and no need for CIWA. Patient says he was on clonidine 0.2 mg t.i.d. in the past which was really helpful and asked if it could be increased; discussed risks/side effects of this medication and he agreed. Also discussed Lamictal which patient was considering; financial writer reviewed risks/side- effects including SJ and patient agrees that this might be a good medication to try and would like to do so 06/24 thinks increase clonidine is helping. 06/27/23- Continue regime and plan of care. Plan: CV Q 15 minute checks Increase clonidine to 0.2 mg t.i.d.; patient said he tolerated this dose before and it was helpful for anxiety Start Lamictal 25 mg q.h.s.; financial writer reviewed risks/side effects including Chandan Richard's Trileptal 300 mg bid trial ? Abilify trial Addictions consult MVI, Folic Acid, Thiamine Aftercare planning Reason for continued inpatient stay Substantial Risk for: rapid decompensation Time Spent With Patient Time: Total time managing care of this patient today ____ minutes.
[2023-06-27 14:10] VITALS: BP 114/70
[2023-06-27 19:42] VITALS: BP 112/69; PULSE 68; RESP 16; TEMP 36.8; O2SAT 98
[2023-06-27] MEDS: lamoTRIgine 25 MG TABLET PO (20:05)
[2023-06-27] MEDS: QUEtiapine Fumarate 100 MG TABLET PO (20:05)
[2023-06-28 08:00] VITALS: BP 114/73; PULSE 65; RESP 16; TEMP 36.4; O2SAT 98
[2023-06-28 08:54] VITALS: BP 114/73
[2023-06-28] MEDS: Thiamine HCL 100 MG TABLET PO (08:54)
[2023-06-28] MEDS: Folic Acid 1 MG TABLET PO (08:54)
[2023-06-28] MEDS: cloNIDine HCL 0.2 MG TABLET PO ×3 (08:54→20:09)
--- NOTE | 2023-06-28 10:44 | P.PNPSI_ITS ---
Subjective Subjective Date of Service: 06/28/23 Reason For Visit: Depression Subjective Notes: Conditional Voluntary Healthcare Proxy: No Guardianship: No Medical Problems Affecting Mental Status: No Interim History: Fabien reports he is feeling better. Anxiety is decreased, he is spending some time reading, feeling more hopeful. Denies med SE, Sleep is improved with decrease in latency, appetite is intact. Looking forward to returning to working his program, meetings, step therapy and is hopeful for acceptance into a program. He was able to make connection with his father and sponsor on 06/26 and had positive interactions with both. Medication Compliance: Yes Side effects from medications: No Attending Groups: Yes Review of Systems Acute medical concerns: No Medical Review of Systems: unchanged Review of Systems Review of Systems Yes all other systems are reviewed and are negative Mental Status Exam Mental Status Exam Patient Appearance: Appropriate Patient Orientation: Person, Place, Time and Situation Level of Consciousness: Alert Patient Behavior: Appropriate, Talkative, Cooperative and Good Eye Contact Mood Description: Depressed Affect Description: Flat Patient Cognition Impaired: No Ability to Follow Directions: Good Speech Pattern: Spontaneous Speech Memory Description: Intact Hallucinations: None Delusions: Not Present Perceptual Disturbances: Depersonalization and Derealization Thought Process: Rumination Thought Content: positive for Circumstantial Depressive Symptoms: Increased Anxiety and Low Self Esteem Judgement: Good Diagnostics Vital Signs (24Hr): Vital Signs - 24 hr 06/27/23 14:10 06/27/23 19:42 06/28/23 08:00 Temperature 98.2 F 97.6 F Pulse Rate 68 65 Respiratory Rate 16 16 Blood Pressure 114/70 112/69 114/73 Pulse Oximetry 98 98 Oxygen Delivery Method Room Air Room Air 06/28/23 08:54 Temperature Pulse Rate Respiratory Rate Blood Pressure 114/73 Pulse Oximetry Oxygen Delivery Method BMI result Body Mass Index 25.8 Labs 06/22/23 21:13 06/22/23 21:13 Medications Medications Current Medications Acetaminophen (Acetaminophen 325 Mg Tablet) 650 mg PO Q6H PRN PRN Reason: Headache/Pain Mild Scale (1-3) Al Hydroxide/Mg Hydroxide (Magnesium Hydrox/Alum Hydrox 30 Ml Oral.Susp) 30 ml PO Q6H PRN PRN Reason: Heartburn/Nausea Clonidine HCl (Clonidine Hcl 0.2 Mg Tablet) 0.2 mg PO TID [facility]; Protocol Last Admin: 06/28/23 08:54 Dose: 0.2 mg Folic Acid (Folic Acid 1 Mg Tablet) 1 mg PO DAILY [facility] Last Admin: 06/28/23 08:54 Dose: 1 mg Hydroxyzine HCl (Hydroxyzine Hcl 25 Mg Tablet) 25 mg PO Q6H PRN PRN Reason: Anxiety Lamotrigine (Lamotrigine 25 Mg Tablet) 25 mg PO BEDTIME [facility] Last Admin: 06/27/23 20:05 Dose: 25 mg Magnesium Hydroxide (Milk Of Magnesia 30 Ml Oral.Susp) 30 ml PO DAILY PRN PRN Reason: Constipation Nicotine (Nicotine 21 Mg Patch.Td24) 21 mg TRANSDERMA DAILY PRN PRN Reason: smoking cessation Last Admin: 06/24/23 08:38 Dose: 21 mg Nicotine Polacrilex (Nicotine Polacrilex 2 Mg Gum) 4 mg BUCCAL Q2H PRN PRN Reason: Nicotine Cravings Quetiapine Fumarate (Quetiapine Fumarate 100 Mg Tablet) 100 mg PO BEDTIME [facility] Last Admin: 06/27/23 20:05 Dose: 100 mg Thiamine HCl (Thiamine Hcl 100 Mg Tablet) 100 mg PO DAILY [facility] Last Admin: 06/28/23 08:54 Dose: 100 mg Trazodone HCl (Trazodone Hcl 50 Mg Tablet) 50 mg PO BEDTIME MRX1 PRN PRN Reason: Insomnia Allergies Allergies Allergy/AdvReac Type Severity Reaction Status Date / Time No Known Allergies Allergy Verified 06/22/23 20:26 Assessment & Plan Assessment & Plan (1) Recurrent major depression-severe: Qualifiers: Psychotic features: without psychotic features Qualified Code(s): F33.2 - Major depressive disorder, recurrent severe without psychotic features Status: Acute Code(s): F33.2 - Major depressive disorder, recurrent severe without psychotic features (2) Alcohol use disorder, severe, dependence: Status: Acute Code(s): F10.20 - Alcohol dependence, uncomplicated Plan Hospital course: 06/23 Patient reports that he is feeling better; only drank for 1 day after months of sobriety and no need for CIWA. Patient says he was on clonidine 0.2 mg t.i.d. in the past which was really helpful and asked if it could be increased; discussed risks/side effects of this medication and he agreed. Also discussed Lamictal which patient was considering; insurance underwriter sales reviewed risks/side- effects including SJ and patient agrees that this might be a good medication to try and would like to do so 06/24 thinks increase clonidine is helping. 06/27/23- Continue regime and plan of care. 06/27: Continue tx Plan: CV Q 15 minute checks Increase clonidine to 0.2 mg t.i.d.; patient said he tolerated this dose before and it was helpful for anxiety Start Lamictal 25 mg q.h.s.; insurance underwriter sales reviewed risks/side effects including Chandan Richard's Trileptal 300 mg bid trial ? Abilify trial Addictions consult MVI, Folic Acid, Thiamine Aftercare planning Reason for continued inpatient stay Substantial Risk for: rapid decompensation Time Spent With Patient Time: Total time managing care of this patient today ____ minutes.
[2023-06-28 14:12] VITALS: BP 117/76
[2023-06-28] MEDS: Acetaminophen 325 MG TABLET 650 MG PO (18:24)
[2023-06-28 20:00] VITALS: BP 108/65; PULSE 70; RESP 16; TEMP 36.6; O2SAT 97
[2023-06-28] MEDS: QUEtiapine Fumarate 100 MG TABLET PO (20:09)
[2023-06-28] MEDS: lamoTRIgine 25 MG TABLET PO (20:09)
[2023-06-29 08:52] VITALS: BP 111/69; PULSE 67; RESP 18; TEMP 36.3; O2SAT 98
[2023-06-29] MEDS: Thiamine HCL 100 MG TABLET PO (08:52)
[2023-06-29] MEDS: cloNIDine HCL 0.2 MG TABLET PO ×3 (08:52→20:19)
[2023-06-29] MEDS: Folic Acid 1 MG TABLET PO (08:53)
[2023-06-29 14:27] VITALS: BP 124/77
--- NOTE | 2023-06-29 15:33 | P.PNPSI_ITS ---
Subjective Subjective Date of Service: 06/29/23 Reason For Visit: Depression Subjective Notes: Conditional Voluntary Healthcare Proxy: No Guardianship: No Medical Problems Affecting Mental Status: No Interim History: Pt visable in milieu. Reports he is feeling well, hopeful he will be accepted to [facility]. Reading and attending [employer] activities. Social and supportive of peers. Denies medical sx. Denies SE of medications. Medication Compliance: Yes Side effects from medications: No Attending Groups: Yes Review of Systems Acute medical concerns: No Medical Review of Systems: unchanged Review of Systems Review of Systems Yes all other systems are reviewed and are negative Mental Status Exam Mental Status Exam Patient Appearance: Appropriate Patient Orientation: Person, Place, Time and Situation Level of Consciousness: Alert Patient Behavior: Appropriate, Talkative, Cooperative and Good Eye Contact Mood Description: Depressed Affect Description: Flat Patient Cognition Impaired: No Ability to Follow Directions: Good Speech Pattern: Spontaneous Speech Memory Description: Intact Hallucinations: None Delusions: Not Present Perceptual Disturbances: Depersonalization and Derealization Thought Process: Rumination Thought Content: positive for Circumstantial Depressive Symptoms: Increased Anxiety and Low Self Esteem Judgement: Good Diagnostics Vital Signs (24Hr): Vital Signs - 24 hr 06/28/23 20:00 06/29/23 08:52 06/29/23 08:52 Temperature 97.9 F 97.4 F Pulse Rate 70 67 Respiratory Rate 16 18 Blood Pressure 108/65 111/69 111/69 Pulse Oximetry 97 98 Oxygen Delivery Method Room Air Room Air 06/29/23 14:27 Temperature Pulse Rate Respiratory Rate Blood Pressure 124/77 Pulse Oximetry Oxygen Delivery Method BMI result Body Mass Index 25.8 Labs 06/22/23 21:13 06/22/23 21:13 Medications Medications Current Medications Acetaminophen (Acetaminophen 325 Mg Tablet) 650 mg PO Q6H PRN PRN Reason: Headache/Pain Mild Scale (1-3) Last Admin: 06/28/23 18:24 Dose: 650 mg Al Hydroxide/Mg Hydroxide (Magnesium Hydrox/Alum Hydrox 30 Ml Oral.Susp) 30 ml PO Q6H PRN PRN Reason: Heartburn/Nausea Clonidine HCl (Clonidine Hcl 0.2 Mg Tablet) 0.2 mg PO TID [facility]; Protocol Last Admin: 06/29/23 14:27 Dose: 0.2 mg Folic Acid (Folic Acid 1 Mg Tablet) 1 mg PO DAILY [facility] Last Admin: 06/29/23 08:53 Dose: 1 mg Hydroxyzine HCl (Hydroxyzine Hcl 25 Mg Tablet) 25 mg PO Q6H PRN PRN Reason: Anxiety Lamotrigine (Lamotrigine 25 Mg Tablet) 25 mg PO BEDTIME [facility] Last Admin: 06/28/23 20:09 Dose: 25 mg Magnesium Hydroxide (Milk Of Magnesia 30 Ml Oral.Susp) 30 ml PO DAILY PRN PRN Reason: Constipation Nicotine (Nicotine 21 Mg Patch.Td24) 21 mg TRANSDERMA DAILY PRN PRN Reason: smoking cessation Last Admin: 06/24/23 08:38 Dose: 21 mg Nicotine Polacrilex (Nicotine Polacrilex 2 Mg Gum) 4 mg BUCCAL Q2H PRN PRN Reason: Nicotine Cravings Quetiapine Fumarate (Quetiapine Fumarate 100 Mg Tablet) 100 mg PO BEDTIME [facility] Last Admin: 06/28/23 20:09 Dose: 100 mg Thiamine HCl (Thiamine Hcl 100 Mg Tablet) 100 mg PO DAILY [facility] Last Admin: 06/29/23 08:52 Dose: 100 mg Trazodone HCl (Trazodone Hcl 50 Mg Tablet) 50 mg PO BEDTIME MRX1 PRN PRN Reason: Insomnia Allergies Allergies Allergy/AdvReac Type Severity Reaction Status Date / Time No Known Allergies Allergy Verified 06/22/23 20:26 Assessment & Plan Assessment & Plan (1) Recurrent major depression-severe: Qualifiers: Psychotic features: without psychotic features Qualified Code(s): F33.2 - Major depressive disorder, recurrent severe without psychotic features Status: Acute Code(s): F33.2 - Major depressive disorder, recurrent severe without psychotic features (2) Alcohol use disorder, severe, dependence: Status: Acute Code(s): F10.20 - Alcohol dependence, uncomplicated Plan Hospital course: 06/23 Patient reports that he is feeling better; only drank for 1 day after months of sobriety and no need for CIWA. Patient says he was on clonidine 0.2 mg t.i.d. in the past which was really helpful and asked if it could be increased; discussed risks/side effects of this medication and he agreed. Also discussed Lamictal which patient was considering; rfp writer reviewed risks/side- effects including SJ and patient agrees that this might be a good medication to try and would like to do so 06/24 thinks increase clonidine is helping. 06/27/23- Continue regime and plan of care. 06/27: Continue tx 06/28: Continue tx, await [facility] acceptance. Plan: CV Q 15 minute checks Increase clonidine to 0.2 mg t.i.d.; patient said he tolerated this dose before and it was helpful for anxiety Start Lamictal 25 mg q.h.s.; rfp writer reviewed risks/side effects including Chandan Richard's Trileptal 300 mg bid trial ? Abilify trial Addictions consult MVI, Folic Acid, Thiamine Aftercare planning Informed Consent: understands Reason for continued inpatient stay Substantial Risk for: rapid decompensation Time Spent With Patient Time: Total time managing care of this patient today ____ minutes.
[2023-06-29 20:00] VITALS: BP 103/64; PULSE 67; RESP 17; TEMP 36.7; O2SAT 98
[2023-06-29 20:19] VITALS: BP 103/64
[2023-06-29] MEDS: lamoTRIgine 25 MG TABLET PO (20:19)
[2023-06-29] MEDS: QUEtiapine Fumarate 100 MG TABLET PO (20:19)
[2023-06-30 08:00] VITALS: BP 102/51; PULSE 73; RESP 18; TEMP 36.4; O2SAT 97
[2023-06-30] MEDS: Folic Acid 1 MG TABLET PO (08:55)
[2023-06-30] MEDS: cloNIDine HCL 0.2 MG TABLET PO ×3 (08:55→20:15)
[2023-06-30] MEDS: Thiamine HCL 100 MG TABLET PO (08:55)
[2023-06-30 14:41] VITALS: BP 111/70
--- NOTE | 2023-06-30 18:48 | HO.PSYCHPN ---
Subjective Subjective Date of Service: 06/30/23 Reason For Visit: Depression Subjective Notes: Conditional Voluntary Healthcare Proxy: No Guardianship: No Medical Problems Affecting Mental Status: No Interim History: Pt reports he is working with [employer] over a financial issue which arose eight years ago. He continues with hope of acceptance to a program and believes he will be able to attend [facility]. He is visable in the milieu, attending groups and reading in free time. He denies current sx, reports medications are effective and without SE Medication Compliance: Yes Side effects from medications: No Attending Groups: Yes Review of Systems Acute medical concerns: No Medical Review of Systems: unchanged Review of Systems Review of Systems Yes all other systems are reviewed and are negative Mental Status Exam Mental Status Exam Patient Appearance: Appropriate Patient Orientation: Person, Place, Time and Situation Level of Consciousness: Alert Patient Behavior: Appropriate, Talkative, Cooperative and Good Eye Contact Mood Description: Depressed Affect Description: Flat Patient Cognition Impaired: No Ability to Follow Directions: Good Speech Pattern: Spontaneous Speech Memory Description: Intact Hallucinations: None Delusions: Not Present Perceptual Disturbances: Depersonalization and Derealization Thought Process: Rumination Thought Content: positive for Circumstantial Depressive Symptoms: Increased Anxiety and Low Self Esteem Judgement: Good Diagnostics Vital Signs (24Hr): Vital Signs - 24 hr 06/29/23 20:00 06/29/23 20:19 06/30/23 08:00 Temperature 98.0 F 97.5 F Pulse Rate 67 73 Respiratory Rate 17 18 Blood Pressure 103/64 103/64 102/51 L Pulse Oximetry 98 97 Oxygen Delivery Method Room Air Room Air 06/30/23 14:41 Temperature Pulse Rate Respiratory Rate Blood Pressure 111/70 Pulse Oximetry Oxygen Delivery Method BMI result Body Mass Index 25.8 Labs 06/22/23 21:13 06/22/23 21:13 Medications Medications Current Medications Acetaminophen (Acetaminophen 325 Mg Tablet) 650 mg PO Q6H PRN PRN Reason: Headache/Pain Mild Scale (1-3) Last Admin: 06/28/23 18:24 Dose: 650 mg Al Hydroxide/Mg Hydroxide (Magnesium Hydrox/Alum Hydrox 30 Ml Oral.Susp) 30 ml PO Q6H PRN PRN Reason: Heartburn/Nausea Clonidine HCl (Clonidine Hcl 0.2 Mg Tablet) 0.2 mg PO TID [facility]; Protocol Last Admin: 06/30/23 14:41 Dose: 0.2 mg Folic Acid (Folic Acid 1 Mg Tablet) 1 mg PO DAILY [facility] Last Admin: 06/30/23 08:55 Dose: 1 mg Hydroxyzine HCl (Hydroxyzine Hcl 25 Mg Tablet) 25 mg PO Q6H PRN PRN Reason: Anxiety Lamotrigine (Lamotrigine 25 Mg Tablet) 25 mg PO BEDTIME [facility] Last Admin: 06/29/23 20:19 Dose: 25 mg Magnesium Hydroxide (Milk Of Magnesia 30 Ml Oral.Susp) 30 ml PO DAILY PRN PRN Reason: Constipation Nicotine (Nicotine 21 Mg Patch.Td24) 21 mg TRANSDERMA DAILY PRN PRN Reason: smoking cessation Last Admin: 06/24/23 08:38 Dose: 21 mg Nicotine Polacrilex (Nicotine Polacrilex 2 Mg Gum) 4 mg BUCCAL Q2H PRN PRN Reason: Nicotine Cravings Quetiapine Fumarate (Quetiapine Fumarate 100 Mg Tablet) 100 mg PO BEDTIME [facility] Last Admin: 06/29/23 20:19 Dose: 100 mg Thiamine HCl (Thiamine Hcl 100 Mg Tablet) 100 mg PO DAILY [facility] Last Admin: 06/30/23 08:55 Dose: 100 mg Trazodone HCl (Trazodone Hcl 50 Mg Tablet) 50 mg PO BEDTIME MRX1 PRN PRN Reason: Insomnia Allergies Allergies Allergy/AdvReac Type Severity Reaction Status Date / Time No Known Allergies Allergy Verified 06/22/23 20:26 Assessment & Plan Assessment & Plan (1) Recurrent major depression-severe: Qualifiers: Psychotic features: without psychotic features Qualified Code(s): F33.2 - Major depressive disorder, recurrent severe without psychotic features Status: Acute Code(s): F33.2 - Major depressive disorder, recurrent severe without psychotic features (2) Alcohol use disorder, severe, dependence: Status: Acute Code(s): F10.20 - Alcohol dependence, uncomplicated Plan Hospital course: 06/23 Patient reports that he is feeling better; only drank for 1 day after months of sobriety and no need for CIWA. Patient says he was on clonidine 0.2 mg t.i.d. in the past which was really helpful and asked if it could be increased; discussed risks/side effects of this medication and he agreed. Also discussed Lamictal which patient was considering; telegraphic typewriter operator reviewed risks/side-effects including SJ and patient agrees that this might be a good medication to try and would like to do so 06/24 thinks increase clonidine is helping. 06/27/23- Continue regime and plan of care. 06/27: Continue tx 06/28: Continue tx, await [facility] acceptance. 06/29: Continue tx Plan: CV Q 15 minute checks Increase clonidine to 0.2 mg t.i.d.; patient said he tolerated this dose before and it was helpful for anxiety Start Lamictal 25 mg q.h.s.; telegraphic typewriter operator reviewed risks/side effects including Chandan Richard's Trileptal 300 mg bid trial ? Abilify trial Addictions consult MVI, Folic Acid, Thiamine Aftercare planning Reason for continued inpatient stay Substantial Risk for: rapid decompensation Time Spent With Patient Time: Total time managing care of this patient today ____ minutes.
[2023-06-30 20:00] VITALS: BP 115/68; PULSE 79; RESP 17; TEMP 36.8; O2SAT 98
[2023-06-30] MEDS: QUEtiapine Fumarate 100 MG TABLET PO (20:14)
[2023-06-30] MEDS: lamoTRIgine 25 MG TABLET PO (20:14)
[2023-06-30 20:15] VITALS: BP 115/68
[2023-07-01 08:00] VITALS: BP 114/70; PULSE 81; RESP 16; TEMP 36.6; O2SAT 97
--- NOTE | 2023-07-01 08:02 | HO.PSYCHPN ---
Subjective Subjective Date of Service: 07/01/23 Reason For Visit: Depression Subjective Notes: Conditional Voluntary Interim History: Pt reports he is working on financial issues from past; wants to go to [facility]. . He is visable in the milieu, attending groups and reading in free time. He denies current sx, reports medications are effective and without SE Review of Systems Review of Systems Constitutional : No Weight loss, No Fever, No Chills, No Night Sweats, No Fatigue, No Malaise ENT/Mouth : No Hearing loss, No Ear Pain, No Nasal Congestion, No Sinus Pain, No Hoarseness, No sore throat, No Rhinorrhea, No Swallowing Difficulty Eyes: No Eye Pain, No Swelling, No Redness, No Foreign Body, No Discharge, No Vision Changes Cardiovascular : No Chest Pain, No SOB, No Dyspnea on Exertion, No Orthopnea, No Edema, No Palpitations Respiratory : No Cough, No Sputum, No Wheezing, No Smoke Exposure, No Dyspnea Gastrointestinal : No Nausea, No Vomiting, No Diarrhea, No Constipation, No abdominal Pain, No Hematochezia, No Melena Genitourinary : no irregular bleeding, No Dysuria, No Urinary Frequency, No Hematuria, No Urinary Incontinence, No Urgency, No Flank Pain, No Urinary Flow Changes, No Hesitancy Musculoskeletal : No joint pain, No Myalgias, No Joint Swelling Skin : No Skin Lesions, No rash Neuro : No Weakness, No Numbness, No Paresthesias, No Loss of Consciousness, No Dizziness, No Headache Psych : No Anxiety/Panic, complaining of depression, vague SI, no plan, no HI, admits to drinking alcohol/relapsed Heme/Lymph: No Bruising, No Bleeding,No Lymphadenopathy Endocrine : No Polyuria, No Polydipsia, No Temperature Intolerance Yes all other systems are reviewed and are negative Mental Status Exam Mental Status Exam Patient Appearance: Appropriate Patient Orientation: Person, Place, Time and Situation Level of Consciousness: Alert Patient Behavior: Appropriate, Talkative, Cooperative and Good Eye Contact Mood Description: Depressed Affect Description: Flat Patient Cognition Impaired: No Ability to Follow Directions: Good Speech Pattern: Spontaneous Speech Memory Description: Intact Diagnostics Vital Signs (24Hr): Vital Signs - 24 hr 06/30/23 14:41 06/30/23 20:00 06/30/23 20:15 Temperature 98.2 F Pulse Rate 79 Respiratory Rate 17 Blood Pressure 111/70 115/68 115/68 Pulse Oximetry 98 Oxygen Delivery Method Room Air BMI result Body Mass Index 25.8 Labs 06/22/23 21:13 06/22/23 21:13 Medications Medications Current Medications Acetaminophen (Acetaminophen 325 Mg Tablet) 650 mg PO Q6H PRN PRN Reason: Headache/Pain Mild Scale (1-3) Last Admin: 06/28/23 18:24 Dose: 650 mg Al Hydroxide/Mg Hydroxide (Magnesium Hydrox/Alum Hydrox 30 Ml Oral.Susp) 30 ml PO Q6H PRN PRN Reason: Heartburn/Nausea Clonidine HCl (Clonidine Hcl 0.2 Mg Tablet) 0.2 mg PO TID [facility]; Protocol Last Admin: 06/30/23 20:15 Dose: 0.2 mg Folic Acid (Folic Acid 1 Mg Tablet) 1 mg PO DAILY [facility] Last Admin: 06/30/23 08:55 Dose: 1 mg Hydroxyzine HCl (Hydroxyzine Hcl 25 Mg Tablet) 25 mg PO Q6H PRN PRN Reason: Anxiety Lamotrigine (Lamotrigine 25 Mg Tablet) 25 mg PO BEDTIME [facility] Last Admin: 06/30/23 20:14 Dose: 25 mg Magnesium Hydroxide (Milk Of Magnesia 30 Ml Oral.Susp) 30 ml PO DAILY PRN PRN Reason: Constipation Nicotine (Nicotine 21 Mg Patch.Td24) 21 mg TRANSDERMA DAILY PRN PRN Reason: smoking cessation Last Admin: 06/24/23 08:38 Dose: 21 mg Nicotine Polacrilex (Nicotine Polacrilex 2 Mg Gum) 4 mg BUCCAL Q2H PRN PRN Reason: Nicotine Cravings Quetiapine Fumarate (Quetiapine Fumarate 100 Mg Tablet) 100 mg PO BEDTIME [facility] Last Admin: 06/30/23 20:14 Dose: 100 mg Thiamine HCl (Thiamine Hcl 100 Mg Tablet) 100 mg PO DAILY [facility] Last Admin: 06/30/23 08:55 Dose: 100 mg Trazodone HCl (Trazodone Hcl 50 Mg Tablet) 50 mg PO BEDTIME MRX1 PRN PRN Reason: Insomnia Allergies Allergies Allergy/AdvReac Type Severity Reaction Status Date / Time No Known Allergies Allergy Verified 06/22/23 20:26 Assessment & Plan Assessment & Plan (1) Recurrent major depression-severe: Qualifiers: Psychotic features: without psychotic features Qualified Code(s): F33.2 - Major depressive disorder, recurrent severe without psychotic features Status: Acute Code(s): F33.2 - Major depressive disorder, recurrent severe without psychotic features (2) Alcohol use disorder, severe, dependence: Status: Acute Code(s): F10.20 - Alcohol dependence, uncomplicated Plan Hospital course: 06/23 Patient reports that he is feeling better; only drank for 1 day after months of sobriety and no need for CIWA. Patient says he was on clonidine 0.2 mg t.i.d. in the past which was really helpful and asked if it could be increased; discussed risks/side effects of this medication and he agreed. Also discussed Lamictal which patient was considering; advertising writer reviewed risks/side-effects including SJ and patient agrees that this might be a good medication to try and would like to do so 06/24 thinks increase clonidine is helping. 06/27/23- Continue regime and plan of care. 06/27: Continue tx 06/28: Continue tx, await [facility] acceptance. 06/29: Continue tx 06/30 continue tx Plan: CV Q 15 minute checks Increase clonidine to 0.2 mg t.i.d.; patient said he tolerated this dose before and it was helpful for anxiety Start Lamictal 25 mg q.h.s.; advertising writer reviewed risks/side effects including Chandan Richard's Trileptal 300 mg bid trial ? Abilijaz trial Addictions consult MVI, Folic Acid, Thiamine Aftercare planning Reason for continued inpatient stay Substantial Risk for: harm to self, inability to function and rapid decompensation Time Spent With Patient Time: Total time managing care of this patient today ____ minutes.
[2023-07-01] MEDS: Folic Acid 1 MG TABLET PO (08:59)
[2023-07-01] MEDS: Thiamine HCL 100 MG TABLET PO (08:59)
[2023-07-01] MEDS: cloNIDine HCL 0.2 MG TABLET PO ×3 (08:59→20:31)
[2023-07-01 14:32] VITALS: BP 112/72
[2023-07-01 20:00] VITALS: BP 109/69; PULSE 71; TEMP 36.7; O2SAT 97
[2023-07-01] MEDS: lamoTRIgine 25 MG TABLET PO (20:31)
[2023-07-01] MEDS: QUEtiapine Fumarate 100 MG TABLET PO (20:31)
[2023-07-02 08:00] VITALS: BP 107/68; PULSE 70; RESP 16; TEMP 36.8; O2SAT 98
[2023-07-02] MEDS: cloNIDine HCL 0.2 MG TABLET PO ×3 (09:16→20:26)
[2023-07-02] MEDS: Folic Acid 1 MG TABLET PO (09:16)
[2023-07-02] MEDS: Thiamine HCL 100 MG TABLET PO (09:16)
--- NOTE | 2023-07-02 10:24 | HO.PSYCHPN ---
Subjective Subjective Date of Service: 07/02/23 Reason For Visit: Depression Interim History: Pt bright and more social in milieu; wants to go to [facility]. r. He is visable in the milieu, attending groups and reading in free time. He denies current sx, reports medications are effective and without SE Review of Systems Review of Systems Constitutional : No Weight loss, No Fever, No Chills, No Night Sweats, No Fatigue, No Malaise ENT/Mouth : No Hearing loss, No Ear Pain, No Nasal Congestion, No Sinus Pain, No Hoarseness, No sore throat, No Rhinorrhea, No Swallowing Difficulty Eyes: No Eye Pain, No Swelling, No Redness, No Foreign Body, No Discharge, No Vision Changes Cardiovascular : No Chest Pain, No SOB, No Dyspnea on Exertion, No Orthopnea, No Edema, No Palpitations Respiratory : No Cough, No Sputum, No Wheezing, No Smoke Exposure, No Dyspnea Gastrointestinal : No Nausea, No Vomiting, No Diarrhea, No Constipation, No abdominal Pain, No Hematochezia, No Melena Genitourinary : no irregular bleeding, No Dysuria, No Urinary Frequency, No Hematuria, No Urinary Incontinence, No Urgency, No Flank Pain, No Urinary Flow Changes, No Hesitancy Musculoskeletal : No joint pain, No Myalgias, No Joint Swelling Skin : No Skin Lesions, No rash Neuro : No Weakness, No Numbness, No Paresthesias, No Loss of Consciousness, No Dizziness, No Headache Psych : No Anxiety/Panic, complaining of depression, vague SI, no plan, no HI, admits to drinking alcohol/relapsed Heme/Lymph: No Bruising, No Bleeding,No Lymphadenopathy Endocrine : No Polyuria, No Polydipsia, No Temperature Intolerance Yes all other systems are reviewed and are negative Mental Status Exam Mental Status Exam Patient Appearance: Appropriate Patient Orientation: Person, Place, Time and Situation Level of Consciousness: Alert Patient Behavior: Appropriate, Talkative, Cooperative and Good Eye Contact Mood Description: Depressed Affect Description: Flat Patient Cognition Impaired: No Ability to Follow Directions: Good Speech Pattern: Spontaneous Speech Memory Description: Intact Thought Process: Goal Oriented Thought Content: positive for Goal Oriented Judgement: Fair Diagnostics Vital Signs (24Hr): Vital Signs - 24 hr 07/01/23 14:32 07/01/23 20:00 Temperature 98.1 F Pulse Rate 71 Blood Pressure 112/72 109/69 Pulse Oximetry 97 Oxygen Delivery Method Room Air BMI result Body Mass Index 25.8 Labs 06/22/23 21:13 06/22/23 21:13 Medications Medications Current Medications Acetaminophen (Acetaminophen 325 Mg Tablet) 650 mg PO Q6H PRN PRN Reason: Headache/Pain Mild Scale (1-3) Last Admin: 06/28/23 18:24 Dose: 650 mg Al Hydroxide/Mg Hydroxide (Magnesium Hydrox/Alum Hydrox 30 Ml Oral.Susp) 30 ml PO Q6H PRN PRN Reason: Heartburn/Nausea Clonidine HCl (Clonidine Hcl 0.2 Mg Tablet) 0.2 mg PO TID [facility]; Protocol Last Admin: 07/02/23 09:16 Dose: 0.2 mg Folic Acid (Folic Acid 1 Mg Tablet) 1 mg PO DAILY [facility] Last Admin: 07/02/23 09:16 Dose: 1 mg Hydroxyzine HCl (Hydroxyzine Hcl 25 Mg Tablet) 25 mg PO Q6H PRN PRN Reason: Anxiety Lamotrigine (Lamotrigine 25 Mg Tablet) 25 mg PO BEDTIME [facility] Last Admin: 07/01/23 20:31 Dose: 25 mg Magnesium Hydroxide (Milk Of Magnesia 30 Ml Oral.Susp) 30 ml PO DAILY PRN PRN Reason: Constipation Nicotine (Nicotine 21 Mg Patch.Td24) 21 mg TRANSDERMA DAILY PRN PRN Reason: smoking cessation Last Admin: 06/24/23 08:38 Dose: 21 mg Nicotine Polacrilex (Nicotine Polacrilex 2 Mg Gum) 4 mg BUCCAL Q2H PRN PRN Reason: Nicotine Cravings Quetiapine Fumarate (Quetiapine Fumarate 100 Mg Tablet) 100 mg PO BEDTIME [facility] Last Admin: 07/01/23 20:31 Dose: 100 mg Thiamine HCl (Thiamine Hcl 100 Mg Tablet) 100 mg PO DAILY [facility] Last Admin: 07/02/23 09:16 Dose: 100 mg Trazodone HCl (Trazodone Hcl 50 Mg Tablet) 50 mg PO BEDTIME MRX1 PRN PRN Reason: Insomnia Allergies Allergies Allergy/AdvReac Type Severity Reaction Status Date / Time No Known Allergies Allergy Verified 06/22/23 20:26 Assessment & Plan Assessment & Plan (1) Recurrent major depression-severe: Qualifiers: Psychotic features: without psychotic features Qualified Code(s): F33.2 - Major depressive disorder, recurrent severe without psychotic features Status: Acute Code(s): F33.2 - Major depressive disorder, recurrent severe without psychotic features (2) Alcohol use disorder, severe, dependence: Status: Acute Code(s): F10.20 - Alcohol dependence, uncomplicated Plan Hospital course: 06/23 Patient reports that he is feeling better; only drank for 1 day after months of sobriety and no need for CIWA. Patient says he was on clonidine 0.2 mg t.i.d. in the past which was really helpful and asked if it could be increased; discussed risks/side effects of this medication and he agreed. Also discussed Lamictal which patient was considering; speech writer reviewed risks/side-effects including SJ and patient agrees that this might be a good medication to try and would like to do so 06/24 thinks increase clonidine is helping. 06/27/23- Continue regime and plan of care. 06/27: Continue tx 06/28: Continue tx, await [facility] acceptance. 06/29: Continue tx 06/30 continue tx 07/01 contnue tx plan Plan: CV Q 15 minute checks Increase clonidine to 0.2 mg t.i.d.; patient said he tolerated this dose before and it was helpful for anxiety Start Lamictal 25 mg q.h.s.; speech writer reviewed risks/side effects including Chandan Richard's Trileptal 300 mg bid trial ? Abilifmelonie trial Addictions consult MVI, Folic Acid, Thiamine Aftercare planning Reason for continued inpatient stay Substantial Risk for: harm to self Time Spent With Patient Time: Total time managing care of this patient today ____ minutes.
[2023-07-02 20:00] VITALS: BP 102/67; PULSE 68; TEMP 36.9; O2SAT 98
[2023-07-02] MEDS: QUEtiapine Fumarate 100 MG TABLET PO (20:26)
[2023-07-02] MEDS: lamoTRIgine 25 MG TABLET PO (20:27)
[2023-07-03 08:00] VITALS: BP 111/71; PULSE 72; RESP 16; TEMP 36.6; O2SAT 98
[2023-07-03] MEDS: cloNIDine HCL 0.2 MG TABLET PO ×3 (08:55→20:56)
[2023-07-03] MEDS: Thiamine HCL 100 MG TABLET PO (08:55)
[2023-07-03] MEDS: Folic Acid 1 MG TABLET PO (08:55)
--- NOTE | 2023-07-03 14:57 | HO.PSYCHPN ---
Subjective Subjective Date of Service: 07/03/23 Reason For Visit: Depression Interim History: Pt bright and more social in milieu; wants to go to [facility]. attending groups and reading in free time. He denies current sx, reports medications are effective and without SE Medication Compliance: Yes Side effects from medications: No Attending Groups: Yes Review of Systems Acute medical concerns: No Medical Review of Systems: unchanged Review of Systems Review of Systems Constitutional : No Weight loss, No Fever, No Chills, No Night Sweats, No Fatigue, No Malaise ENT/Mouth : No Hearing loss, No Ear Pain, No Nasal Congestion, No Sinus Pain, No Hoarseness, No sore throat, No Rhinorrhea, No Swallowing Difficulty Eyes: No Eye Pain, No Swelling, No Redness, No Foreign Body, No Discharge, No Vision Changes Cardiovascular : No Chest Pain, No SOB, No Dyspnea on Exertion, No Orthopnea, No Edema, No Palpitations Respiratory : No Cough, No Sputum, No Wheezing, No Smoke Exposure, No Dyspnea Gastrointestinal : No Nausea, No Vomiting, No Diarrhea, No Constipation, No abdominal Pain, No Hematochezia, No Melena Genitourinary : no irregular bleeding, No Dysuria, No Urinary Frequency, No Hematuria, No Urinary Incontinence, No Urgency, No Flank Pain, No Urinary Flow Changes, No Hesitancy Musculoskeletal : No joint pain, No Myalgias, No Joint Swelling Skin : No Skin Lesions, No rash Neuro : No Weakness, No Numbness, No Paresthesias, No Loss of Consciousness, No Dizziness, No Headache Psych : No Anxiety/Panic, complaining of depression, vague SI, no plan, no HI, admits to drinking alcohol/relapsed Heme/Lymph: No Bruising, No Bleeding,No Lymphadenopathy Endocrine : No Polyuria, No Polydipsia, No Temperature Intolerance Yes all other systems are reviewed and are negative Mental Status Exam Mental Status Exam Patient Appearance: Appropriate Patient Orientation: Person, Place, Time and Situation Level of Consciousness: Alert Patient Behavior: Appropriate, Talkative, Cooperative and Good Eye Contact Mood Description: Depressed Affect Description: Flat Patient Cognition Impaired: No Ability to Follow Directions: Good Speech Pattern: Spontaneous Speech Memory Description: Intact Judgement: Good Diagnostics Vital Signs (24Hr): Vital Signs - 24 hr 07/02/23 20:00 07/03/23 08:00 Temperature 98.4 F 97.8 F Pulse Rate 68 72 Respiratory Rate 16 Blood Pressure 102/67 111/71 Pulse Oximetry 98 98 Oxygen Delivery Method Room Air Room Air BMI result Body Mass Index 25.8 Labs 06/22/23 21:13 06/22/23 21:13 Medications Medications Current Medications Acetaminophen (Acetaminophen 325 Mg Tablet) 650 mg PO Q6H PRN PRN Reason: Headache/Pain Mild Scale (1-3) Last Admin: 06/28/23 18:24 Dose: 650 mg Al Hydroxide/Mg Hydroxide (Magnesium Hydrox/Alum Hydrox 30 Ml Oral.Susp) 30 ml PO Q6H PRN PRN Reason: Heartburn/Nausea Clonidine HCl (Clonidine Hcl 0.2 Mg Tablet) 0.2 mg PO TID [facility]; Protocol Last Admin: 07/03/23 14:28 Dose: 0.2 mg Folic Acid (Folic Acid 1 Mg Tablet) 1 mg PO DAILY [facility] Last Admin: 07/03/23 08:55 Dose: 1 mg Hydroxyzine HCl (Hydroxyzine Hcl 25 Mg Tablet) 25 mg PO Q6H PRN PRN Reason: Anxiety Lamotrigine (Lamotrigine 25 Mg Tablet) 25 mg PO BEDTIME [facility] Last Admin: 07/02/23 20:27 Dose: 25 mg Magnesium Hydroxide (Milk Of Magnesia 30 Ml Oral.Susp) 30 ml PO DAILY PRN PRN Reason: Constipation Nicotine (Nicotine 21 Mg Patch.Td24) 21 mg TRANSDERMA DAILY PRN PRN Reason: smoking cessation Last Admin: 06/24/23 08:38 Dose: 21 mg Nicotine Polacrilex (Nicotine Polacrilex 2 Mg Gum) 4 mg BUCCAL Q2H PRN PRN Reason: Nicotine Cravings Quetiapine Fumarate (Quetiapine Fumarate 100 Mg Tablet) 100 mg PO BEDTIME [facility] Last Admin: 07/02/23 20:26 Dose: 100 mg Thiamine HCl (Thiamine Hcl 100 Mg Tablet) 100 mg PO DAILY [facility] Last Admin: 07/03/23 08:55 Dose: 100 mg Trazodone HCl (Trazodone Hcl 50 Mg Tablet) 50 mg PO BEDTIME MRX1 PRN PRN Reason: Insomnia Allergies Allergies Allergy/AdvReac Type Severity Reaction Status Date / Time No Known Allergies Allergy Verified 06/22/23 20:26 Assessment & Plan Assessment & Plan (1) Recurrent major depression-severe: Qualifiers: Psychotic features: without psychotic features Qualified Code(s): F33.2 - Major depressive disorder, recurrent severe without psychotic features Status: Acute Code(s): F33.2 - Major depressive disorder, recurrent severe without psychotic features (2) Alcohol use disorder, severe, dependence: Status: Acute Code(s): F10.20 - Alcohol dependence, uncomplicated Plan Hospital course: 06/23 Patient reports that he is feeling better; only drank for 1 day after months of sobriety and no need for CIWA. Patient says he was on clonidine 0.2 mg t.i.d. in the past which was really helpful and asked if it could be increased; discussed risks/side effects of this medication and he agreed. Also discussed Lamictal which patient was considering; travel writer reviewed risks/side-effects including SJ and patient agrees that this might be a good medication to try and would like to do so 06/24 thinks increase clonidine is helping. 06/27/23- Continue regime and plan of care. 06/27: Continue tx 06/28: Continue tx, await [facility] acceptance. 06/29: Continue tx 06/30 continue tx 07/01 contnue tx plan 07/02 continue tx Plan: CV Q 15 minute checks Increase clonidine to 0.2 mg t.i.d.; patient said he tolerated this dose before and it was helpful for anxiety Start Lamictal 25 mg q.h.s.; travel writer reviewed risks/side effects including Chandan Richard's Trileptal 300 mg bid trial ? Abilify trial Addictions consult MVI, Folic Acid, Thiamine Aftercare planning Reason for continued inpatient stay Substantial Risk for: harm to self and inability to function Time Spent With Patient Time: Total time managing care of this patient today ____ minutes.
[2023-07-03 20:00] VITALS: BP 105/60; PULSE 71; RESP 18; TEMP 36; O2SAT 98
[2023-07-03 20:56] VITALS: BP 105/60
[2023-07-03] MEDS: lamoTRIgine 25 MG TABLET PO (20:56)
[2023-07-03] MEDS: QUEtiapine Fumarate 100 MG TABLET PO (20:56)
[2023-07-04 08:56] VITALS: BP 126/76; PULSE 80; RESP 16; TEMP 36.4; O2SAT 97
[2023-07-04] MEDS: Thiamine HCL 100 MG TABLET PO (08:56)
[2023-07-04] MEDS: Folic Acid 1 MG TABLET PO (08:56)
[2023-07-04] MEDS: cloNIDine HCL 0.2 MG TABLET PO ×3 (08:56→20:39)
--- NOTE | 2023-07-04 10:19 | P.PNPSI_ITS ---
Subjective Subjective Date of Service: 07/04/23 Reason For Visit: Depression Subjective Notes: Conditional Voluntary Healthcare Proxy: No Guardianship: No Medical Problems Affecting Mental Status: No Interim History: Reviewed with team. Pt denies SI/HI/AH/VH He is hopeful for acceptance to [facility]. He is hopeful for his future. Reports decrease in anxiety-clonidine is useful Enjoys recovery focused groups on the unit. No new diagnostics. Declines the need for medicine changes Medication Compliance: Yes Side effects from medications: No Attending Groups: Yes Review of Systems Acute medical concerns: No Medical Review of Systems: unchanged Review of Systems Review of Systems Yes all other systems are reviewed and are negative Mental Status Exam Mental Status Exam Patient Appearance: Appropriate Patient Orientation: Person, Place, Time and Situation Level of Consciousness: Alert Patient Behavior: Talkative and Good Eye Contact Mood Description: Constricted Affect Description: Constricted Patient Cognition Impaired: No Ability to Follow Directions: Good Speech Pattern: Spontaneous Speech Diagnostics Vital Signs (24Hr): Vital Signs - 24 hr 07/03/23 20:00 07/03/23 20:56 07/04/23 08:56 Temperature 96.8 F Pulse Rate 71 Respiratory Rate 18 Blood Pressure 105/60 105/60 126/76 Pulse Oximetry 98 Oxygen Delivery Method Room Air 07/04/23 08:56 Temperature 97.5 F Pulse Rate 80 Respiratory Rate 16 Blood Pressure 126/76 Pulse Oximetry 97 Oxygen Delivery Method Room Air BMI result Body Mass Index 25.8 Labs 06/22/23 21:13 06/22/23 21:13 Medications Medications Current Medications Acetaminophen (Acetaminophen 325 Mg Tablet) 650 mg PO Q6H PRN PRN Reason: Headache/Pain Mild Scale (1-3) Last Admin: 06/28/23 18:24 Dose: 650 mg Al Hydroxide/Mg Hydroxide (Magnesium Hydrox/Alum Hydrox 30 Ml Oral.Susp) 30 ml PO Q6H PRN PRN Reason: Heartburn/Nausea Clonidine HCl (Clonidine Hcl 0.2 Mg Tablet) 0.2 mg PO TID [facility]; Protocol Last Admin: 07/04/23 08:56 Dose: 0.2 mg Folic Acid (Folic Acid 1 Mg Tablet) 1 mg PO DAILY [facility] Last Admin: 07/04/23 08:56 Dose: 1 mg Hydroxyzine HCl (Hydroxyzine Hcl 25 Mg Tablet) 25 mg PO Q6H PRN PRN Reason: Anxiety Lamotrigine (Lamotrigine 25 Mg Tablet) 25 mg PO BEDTIME [facility] Last Admin: 07/03/23 20:56 Dose: 25 mg Magnesium Hydroxide (Milk Of Magnesia 30 Ml Oral.Susp) 30 ml PO DAILY PRN PRN Reason: Constipation Nicotine (Nicotine 21 Mg Patch.Td24) 21 mg TRANSDERMA DAILY PRN PRN Reason: smoking cessation Last Admin: 06/24/23 08:38 Dose: 21 mg Nicotine Polacrilex (Nicotine Polacrilex 2 Mg Gum) 4 mg BUCCAL Q2H PRN PRN Reason: Nicotine Cravings Quetiapine Fumarate (Quetiapine Fumarate 100 Mg Tablet) 100 mg PO BEDTIME [facility] Last Admin: 07/03/23 20:56 Dose: 100 mg Thiamine HCl (Thiamine Hcl 100 Mg Tablet) 100 mg PO DAILY [facility] Last Admin: 07/04/23 08:56 Dose: 100 mg Trazodone HCl (Trazodone Hcl 50 Mg Tablet) 50 mg PO BEDTIME MRX1 PRN PRN Reason: Insomnia Allergies Allergies Allergy/AdvReac Type Severity Reaction Status Date / Time No Known Allergies Allergy Verified 06/22/23 20:26 Assessment & Plan Assessment & Plan (1) Recurrent major depression-severe: Qualifiers: Psychotic features: without psychotic features Qualified Code(s): F33.2 - Major depressive disorder, recurrent severe without psychotic features Status: Acute Code(s): F33.2 - Major depressive disorder, recurrent severe without psychotic features (2) Alcohol use disorder, severe, dependence: Status: Acute Code(s): F10.20 - Alcohol dependence, uncomplicated Plan Hospital course: 06/23 Patient reports that he is feeling better; only drank for 1 day after months of sobriety and no need for CIWA. Patient says he was on clonidine 0.2 mg t.i.d. in the past which was really helpful and asked if it could be increased; discussed risks/side effects of this medication and he agreed. Also discussed Lamictal which patient was considering; teletypewriter operator reviewed risks/side- effects including SJ and patient agrees that this might be a good medication to try and would like to do so 06/24 thinks increase clonidine is helping. 06/27/23- Continue regime and plan of care. 06/27: Continue tx 06/28: Continue tx, await [facility] acceptance. 06/29: Continue tx 06/30 continue tx 07/01 contnue tx plan 07/02 continue tx 07/03 continue tx Plan: CV Q 15 minute checks Increase clonidine to 0.2 mg t.i.d.; patient said he tolerated this dose before and it was helpful for anxiety Start Lamictal 25 mg q.h.s.; teletypewriter operator reviewed risks/side effects including Chandan Richard's Trileptal 300 mg bid trial ? Abilify trial Addictions consult MVI, Folic Acid, Thiamine Aftercare planning Informed Consent: understands Reason for continued inpatient stay Substantial Risk for: rapid decompensation Time Spent With Patient Time: Total time managing care of this patient today ____ minutes.
[2023-07-04 14:33] VITALS: BP 106/65
[2023-07-04 19:48] VITALS: BP 102/70; PULSE 71; RESP 16; TEMP 36.6; O2SAT 97
[2023-07-04] MEDS: QUEtiapine Fumarate 100 MG TABLET PO (20:39)
[2023-07-04] MEDS: lamoTRIgine 25 MG TABLET PO (20:39)
[2023-07-05 08:00] VITALS: BP 109/67; PULSE 73; RESP 18; TEMP 36.6; O2SAT 97
[2023-07-05 08:36] VITALS: BP 109/67
[2023-07-05] MEDS: Thiamine HCL 100 MG TABLET PO (08:36)
[2023-07-05] MEDS: cloNIDine HCL 0.2 MG TABLET PO ×3 (08:36→20:20)
[2023-07-05] MEDS: Folic Acid 1 MG TABLET PO (08:37)
--- NOTE | 2023-07-05 09:58 | HO.PSYCHPN ---
Subjective Subjective Date of Service: 07/05/23 Reason For Visit: Depression Subjective Notes: Conditional Voluntary Healthcare Proxy: No Guardianship: No Medical Problems Affecting Mental Status: No Interim History: Pt will discharge 07/[address] [facility]. He is prepared, but asks if he can remain in patient longer and look at other program options. Team has explained to him that this is his next step to obtain his roasterman plan. Reports medications are helpful, without adverse effects. Denies SI/HI/AH/VH. Medication Compliance: Yes Side effects from medications: No Attending Groups: Intermittent (Recovery Groups) Review of Systems Acute medical concerns: No Medical Review of Systems: unchanged Review of Systems Review of Systems Yes all other systems are reviewed and are negative Mental Status Exam Mental Status Exam Patient Appearance: Appropriate Patient Orientation: Person, Place, Time and Situation Level of Consciousness: Alert Patient Behavior: Talkative and Good Eye Contact Mood Description: Constricted Affect Description: Constricted Patient Cognition Impaired: No Ability to Follow Directions: Good Speech Pattern: Spontaneous Speech Diagnostics Vital Signs (24Hr): Vital Signs - 24 hr 07/04/23 14:33 07/04/23 19:48 07/05/23 08:00 Temperature 97.9 F 97.9 F Pulse Rate 71 73 Respiratory Rate 16 18 Blood Pressure 106/65 102/70 109/67 Pulse Oximetry 97 97 Oxygen Delivery Method Room Air Room Air 07/05/23 08:36 Temperature Pulse Rate Respiratory Rate Blood Pressure 109/67 Pulse Oximetry Oxygen Delivery Method BMI result Body Mass Index 25.8 Labs 06/22/23 21:13 06/22/23 21:13 Medications Medications Current Medications Acetaminophen (Acetaminophen 325 Mg Tablet) 650 mg PO Q6H PRN PRN Reason: Headache/Pain Mild Scale (1-3) Last Admin: 06/28/23 18:24 Dose: 650 mg Al Hydroxide/Mg Hydroxide (Magnesium Hydrox/Alum Hydrox 30 Ml Oral.Susp) 30 ml PO Q6H PRN PRN Reason: Heartburn/Nausea Clonidine HCl (Clonidine Hcl 0.2 Mg Tablet) 0.2 mg PO TID [facility]; Protocol Last Admin: 07/05/23 08:36 Dose: 0.2 mg Folic Acid (Folic Acid 1 Mg Tablet) 1 mg PO DAILY [facility] Last Admin: 07/05/23 08:37 Dose: 1 mg Hydroxyzine HCl (Hydroxyzine Hcl 25 Mg Tablet) 25 mg PO Q6H PRN PRN Reason: Anxiety Lamotrigine (Lamotrigine 25 Mg Tablet) 25 mg PO BEDTIME [facility] Last Admin: 07/04/23 20:39 Dose: 25 mg Magnesium Hydroxide (Milk Of Magnesia 30 Ml Oral.Susp) 30 ml PO DAILY PRN PRN Reason: Constipation Nicotine (Nicotine 21 Mg Patch.Td24) 21 mg TRANSDERMA DAILY PRN PRN Reason: smoking cessation Last Admin: 06/24/23 08:38 Dose: 21 mg Nicotine Polacrilex (Nicotine Polacrilex 2 Mg Gum) 4 mg BUCCAL Q2H PRN PRN Reason: Nicotine Cravings Quetiapine Fumarate (Quetiapine Fumarate 100 Mg Tablet) 100 mg PO BEDTIME [facility] Last Admin: 07/04/23 20:39 Dose: 100 mg Thiamine HCl (Thiamine Hcl 100 Mg Tablet) 100 mg PO DAILY [facility] Last Admin: 07/05/23 08:36 Dose: 100 mg Trazodone HCl (Trazodone Hcl 50 Mg Tablet) 50 mg PO BEDTIME MRX1 PRN PRN Reason: Insomnia Allergies Allergies Allergy/AdvReac Type Severity Reaction Status Date / Time No Known Allergies Allergy Verified 06/22/23 20:26 Assessment & Plan Assessment & Plan (1) Recurrent major depression-severe: Qualifiers: Psychotic features: without psychotic features Qualified Code(s): F33.2 - Major depressive disorder, recurrent severe without psychotic features Status: Acute Code(s): F33.2 - Major depressive disorder, recurrent severe without psychotic features (2) Alcohol use disorder, severe, dependence: Status: Acute Code(s): F10.20 - Alcohol dependence, uncomplicated Plan Hospital course: 06/23 Patient reports that he is feeling better; only drank for 1 day after months of sobriety and no need for CIWA. Patient says he was on clonidine 0.2 mg t.i.d. in the past which was really helpful and asked if it could be increased; discussed risks/side effects of this medication and he agreed. Also discussed Lamictal which patient was considering; copywriter reviewed risks/side-effects including SJ and patient agrees that this might be a good medication to try and would like to do so 06/24 thinks increase clonidine is helping. 06/27/23- Continue regime and plan of care. 06/27: Continue tx 5/23: Continue tx, await [facility] acceptance. 06/29: Continue tx 06/30 continue tx 07/01 contnue tx plan 07/02 continue tx 07/03 continue tx 07/04 Discharge 07/[address] [facility] Plan: CV Q 15 minute checks Increase clonidine to 0.2 mg t.i.d.; patient said he tolerated this dose before and it was helpful for anxiety Start Lamictal 25 mg q.h.s.; copywriter reviewed risks/side effects including Chandan Richard's Trileptal 300 mg bid trial ? Abilify trial Addictions consult MVI, Folic Acid, Thiamine Aftercare planning Informed Consent: understands Reason for continued inpatient stay Substantial Risk for: stable for discharge Time Spent With Patient Time: Total time managing care of this patient today ____ minutes.
[2023-07-05 14:36] VITALS: BP 95/65
[2023-07-05 20:00] VITALS: BP 101/71; PULSE 67; RESP 18; TEMP 36.8; O2SAT 97
[2023-07-05 20:20] VITALS: BP 101/71
[2023-07-05] MEDS: lamoTRIgine 25 MG TABLET PO (20:20)
[2023-07-05] MEDS: QUEtiapine Fumarate 100 MG TABLET PO (20:20)
[2023-07-06 08:00] VITALS: BP 118/77; PULSE 84; RESP 16; TEMP 36.8; O2SAT 98
[2023-07-06] MEDS: Thiamine HCL 100 MG TABLET PO (08:35)
[2023-07-06] MEDS: cloNIDine HCL 0.2 MG TABLET PO (08:36)
[2023-07-06] MEDS: Folic Acid 1 MG TABLET PO (08:36)
--- NOTE | 2023-07-06 16:12 | P.DS_ITS ---
DS: Providers Provider Date of Service: 07/06/23 Date of admission: 06/23/23 12:29 Date of discharge: 07/06/23 Primary care physician: Unknown Physician Admitting clinician: Teetee Wang Attending physician on admission: Mau Kessler Consults: 06/22/23 21:32 Consult to Care Team Routine Comment: Reason for consultation: si WITH PLAN Has provider been notified: No DS: Diagnosis Discharge Diagnosis (1) Recurrent major depression-severe: Status: Acute (2) Alcohol use disorder, severe, dependence: Status: Acute DS: Medications Discharge Medications Home Medications: Previous Rx's ?Medication ?Instructions ?Recorded clonidine HCl 0.2 mg tablet 0.2 mg PO TID #90 tabs 07/05/23 folic acid 1 mg tablet 1 mg PO DAILY #30 tabs 07/05/23 lamotrigine 25 mg tablet 25 mg PO BEDTIME #30 tabs 07/05/23 quetiapine 100 mg tablet 100 mg PO BEDTIME #30 tabs 07/05/23 thiamine mononitrate (vit B1) 100 100 mg PO DAILY #30 tabs 07/05/23 mg tablet Mental Status Exam Mental Status Exam Patient Appearance: Appropriate Patient Orientation: Person, Place, Time and Situation Level of Consciousness: Alert Patient Behavior: Talkative and Good Eye Contact Mood Description: Constricted Affect Description: Constricted Patient Cognition Impaired: No Ability to Follow Directions: Good Speech Pattern: Spontaneous Speech DS: Summary Hospital Course Hospital Course: Admission to adult psychiatry for exacerbation of recurrent major depression, alcohol use disorder. Pt reported a recent discharge from a [facility] with a plan to attend [facility]. On the way to [facility], he diverted his ride, broke his sobriety and presented for assessment. Medications were evaluated and adjusted. Residential resources were evaluated. Pt will discharge to [facility] and will utilize [facility] and [facility] for out patient services. Status at Discharge Functional status at discharge: independent ambulation Overall status at discharge: patient is progressing back to baseline Time Spent with Patient Time attestation: Total time managing care of this patient today ____ minutes. Time spent: Less than 30 minutes Discharge Plan Discharge Anticipated Discharge Date/Time: 07/06/23 12:00 Patient Disposition: Xfer Inpatient Rehab Fac Discharge Diagnosis: Recurrent Major Depression Alcohol Use Disorder Referrals: [facility] CSS: Behavioral health network ([facility]) [Other] - 07/06/23 10:30 am (Patient accepted to [facility] for substance use treatment ) Behavioral health network ([facility]): [facility] [Other] - 1 Week ([facility] Information Patient will need to self present to be evaluated for psychiatric medication management and therapy services after completion of CSS program Hours to present for evaluation are Monday - Monday 8 am- 8 pm and Monday 9 am-5 pm) [place] [facility] ([facility]) [facility] [Other] - 1 Week ([facility] Information Patient will need to self present to be evaluated for psychiatric medication management and therapy services after completion of CSS program Hours to present for evaluation are Monday- Monday between 10-11 am) Lei Bass PA-C [Physician [facility]] - 1 Week Discharge Medications: New quetiapine 100 mg Tablet 100 mg PO BEDTIME Qty: 30 0RF lamotrigine 25 mg Tablet 25 mg PO BEDTIME Qty: 30 0RF clonidine HCl 0.2 mg Tablet 0.2 mg PO TID Qty: 90 0RF Protocol: Hold for SBP< HOLD for SBP < : 90 folic acid 1 mg Tablet 1 mg PO DAILY Qty: 30 0RF thiamine mononitrate (vit B1) 100 mg Tablet 100 mg PO DAILY Qty: 30 0RF Discontinued clonidine HCl 0.1 mg tablet 1 tab PO TID Qty: 90 0RF quetiapine 100 mg tablet 100 mg PO BEDTIME Discharge Orders: Discharge Order (Routine); Ordered 07/06/23 Ordered By: Teetee Wang Diet: Advance to usual diet Activity on Discharge: As tolerated Stand Alone Forms: Patient Portal Discharge page, Community Support Print Language: Tamazight Care Plan Goals: Mood and Behavioral Stabilization Ongoing work on sobriety Health Concerns: Mood and Behavioral Stabilization Ongoing work on sobriety Plan of Treatment: Transfer to [facility] today Attend scheduled appointments Take medications as directed Ongoing work on sobriety Assessment: Scheduled discharge to [facility] Discharge Date/Time: 07/06/23 10:21
== END 2023-07-06 10:21 | DRG 751 ==
LOC: HO.ED 22:05 → HO.PM5 06-23 12:36
PROVIDERS: Physician Assistant; Admitting Provider Psychiatry & Neurology Psychiatry; Emergency Provider Emergency Medicine; Visit Provider Clinical Nurse Specialist Psychiatric/Mental Health, Adult
DX: F33.2 Major depressive disorder, recurrent severe without psychotic features (principal); R45.851 Suicidal ideations; F10.20 Alcohol dependence, uncomplicated; F17.210 Nicotine dependence, cigarettes, uncomplicated; Z59.02 Unsheltered homelessness; Z71.6 Tobacco abuse counseling; Y90.5 Blood alcohol level of 100-119 mg/100 ml; Z79.899 Other long term (current) drug therapy
CPT/HCPCS: 36415; 80053; 80143; 80179; 80307; 81001; 85025; 93005; 99285; S9485

== ENCOUNTER → 2023-06-23 10:34 | Outpatient (BNV) | payer MEDICAID, SELFPAY | PROVIDERS: Admitting Provider Psychiatry & Neurology Psychiatry; Emergency Provider Emergency Medicine; Visit Provider Internal Medicine Cardiovascular Disease | DX: R94.31 Abnormal electrocardiogram [ECG] [EKG] (principal) | CPT/HCPCS: 93010 ==

== ENCOUNTER → 2023-06-23 12:29 | Outpatient (BNV) | payer OTHER, SELFPAY | PROVIDERS: Admitting Provider Psychiatry & Neurology Psychiatry; Emergency Provider Emergency Medicine; Visit Provider Clinical Nurse Specialist Psychiatric/Mental Health, Adult | DX: F33.2 Major depressive disorder, recurrent severe without psychotic features (principal); F10.20 Alcohol dependence, uncomplicated | CPT/HCPCS: 99231; 99232 ==